=== PATIENT | male | born 2000 | race Caucasian/White ===

== ENCOUNTER 2022-04-30 20:58 | Emergency (ER) | payer MEDICAID, SELFPAY ==
[2022-04-30 21:09] VITALS: BP 124/80; PULSE 72; O2SAT 97
--- NOTE | 2022-04-30 22:09 | ECG_ITS ---
Test Reason : CHEST PAIN Blood Pressure : / mmHG Vent. Rate : 075 BPM Atrial Rate : 075 BPM P-R Int : 128 ms QRS Dur : 082 ms QT Int : 370 ms P-R-T Axes : 072 040 062 degrees QTc Int : 413 ms Normal sinus rhythm Normal ECG No previous ECGs available Referred By: Generic ED Physician Electronically Signed By:AMADOR DAVID
[2022-04-30 22:25] LABS: MANUAL DIFF FLAG NO
[2022-04-30 22:26] LABS: Basophils Absolute Auto 0.1 X10*3/uL (0.0-0.2); Basophils Percent Auto 0.8 % (0-2); Eosinophils Absolute Auto 0.1 X10*3/uL (0.0-0.4); Eosinophils Percent Auto 0.7 % (0-4); Hemoglobin 15.1 g/dl (14.0-18.0); Imm Gran Abs Auto 0.02 X10*3/uL (0.00-0.03); Imm Gran Pct Auto 0.2 % (0.0-0.4); Lymphocytes Absolute Auto 2.8 X10*3/uL (1.2-4.9); Lymphocytes Percent Auto 31.7 % (20-40); Mean Corpuscular HGB Conc 34.3 g/dl (31.0-36.0); Mean Corpuscular Hemoglobin 31.2 pg (27.0-33.0); Mean Corpuscular Volume 90.9 fL (80.0-98.0); Mean Platelet Volume 10.1 fL (9.4-12.4); Monocytes Absolute Auto 0.8 X10*3/uL (0.1-1.2); Monocytes Percent Auto 9.4 % (2-11); Neutrophils Percent Auto 57.2 % (45-73); Platelet Count 243 X10*3/uL (160-400); Red Blood Count 4.84 X10*6/uL (4.60-5.80); Red Cell Distribution Width 11.4 % (11.0-16.0); White Blood Count 8.8 X10*3/uL (4.8-10.8)
[2022-04-30 22:36] LABS: Anion Gap 14 (12-20); Blood Urea Nitrogen 7 mg/dL (9-16); Calcium 9.4 mg/dL (8.4-10.2); Carbon Dioxide 28 mmol/L (22-29); Chloride 103 mmol/L (96-108); Estimated Glomerular Filt Rate > 60; Glucose Random 92 mg/dL (60-115); Potassium 3.6 mmol/L (3.3-5.1); Sodium 141 mmol/L (135-145)
[2022-04-30 22:47] VITALS: BP 119/83; PULSE 73; RESP 16; TEMP 37.1; O2SAT 98; BMI 21.6
[2022-04-30 22:49] LABS: Troponin-I High Sensitivity < 3.5 ng/L (<3.5-35.0)
[2022-04-30 23:19] LABS: Amphetamine Screen Urine Not Detected (Not Detect); Barbiturates, Urine Not Detected (Not Detect); Benzodiazepines Screen Urine Not Detected (Not Detect); Cannabinoid Screen Urine POSITIVE (Not Detect); Cocaine Screen Urine Not Detected (Not Detect); Fentanyl, urine Not Detected (Not Detect); Opiate Screen Urine Not Detected (Not Detect); Phencyclidine Screen Urine Not Detected (Not Detect)
[2022-05-01 02:20] VITALS: BP 119/80; PULSE 67; RESP 18; O2SAT 97
[2022-05-01 02:24] VITALS: RESP 18
--- NOTE | 2022-05-01 03:35 | ED_ITS ---
HPI - Chest Pain General Chief Complaint: Chest Pain Stated Complaint: cp Time Seen by Provider: 05/01/22 03:35 Source: patient Mode of arrival: ambulatory Limitations: no limitations History of Present Illness HPI narrative: Patient 22 years old with no known significant medical history felt lightheaded dizzy after had a glass of wine an edible at noon time was anxious talking to his friend and suddenly passed out then complaining of pain all over the body including chest Review of Systems Review of Systems: Yes all other systems are reviewed and are negative [facility] Social History Social History Advance Directives: No Physical Exam Vital Signs: Vital Signs: Last Vital Signs Temp 98.8 F 04/30/22 22:47 Pulse 67 05/01/22 02:20 Resp 18 05/01/22 02:24 BP 119/80 05/01/22 02:20 Pulse Ox 97 05/01/22 02:20 O2 Del Method 05/01/22 02:20 BMI result Body Mass Index 21.6 Appearance: Alert. Oriented X3. No acute distress. Eyes: PERRLA, No Nystagmus ENT: Pharynx normal. Oral Mucosa moist Neck: Normal inspection. Neck supple. CVS: Normal heart rate and rhythm. Pulses normal. Respiratory: No respiratory distress. Equal air entry bilateral, no wheezing/rales/rhonchi Abdomen: Soft and nontender. Bowel sounds are present, no mass palpable, no CVA tenderness Skin: Skin warm and dry. Normal skin color. Normal skin turgor. Extremities: No lower extremity edema. No calf tenderness Neuro: Oriented X 3. No motor deficit. No sensory deficit.No cerebellar signs , cranial nerves II-XII intact MDM - Chest Pain MDM Narrative Medical decision making narrative: With atypical chest pain with anxiety use of THC with likely vasovagal attack labs are stable will discharge patient home Lab Data Attestation: I reviewed the patient's lab results. Result diagrams: 04/30/22 22:12 04/30/22 22:12 Labs: Lab Results 04/30/22 04/30/22 04/30/22 Range/Units 22:12 22:12 22:15 WBC 8.8 (4.8-10.8) X10*3/uL RBC 4.84 (4.60-5.80) X10*6/uL Hgb 15.1 (14.0-18.0) g/dl Hct 44.0 (42.0-52.0) % MCV 90.9 (80.0-98.0) fL MCH 31.2 (27.0-33.0) pg MCHC 34.3 (31.0-36.0) g/dl RDW 11.4 (11.0-16.0) % Plt Count 243 (160-400) X10*3/uL MPV 10.1 (9.4-12.4) fL Immature Gran % (Auto) 0.2 (0.0-0.4) % Neut % (Auto) 57.2 (45-73) % Lymph % (Auto) 31.7 (20-40) % [place] % (Auto) 9.4 (2-11) % Eos % (Auto) 0.7 (0-4) % Baso % (Auto) 0.8 (0-2) % Lymph # (Auto) 2.8 (1.2-4.9) X10*3/uL Rad[place] # (Auto) 0.8 (0.1-1.2) X10*3/uL Eos # (Auto) 0.1 (0.0-0.4) X10*3/uL Baso # (Auto) 0.1 (0.0-0.2) X10*3/uL Abs Immat Gran (auto) 0.02 (0.00-0.03) X10*3/uL Absolute Neuts (auto) 5.0 (2.0-8.3) x10*3/uL Absolute Nucleated RBC 0.000 (0.0-0.012) X10*3/uL Nucleated RBC % (auto) 0.0 (0.0-0.2) /100WBC Sodium 141 (135-145) mmol/L Potassium 3.6 (3.3-5.1) mmol/L Chloride 103 (96-108) mmol/L Carbon Dioxide 28 (22-29) mmol/L Anion Gap 14 (12-20) BUN 7 L (9-16) mg/dL Creatinine 0.80 (0.5-1.4) mg/dL Estim Creat Clear Calc TNP Estimated GFR > 60 Random Glucose 92 (60-115) mg/dL Calcium 9.4 (8.4-10.2) mg/dL Troponin I High Sens < 3.5 (<3.5-35.0) ng/L Urine Opiates Screen (Not Detect) Urine Fentanyl Screen (Not Detect) Ur Barbiturates Screen (Not Detect) Ur Phencyclidine Scrn (Not Detect) Ur Amphetamines Screen (Not Detect) U Benzodiazepines Scrn (Not Detect) Urine Cocaine Screen (Not Detect) U Marijuana (THC) Screen (Not Detect) 04/30/22 Range/Units 22:55 WBC (4.8-10.8) X10*3/uL RBC (4.60-5.80) X10*6/uL Hgb (14.0-18.0) g/dl Hct (42.0-52.0) % MCV (80.0-98.0) fL MCH (27.0-33.0) pg MCHC (31.0-36.0) g/dl RDW (11.0-16.0) % Plt Count (160-400) X10*3/uL MPV (9.4-12.4) fL Immature Gran % (Auto) (0.0-0.4) % Neut % (Auto) (45-73) % Lymph % (Auto) (20-40) % Radford % (Auto) (2-11) % Eos % (Auto) (0-4) % Baso % (Auto) (0-2) % Lymph # (Auto) (1.2-4.9) X10*3/uL Rad[place] # (Auto) (0.1-1.2) X10*3/uL Eos # (Auto) (0.0-0.4) X10*3/uL Baso # (Auto) (0.0-0.2) X10*3/uL Abs Immat Gran (auto) (0.00-0.03) X10*3/uL Absolute Neuts (auto) (2.0-8.3) x10*3/uL Absolute Nucleated RBC (0.0-0.012) X10*3/uL Nucleated RBC % (auto) (0.0-0.2) /100WBC Sodium (135-145) mmol/L Potassium (3.3-5.1) mmol/L Chloride (96-108) mmol/L Carbon Dioxide (22-29) mmol/L Anion Gap (12-20) BUN (9-16) mg/dL Creatinine (0.5-1.4) mg/dL Estim Creat Clear Calc Estimated GFR Random Glucose (60-115) mg/dL Calcium (8.4-10.2) mg/dL Troponin I High Sens (<3.5-35.0) ng/L Urine Opiates Screen Not Detected (Not Detect) Urine Fentanyl Screen Not Detected (Not Detect) Ur Barbiturates Screen Not Detected (Not Detect) Ur Phencyclidine Scrn Not Detected (Not Detect) Ur Amphetamines Screen Not Detected (Not Detect) U Benzodiazepines Scrn Not Detected (Not Detect) Urine Cocaine Screen Not Detected (Not Detect) U Marijuana (THC) Screen POSITIVE H (Not Detect) ECG Data ECG #1: Attestation: I personally reviewed and interpreted this ECG as follows: Interpretation: Normal sinus rhythm heart rate 75 beats per minute normal interval normal axis n o acute ST-T ischemia Discharge Plan Discharge Clinical Impression: Vaso vagal episode, Atypical chest pain Patient Disposition: Home, Self-Care Instructions: Chest Pain (ED), Near Syncope (ED) Additional Instructions: Drink plenty of fluids Follow with PCP if any concerns Interventions: ED Discharge Assessment Last Done: 05/01/22 03:43
== END 2022-05-01 03:52 | disposition home or self-care (01) ==
PROVIDERS: Emergency Provider Internal Medicine
DX: R55 Syncope and collapse (principal); R07.89 Other chest pain; R42 Dizziness and giddiness; F12.90 Cannabis use, unspecified, uncomplicated; Z79.899 Other long term (current) drug therapy
CPT/HCPCS: 36415; 80048; 80307; 84484; 85025; 93005; 99283; 99284

== ENCOUNTER 2023-01-16 10:52 | Emergency (ER) | payer MEDICAID, SELFPAY ==
--- NOTE | ~2023-01-16 | XR_ITS ---
EXAMINATION: XR ELBOW, LEFT CLINICAL INFORMATION: Trauma, pain COMPARISON: None available. TECHNIQUE: Left elbow is imaged in 3 views. FINDINGS: No fracture, dislocation, or elbow capsular effusion. The articular surfaces appear intact. No joint narrowing or erosive changes. Normal bony mineralization. No destructive process. XR/XR elbow LT min 3V IMPRESSION: Unremarkable left elbow.
--- NOTE | ~2023-01-16 | XR_ITS ---
EXAMINATION: XR ABDOMEN CLINICAL INFORMATION: Constipation COMPARISON: None TECHNIQUE: Frontal view. FINDINGS: There is increased amount of stool projecting over the distribution of the colon raising suspicion for constipation. There is no evidence of bowel obstruction, however. There is no evidence of abnormal calcifications. There is no acute skeletal structure changes. There is no evidence of small-bowel obstruction. There is no free air in the abdomen. XR/XR KUB IMPRESSION: Increased amount of stool in the colon suggesting constipation. Please correlate with clinical presentation.
--- NOTE | 2023-01-16 11:08 | ED.SYNCOPE ---
HPI - Syncope General Chief Complaint: Dizziness Stated Complaint: chest pain, hurt his arm Time Seen by Provider: 01/16/23 16:02 Source: patient, RN notes reviewed and old records reviewed Mode of arrival: ambulatory Limitations: no limitations History of Present Illness HPI narrative: 22-year-old male presents for evaluation of ?fainting. ? Patient reports that several times per week ?have chest pain, get dizzy and pass out. ? This most recent happened last night the patient fell onto his left side injuring his left elbow He denies hitting his head Per his partner, the patient was unconscious for approximately 1 minutes He denies any alcohol or drug abuse. He was seen here last April for a similar complaint, had negative workup and was discharged home The patient reports that he has never seen Cardiology for this Currently denies any chest pain or shortness of breath Patient also admits that he has issues with constipation and ?hemorrhoids. ? He reports he can feel a ball the left side of his rectum Of note, the patient reports that he is engages and receptive anal sex. Related Data Previous Rx's Medication Instructions Recorded magnesium citrate 300 ml PO DAILY PRN constipation 01/16/23 #296 mL polyethylene glycol 3350 17 gram 17 g PO DAILY 2 weeks #30 ea 01/16/23 oral powder packet (Miralax) Allergies Allergy/AdvReac Type Severity Reaction Status Date / Time penicillin G Allergy Rash Verified 01/16/23 11:09 Review of Systems Constitutional: Constitutional: Reports as per HPI, Denies chills, Denies fatigue, Denies fever(s) and Denies headache(s) ENT: Denies headache(s) Cardiovascular: Cardiovascular: Denies chest pain, Reports syncope and Denies dyspnea Respiratory: Respiratory: Denies cough and Denies dyspnea Gastrointestinal: Gastrointestinal: Denies abdominal pain, Reports constipation and Denies vomiting Genitourinary: Genitourinary: Denies difficulty urinating and Denies dysuria Neurologic: Reports syncope, Denies headache(s) and Denies focal weakness Endocrine: Endocrine: Denies fatigue [facility] Social History Social History Advance Directives: No Physical Exam Vital Signs: Vital Signs: Last Vital Signs Temp 99.1 F 01/16/23 17:02 Pulse 102 H 01/16/23 17:06 Resp 16 01/16/23 17:02 BP 108/79 01/16/23 17:06 Pulse Ox 97 01/16/23 17:02 O2 Del Method Room Air 01/16/23 17:02 BMI result Body Mass Index 22.8 Const: General: healthy appearing, comfortable, no acute distress, alert and awake Nutritional Appearance: well nourished Orientation/consciousness: patient oriented x3 HEENT: Head: Yes normocephalic and Yes atraumatic Eyes: Eyelids: Yes eyelids normal Conjunctivae: conjunctivae normal Sclerae: sclerae normal Corneas: corneas normal Pupils: Equal, round and reactive pupils present EOM: EOMs intact bilaterally Neck: Neck: Yes full ROM Resp: Effort & Inspection: normal respiratory effort, able to speak in complete sentences, no audible wheezes and not labored Auscultation: clear to auscultation bilaterally Cardio: Rate: regular rate Rhythm: regular rhythm GI: Inspection: No distended Palpation (GI): Soft to palpation, not firm, nontender, no guarding and not rigid Auscultation: normoactive bowel sounds Rectal Exam - Male: No visual inspection normal and Yes External hemorrhoid(s) present (Non thrombosed external hemorrhoid from the 9 to 7 o'clock position. ) Skin: General skin exam: no rashes or lesions noted and elasticity normal Neuro: General: patient oriented x3 Cranial nerves: Yes Equal, round and reactive pupils present and Yes Bilaterally intact EOM present Cognition (Neuro): normal cognition Course Course Course Narrative: RME - 22 yo male with history of anxiety, history of syncope who presents to the ER for evalution of recurrent syncope for the last several months. Last night he fell and hit his left arm which is what prompts him to get evaluated today. No head strike. He was seen here in the past for syncope - related to anxiety, etoh and thc. Prior to his episodes he reports mild dizziness. Denies current drugs or alcohol. Plan: EKG, lab workup, XR elbow Medical Decision Making Medical Decision Making MDM Narrative: 22-year-old male presents for evaluation of a chief complaint of syncope. He has a history of this that in the past has been attributed to anxiety. The patient has a EKG without any acute findings. Labs are without any abnormalities, we will check orthostatic vital signs. He is PERC negative without any risk factors for PE, he is not tachycardic or tachypneic. Less likely PE. Patient's left elbow x-ray does not show any evidence of fracture. Given his additional complaint of constipation and hemorrhoids, with a KUB to evaluate for degree of constipation. The patient will likely require cardiology follow-up as well as General surgery follow-up for his hemorrhoids. Differential Diagnosis Syncope Orthostasis Arrhythmia Anxiety Substance abuse Constipation External hemorrhoids Rectal prolapse Lab Data MDM Lab Attestation statement: I reviewed the patient's lab results. (No significant lab abnormalities. No leukocytosis) 01/16/23 11:28 01/16/23 11:28 Labs: Lab Results 01/16/23 01/16/23 01/16/23 Range/Units 11:28 11:28 11:28 WBC 7.3 (4.8-10.8) X10*3/uL RBC 4.88 (4.60-5.80) X10*6/uL Hgb 15.4 (14.0-18.0) g/dl Hct 45.3 (42.0-52.0) % MCV 92.8 (80.0-98.0) fL MCH 31.6 (27.0-33.0) pg MCHC 34.0 (31.0-36.0) g/dl RDW 11.4 (11.0-16.0) % Plt Count 255 (160-400) X10*3/uL MPV 10.3 (9.4-12.4) fL Immature Gran % (Auto) 0.4 (0.0-0.4) % Neut % (Auto) 62.3 (45-73) % Lymph % (Auto) 26.5 (20-40) % Ritchie % (Auto) 9.4 (2-11) % Eos % (Auto) 0.7 (0-4) % Baso % (Auto) 0.7 (0-2) % Lymph # (Auto) 1.9 (1.2-4.9) X10*3/uL Ritchie # (Auto) 0.7 (0.1-1.2) X10*3/uL Eos # (Auto) 0.1 (0.0-0.4) X10*3/uL Baso # (Auto) 0.1 (0.0-0.2) X10*3/uL Abs Immat Gran (auto) 0.03 (0.00-0.03) X10*3/uL Absolute Neuts (auto) 4.6 (2.0-8.3) x10*3/uL Absolute Nucleated RBC 0.000 (0.0-0.012) X10*3/uL Nucleated RBC % (auto) 0.0 (0.0-0.2) /100WBC Sodium 140 (135-145) mmol/L Potassium 4.0 (3.3-5.1) mmol/L Chloride 105 (96-108) mmol/L Carbon Dioxide 29 (22-29) mmol/L Anion Gap 10 L (12-20) BUN 11 (9-16) mg/dL Creatinine 0.71 (0.5-1.4) mg/dL Estim Creat Clear Calc 158.3 Estimated GFR > 60 Random Glucose 84 (60-115) mg/dL Calcium 9.8 (8.4-10.2) mg/dL Magnesium 1.9 (1.6-2.6) mg/dL Total Bilirubin 1.2 H (0.0-1.0) mg/dL Direct Bilirubin 0.3 (0.0-0.5) mg/dL AST 24 (5-37) U/L ALT 15 (0-40) U/L Alkaline Phosphatase 66 (39-117) U/L Total Protein 7.4 (6.5-8.0) g/dL Albumin 4.7 (3.5-5.0) g/dL Urine Opiates Screen (Not Detect) Urine Fentanyl Screen (Not Detect) Ur Barbiturates Screen (Not Detect) Ur Phencyclidine Scrn (Not Detect) Ur Amphetamines Screen (Not Detect) U Benzodiazepines Scrn (Not Detect) Urine Cocaine Screen (Not Detect) U Marijuana (THC) Screen (Not Detect) Ethyl Alcohol < 10 mg/dL 01/16/23 Range/Units 11:28 WBC (4.8-10.8) X10*3/uL RBC (4.60-5.80) X10*6/uL Hgb (14.0-18.0) g/dl Hct (42.0-52.0) % MCV (80.0-98.0) fL MCH (27.0-33.0) pg MCHC (31.0-36.0) g/dl RDW (11.0-16.0) % Plt Count (160-400) X10*3/uL MPV (9.4-12.4) fL Immature Gran % (Auto) (0.0-0.4) % Neut % (Auto) (45-73) % Lymph % (Auto) (20-40) % Ritchie % (Auto) (2-11) % Eos % (Auto) (0-4) % Baso % (Auto) (0-2) % Lymph # (Auto) (1.2-4.9) X10*3/uL Ritchie # (Auto) (0.1-1.2) X10*3/uL Eos # (Auto) (0.0-0.4) X10*3/uL Baso # (Auto) (0.0-0.2) X10*3/uL Abs Immat Gran (auto) (0.00-0.03) X10*3/uL Absolute Neuts (auto) (2.0-8.3) x10*3/uL Absolute Nucleated RBC (0.0-0.012) X10*3/uL Nucleated RBC % (auto) (0.0-0.2) /100WBC Sodium (135-145) mmol/L Potassium (3.3-5.1) mmol/L Chloride (96-108) mmol/L Carbon Dioxide (22-29) mmol/L Anion Gap (12-20) BUN (9-16) mg/dL Creatinine (0.5-1.4) mg/dL Estim Creat Clear Calc Estimated GFR Random Glucose (60-115) mg/dL Calcium (8.4-10.2) mg/dL Magnesium (1.6-2.6) mg/dL Total Bilirubin (0.0-1.0) mg/dL Direct Bilirubin (0.0-0.5) mg/dL AST (5-37) U/L ALT (0-40) U/L Alkaline Phosphatase (39-117) U/L Total Protein (6.5-8.0) g/dL Albumin (3.5-5.0) g/dL Urine Opiates Screen Not Detected (Not Detect) Urine Fentanyl Screen Not Detected (Not Detect) Ur Barbiturates Screen Not Detected (Not Detect) Ur Phencyclidine Scrn Not Detected (Not Detect) Ur Amphetamines Screen Not Detected (Not Detect) U Benzodiazepines Scrn Not Detected (Not Detect) Urine Cocaine Screen Not Detected (Not Detect) U Marijuana (THC) Screen Not Detected (Not Detect) Ethyl Alcohol mg/dL Independent Interpretation I performed an independent interpretation of an: EKG (Normal sinus rhythm at a rate of 79 beats per minute. No ectopy, no ST segment changes. Nonischemic EKG) and Plain X-Ray (No obvious fracture of the left elbow) Discharge Plan Discharge Clinical Impression: Syncope, Acute constipation, External hemorrhoid Patient Disposition: Home, Self-Care Instructions: Constipation (ED), Syncope (ED) Additional Instructions: Your cardiac workup in the emergency from today was reassuring. There were no concerning abnormalities. However given your frequent episodes of passing out, you should follow-up with cardiology for Holter monitor Follow-up with Dr. Ascencio at the number provided. For constipation, you should increase fluid and fiber intake in your diet You should start taking MiraLax daily for the next 2 weeks Take magnesium citrate as well Follow-up with your primary doctor Prescriptions: New polyethylene glycol 3350 [Miralax] 17 gram powder in packet 17 g PO DAILY 14 Days Qty: 30 0RF magnesium citrate Solution 300 ml PO DAILY PRN (Reason: constipation) Qty: 296 0RF Referrals: Andrew Ascencio MD [Physician] - (frequent syncope. ? holter monitor) Rios Reese MD [Physician] - (needs colo-rectal for hemorrhoids) Stand Alone Forms: Work/School Release
[2023-01-16 11:10] VITALS: BP 127/80; PULSE 86; RESP 18; TEMP 36.9; O2SAT 96; BMI 22.8
--- NOTE | 2023-01-16 11:10 | ECG_ITS ---
Test Reason : SYNCOPE Blood Pressure : / mmHG Vent. Rate : 079 BPM Atrial Rate : 079 BPM P-R Int : 130 ms QRS Dur : 080 ms QT Int : 348 ms P-R-T Axes : 074 044 067 degrees QTc Int : 399 ms Normal sinus rhythm Normal ECG When compared with ECG of 30-APR-2022 22:11, No significant change was found Referred By: Sabiha Santana Electronically Signed By:REZA AVENDANO MD
[2023-01-16 11:43] LABS: MANUAL DIFF FLAG NO
[2023-01-16 11:45] LABS: Basophils Absolute Auto 0.1 X10*3/uL (0.0-0.2); Basophils Percent Auto 0.7 % (0-2); Eosinophils Absolute Auto 0.1 X10*3/uL (0.0-0.4); Eosinophils Percent Auto 0.7 % (0-4); Hematocrit 45.3 % (42.0-52.0); Hemoglobin 15.4 g/dl (14.0-18.0); Imm Gran Abs Auto 0.03 X10*3/uL (0.00-0.03); Imm Gran Pct Auto 0.4 % (0.0-0.4); Lymphocytes Absolute Auto 1.9 X10*3/uL (1.2-4.9); Lymphocytes Percent Auto 26.5 % (20-40); Mean Corpuscular Hemoglobin 31.6 pg (27.0-33.0); Mean Corpuscular Volume 92.8 fL (80.0-98.0); Mean Platelet Volume 10.3 fL (9.4-12.4); Monocytes Absolute Auto 0.7 X10*3/uL (0.1-1.2); Monocytes Percent Auto 9.4 % (2-11); Neutrophils Absolute Auto 4.6 x10*3/uL (2.0-8.3); Neutrophils Percent Auto 62.3 % (45-73); Platelet Count 255 X10*3/uL (160-400); Red Blood Count 4.88 X10*6/uL (4.60-5.80); Red Cell Distribution Width 11.4 % (11.0-16.0); White Blood Count 7.3 X10*3/uL (4.8-10.8)
[2023-01-16 12:01] LABS: Amphetamine Screen Urine Not Detected (Not Detect); Barbiturates, Urine Not Detected (Not Detect); Benzodiazepines Screen Urine Not Detected (Not Detect); Cannabinoid Screen Urine Not Detected (Not Detect); Cocaine Screen Urine Not Detected (Not Detect); Fentanyl, urine Not Detected (Not Detect); Opiate Screen Urine Not Detected (Not Detect); Phencyclidine Screen Urine Not Detected (Not Detect)
[2023-01-16 12:02] LABS: Ethanol < 10 mg/dL
[2023-01-16 12:03] LABS: Alanine Aminotransferase 15 U/L (0-40); Albumin Level 4.7 g/dL (3.5-5.0); Alkaline Phosphatase 66 U/L (39-117); Anion Gap 10 (12-20); Aspartate Amino Transferase 24 U/L (5-37); Bilirubin Direct 0.3 mg/dL (0.0-0.5); Bilirubin Total 1.2 mg/dL (0.0-1.0); Blood Urea Nitrogen 11 mg/dL (9-16); Calcium 9.8 mg/dL (8.4-10.2); Carbon Dioxide 29 mmol/L (22-29); Chloride 105 mmol/L (96-108); Creatinine Clr Calc Pharmacy 158.3; Estimated Glomerular Filt Rate > 60; Glucose Random 84 mg/dL (60-115); Magnesium 1.9 mg/dL (1.6-2.6); Sodium 140 mmol/L (135-145); Total Protein 7.4 g/dL (6.5-8.0)
[2023-01-16 15:04] VITALS: BP 106/66; PULSE 75; RESP 14; TEMP 36.7; O2SAT 97
[2023-01-16 16:42] VITALS: BP 116/70; PULSE 75
[2023-01-16 17:02] VITALS: BP 116/70; PULSE 75; RESP 16; TEMP 37.3; O2SAT 97
[2023-01-16 17:04] VITALS: BP 108/71; PULSE 86
[2023-01-16 17:06] VITALS: BP 108/79; PULSE 102
== END 2023-01-16 18:05 | disposition home or self-care (01) ==
PROVIDERS: Physician Assistant; Emergency Provider Emergency Medicine; PCP Student in an Organized Health Care Education/Training Program
DX: R55 Syncope and collapse (principal); K59.00 Constipation, unspecified; K64.4 Residual hemorrhoidal skin tags; R07.9 Chest pain, unspecified; R42 Dizziness and giddiness; Z79.899 Other long term (current) drug therapy
CPT/HCPCS: 36415; 73080; 74018; 80048; 80076; 80307; 83735; 85025; 93005; 99284; 99285

== ENCOUNTER → 2023-01-24 14:15 | Outpatient (BNVA) | payer MEDICAID, SELFPAY | PROVIDERS: PCP Student in an Organized Health Care Education/Training Program; Visit Provider Surgery | DX: L72.3 Sebaceous cyst (principal) | CPT/HCPCS: 99202 ==

== ENCOUNTER 2023-02-12 16:40 | Emergency (ER) | payer MEDICAID, SELFPAY ==
--- NOTE | ~2023-02-12 | XR_ITS ---
EXAMINATION: XR HAND, LEFT CLINICAL INFORMATION: Puncture wound. COMPARISON: None available. TECHNIQUE: PA, lateral, and oblique views of the left hand. FINDINGS: The bones and soft tissues are normal. No fracture. Alignment is anatomic. Joint spaces are maintained. No erosions or soft tissue calcifications. XR/XR hand LT min 3V IMPRESSION: Normal left hand.
[2023-02-12 16:53] VITALS: BP 119/82; PULSE 83; RESP 15; TEMP 36.6; O2SAT 98; BMI 23.1
--- NOTE | 2023-02-12 16:53 | ED.GENADULT ---
HPI - General Adult General Chief complaint: Wound/Laceration Stated complaint: Finger lac Time Seen by Provider: 02/12/23 17:14 History of Present Illness HPI narrative: patient complains of left index finger pain after hitting a nail through the tip of his left index finger, he pulled the nail out himself He is not sure if he is up-to-date on tetanus shot He denies any other injury no other complaints, denies any numbness or weakness or loss of sensation Related Data Previous Rx's Medication Instructions Recorded magnesium citrate 300 ml PO DAILY PRN constipation 01/16/23 #296 mL polyethylene glycol 3350 17 gram 17 g PO DAILY 2 weeks #30 ea 01/16/23 oral powder packet (Miralax) Allergies Allergy/AdvReac Type Severity Reaction Status Date / Time penicillin G Allergy Rash Verified 02/12/23 16:53 [facility] Past Medical History Source: nursing notes reviewed Social History Social History Advance Directives: No Advance Directives Information Provided: No Physical Exam ED Vital Signs: Vital Signs - 24 hr 02/12/23 16:53 Temperature 98 F Pulse Rate 83 Respiratory Rate 15 Blood Pressure 119/82 Pulse Oximetry 98 Oxygen Delivery Method Room Air BMI result Body Mass Index 23.1 general appearance is no acute distress There are 2 small wounds on the tip of the index finger, no significant laceration It is neurovascular intact distal, the nail is unaffected there is full range of motion in the D IP joint, sensation is intact Other extremities normal Course Course Course Narrative: This is an RME: Additional HPI, ROS, PE not included below will be deferred to primary provider. Patient is a 22-year-old male with a past medical history sebaceous cyst presenting with a left pointer finger puncture wound from a zay nail. Patient reports being up-to-date on tetanus. Patient denies fever, chills, nausea, vomiting, loss of consciousness, vision changes, headache, numbness, tingling. Plan: x ray X-ray did not show any broken bone or obvious foreign body Patient's wound was cleaned, tetanus shot given, and Keflex for 3 days, patient denies any allergy Medications Administered Discontinued Medications Generic Name Dose Route Start Last Admin Trade Name Freq PRN Reason Stop Dose Admin Diphtheria/Tetanus/Acell Pertussis 0.5 ml 02/12/23 17:35 02/12/23 17:47 Diphth,Pertus(Acell),Tet Adult 0.5 Ml Syringe IM 02/12/23 17:36 0.5 ml .ONCE ONE Administration Discharge Plan Discharge Clinical Impression: Puncture wound Patient Disposition: Home, Self-Care Additional Instructions: x-ray did not show any broken bone You got a tetanus shot today We are giving 3 days of preventative antibiotic to prevent infection Return any time for redness swelling pain any sign of infection any worse condition or any concerns You can remove the tape in 3 or 4 days Prescriptions: No Action polyethylene glycol 3350 [Miralax] 17 gram powder in packet 17 g PO DAILY 14 Days Qty: 30 0RF magnesium citrate Solution 300 ml PO DAILY PRN (Reason: constipation) Qty: 296 0RF
[2023-02-12] MEDS: Diphth,Pertus(ACell),Tet Adult 0.5 ML SYRINGE IM (17:47)
[2023-02-12] MEDS: Doxycycline Monohydrate 100 MG CAPSULE PO (18:16)
== END 2023-02-12 18:19 | disposition home or self-care (01) ==
PROVIDERS: Emergency Provider Student in an Organized Health Care Education/Training Program; PCP Student in an Organized Health Care Education/Training Program
DX: S61.231A Puncture wound without foreign body of left index finger without damage to nail, initial encounter (principal); W45.0XXA Nail entering through skin, initial encounter; Y93.9 Activity, unspecified; Y92.9 Unspecified place or not applicable; Y99.9 Unspecified external cause status
CPT/HCPCS: 73130; 90471; 90715; 99282; 99284

== ENCOUNTER 2023-04-11 08:30 | Outpatient (REF) | payer MEDICAID, SELFPAY ==
[2023-04-11 11:08] LABS: MANUAL DIFF FLAG NO
[2023-04-11 11:28] LABS: Basophils Absolute Auto 0.1 X10*3/uL (0.0-0.2); Basophils Percent Auto 0.8 % (0-2); Eosinophils Absolute Auto 0.1 X10*3/uL (0.0-0.4); Eosinophils Percent Auto 0.8 % (0-4); Hematocrit 45.8 % (42.0-52.0); Hemoglobin 15.6 g/dl (14.0-18.0); Imm Gran Abs Auto 0.04 X10*3/uL (0.00-0.03); Imm Gran Pct Auto 0.6 % (0.0-0.4); Lymphocytes Percent Auto 31.2 % (20-40); Mean Corpuscular HGB Conc 34.1 g/dl (31.0-36.0); Mean Corpuscular Hemoglobin 31.9 pg (27.0-33.0); Mean Corpuscular Volume 93.7 fL (80.0-98.0); Monocytes Absolute Auto 0.6 X10*3/uL (0.1-1.2); Monocytes Percent Auto 9.1 % (2-11); Neutrophils Absolute Auto 3.6 x10*3/uL (2.0-8.3); Neutrophils Percent Auto 57.5 % (45-73); Platelet Count 252 X10*3/uL (160-400); Red Blood Count 4.89 X10*6/uL (4.60-5.80); Red Cell Distribution Width 11.1 % (11.0-16.0); White Blood Count 6.3 X10*3/uL (4.8-10.8)
[2023-04-11 11:58] LABS: Alanine Aminotransferase 15 U/L (0-40); Albumin Level 4.6 g/dL (3.5-5.0); Alkaline Phosphatase 68 U/L (39-117); Anion Gap 12 (12-20); Aspartate Amino Transferase 21 U/L (5-37); Bilirubin Total 0.5 mg/dL (0.0-1.0); Blood Urea Nitrogen 7 mg/dL (9-16); Calcium 9.7 mg/dL (8.4-10.2); Carbon Dioxide 29 mmol/L (22-29); Chloride 105 mmol/L (96-108); Cholesterol 149 mg/dL (<200); Estimated Glomerular Filt Rate > 60; Glucose Random 84 mg/dL (60-115); HDL Cholesterol 43 mg/dL (>40); LDL Cholesterol Calculated 98 mg/dL (<100); Potassium 3.6 mmol/L (3.3-5.1); Sodium 142 mmol/L (135-145); Triglycerides 44 mg/dL (<150)
[2023-04-11 11:59] LABS: TSH reflex Free T4 2.63 uIU/mL (0.32-4.0)
[2023-04-11 12:19] LABS: Hemoglobin A1c % < 4.0 % (<6.0)
[2023-04-11 15:54] LABS: CT PCR NOT DETECTED (Not Detect.); NG PCR NOT DETECTED (Not Detect.)
[2023-04-12 04:32] LABS: Syphilis Screen Nonreactive (Nonreactive)
[2023-04-12 04:42] LABS: HBS Num1 0.19 mIU/mL (0-7.99); HBc Num1 0.11 S/CO (0.00-0.79); HBsAGNum1 0.37 S/CO (0.00-0.99); HIV AB/AG Nonreactive (Nonreactive); HIV Num 1 0.05 S/CO (0.00-0.99); Hepatitis B Core Antibody Nonreactive (Nonreactive); Hepatitis B Surface Antigen Negative (Negative); ~HepC Num1 0.08 S/CO (0.00-0.79); ~Hepatitis B Surface Antibody NONREACTIVE (Nonreactive); ~Hepatitis C Antibody Nonreactive (Nonreactive)
[2023-04-14 10:09] LABS: HIV RNA PCR Qn Copies NOT DETECTED copies/mL (NOT DETECTED); HIV RNA PCR Qn Log Copies NOT DETECTED (NOT DETECTED)
== END 2023-04-11 08:31 | disposition home or self-care (01) ==
LOC: HO.HHCL 08:30
PROVIDERS: Visit Provider Student in an Organized Health Care Education/Training Program
DX: Z00.00 Encounter for general adult medical examination without abnormal findings (principal); Z11.4 Encounter for screening for human immunodeficiency virus [HIV]
CPT/HCPCS: 0353U; 80053; 80061; 83036; 84443; 85025; 86704; 86706; 86780; 86803; 87340; 87389; 87536

== ENCOUNTER 2023-04-25 13:10 | Outpatient (AMB) | payer MEDICAID, SELFPAY ==
[2023-04-25 13:12] VITALS: BP 100/62; PULSE 86; BMI 21.9
--- NOTE | 2023-04-25 13:12 | A.OFFVIS_ITS ---
Intake Vital Signs 04/25/23 13:12 Height 5 ft 8 in Weight 144 lb 2.917 oz BMI 21.9 BP 100/62 Blood Pressure Location Lt brachial Position Sitting Pulse 86 Intake Visit Reasons: NPV/Syncope and collapse/E. 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 He states he frequently gets sensations when he is going to pass out. This can happen any position when he is sitting or standing but more so when he is standing. He feels dizzy and then at the same time he also feels his heart pounding with some vague chest discomfort and then apparently passed out. He believes he is on the ground. Not clear if this has been witnessed. Otherwise, no known cardiac issues in the past. No history of any coronary artery disease or myocardial infarction or cardiomyopathy or in fact any other cardiac concerns according to patient. He does have anxiety and depression but these episodes feel different according to him. He has listed to be on clonidine but apparently he had these episodes even before he was on clonidine. [facility] Medical History (Updated 04/25/23 @ 13:22 by Tay Deras MD) Anxiety and depression Surgical History (Updated 04/25/23 @ 13:16 by Tootie Mayo) No pertinent past surgical history Family History (Updated 04/25/23 @ 13:16 by Tootie Mayo) Maternal Grandmother Heart attack HTN (hypertension) Social History (Updated 04/25/23 @ 13:15 by Tootie Mayo) Alcohol intake: never Patient Tobacco Use Status: Never used Tobacco Review of Systems Const Denies chills, Denies daytime sleepiness, Denies fatigue, Denies fever(s), Denies frequent falls, Denies night sweats, Denies snoring, Denies weakness, Denies weight gain and Denies weight loss Eyes Denies loss of vision ENT Denies dizziness and Denies hearing loss Card Denies chest pain, Denies chest pain with activity, Denies syncope, Denies rapid heart rate, Denies edema, Denies claudication, Denies leg edema, Denies lightheadedness, Denies palpitations, Denies dyspnea, Denies dyspnea on exertion and Denies orthopnea Resp Denies cough, Denies excessive phlegm production, Denies dyspnea, Denies dyspnea on exertion, Denies snoring and Denies wheezing GI Denies abdominal pain, Denies hematochezia, Denies change in bowel habits, Denies change in stool character, Denies heartburn, Denies nausea and Denies vomiting Denies hematuria, Denies dysuria and Denies urinary frequency Musc Denies arthralgias, Denies muscle weakness, Denies numbness and Denies tingling Skin/Breast Denies nail changes and Denies rash Neuro Denies Abnormal speech present, Denies dizziness, Denies syncope, Denies frequent falls, Denies loss of vision, Denies memory loss, Denies numbness, Denies tingling and Denies weakness Psych Denies depression and Denies memory loss Endo Denies fatigue and Denies palpitations Aller/Immun Denies wheezing Physical Exam Vital Signs: Last Vital Signs Pulse 86 04/25/23 13:12 BP 100/62 04/25/23 13:12 BMI result Body Mass Index 21.9 Const General: comfortable and no acute distress Orientation/consciousness: patient oriented x3 HEENT Other: Unremarkable Head: Yes normal to inspection Neck Neck: Yes normal visual inspection Chest Chest palpation & inspection: normal inspection of the chest Resp Auscultation: clear to auscultation bilaterally Cardio Palpation: normal PMI Heart sounds: S1 normal heart sound present, S2 normal heart sound present, no gallops, no murmurs and no rubs GI Palpation (GI): Soft to palpation Back/Spine/Pelvis Other: unremarkable Skin General skin exam: no rashes or lesions noted Neuro General: patient oriented x3 Speech: No Abnormal speech present Extrem General: Yes normal to inspection Psych Mental Status: mental status grossly normal Assessment & Plan Assessment & Plan (1) Syncope and collapse: Code(s): R55 - Syncope and collapse Plan EKG with sinus rhythm at 79/Min; no significant ST-T changes and otherwise unremarkable. Normal [place] and corrected QT. Etiology for his constellation of symptoms including palpitations/dizziness/syncope/atypical chest pain not clear. We will start with an echocardiogram, 30 day monitor and a tilt-table test. Could all be vasovagal. Orthostatic blood pressure drop possible. Doubt arrhythmogenic etiology. If these are all ruled out, then could also be anxiety/panic attacks. Plan to follow-up once testing is completed. Also discussed with family member -aunt, who came for appointment. Orders: Orders CA echo transthoracic complete Today R55 - Syncope and collapse ECG 30 day event monitor Today R55 - Syncope and collapse ECG Tilt Table Test Today R55 - Syncope and collapse Coding Level of Care Code New Pt Level 4 (10800) Diagnoses Syncope and collapse R55
== END 2023-04-25 13:42 | disposition home or self-care (01) ==
PROVIDERS: PCP Student in an Organized Health Care Education/Training Program; Visit Provider Internal Medicine
DX: R55 Syncope and collapse (principal)
CPT/HCPCS: 99204

== ENCOUNTER → 2023-04-25 13:10 | Outpatient (BNVA) | payer MEDICAID, SELFPAY | PROVIDERS: PCP Student in an Organized Health Care Education/Training Program; Visit Provider Internal Medicine ==

== ENCOUNTER → 2023-05-01 08:29 | Outpatient (REF) | payer MEDICAID, SELFPAY ==
--- NOTE | 2023-05-01 08:31 | HM_ITS ---
Cardiac event monitor Indication: Syncope Technique: Patient was hooked up to cardiac event monitor on 05/01/2023 for total period of 30 days with compliance rate of 83.3%. One rhythm strip was recorded with good quality Findings: Baseline was normal sinus rhythm with no significant pauses noted. Maximum heart rate 166 beats per minute and minimum heart rate of 50 beats per minute with overall good heart rate variability. No significant arrhythmias or AV conduction abnormality noted Patient marked the button 5 times without associated symptoms correlating with either sinus rhythm or sinus tachycardia Conclusion: 1. Baseline was normal sinus rhythm with no significant pauses 2. No significant arrhythmias 3. Patient marked the counter 5 times without any significant arrhythmias MTDD
--- NOTE | 2023-05-01 08:31 | CA_ITS ---
Transthoracic Echocardiogram Patient (Last, First, Middle): Monster Gutierrez, Gender: Male Date of : 2000 Age: 23 Procedure Date: 05/01/2023 Procedure Type: Transthoracic Echocardiogram Location: OP Height: 172.72 cm Weight: 65.77 kg BSA: 1.78 m2 Heart Rate: bpm BP: 125 / 88 mmHg Industrial Safety And Health Technician: TO Referring MD: Tay Deras MD Nanotechnologist: Andrew Ascencio MD Symptoms: R55 - Syncope and collapse Study Quality: Good ECG Rhythm: Sinus Conclusions: - Essentially normal study Findings Left Ventricle Normal left ventricular cavity size. There is normal left ventricular wall thickness. The left ventricular systolic function is low normal. The visually estimated ejection fraction is between 50-55%. Diastolic function is normal for age. Right Ventricle Normal right ventricular cavity size and systolic function. Atria Both atria are normal in size. There is no evidence of interatrial shunt. Aortic Valve Normal aortic valve structure and function. There is no aortic valve stenosis. There is no aortic valve regurgitation. Mitral Valve Normal mitral valve structure and function. There is trace mitral valve regurgitation. There is no mitral valve stenosis. Pulmonic Valve The pulmonic valve is likely normal. There is trace pulmonic valve regurgitation. Tricuspid Valve Normal tricuspid valve structure. There is trace tricuspid valve regurgitation. The right ventricular systolic pressure is normal. The right ventricular systolic pressure is 15 mmHg. Normal right atrial pressure. There is no evidence of pulmonary hypertension. Great Vessels All visible segments of the aorta are normal in size. The pulmonary artery was not well visualized. Venous The inferior vena cava is normal in size and collapses greater than 50% with inspiration. Pericardium/Pleural There is no evidence of pericardial effusion. Prior Study Comparison No prior study available for comparison. Measurements 2D Linear Measurements IVSd: 0.80 0.6-0.9/0.6-1.0 cm LVIDd: 5.70 3.9-5.3/4.2-5.9 cm LVIDd Index: 3.20 2.4-3.2/2.2-3.1 cm/m2 LVIDs: 4.20 2.0-3.6 cm LVPWd: 0.70 0.7-1.1 cm LA Diam: 3.20 2.7-3.8/3.0-4.0 cm LAIDs Index: 1.80 1.5-2.3 cm/m2 LV Mass: 195.58 67-162/88-224 g LV Mass Index: 109.87 43-95/49-115 g/m2 LVOT Diam: 2.10 3.0+(-)1.3 cm 2D Systolic Function EF 4C: 0.00 >55% EF 2C: 0.00 >55% Mitral Valve MV Pk E: 0.69 MV PK A: 0.42 MV Decel Time: 184.00 E/A: 1.60 E'Lateral: 14.40 E'Medial: 9.25 E/E' Med: 7.40 E/E' Lat: 4.80 PHT: 54.00 MVA PHT: 4.07 Decel [place]: 3.72 Aortic Valve AoV Pk Roberto: 1.08 AoV Mn Roberto: 0.67 AoV VTI: 0.21 AoV Pk Grad: 5.00 Aov Mn Grad: 2.00 RICHARDSON Cont.VTI: 2.70 LVOT LVOT Pk Roberto: 0.70 LVOT Mn Roberto: 0.47 LVOT VTI: 0.16 LVOT Pk Grad: 2.00 LVOT Mn Grad: 1.00 LVOT Diam: 2.10 LVOT Area: 3.46 Diastolic Function MV Pk E: 0.69 MV Pk A: 0.42 E/A: 1.60 E'Medial: 9.25 E/E' Med: 7.40 E' Laterial: 14.40 E/E' Lat: 4.80 Right Ventricle TAPSE (mm): 18.30 TVS' Roberto: 11.20 Tricuspid Valve TR Pk Roberto: 1.74 TR Pk Grad: 12.00 RA Press: 3.00 RVSP: 15.00 Great Vessels Aorta Sinus of Valsalva: 2.80 2.0-3.5 cm Ao Asc: 2.40 2.1-3.4 cm Updated in Other Vendor System with Status of Final Andrew Ascencio MD electronically signed on 05/01/2023 3:30:55 PM with status of Final
== END ==
LOC: HO.CARD 08:29
PROVIDERS: PCP Student in an Organized Health Care Education/Training Program; Visit Provider Internal Medicine
DX: R55 Syncope and collapse (principal)
CPT/HCPCS: 93270; 93306

== ENCOUNTER → 2023-05-01 08:31 | Outpatient (BNV) | payer MEDICAID, SELFPAY | PROVIDERS: PCP Student in an Organized Health Care Education/Training Program; Visit Provider Internal Medicine Cardiovascular Disease | DX: R55 Syncope and collapse (principal) | CPT/HCPCS: 93272; 93306 ==

== ENCOUNTER 2023-07-16 14:15 | Outpatient (AMB) | payer MEDICAID, SELFPAY ==
[2023-07-16 14:28] VITALS: BP 120/82; PULSE 73; BMI 22.3
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
== END 2023-07-16 15:06 | disposition home or self-care (01) ==
PROVIDERS: PCP Student in an Organized Health Care Education/Training Program; Visit Provider Nurse Practitioner Family
DX: R55 Syncope and collapse (principal)
CPT/HCPCS: 99213

== ENCOUNTER → 2023-07-16 14:15 | Outpatient (BNVA) | payer MEDICAID, SELFPAY | PROVIDERS: PCP Student in an Organized Health Care Education/Training Program; Visit Provider Nurse Practitioner Family | DX: R55 Syncope and collapse (principal) | CPT/HCPCS: 99212 ==

== ENCOUNTER 2023-07-26 14:08 | Outpatient (REF) | payer MEDICAID, SELFPAY ==
[2023-07-31 21:54] LABS: HIV RNA PCR Qn Copies NOT DETECTED copies/mL (NOT DETECTED); HIV RNA PCR Qn Log Copies NOT DETECTED (NOT DETECTED)
== END 2023-07-26 14:09 | disposition home or self-care (01) ==
LOC: HO.HHCL 14:08
PROVIDERS: Visit Provider Student in an Organized Health Care Education/Training Program
DX: Z79.899 Other long term (current) drug therapy (principal)
CPT/HCPCS: 36415; 87536

== ENCOUNTER 2023-08-09 15:35 | Outpatient (REF) | payer MEDICAID, SELFPAY ==
[2023-08-15 21:09] LABS: C. Trachomatis RNA TMA, Throat NOT DETECTED; N. gonorrhoeae RNA TMA, Throat NOT DETECTED
== END 2023-08-09 15:36 | disposition home or self-care (01) ==
LOC: HO.HHCL 15:35
PROVIDERS: Visit Provider Emergency Medicine
DX: Z11.52 Encounter for screening for COVID-19 (principal); Z11.4 Encounter for screening for human immunodeficiency virus [HIV]; Z11.3 Encounter for screening for infections with a predominantly sexual mode of transmission; R10.32 Left lower quadrant pain
CPT/HCPCS: 0241U; 0353U; 36415; 80053; 82150; 83690; 85025; 85652; 86140; 86704; 86706; 86709; 86780; 86803; 87070; 87340; 87389; 87491; 87591

== ENCOUNTER 2023-08-28 14:11 | Outpatient (REF) | payer MEDICAID, SELFPAY ==
[2023-08-29 08:03] LABS: Syphilis Screen Nonreactive (Nonreactive)
[2023-08-29 08:14] LABS: ~HepC Num1 0.09 S/CO (0.00-0.79); ~Hepatitis C Antibody Nonreactive (Nonreactive)
[2023-08-30 17:43] LABS: HIV RNA PCR Qn Copies NOT DETECTED copies/mL (NOT DETECTED); HIV RNA PCR Qn Log Copies NOT DETECTED (NOT DETECTED)
== END 2023-08-28 14:12 | disposition home or self-care (01) ==
LOC: HO.HHCL 14:11
PROVIDERS: Visit Provider Student in an Organized Health Care Education/Training Program
DX: Z79.899 Other long term (current) drug therapy (principal)
CPT/HCPCS: 36415; 86780; 86803; 87536

== ENCOUNTER 2023-09-17 11:59 | Emergency (ER) | payer MEDICAID, SELFPAY ==
[2023-09-17] VITALS (9 sets, daily range): BP systolic 83–100; BP diastolic 42–62; PULSE 47–77; RESP 16–18; TEMP 35.5–36.5; O2SAT 96–99; BMI 21.5
--- NOTE | ~2023-09-17 | XR_ITS ---
EXAMINATION: XR CHEST CLINICAL INFORMATION: Lightheaded COMPARISON: None available. TECHNIQUE: Frontal view of the chest was obtained. FINDINGS: No significant abnormality is noted involving the heart, lungs, mediastinum, bony thorax or soft tissues. XR/XR chest 1V IMPRESSION: Unremarkable examination.
--- NOTE | ~2023-09-17 | CT_ITS ---
CT HEAD WITHOUT IV CONTRAST CLINICAL INFORMATION: Headache, dizziness, blurry vision. COMPARISON: None available. TECHNIQUE: Contiguous axial imaging was performed from the skull base to vertex without intravenous administration of contrast. This CT examination was performed using dose optimization techniques as appropriate, variously including the following: *Automated exposure control *Adjustment of mA and/or kV according to patient size (this includes techniques or standardized protocols for targeted exams where dose is matched to indication/reason for exam; i.e. extremities or head) *Use of iterative reconstruction technique FINDINGS: There is no intracranial hemorrhage, hydrocephalus, extra-axial surface collection, midline shift, or other herniation pattern. Cade to white matter differentiation is diffusely maintained without evidence of an evolved acute territorial infarct. The basilar cisterns are preserved. No significant soft tissue abnormality. No acute osseous abnormality. The paranasal sinuses and the mastoid air cells are well aerated. CT/CT head/brain wo IV con IMPRESSION: No acute intracranial abnormality.
--- NOTE | 2023-09-17 12:21 | ECG_ITS ---
Test Reason : PRE-SYNCOPAL Blood Pressure : / mmHG Vent. Rate : 054 BPM Atrial Rate : 054 BPM P-R Int : 132 ms QRS Dur : 082 ms QT Int : 416 ms P-R-T Axes : 067 046 051 degrees QTc Int : 394 ms Sinus bradycardia with sinus arrhythmia Otherwise normal ECG When compared with ECG of 16-JAN-2023 11:13, No significant change was found Referred By: Sarbjit Abdi Electronically Signed By:Troy Jurado
--- NOTE | 2023-09-17 12:21 | ED_ITS ---
HPI - General Adult General Chief complaint: Dizziness Stated complaint: WEAK,DIZZY,NAUSEA,LOW BP 98/60 PER EMS Time Seen by Provider: 09/17/23 12:29 Source: patient, EMS, RN notes reviewed and old records reviewed Mode of arrival: EMS History of Present Illness HPI narrative: 23-year-old male with a past medical history anxiety/depression, vasovagal syncope, presenting to the ED via EMS complaining of generalized fatigue/weakness, lightheadedness/dizziness, headache, and nausea beginning this morning around 10:00AM. States woke up around 09:45AM, walked to the bathroom, then subsequently felt lightheaded/dizzy with blurry vision. Denies fever/chills, chest pain/shortness of breath, vomiting, diarrhea, melena/brbpr, hematuria, recent illness, travel. Of note patient with multiple syncopal episodes in July, was evaluated/worked up by Cardiology diagnosed with vasovagal syncope. Related Data Home Medications Medication Instructions Recorded Confirmed clonidine HCl 0.1 mg tablet 0.1 mg PO DAILY PRN 04/25/23 07/16/23 hydroxyzine HCl 10 mg tablet 10 mg PO BEDTIME PRN 07/16/23 07/16/23 lamotrigine 25 mg tablet 50 mg PO BID 07/16/23 07/16/23 Allergies Allergy/AdvReac Type Severity Reaction Status Date / Time penicillin G Allergy Rash Verified 09/17/23 12:27 Review of Systems 2 Review of Systems: Constitutional: No Fever, No Chills, +fatigue, +malaise ENT/Mouth: No Ear Pain, No Nasal Congestion, No sore throat, No Rhinorrhea, No Swallowing Difficulty Eyes: + blurry vision, No vision loss Cardiovascular: No Chest Pain, No SOB Respiratory: No Cough, No Sputum, No Wheezing Gastrointestinal: + Nausea, No Vomiting, No Diarrhea, No Constipation, No Abdominal pain Genitourinary: No Dysuria, No Urinary Frequency, No Hematuria, No Flank Pain Musculoskeletal: No joint pain, No Myalgias, No Joint Swelling Skin: No Skin Lesions, No rash Neuro: No Weakness, No Numbness, No Paresthesias, + lightheadedness/+dizziness, + headache Yes all other systems are reviewed and are negative Constitutional: Constitutional: Reports as per HPI Neurologic: Denies Abnormal speech present PMFSH Past Medical History Attestation statement: The following information was validated with the patient. Source: old records reviewed Medical History Anxiety and depression Surgical History No pertinent past surgical history Family History Family History Maternal Grandmother Heart attack HTN (hypertension) Social History Social History Alcohol intake: current Alcohol intake frequency: holidays/special occasions only Patient Tobacco Use Status: Never used Tobacco Smoked in Last 30 Days: No Advance Directives: No Advance Directives Information Provided: No Physical Exam ED Vital Signs: Vital Signs - 24 hr 09/17/23 12:19 09/17/23 12:34 09/17/23 13:43 Temperature 95.9 F L 97.7 F Pulse Rate 68 54 65 Respiratory Rate 18 18 Blood Pressure 85/48 L 95/55 L 92/48 L Pulse Oximetry 97 96 Oxygen Delivery Method Room Air Room Air 09/17/23 13:44 09/17/23 13:46 09/17/23 14:15 Temperature Pulse Rate 77 74 52 Respiratory Rate 16 Blood Pressure 91/52 L 83/42 L 100/62 Pulse Oximetry 99 Oxygen Delivery Method Room Air 09/17/23 15:09 09/17/23 16:25 09/17/23 18:09 Temperature 97.7 F 97.7 F Pulse Rate 47 L 53 55 Respiratory Rate 16 16 16 Blood Pressure 96/55 L 97/56 L 95/58 L Pulse Oximetry 98 98 99 Oxygen Delivery Method Room Air Room Air Room Air BMI result Body Mass Index 21.5 Const General: cooperative, healthy appearing and no acute distress Orientation/consciousness: patient oriented x3 Limitations: no limitations HENMT Head: Yes normal to inspection and Yes atraumatic Ears: hearing grossly normal bilaterally General nose exam: Normal external nose present Face and sinus: Yes normal facial exam Throat: Yes posterior oropharynx normal, Yes tonsils normal, Yes uvula midline, No peritonsillar mass and No uvular edema Eyes General: appearance normal, both eyes and all related structures Pupils: Equal, round and reactive pupils present EOM: EOMs intact bilaterally Neck Neck: Yes normal visual inspection and Yes no meningeal signs Resp Effort & Inspection: normal respiratory effort and no respiratory distress Auscultation: clear to auscultation bilaterally, no crackles and no wheezes Cardio Rate: regular rate Heart sounds: S1 normal heart sound present and S2 normal heart sound present GI Inspection: Yes normal to inspection Palpation (GI): Soft to palpation, nontender, no guarding and not rigid General: Yes no CVA tenderness Back/Spine/Pelvis Back: no CVA tenderness Skin Rashes: no rashes Wounds: no wounds Neuro General: patient oriented x3, tone normal, moves all extremities, no meningeal signs, no focal motor deficits and CN's II-XI intact bilaterally Cranial nerves: Yes CN's II-XII intact bilaterally, Yes Equal, round and reactive pupils present and Yes Bilaterally intact EOM present Cognition (Neuro): normal cognition Speech: No Abnormal speech present Gait exam (Neuro): Normal gait present Motor exam (neuro): 5/5 motor strength present throughout, Pronator motor function not present and no tremor noted Coordination: [id number] test normal Romberg Test: Negative Extrem General: Yes normal to inspection Course Course Course Narrative: Patient feels dizzy lightheaded and weak today, he has had other episodes of near-syncope and syncope and is being evaluated by Cardiology He denies chest pain or vomiting, he has a mild headache Labs and EKG are ordered This rapid medical exam done in triage pending full evaluation by ER provider -mild leukocytosis 14.6. No evidence of infection at this time. Low suspicion for severe sepsis -Labs otherwise reassuring, initial troponin negative > will obtain 3 hour repeat -COVID and flu negative CT head/brain wo IV con IMPRESSION: No acute intracranial abnormality. -orthostatic vital signs negative -1630--ED care transferred to [facility] pending blood pressure monitoring, repeat troponin, tox screen, UA Reevaluation(s) Reevaluation #1: Delta troponin negative. Tox screen unremarkable. Remains with systolic blood pressure in the 90s, no further episodes of near-syncope/persistent dizziness. Urinalysis without evidence of infection. At this time feel that he is stable for discharge home and outpatient follow-up with PCP. Reviewed worrisome signs and symptoms that would warrant re-evaluation in the emergency department. Time: 19:03 Medications Administered Discontinued Medications Generic Name Dose Route Start Last Admin Trade Name Vi PRN Reason Stop Dose Admin Sodium Chloride 1,000 mls @ 999 mls/hr 09/17/23 13:00 09/17/23 15:09 Ns IV 09/17/23 14:00 Infused .Q1H1M GARRICK Infusion Sodium Chloride 1,000 mls @ 999 mls/hr 09/17/23 13:15 09/17/23 15:09 Ns IV 09/17/23 14:15 Infused .Q1H1M GARRICK Infusion Sodium Chloride 1,000 mls @ 999 mls/hr 09/17/23 15:15 09/17/23 16:24 Ns IV 09/17/23 16:15 Infused .Q1H1M GARRICK Infusion Sodium Chloride 500 mls @ 999 mls/hr 09/17/23 16:15 09/17/23 17:06 Ns IV 09/17/23 16:45 Infused .Q31M GARRICK Infusion Medical Decision Making Medical Decision Making MDM Narrative: 23-year-old male with a past medical history anxiety/depression, vasovagal syncope, presenting to the ED via EMS complaining of generalized fatigue/weakness, lightheadedness/dizziness, headache, and nausea beginning this morning around 10:00AM. On exam hypotensive, pale, no focal neuro deficits, lungs CTA, exam otherwise benign. Concern for metabolic/infectious etiology vs orthostasis vs vasovagal presyncope. Lower suspicion for meningitis/encephalitis/SAH or ICH. Unlikely PE/ACS Plan: EKG, labs, UA, viral testing, IVF, orthostatics, re-evaluate Please refer to course for remaining clinical decision making, interpretation of labs/imaging results, and discussions with consultants and/or family members. Differential Diagnosis Differential Diagnoses: The differential diagnosis associated with the presentation includes As above Admission/Observation Consideration of admission/observation: Escalation of care including admission/observation considered Lab Data MDM Lab Attestation statement: I reviewed the patient's lab results. 09/17/23 12:56 09/17/23 12:56 Labs: Lab Results 09/17/23 09/17/23 09/17/23 Range/Units 12:56 16:03 16:57 WBC 14.6 H (4.8-10.8) X10*3/uL RBC 4.91 (4.60-5.80) X10*6/uL Hgb 15.4 (14.0-18.0) g/dl Hct 45.5 (42.0-52.0) % MCV 92.7 (80.0-98.0) fL MCH 31.4 (27.0-33.0) pg MCHC 33.8 (31.0-36.0) g/dl RDW 11.9 (11.0-16.0) % Plt Count 234 (160-400) X10*3/uL MPV 10.3 (9.4-12.4) fL Immature Gran % (Auto) 0.5 H (0.0-0.4) % Neut % (Auto) 75.8 H (45-73) % Lymph % (Auto) 12.2 L (20-40) % [place] % (Auto) 10.9 (2-11) % Eos % (Auto) 0.3 (0-4) % Baso % (Auto) 0.3 (0-2) % Lymph # (Auto) 1.8 (1.2-4.9) X10*3/uL [place] # (Auto) 1.6 H (0.1-1.2) X10*3/uL Eos # (Auto) 0.1 (0.0-0.4) X10*3/uL Baso # (Auto) 0.1 (0.0-0.2) X10*3/uL Abs Immat Gran (auto) 0.08 H (0.00-0.03) X10*3/uL Absolute Neuts (auto) 11.0 H (2.0-8.3) x10*3/uL Absolute Nucleated RBC 0.000 (0.0-0.012) X10*3/uL Nucleated RBC % (auto) 0.0 (0.0-0.2) /100WBC Smear Tech's Comments VERIFIED Sodium 143 (135-145) mmol/L Potassium 4.1 (3.3-5.1) mmol/L Chloride 107 (96-108) mmol/L Carbon Dioxide 30 H (22-29) mmol/L Anion Gap 10 L (12-20) BUN 5 L (9-16) mg/dL Creatinine 0.74 (0.5-1.4) mg/dL Estim Creat Clear Calc 142.1 Estimated GFR > 60 Random Glucose 105 (60-115) mg/dL Calcium 9.5 (8.4-10.2) mg/dL Magnesium 2.0 (1.6-2.6) mg/dL Total Bilirubin 0.7 (0.0-1.0) mg/dL Direct Bilirubin 0.3 (0.0-0.5) mg/dL AST 15 (5-37) U/L ALT 10 (0-40) U/L Alkaline Phosphatase 77 (39-117) U/L Troponin I High Sens < 2.7 < 2.7 (<3.5-35.0) ng/L Total Protein 7.0 (6.5-8.0) g/dL Albumin 4.5 (3.5-5.0) g/dL Urine Color Dark Yellow Urine Appearance Clear Urine pH 7.5 (5.0-9.0) Ur Specific [place] 1.020 (1.005-1.025) Urine Protein Negative (Neg-Trace) mg/dL Urine Glucose (UA) Negative (Negative) mg/dL Urine Ketones Trace (Negative) mg/dL Urine Blood Negative (Negative) Urine Nitrite Negative (Negative) Ur Leukocyte Esterase Small (1+) H (Negative) Urine RBC 0-2 (0-2) /HPF Urine WBC 21-50 H (0-5) /HPF Ur Squamous Epith Cells 0-2 (0-2) /HPF Urine Bacteria None Seen (None Seen) Hyaline Casts 0-2 (0-2) /LPF Urine Opiates Screen Not Detected (Not Detect) Urine Fentanyl Screen Not Detected (Not Detect) Ur Barbiturates Screen Not Detected (Not Detect) Ur Phencyclidine Scrn Not Detected (Not Detect) Ur Amphetamines Screen Not Detected (Not Detect) U Benzodiazepines Scrn Not Detected (Not Detect) Urine Cocaine Screen Not Detected (Not Detect) U Marijuana (THC) Screen Not Detected (Not Detect) Ethyl Alcohol < 10 mg/dL COVID-19 (ADRIEN) Negative (Negative) COVID-19 Clin Com See Note Influenza Type A (JOSE) Negative (Negative) Influenza Type B (JOSE) Negative (Negative) Influenza A & B Note See Note Independent Interpretation I performed an independent interpretation of an: EKG Radiology Impression Discussion of test interpretation with radiology: I have reviewed the radiologist's reading. Independent Historian Clinical information obtained from an independent historian. History obtained from or confirmed by: EMS External Record Review External record reviewed: Inpatient record, Office record, Outpatient record, Prior outpatient labs, Prior outpatient radiology, Primary care record and Outside ED record Tests considered The following testing was considered but not selected: As above Discharge Plan Discharge Clinical Impression: Pre-syncope Patient Disposition: Home, Self-Care Instructions: Near Syncope (ED) Additional Instructions: Contact your primary care doctor and arrange for a follow-up visit within the next 2-3 days. Return back to emergency department any new or worsening symptoms or concerns. History of the you are staying well hydrated, drink plenty of fluids and eating frequent meals throughout the day. Change positions slowly. Prescriptions: No Action clonidine HCl 0.1 mg tablet 0.1 mg PO DAILY PRN hydroxyzine HCl 10 mg tablet 10 mg PO BEDTIME PRN lamotrigine 25 mg tablet 50 mg PO BID
--- NOTE | 2023-09-17 13:03 | PC.NURSE ---
pt to CT at this time.
[2023-09-17 13:05] LABS: Basophils Absolute Auto 0.1 X10*3/uL (0.0-0.2); Basophils Percent Auto 0.3 % (0-2); Eosinophils Absolute Auto 0.1 X10*3/uL (0.0-0.4); Eosinophils Percent Auto 0.3 % (0-4); Hematocrit 45.5 % (42.0-52.0); Hemoglobin 15.4 g/dl (14.0-18.0); Imm Gran Abs Auto 0.08 X10*3/uL (0.00-0.03); Imm Gran Pct Auto 0.5 % (0.0-0.4); Lymphocytes Absolute Auto 1.8 X10*3/uL (1.2-4.9); Lymphocytes Percent Auto 12.2 % (20-40); MANUAL DIFF FLAG SCAN; Mean Corpuscular HGB Conc 33.8 g/dl (31.0-36.0); Mean Corpuscular Hemoglobin 31.4 pg (27.0-33.0); Mean Corpuscular Volume 92.7 fL (80.0-98.0); Mean Platelet Volume 10.3 fL (9.4-12.4); Monocytes Absolute Auto 1.6 X10*3/uL (0.1-1.2); Monocytes Percent Auto 10.9 % (2-11); Neutrophils Percent Auto 75.8 % (45-73); Platelet Count 234 X10*3/uL (160-400); Red Blood Count 4.91 X10*6/uL (4.60-5.80); Red Cell Distribution Width 11.9 % (11.0-16.0); SCAN SMEAR FLAG 1; White Blood Count 14.6 X10*3/uL (4.8-10.8)
[2023-09-17 13:18] LABS: COVID-19 Test Negative (Negative); IDNOW Serial# 08D9AD1C
[2023-09-17 13:19] LABS: Alanine Aminotransferase 10 U/L (0-40); Albumin Level 4.5 g/dL (3.5-5.0); Alkaline Phosphatase 77 U/L (39-117); Anion Gap 10 (12-20); Aspartate Amino Transferase 15 U/L (5-37); Bilirubin Direct 0.3 mg/dL (0.0-0.5); Bilirubin Total 0.7 mg/dL (0.0-1.0); Blood Urea Nitrogen 5 mg/dL (9-16); Calcium 9.5 mg/dL (8.4-10.2); Carbon Dioxide 30 mmol/L (22-29); Chloride 107 mmol/L (96-108); Creatinine Clr Calc Pharmacy 142.1; Estimated Glomerular Filt Rate > 60; Glucose Random 105 mg/dL (60-115); Potassium 4.1 mmol/L (3.3-5.1); Sodium 143 mmol/L (135-145)
[2023-09-17 13:21] LABS: IDNOW Serial# 08D9AD1C; Influenza A Negative (Negative); Influenza B2 Negative (Negative)
[2023-09-17 13:26] LABS: Troponin-I High Sensitivity < 2.7 ng/L (<3.5-35.0)
[2023-09-17] MEDS: 0.9 % Sodium Chloride 1,000 ML 999 ML IV ×3 (13:26→15:08)
[2023-09-17 13:27] LABS: SLIDE REVIEW VERIFIED
--- NOTE | 2023-09-17 13:28 | PC.NURSE ---
IVF administered per provider order. pt still verbalizes feeling dizzy at this time. no sob/wob noted. respirations even and unlabored. plan of care ongoing. call richardson placed within reach.
--- NOTE | 2023-09-17 14:15 | PC.NURSE ---
vss and up to date at this time. pt remains hypotensive at this time. ED provider aware. IVF continuously infusing at this time. will reassess BP post IVF administration. respirations remain even and unlabored. call richardson placed within reach.
[2023-09-17 14:53] LABS: Ethanol < 10 mg/dL
--- NOTE | 2023-09-17 15:09 | PC.NURSE ---
pt remains hypotensive despite 2L IVF administration. provider notified/aware. IVF administered per provider order. pt still seemingly lethargic/pale. states that he is just sleepy. partner bedside for support. call richardson placed within reach.
[2023-09-17 16:34] LABS: Troponin-I High Sensitivity < 2.7 ng/L (<3.5-35.0)
[2023-09-17] MEDS: 0.9 % Sodium Chloride 500 ML 999 ML IV (16:35)
--- NOTE | 2023-09-17 16:58 | PC.NURSE ---
urine sample obtained/sent to lab. pt ambulated to restroom w/o difficulty. independent/steady gait noted. pt still verbalizing feeling lightheaded/dizzy while ambulating. IVF continues to infuse at this time. respirations remain even and unlabored. call richardson placed within reach.
[2023-09-17 17:23] LABS: Amphetamine Screen Urine Not Detected (Not Detect); Barbiturates, Urine Not Detected (Not Detect); Benzodiazepines Screen Urine Not Detected (Not Detect); Cannabinoid Screen Urine Not Detected (Not Detect); Cocaine Screen Urine Not Detected (Not Detect); Fentanyl, urine Not Detected (Not Detect); Opiate Screen Urine Not Detected (Not Detect); Phencyclidine Screen Urine Not Detected (Not Detect)
[2023-09-17 17:29] LABS: Appearance Urine Clear; Color Urine Dark Yellow; Glucose Urine UA Negative (Negative); Leukocyte Esterase Urine Small (1+) (Negative); Nitrite Urine Negative (Negative); PH 7.5 (5.0-9.0); UMIC TRIGGER UACC YES; Urine Blood Negative (Negative); Urine Ketones Trace mg/dL (Negative); Urine Protein Negative (Neg-Trace)
[2023-09-17 17:34] LABS: Bacteria Urine None Seen (None Seen); Hyaline Casts Urine 0-2 /LPF (0-2); RBC Urine 0-2 /HPF (0-2); Squamous Epithelial Cell Urine 0-2 /HPF (0-2); UACC Culture Trigger YES; WBC Urine 21-50 /HPF (0-5)
--- NOTE | 2023-09-17 18:09 | PC.NURSE ---
pt remains hypotensive at this time. pt verbalizing that dizziness/lightheadedness subsided at this time. pt requesting to leave ED - will notify provider in regards to plan of care.
== END 2023-09-17 19:44 | disposition home or self-care (01) ==
PROVIDERS: Physician Assistant; Physician Assistant Medical; Emergency Provider Emergency Medicine Emergency Medical Services
DX: R55 Syncope and collapse (principal); R42 Dizziness and giddiness; R00.1 Bradycardia, unspecified; R11.2 Nausea with vomiting, unspecified; F41.9 Anxiety disorder, unspecified; R51.9 Headache, unspecified; Z11.52 Encounter for screening for COVID-19; Z79.899 Other long term (current) drug therapy
CPT/HCPCS: 36415; 70450; 71045; 80048; 80076; 80307; 81001; 83735; 84484; 85025; 87086; 87502; 87635; 93005; 96360; 96361; 99285

== ENCOUNTER → 2023-09-17 12:21 | Outpatient (BNV) | payer MEDICAID, SELFPAY | PROVIDERS: Emergency Provider Emergency Medicine Emergency Medical Services; Visit Provider Internal Medicine Cardiovascular Disease | DX: R55 Syncope and collapse (principal) | CPT/HCPCS: 93010 ==

== ENCOUNTER 2023-09-19 00:35 | Emergency (ER) | payer MEDICAID, SELFPAY ==
--- NOTE | 2023-09-19 | ECG_ITS ---
Test Reason : SYNCOPE Blood Pressure : / mmHG Vent. Rate : 090 BPM Atrial Rate : 090 BPM P-R Int : 126 ms QRS Dur : 082 ms QT Int : 338 ms P-R-T Axes : 081 071 065 degrees QTc Int : 413 ms Normal sinus rhythm with sinus arrhythmia Normal ECG When compared with ECG of 17-SEP-2023 12:45, Vent. rate has increased BY 36 BPM Referred By: Generic ED Physician Electronically Signed By:Troy Jurado
[2023-09-19 00:49] VITALS: BP 130/80; PULSE 88
[2023-09-19 00:59] VITALS: BP 129/84; PULSE 87; RESP 18; TEMP 36.8; O2SAT 100; BMI 21.3
--- NOTE | 2023-09-19 01:04 | MHC.EDTECH ---
Patient came in by ambulance,changed into hospital attire,placed on the flask handler,and vitals taken. EKG taken per order and signed by provider. Call richardson in reach
[2023-09-19 02:43] VITALS: BP 126/94; PULSE 81; RESP 18; TEMP 36.7; O2SAT 98
--- NOTE | 2023-09-19 02:44 | MHC.EDTECH ---
Patient took the gambling dealer off,he stated he doesn't want it on it bothers, he also requested his IV to be removed,absorption plant operator helper was made aware. Hourly rounds and vitals completed,call richardson in reach
--- NOTE | 2023-09-19 03:00 | PC.NURSE ---
Pt requesting his IV to be removed. Pt removed the environmental monitoring specialist lead.
--- NOTE | 2023-09-19 04:24 | PC.NURSE ---
I was notified by Odalys that this patient was requesting to leave after waiting 3.5 hours in a room. This RN at bedside, pt reports feeling great. Pt states he doesn't want to wait any longer and is feeling so much better. Pt encouraged to stay and see an MD however pt continued to request to leave. Pt advised to f/u with PCP and/or return to the ED if s/sx worsen. Pt CAOx4, speaking full sentences, ambulating with a steady gait.
== END 2023-09-19 04:28 | disposition left against medical advice (07) ==
PROVIDERS: Emergency Provider Emergency Medicine
DX: R55 Syncope and collapse (principal)
CPT/HCPCS: 93005; 99283; 99284

== ENCOUNTER → 2023-09-19 01:00 | Outpatient (BNV) | payer MEDICAID, SELFPAY | PROVIDERS: Emergency Provider Emergency Medicine; Visit Provider Internal Medicine Cardiovascular Disease | DX: R55 Syncope and collapse (principal) | CPT/HCPCS: 93010 ==

== ENCOUNTER 2023-09-24 11:16 | Outpatient (REF) | payer MEDICAID, SELFPAY ==
[2023-09-25 13:44] LABS: CT PCR NOT DETECTED (Not Detect.); NG PCR NOT DETECTED (Not Detect.)
== END 2023-09-24 11:17 | disposition home or self-care (01) ==
LOC: HO.HHCLNP 11:16
PROVIDERS: Visit Provider Registered Nurse
DX: N34.2 Other urethritis (principal)
CPT/HCPCS: 0353U; 87086

== ENCOUNTER 2023-09-26 15:24 | Outpatient (REF) | payer MEDICAID, SELFPAY ==
[2023-09-28 14:28] LABS: HIV RNA PCR Qn Copies NOT DETECTED copies/mL (NOT DETECTED); HIV RNA PCR Qn Log Copies NOT DETECTED (NOT DETECTED)
== END 2023-09-26 15:25 | disposition home or self-care (01) ==
LOC: HO.HHCL 15:24
PROVIDERS: Visit Provider Student in an Organized Health Care Education/Training Program
DX: Z29.81 Encounter for HIV pre-exposure prophylaxis (principal)
CPT/HCPCS: 36415; 87536

== ENCOUNTER 2023-10-07 14:10 | Outpatient (REF) | payer MEDICAID, SELFPAY ==
--- NOTE | ~2023-10-07 | XR_ITS ---
EXAMINATION: XR CHEST CLINICAL INFORMATION: Hematemesis, hemoptysis. COMPARISON: None available. TECHNIQUE: 2 views of the chest were obtained. FINDINGS: No significant abnormality is noted involving the heart, lungs, mediastinum, bony thorax or soft tissues. XR/XR chest 2V IMPRESSION: Unremarkable chest examination.
[2023-10-11 11:26] LABS: H Pylori Breath Test Negative (Negative)
== END 2023-10-07 14:11 | disposition home or self-care (01) ==
LOC: HO.HHCX 14:10
PROVIDERS: Visit Provider Student in an Organized Health Care Education/Training Program
DX: R10.13 Epigastric pain (principal); K92.0 Hematemesis; R04.2 Hemoptysis
CPT/HCPCS: 71046; 83013

== ENCOUNTER 2023-11-22 09:40 | Outpatient (REF) | payer MEDICAID, SELFPAY ==
[2023-11-22 11:31] LABS: Appearance Urine Clear; Color Urine Yellow; Glucose Urine UA Negative (Negative); Leukocyte Esterase Urine Negative (Negative); Nitrite Urine Negative (Negative); Urine Blood Negative (Negative); Urine Ketones Negative (Negative); Urine Protein Negative (Neg-Trace)
[2023-11-22 11:33] LABS: MANUAL DIFF FLAG NO
[2023-11-22 11:34] LABS: Bacteria Urine None Seen (None Seen); Hyaline Casts Urine 0-2 /LPF (0-2); RBC Urine 0-2 /HPF (0-2); Squamous Epithelial Cell Urine 0-2 /HPF (0-2); WBC Urine 0-5 /HPF (0-5)
[2023-11-22 11:56] LABS: Basophils Percent Auto 0.5 % (0-2); Eosinophils Absolute Auto 0.1 X10*3/uL (0.0-0.4); Eosinophils Percent Auto 1.1 % (0-4); Hematocrit 49.1 % (42.0-52.0); Hemoglobin 16.6 g/dl (14.0-18.0); Imm Gran Abs Auto 0.08 X10*3/uL (0.00-0.03); Imm Gran Pct Auto 1.1 % (0.0-0.4); Lymphocytes Absolute Auto 1.5 X10*3/uL (1.2-4.9); Lymphocytes Percent Auto 21.1 % (20-40); Mean Corpuscular HGB Conc 33.8 g/dl (31.0-36.0); Mean Corpuscular Volume 91.8 fL (80.0-98.0); Mean Platelet Volume 10.8 fL (9.4-12.4); Monocytes Absolute Auto 0.7 X10*3/uL (0.1-1.2); Monocytes Percent Auto 8.9 % (2-11); Neutrophils Absolute Auto 4.9 x10*3/uL (2.0-8.3); Neutrophils Percent Auto 67.3 % (45-73); Platelet Count 268 X10*3/uL (160-400); Red Blood Count 5.35 X10*6/uL (4.60-5.80); Red Cell Distribution Width 11.3 % (11.0-16.0); White Blood Count 7.3 X10*3/uL (4.8-10.8)
[2023-11-22 12:26] LABS: Alanine Aminotransferase 20 U/L (0-40); Albumin Level 4.6 g/dL (3.5-5.0); Alkaline Phosphatase 84 U/L (39-117); Anion Gap 11 (12-20); Aspartate Amino Transferase 23 U/L (5-37); Bilirubin Total 0.6 mg/dL (0.0-1.0); Blood Urea Nitrogen 10 mg/dL (9-16); Calcium 9.7 mg/dL (8.4-10.2); Carbon Dioxide 30 mmol/L (22-29); Chloride 105 mmol/L (96-108); Estimated Glomerular Filt Rate > 60; Glucose Random 79 mg/dL (60-115); Potassium 4.1 mmol/L (3.3-5.1); Sodium 142 mmol/L (135-145); Total Protein 7.4 g/dL (6.5-8.0)
[2023-11-22 12:48] LABS: HIV AB/AG Nonreactive (Nonreactive); HIV Num 1 0.06 S/CO (0.00-0.99); ~HepC Num1 0.11 S/CO (0.00-0.79); ~Hepatitis C Antibody Nonreactive (Nonreactive)
[2023-11-22 12:50] LABS: Hepatitis A Antibody IgG REACTIVE (Nonreactive); ~Hepatitis A Antibody IgG 12.87 S/CO (0.00-0.99)
[2023-11-22 12:51] LABS: Syphilis Screen Nonreactive (Nonreactive)
[2023-11-22 13:02] LABS: CT PCR NOT DETECTED (Not Detect.); NG PCR NOT DETECTED (Not Detect.)
[2023-11-25 13:02] LABS: TS Negative Control Passed; TS Panel A 0; TS Panel B 0; TS Positive Control Passed; TSpotTB Negative (Negative)
[2023-11-26 10:03] LABS: HIV RNA PCR Qn Copies NOT DETECTED copies/mL (NOT DETECTED); HIV RNA PCR Qn Log Copies NOT DETECTED (NOT DETECTED)
== END 2023-11-22 09:41 | disposition home or self-care (01) ==
LOC: HO.HHCL 09:40
PROVIDERS: Visit Provider Student in an Organized Health Care Education/Training Program
DX: N34.2 Other urethritis (principal); K92.0 Hematemesis; R19.7 Diarrhea, unspecified; Z79.899 Other long term (current) drug therapy
CPT/HCPCS: 0353U; 36415; 80053; 81001; 85025; 86481; 86708; 86780; 86803; 87389; 87536

== ENCOUNTER 2023-11-28 16:08 | Outpatient (REF) | payer MEDICAID, SELFPAY ==
[2023-12-03 11:19] LABS: C. Trachomatis RNA TMA, Throat NOT DETECTED; N. gonorrhoeae RNA TMA, Throat NOT DETECTED
== END 2023-11-28 16:09 | disposition home or self-care (01) ==
LOC: HO.HHCLNP 16:08
PROVIDERS: Visit Provider Student in an Organized Health Care Education/Training Program
DX: J02.8 Acute pharyngitis due to other specified organisms (principal); B97.89 Other viral agents as the cause of diseases classified elsewhere
CPT/HCPCS: 87070; 87491; 87591

== ENCOUNTER 2024-01-20 10:38 | Emergency (ER) | payer MEDICAID, SELFPAY ==
[2024-01-20 11:16] VITALS: BP 120/68; PULSE 82; RESP 16; TEMP 36.8; O2SAT 97; BMI 24.0
--- NOTE | 2024-01-20 11:16 | ED.GENADULT ---
HPI - General Adult General Chief complaint: General Medical Stated complaint: Hemhorrids Time Seen by Provider: 01/20/24 11:52 Source: patient Mode of arrival: ambulatory Limitations: no limitations History of Present Illness ED Provider: Dar Goodwin HPI narrative: 23-year-old male presents to ED for hemorrhoid exacerbation. Patient states history of hemorrhoids and constipation. Patient states pain on defecation and blood in stool. Patient states bowel movements but hard stool that is painful. Patient denies any nausea or vomiting. Patient denies any abdominal distention. Patient states no fever or chills. Patient denies any history of abdominal surgery. Patient is presently taking Anusol cream Related Data Home Medications ?Medication ?Instructions ?Recorded ?Confirmed clonidine HCl 0.1 mg tablet 0.1 mg PO DAILY PRN 04/25/23 07/16/23 hydroxyzine HCl 10 mg tablet 10 mg PO BEDTIME PRN 07/16/23 07/16/23 lamotrigine 25 mg tablet 50 mg PO BID 07/16/23 07/16/23 Previous Rx's ?Medication ?Instructions ?Recorded docusate sodium 100 mg capsule 100 mg PO BID 10 days #20 caps 01/20/24 (Colace) Allergies Allergy/AdvReac Type Severity Reaction Status Date / Time penicillin G Allergy Rash Verified 01/20/24 11:20 Review of Systems Review of Systems: constipation, rectal pain, hemrrhoids Yes all other systems are reviewed and are negative [facility] Past Medical History Medical History Anxiety and depression Surgical History No pertinent past surgical history Family History Family History Maternal Grandmother Heart attack HTN (hypertension) Social History Social History Alcohol intake: current Alcohol intake frequency: holidays/special occasions only Patient Tobacco Use Status: Never used Tobacco Advance Directives: No Advance Directives Information Provided: No Physical Exam ED Vital Signs: Vital Signs - 24 hr 01/20/24 11:16 01/20/24 14:01 01/20/24 14:10 Temperature 98.3 F 98.2 F 98.2 F Pulse Rate 82 68 68 Respiratory Rate 16 16 16 Blood Pressure 120/68 116/76 116/76 Pulse Oximetry 97 98 98 Oxygen Delivery Method Room Air Room Air Room Air BMI result Body Mass Index 24.0 Const General: cooperative, healthy appearing, comfortable, no acute distress, well developed, alert, awake and Physically active Orientation/consciousness: oriented to time and patient oriented x3 HENMT Head: Yes normal to inspection, Yes No palpable skull fracture present and Yes normocephalic Eyes General: appearance normal, both eyes and all related structures Neck Neck: Yes normal visual inspection, Yes full ROM, Yes no lymphadenopathy and Yes no meningeal signs Chest Chest palpation & inspection: normal inspection of the chest and normal palpation of entire chest wall Resp Effort & Inspection: normal respiratory effort and able to speak in complete sentences Auscultation: clear to auscultation bilaterally Cardio Jugular venous distension: no JVD Heart sounds: S1 normal heart sound present and S2 normal heart sound present GI Inspection: Yes normal to inspection Palpation (GI): Soft to palpation, not firm, nontender, no guarding and not rigid Other: rectal exam positive for external hemorrhoids. External hemorrhoids or picking healthy. Negative for thrombosed hemorrhoids. General: No CVA tenderness and Yes no CVA tenderness Back/Spine/Pelvis Back: no CVA tenderness, No CVA tenderness and No back tenderness Skin General skin exam: no rashes or lesions noted, elasticity normal and turgor normal Neuro General: oriented to time, patient oriented x3, gait normal, tone normal, moves all extremities, Normal light touch and pain sensation, no meningeal signs, no focal motor deficits, CN's II-XI intact bilaterally and normal sensation to monofilament Extrem General: Yes normal to inspection, Yes full ROM and Yes capillary refill normal Psych Appearance: grossly normal, well kempt and not disheveled Course Course Course Narrative: This is a rapid medical exam completed by Khushboo GOMEZ: Additional HPI, ROS, PE not included below will be deferred to primary provider. Concerns for a one-year history of rectal pain and hemorrhoids. Using creams but the pain has become worse. Bleeding noted yesterday. Pain 9/10. Constipation x 5 days, using stool softeners with no relief Medical Decision Making Medical Decision Making MDM Narrative: 23-year-old male history of hemorrhoids constipation presents to ED for rectal pain, external hemorrhoids with bleeding and stool and constipation. Patient having bowel movements but they hard stools. Patient denies any nausea, vomiting, abdominal distention. not suspecting bowel obstruction. Patient has normal bowel sounds. Abdomen is not distended. No need for KUB or CT scan to rule out obstruction. Rectal exam negative for perianal abscess or thrombosed hemorrhoid. No need for any surgical intervention. Patient informed to continue doing Anusol cream that he placed on rectum hemorrhoids. Patient informed to do Sitz bath and also will be discharged with Colace Differential Diagnosis Differential Diagnoses: The differential diagnosis associated with the presentation includes Independent Historian Clinical information obtained from an independent historian. History obtained from or confirmed by: Other ( patient) External Record Review External record reviewed: Other ( prior visits) Prescription Management I considered prescription management with: Other ( Colace) Discharge Plan Discharge Clinical Impression: Constipation, External hemorrhoids Patient Disposition: Home, Self-Care Instructions: Constipation (ED), Hemorrhoids (ED), High Fiber Diet (ED) Additional Instructions: continue using steroid cream on rectum. You will be discharged with Colace stool softener. Recommend warm Sitz bath for hemorrhoids 4 times a day for 15 minutes. Recommend follow-up with your primary care provider and general surgeon. Return to the ED immediately for any abdominal pain, abdominal distention, nausea, vomiting, rectal bleeding, severe rectal pain, fever, chills, inability to pass gas, or any other concerning symptoms. Prescriptions: New docusate sodium [Colace] 100 mg capsule 100 mg PO BID 10 Days Qty: 20 0RF No Action clonidine HCl 0.1 mg tablet 0.1 mg PO DAILY PRN hydroxyzine HCl 10 mg tablet 10 mg PO BEDTIME PRN lamotrigine 25 mg tablet 50 mg PO BID Ref[place] [facility] [place]] ( External hemorrhoids) Stand Alone Forms: Work/School Release Interventions: ED Discharge Assessment Last Done: 01/20/24 14:10 Discharge Date/Time: 01/20/24 14:11 Print Language: Malian
[2024-01-20 14:01] VITALS: BP 116/76; PULSE 68; RESP 16; TEMP 36.8; O2SAT 98
[2024-01-20 14:10] VITALS: BP 116/76; PULSE 68; RESP 16; TEMP 36.8; O2SAT 98
== END 2024-01-20 14:11 | disposition home or self-care (01) ==
PROVIDERS: Emergency Provider Emergency Medicine
DX: K64.4 Residual hemorrhoidal skin tags (principal); K59.00 Constipation, unspecified; K62.89 Other specified diseases of anus and rectum; Z79.899 Other long term (current) drug therapy
CPT/HCPCS: 99283

== ENCOUNTER 2024-01-24 19:37 | Emergency (ER) | payer MEDICAID, SELFPAY ==
[2024-01-24 19:39] VITALS: BP 125/76; PULSE 87; RESP 18; TEMP 36.6; O2SAT 97; BMI 25.1
--- NOTE | 2024-01-24 19:40 | ED_ITS ---
HPI - General Adult General Chief complaint: GI Bleed Stated complaint: ?Internal bleeding Time Seen by Provider: 01/24/24 21:18 Source: patient Mode of arrival: ambulatory Limitations: no limitations History of Present Illness ED Provider: isaías NAVARRETE narrative: Patient's history of hemorrhoids and constipation for long time for last few days patient has been having more pain and today started bleeding bright red patient's plan to see surgeon in future Related Data Home Medications ?Medication ?Instructions ?Recorded ?Confirmed clonidine HCl 0.1 mg tablet 0.1 mg PO DAILY PRN 04/25/23 07/16/23 hydroxyzine HCl 10 mg tablet 10 mg PO BEDTIME PRN 07/16/23 07/16/23 lamotrigine 25 mg tablet 50 mg PO BID 07/16/23 07/16/23 Previous Rx's ?Medication ?Instructions ?Recorded docusate sodium 100 mg capsule 100 mg PO BID 10 days #20 caps 01/20/24 (Colace) hydrocortisone acetate 25 mg 25 mg [place] BID #12 ea 01/24/24 rectal suppository (Anusol-HC) polyethylene glycol 3350 17 17 g PO DAILY #238 grams 01/24/24 gram/dose oral powder (Miralax) Allergies Allergy/AdvReac Type Severity Reaction Status Date / Time penicillin G Allergy Rash Verified 01/24/24 19:42 Review of Systems 2 Review of Systems: Yes all other systems are reviewed and are negative [facility] Past Medical History Medical History Anxiety and depression Surgical History No pertinent past surgical history Family History Family History Maternal Grandmother Heart attack HTN (hypertension) Social History Social History Alcohol intake: current Alcohol intake frequency: holidays/special occasions only Patient Tobacco Use Status: Never used Tobacco Smoked in Last 30 Days: No Substance Use Type: Marijuana Advance Directives: No Advance Directives Information Provided: No Do you have a plan to hurt others: No Plan Physical Exam ED Vital Signs: Vital Signs - 24 hr 01/24/24 19:39 01/24/24 19:58 01/24/24 22:35 Temperature 98 F 98.4 F 97.8 F Pulse Rate 87 88 77 Respiratory Rate 18 15 14 Blood Pressure 125/76 126/78 109/65 Pulse Oximetry 97 95 97 Oxygen Delivery Method Room Air Room Air Room Air 01/24/24 22:36 Temperature 97.8 F Pulse Rate 77 Respiratory Rate 14 Blood Pressure 109/65 Pulse Oximetry 97 Oxygen Delivery Method Room Air BMI result Body Mass Index 25.1 Appearance: Alert. Oriented X3. No acute distress. CVS: Normal heart rate and rhythm. Pulses normal. Respiratory: No respiratory distress. Equal air entry bilateral, Abdomen: Soft and nontender. Bowel sounds are present, no mass palpable, no CVA tenderness rectal: Thrombosed external hemorrhoid tendon slight bleed+ Skin: Skin warm and dry. Normal skin color. Normal skin turgor. Course Course Course Narrative: RME performed by Ashlee Tellez PA-C. Patient is a 23 year old assigned male at presenting to the emergency department with rectal bleeding. Patient states he has been having pain in his rectum with bleeding. Patient states that he does have hemorrhoids but hasn't ever had bleeding from them before. Patient states that he is concerned for internal bleeding. Detailed physical exam and review of systems are deferred to the admissions clinician. Labs ordered. Patient placed back in the waiting room pending room availability and results. Medications Administered Discontinued Medications Generic Name Dose Route Start Last Admin Trade Name Freq PRN Reason Stop Dose Admin Lidocaine/Epinephrine 10 ml 01/24/24 21:52 01/24/24 22:12 Lidocaine Hcl 1%/Epi 1:100,000 10 Ml Vial INFILTRATI 01/24/24 21:53 10 ml ONCE ONE Administration Procedures Procedure Narrative Procedure Narrative: External hemorrhoidectomy using 1% lidocaine with epi 2 cc used to locally infiltrate elliptical incision was made and blood clots removed procedure successful patient felt much better Medical Decision Making Medical Decision Making MDM Narrative: Patient with thrombosed external hemorrhoid clot was evacuated by making an elliptical incision Lab Data [facility] Lab Attestation statement: I reviewed the patient's lab results. 01/24/24 19:54 01/24/24 19:54 Labs: Lab Results 01/24/24 Range/Units 19:54 WBC 8.8 (4.8-10.8) X10*3/uL RBC 4.61 (4.60-5.80) X10*6/uL Hgb 14.7 (14.0-18.0) g/dl Hct 41.5 L (42.0-52.0) % MCV 90.0 (80.0-98.0) fL MCH 31.9 (27.0-33.0) pg MCHC 35.4 (31.0-36.0) g/dl RDW 11.3 (11.0-16.0) % Plt Count 239 (160-400) X10*3/uL MPV 9.7 (9.4-12.4) fL Immature Gran % (Auto) 0.7 H (0.0-0.4) % Neut % (Auto) 57.6 (45-73) % Lymph % (Auto) 29.2 (20-40) % [place] % (Auto) 10.7 (2-11) % Eos % (Auto) 1.1 (0-4) % Baso % (Auto) 0.7 (0-2) % Lymph # (Auto) 2.6 (1.2-4.9) X10*3/uL [place] # (Auto) 1.0 (0.1-1.2) X10*3/uL Eos # (Auto) 0.1 (0.0-0.4) X10*3/uL Baso # (Auto) 0.1 (0.0-0.2) X10*3/uL Abs Immat Gran (auto) 0.06 H (0.00-0.03) X10*3/uL Absolute Neuts (auto) 5.1 (2.0-8.3) x10*3/uL Absolute Nucleated RBC 0.000 (0.0-0.012) X10*3/uL Nucleated RBC % (auto) 0.0 (0.0-0.2) /100WBC Sodium 145 (135-145) mmol/L Potassium 3.7 (3.3-5.1) mmol/L Chloride 109 H (96-108) mmol/L Carbon Dioxide 28 (22-29) mmol/L Anion Gap 12 (12-20) BUN 13 (9-16) mg/dL Creatinine 0.74 (0.5-1.4) mg/dL Estim Creat Clear Calc 151.4 Estimated GFR > 60 Random Glucose 112 (60-115) mg/dL Calcium 9.9 (8.4-10.2) mg/dL Magnesium 1.8 (1.6-2.6) mg/dL Total Bilirubin 0.6 (0.0-1.0) mg/dL AST 24 (5-37) U/L ALT 17 (0-40) U/L Alkaline Phosphatase 77 (39-117) U/L Total Protein 7.2 (6.5-8.0) g/dL Albumin 4.6 (3.5-5.0) g/dL Discharge Plan Discharge Clinical Impression: Hemorrhoids Patient Disposition: Home, Self-Care Instructions: Hemorrhoids (ED) Additional Instructions: Avoid constipation MiraLax daily as needed for constipation Anusol suppository twice a day until heals completely Follow up with surgeon Prescriptions: New hydrocortisone acetate [Anusol-HC] 25 mg suppository 25 mg [place] BID Qty: 12 0RF polyethylene glycol 3350 [Miralax] 17 gram/dose powder 17 g PO DAILY Qty: 238 0RF No Action docusate sodium [Colace] 100 mg capsule 100 mg PO BID 10 Days Qty: 20 0RF clonidine HCl 0.1 mg tablet 0.1 mg PO DAILY PRN hydroxyzine HCl 10 mg tablet 10 mg PO BEDTIME PRN lamotrigine 25 mg tablet 50 mg PO BID Referrals: Abelardo Steward MD [Physician] - 2 weeks Stand Alone Forms: Work/School Release Interventions: ED Discharge Assessment Last Done: 01/24/24 22:36 Discharge Date/Time: 01/24/24 22:37 Print Language: Wolof
[2024-01-24 19:58] VITALS: BP 126/78; PULSE 88; RESP 15; TEMP 36.9; O2SAT 95
[2024-01-24 19:58] LABS: MANUAL DIFF FLAG NO
[2024-01-24 19:59] LABS: Basophils Absolute Auto 0.1 X10*3/uL (0.0-0.2); Basophils Percent Auto 0.7 % (0-2); Eosinophils Absolute Auto 0.1 X10*3/uL (0.0-0.4); Eosinophils Percent Auto 1.1 % (0-4); Hematocrit 41.5 % (42.0-52.0); Hemoglobin 14.7 g/dl (14.0-18.0); Imm Gran Abs Auto 0.06 X10*3/uL (0.00-0.03); Imm Gran Pct Auto 0.7 % (0.0-0.4); Lymphocytes Absolute Auto 2.6 X10*3/uL (1.2-4.9); Lymphocytes Percent Auto 29.2 % (20-40); Mean Corpuscular HGB Conc 35.4 g/dl (31.0-36.0); Mean Corpuscular Hemoglobin 31.9 pg (27.0-33.0); Mean Platelet Volume 9.7 fL (9.4-12.4); Monocytes Percent Auto 10.7 % (2-11); Neutrophils Absolute Auto 5.1 x10*3/uL (2.0-8.3); Neutrophils Percent Auto 57.6 % (45-73); Platelet Count 239 X10*3/uL (160-400); Red Blood Count 4.61 X10*6/uL (4.60-5.80); Red Cell Distribution Width 11.3 % (11.0-16.0); White Blood Count 8.8 X10*3/uL (4.8-10.8)
[2024-01-24 20:18] LABS: Alanine Aminotransferase 17 U/L (0-40); Albumin Level 4.6 g/dL (3.5-5.0); Alkaline Phosphatase 77 U/L (39-117); Anion Gap 12 (12-20); Aspartate Amino Transferase 24 U/L (5-37); Bilirubin Total 0.6 mg/dL (0.0-1.0); Blood Urea Nitrogen 13 mg/dL (9-16); Calcium 9.9 mg/dL (8.4-10.2); Carbon Dioxide 28 mmol/L (22-29); Chloride 109 mmol/L (96-108); Creatinine Clr Calc Pharmacy 151.4; Estimated Glomerular Filt Rate > 60; Glucose Random 112 mg/dL (60-115); Magnesium 1.8 mg/dL (1.6-2.6); Potassium 3.7 mmol/L (3.3-5.1); Sodium 145 mmol/L (135-145); Total Protein 7.2 g/dL (6.5-8.0)
[2024-01-24] MEDS: Lidocaine HCl 1%/Epi 1:100,000 10 ML VIAL INFILTRATI (22:12)
[2024-01-24 22:35] VITALS: BP 109/65; PULSE 77; RESP 14; TEMP 36.6; O2SAT 97
[2024-01-24 22:36] VITALS: BP 109/65; PULSE 77; RESP 14; TEMP 36.6; O2SAT 97
== END 2024-01-24 22:37 | disposition home or self-care (01) ==
PROVIDERS: Physician Assistant Medical; Emergency Provider Internal Medicine; PCP Student in an Organized Health Care Education/Training Program
DX: K64.9 Unspecified hemorrhoids (principal); Z79.899 Other long term (current) drug therapy
CPT/HCPCS: 36415; 80053; 83735; 85025; 99284

== ENCOUNTER 2024-01-29 17:27 | Emergency (ER) | payer MEDICAID, SELFPAY ==
--- NOTE | 2024-01-29 17:29 | ED.GENADULT ---
HPI - General Adult General Chief complaint: Syncope Stated complaint: dizziness + weakness Time Seen by Provider: 01/29/24 17:41 Source: patient and other (Friend) Mode of arrival: EMS Limitations: no limitations History of Present Illness ED Provider: isaías NAVARRETE narrative: Patient came from work with his friend for episode of nausea vomiting and epigastric pain by passing out no seizures no history of substance abuse patient was seen here last week for hemorrhoids Related Data Home Medications ?Medication ?Instructions ?Recorded ?Confirmed clonidine HCl 0.1 mg tablet 0.1 mg PO DAILY PRN 04/25/23 07/16/23 hydroxyzine HCl 10 mg tablet 10 mg PO BEDTIME PRN 07/16/23 07/16/23 lamotrigine 25 mg tablet 50 mg PO BID 07/16/23 07/16/23 Previous Rx's ?Medication ?Instructions ?Recorded docusate sodium 100 mg capsule 100 mg PO BID 10 days #20 caps 01/20/24 (Colace) hydrocortisone acetate [address] BID #12 ea 01/24/24 rectal suppository (Anusol-HC) polyethylene glycol 3350 17 17 g PO DAILY #238 grams 01/24/24 gram/dose oral powder (Miralax) Allergies Allergy/AdvReac Type Severity Reaction Status Date / Time penicillin G Allergy Rash Verified 01/29/24 17:37 Review of Systems Review of Systems: Yes all other systems are reviewed and are negative [facility] Past Medical History Medical History Anxiety and depression Surgical History No pertinent past surgical history Family History Family History Maternal Grandmother Heart attack HTN (hypertension) Social History Social History Alcohol intake: current Alcohol intake frequency: holidays/special occasions only Patient Tobacco Use Status: Never used Tobacco Substance Use Type: Marijuana Advance Directives: No Advance Directives Information Provided: No Physical Exam ED Vital Signs: Vital Signs - 24 hr 01/29/24 17:31 01/29/24 18:06 01/29/24 18:34 Temperature 97.5 F 98.1 F Pulse Rate 94 77 Respiratory Rate 18 14 Blood Pressure 125/86 126/73 Pulse Oximetry 97 98 98 Oxygen Delivery Method Room Air Room Air Room Air BMI result Body Mass Index 25.1 Appearance: Patient is keeping his eyes closed anxious Eyes: PERRLA, No Nystagmus ENT: Pharynx normal. Oral Mucosa moist Neck: Normal inspection. Neck supple. CVS: Normal heart rate and rhythm. Pulses normal. Respiratory: No respiratory distress. Equal air entry bilateral, no wheezing/rales/rhonchi Abdomen: Soft and nontender. Bowel sounds are present, no mass palpable, no CVA tenderness Skin: Skin warm and dry. Normal skin color. Normal skin turgor. Extremities: No lower extremity edema. No calf tenderness Neuro: Oriented X 3. No motor deficit. No sensory deficit.No cerebellar signs , cranial nerves II-XII intact Course Course Course Narrative: This is a Rapid Medical Examination (RME) performed by Dennise Garcia PA-C in triage. Full HPI, ROS, assessment and treatment plan per primary provider in the Main ED. here for eval of syncope episode while at work [employer]. works as hostess cashier, began complaining of feeling dizzy, had witnesses syncopal episode and was lowered to the ground. no head strike. friend at bedside states he was incontinent of urine and then began vomiting. No known seizure history. denies etoh or substance use. patient minimally responsive to painful stimuli in triage. patient immediately pulled back to bed in main ED Plan: ekg, labs, ua, utox ordered Medications Administered Discontinued Medications Generic Name Dose Route Start Last Admin Trade Name Freq PRN Reason Stop Dose Admin Sodium Chloride 1,000 mls @ 999 mls/hr 01/29/24 17:41 01/29/24 19:00 Ns IV 01/29/24 18:41 Infused .Q1H1M ONE Infusion Ondansetron HCl 4 mg 01/29/24 17:52 01/29/24 18:01 Ondansetron Hcl 4 Mg/2 Ml Vial IVPUSH 01/29/24 17:53 4 mg ONCE ONE Administration Medical Decision Making Medical Decision Making [facility] Narrative: Patient felt better after p.o. and IV fluids patient home ambulatory in the ED Differential Diagnosis Differential Diagnoses: The differential diagnosis associated with the presentation includes Vasovagal episode/anxiety Lab Data [facility] Lab Attestation statement: I reviewed the patient's lab results. 01/29/24 17:40 01/29/24 17:40 Labs: Lab Results 01/29/24 Range/Units 17:40 WBC 9.4 (4.8-10.8) X10*3/uL RBC 4.85 (4.60-5.80) X10*6/uL Hgb 15.2 (14.0-18.0) g/dl Hct 43.5 (42.0-52.0) % MCV 89.7 (80.0-98.0) fL MCH 31.3 (27.0-33.0) pg MCHC 34.9 (31.0-36.0) g/dl RDW 11.4 (11.0-16.0) % Plt Count 236 (160-400) X10*3/uL MPV 9.9 (9.4-12.4) fL Immature Gran % (Auto) 0.4 (0.0-0.4) % Neut % (Auto) 63.4 (45-73) % Lymph % (Auto) 24.7 (20-40) % [place]unders % (Auto) 9.7 (2-11) % Eos % (Auto) 1.1 (0-4) % Baso % (Auto) 0.7 (0-2) % Lymph # (Auto) 2.3 (1.2-4.9) X10*3/uL Saunders # (Auto) 0.9 (0.1-1.2) X10*3/uL Eos # (Auto) 0.1 (0.0-0.4) X10*3/uL Baso # (Auto) 0.1 (0.0-0.2) X10*3/uL Abs Immat Gran (auto) 0.04 H (0.00-0.03) X10*3/uL Absolute Neuts (auto) 6.0 (2.0-8.3) x10*3/uL Absolute Nucleated RBC 0.000 (0.0-0.012) X10*3/uL Nucleated RBC % (auto) 0.0 (0.0-0.2) /100WBC Sodium 142 (135-145) mmol/L Potassium 3.7 (3.3-5.1) mmol/L Chloride 106 (96-108) mmol/L Carbon Dioxide 27 (22-29) mmol/L Anion Gap 13 (12-20) BUN 11 (9-16) mg/dL Creatinine 0.78 (0.5-1.4) mg/dL Estim Creat Clear Calc 163.0 Estimated GFR > 60 Random Glucose 111 (60-115) mg/dL Calcium 9.6 (8.4-10.2) mg/dL Magnesium 1.9 (1.6-2.6) mg/dL Total Bilirubin 0.5 (0.0-1.0) mg/dL AST 26 (5-37) U/L ALT 20 (0-40) U/L Alkaline Phosphatase 77 (39-117) U/L Total Creatine Kinase 196 H (38-174) U/L Total Protein 7.6 (6.5-8.0) g/dL Albumin 4.8 (3.5-5.0) g/dL Lipase 29 (8-78) U/L Ethyl Alcohol < 10 mg/dL Discharge Plan Discharge Clinical Impression: Vasovagal syncope Patient Disposition: Home, Self-Care Instructions: Syncope (ED) Additional Instructions: Drink plenty of fluids Prescriptions: No Action docusate sodium [Colace] 100 mg capsule 100 mg PO BID 10 Days Qty: 20 0RF hydrocortisone acetate [Anusol-HC] 25 mg suppository [address] BID Qty: 12 0RF polyethylene glycol 3350 [Miralax] 17 gram/dose powder 17 g PO DAILY Qty: 238 0RF clonidine HCl 0.1 mg tablet 0.1 mg PO DAILY PRN hydroxyzine HCl 10 mg tablet 10 mg PO BEDTIME PRN lamotrigine 25 mg tablet 50 mg PO BID Print Language: Hebrew
[2024-01-29 17:31] VITALS: BP 125/86; PULSE 94; RESP 18; TEMP 36.4; O2SAT 97; BMI 25.1
--- NOTE | 2024-01-29 17:34 | ECG_ITS ---
Test Reason : SIEZURE Blood Pressure : / mmHG Vent. Rate : 090 BPM Atrial Rate : 090 BPM P-R Int : 128 ms QRS Dur : 090 ms QT Int : 352 ms P-R-T Axes : 078 051 055 degrees QTc Int : 430 ms Normal sinus rhythm with sinus arrhythmia Possible Left atrial enlargement Borderline ECG When compared with ECG of 19-SEP-2023 01:00, No significant change was found Referred By: Deb Garcia Electronically Signed By:REZA AVENDANO MD
[2024-01-29] MEDS: 0.9 % Sodium Chloride 1,000 ML 999 ML IV (17:44)
[2024-01-29 17:45] LABS: MANUAL DIFF FLAG NO
[2024-01-29 17:47] LABS: Basophils Absolute Auto 0.1 X10*3/uL (0.0-0.2); Basophils Percent Auto 0.7 % (0-2); Eosinophils Absolute Auto 0.1 X10*3/uL (0.0-0.4); Eosinophils Percent Auto 1.1 % (0-4); Hematocrit 43.5 % (42.0-52.0); Hemoglobin 15.2 g/dl (14.0-18.0); Imm Gran Abs Auto 0.04 X10*3/uL (0.00-0.03); Imm Gran Pct Auto 0.4 % (0.0-0.4); Lymphocytes Absolute Auto 2.3 X10*3/uL (1.2-4.9); Lymphocytes Percent Auto 24.7 % (20-40); Mean Corpuscular HGB Conc 34.9 g/dl (31.0-36.0); Mean Corpuscular Hemoglobin 31.3 pg (27.0-33.0); Mean Corpuscular Volume 89.7 fL (80.0-98.0); Mean Platelet Volume 9.9 fL (9.4-12.4); Monocytes Absolute Auto 0.9 X10*3/uL (0.1-1.2); Monocytes Percent Auto 9.7 % (2-11); Neutrophils Percent Auto 63.4 % (45-73); Platelet Count 236 X10*3/uL (160-400); Red Blood Count 4.85 X10*6/uL (4.60-5.80); Red Cell Distribution Width 11.4 % (11.0-16.0); White Blood Count 9.4 X10*3/uL (4.8-10.8)
[2024-01-29 18:01] LABS: Alanine Aminotransferase 20 U/L (0-40); Albumin Level 4.8 g/dL (3.5-5.0); Alkaline Phosphatase 77 U/L (39-117); Anion Gap 13 (12-20); Aspartate Amino Transferase 26 U/L (5-37); Bilirubin Total 0.5 mg/dL (0.0-1.0); Blood Urea Nitrogen 11 mg/dL (9-16); Calcium 9.6 mg/dL (8.4-10.2); Carbon Dioxide 27 mmol/L (22-29); Chloride 106 mmol/L (96-108); Estimated Glomerular Filt Rate > 60; Glucose Random 111 mg/dL (60-115); Lipase 29 U/L (8-78); Magnesium 1.9 mg/dL (1.6-2.6); Potassium 3.7 mmol/L (3.3-5.1); Sodium 142 mmol/L (135-145); Total Protein 7.6 g/dL (6.5-8.0)
[2024-01-29] MEDS: ondansetron HCL 4 MG/2 ML VIAL IVPUSH (18:01)
[2024-01-29 18:03] LABS: Ethanol < 10 mg/dL
[2024-01-29 18:06] VITALS: BP 126/73; PULSE 77; RESP 14; TEMP 36.7; O2SAT 98
[2024-01-29 18:34] VITALS: O2SAT 98
--- NOTE | 2024-01-29 19:39 | PC.NURSE ---
told pt he was going to be discharged and per Md Hall pt was walking around the room, stating he is leaving, MD gave OK for pt to leave before receiving discharge papers. iv line removed. pt ambulated out of tx room.
[2024-01-29 19:41] VITALS: BP 126/73; PULSE 77; RESP 14; TEMP 36.7; O2SAT 98
== END 2024-01-29 19:42 | disposition home or self-care (01) ==
PROVIDERS: Physician Assistant Medical; Emergency Provider Internal Medicine; PCP Student in an Organized Health Care Education/Training Program
DX: R55 Syncope and collapse (principal); R11.2 Nausea with vomiting, unspecified; R10.13 Epigastric pain; R42 Dizziness and giddiness
CPT/HCPCS: 36415; 80053; 80307; 82550; 83690; 83735; 85025; 93005; 96361; 96374; 99284; 99285; J2405

== ENCOUNTER → 2024-01-29 17:34 | Outpatient (BNV) | payer MEDICAID, SELFPAY | PROVIDERS: Emergency Provider Internal Medicine; PCP Student in an Organized Health Care Education/Training Program; Visit Provider Internal Medicine Cardiovascular Disease | DX: R55 Syncope and collapse (principal) | CPT/HCPCS: 93010 ==

== ENCOUNTER 2024-02-03 11:59 | Outpatient (REF) | payer MEDICAID, SELFPAY ==
[2024-02-03 14:14] LABS: Alanine Aminotransferase 17 U/L (0-40); Albumin Level 4.8 g/dL (3.5-5.0); Alkaline Phosphatase 70 U/L (39-117); Aspartate Amino Transferase 24 U/L (5-37); Bilirubin Direct 0.2 mg/dL (0.0-0.5); Bilirubin Total 0.7 mg/dL (0.0-1.0); Total Protein 7.6 g/dL (6.5-8.0)
[2024-02-04 07:33] LABS: ~HepC Num1 0.09 S/CO (0.00-0.79); ~Hepatitis C Antibody Nonreactive (Nonreactive)
[2024-02-04 07:49] LABS: Syphilis Screen Nonreactive (Nonreactive)
[2024-02-05 17:18] LABS: HIV RNA PCR Qn Copies NOT DETECTED copies/mL (NOT DETECTED); HIV RNA PCR Qn Log Copies NOT DETECTED (NOT DETECTED)
== END 2024-02-03 12:00 | disposition home or self-care (01) ==
LOC: HO.HHCL 11:59
PROVIDERS: Visit Provider Student in an Organized Health Care Education/Training Program
DX: Z79.899 Other long term (current) drug therapy (principal)
CPT/HCPCS: 36415; 80076; 86780; 86803; 87536

== ENCOUNTER 2024-02-27 15:18 | Outpatient (AMB) | payer MEDICAID, SELFPAY ==
[2024-02-27 15:32] VITALS: BP 114/72; PULSE 71; BMI 21.7
--- NOTE | 2024-02-27 15:32 | A.OFFVIS_ITS ---
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 Today he reports that since his last visit in September he has had 3 syncopal events. One episode happened at home and was preceded by lightheadedness. Another episode happened at work and was preceded by lightheadedness with nausea and vomiting. He was sent to the emergency room following that event and only found to have mild hypotension. A 3rd event happened in February when he became upset that his friend was extremely intoxicated. In the past syncopal episodes have occurred under emotional stressful situations. To of the recent ones have occurred without clear triggers. He has not had any presyncope or syncope brought on by physical activity. He goes to the gym and uses the machines which he tolerates well. He has never had symptoms with driving. No chest discomfort brought on by exertion. No shortness of breath, PND, orthopnea or edema. [facility] Medical History Anxiety and depression Surgical History No pertinent past surgical history Family History Maternal Grandmother Heart attack HTN (hypertension) Social History Alcohol intake: current Alcohol intake frequency: holidays/special occasions only Patient Tobacco Use Status: Never used Tobacco Substance Use Type: Marijuana Review of Systems Const Details: syncope X3 since Sep All systems reviewed & are unremarkable except as noted in HPI and below ENT Reports dizziness Card Denies chest pain, Denies chest pain at rest, Denies chest pain with activity, Denies rapid heart rate, Denies pedal edema, Denies edema, Denies leg edema, Denies lightheadedness, Denies palpitations, Denies dyspnea, Denies dyspnea on exertion and Denies orthopnea Resp Denies cough, Denies dyspnea and Denies dyspnea on exertion GI Denies hematochezia and Denies change in stool character Musc Denies abnormal gait, Denies limited range of motion, Denies muscle cramps, Denies muscle weakness, Denies numbness, Denies radiating pain into limb, Denies stiffness and Denies tingling Neuro Denies abnormal gait, Reports dizziness, Denies numbness and Denies tingling Endo Denies palpitations Physical Exam Vital Signs: Last Vital Signs Pulse 71 02/27/24 15:32 BP 114/72 02/27/24 15:32 BMI result Body Mass Index 21.7 Const General: cooperative, healthy appearing, comfortable and no acute distress Orientation/consciousness: patient oriented x3 Neck Neck: Yes normal visual inspection Resp Effort & Inspection: normal respiratory effort Auscultation: clear to auscultation bilaterally, no crackles, no rales, no rhonchi and no wheezes Cardio Jugular venous distension: no JVD Rate: regular rate Rhythm: regular rhythm Heart sounds: S1 normal heart sound present, S2 normal heart sound present, no murmurs and no rubs Neuro General: patient oriented x3 Extrem General: Yes normal to inspection Psych Appearance: grossly normal Mental Status: mental status grossly normal Speech and movement: Normal speech and movement present Office Procedures EKG Details: Today, read by me, Sinus rhythm with sinus arrythmia, rate 71, QTc 399ms [id number], Complete Assessment & Plan Assessment & Plan (1) Syncope and collapse: Code(s): R55 - Syncope and collapse Category: Medical Plan: History of syncopal events, and has undergone cardiac evaluation. His EKGs show sinus rhythm with normal LA, QRS and QTC. An echocardiogram was done 05/01/2023 showing normal study. A 30 day cardiac event monitor done on 05/01/2023 showed low heart rate of 50, max heart rate 166, normal sinus rhythm/sinus tach. Symptoms correlated with sinus rhythm/ sinus tach. Tilt-table test done on the low 06/25/2023 shows normal heart rate and blood pressure response to tilt. Since last visit in September he has had 3 syncopal events each preceded by dizziness. One brought on by emotional upset, to others had no clear triggers. Spent time reviewing finding of vasovagal syncope. Ask that he try to identify triggers and avoid those triggers whenever possible. If he feels lightheaded he is to sit/lay down. Blood pressure does run on the low side. He is not orthostatic at this visit. Instructed on increasing his fluid and salt intake. Rationale for this discussed with him. Continue physical activity as tolerated. He can continue to go to the gym. Informed him that he should not be driving with a history of syncopal events. Will re-evaluate in 6 months, sooner if needed. Plan Time spent on chart review, documentation, interview and assessment Coding Level of Care Code Est Pt Level 3 (81192) Diagnoses Syncope and collapse R55 CPT Codes EKG - CPT: 26814-[id number], Complete ([id number]) Time Spent (min) 24
== END 2024-02-27 16:14 | disposition home or self-care (01) ==
PROVIDERS: PCP Student in an Organized Health Care Education/Training Program; Visit Provider Nurse Practitioner Family
DX: R55 Syncope and collapse (principal)
CPT/HCPCS: 93010; 99213

== ENCOUNTER → 2024-02-27 15:18 | Outpatient (BNVA) | payer MEDICAID, SELFPAY | PROVIDERS: PCP Student in an Organized Health Care Education/Training Program; Visit Provider Nurse Practitioner Family | DX: R55 Syncope and collapse (principal) | CPT/HCPCS: 93005; 99212 ==

== ENCOUNTER 2024-03-03 14:00 | Outpatient (REF) | payer MEDICAID, SELFPAY ==
[2024-03-03 16:27] LABS: CT PCR NOT DETECTED (Not Detect.); NG PCR NOT DETECTED (Not Detect.)
[2024-03-05 01:43] LABS: Trichomonas vaginalis RNA NOT DETECTED (NOT DETECTED)
[2024-03-07 01:28] LABS: Mycoplasma genitalium RNA Detected (Not Detected); Mycoplasma hominis PCR Not Detected (Not Detected); Ureaplasma parvum PCR Not Detected (Not Detected); Ureaplasma urealyticum PCR Not Detected (Not Detected)
== END 2024-03-03 14:01 | disposition home or self-care (01) ==
LOC: HO.HHCLNP 14:00
PROVIDERS: Visit Provider Student in an Organized Health Care Education/Training Program
DX: Z00.00 Encounter for general adult medical examination without abnormal findings (principal); R30.0 Dysuria
CPT/HCPCS: 36415; 87491; 87563; 87591; 87661; 87798

== ENCOUNTER 2024-04-30 16:05 | Outpatient (REF) | payer MEDICAID, SELFPAY | END 2024-04-30 16:06 | disposition home or self-care (01) | LOC: HO.HHCL 16:05 | PROVIDERS: Visit Provider Student in an Organized Health Care Education/Training Program | DX: Z00.00 Encounter for general adult medical examination without abnormal findings (principal) | CPT/HCPCS: 36415 ==

== ENCOUNTER 2024-05-01 15:31 | Outpatient (REF) | payer MEDICAID, SELFPAY ==
[2024-05-01 16:40] LABS: Hematocrit 43.6 % (42.0-52.0); Hemoglobin 15.3 g/dl (14.0-18.0); Mean Corpuscular HGB Conc 35.1 g/dl (31.0-36.0); Mean Corpuscular Hemoglobin 31.8 pg (27.0-33.0); Mean Corpuscular Volume 90.6 fL (80.0-98.0); Mean Platelet Volume 10.3 fL (9.4-12.4); Platelet Count 294 X10*3/uL (160-400); Red Blood Count 4.81 X10*6/uL (4.60-5.80); Red Cell Distribution Width 11.2 % (11.0-16.0); White Blood Count 12.9 X10*3/uL (4.8-10.8)
[2024-05-01 16:54] LABS: Estimated Average Glucose 74 mg/dL; Hemoglobin A1c % 4.2 % (<6.0); Total Hemoglobin (HGBA1C) 3834.8884 umol/L
[2024-05-01 17:48] LABS: TSH reflex Free T4 1.19 uIU/mL (0.32-4.0)
[2024-05-01 18:36] LABS: Alanine Aminotransferase 21 U/L (0-40); Albumin Level 4.8 g/dL (3.5-5.0); Alkaline Phosphatase 76 U/L (39-117); Anion Gap 17 (12-20); Aspartate Amino Transferase 26 U/L (5-37); Bilirubin Total 0.6 mg/dL (0.0-1.0); Blood Urea Nitrogen 10 mg/dL (9-16); Calcium 9.7 mg/dL (8.4-10.2); Carbon Dioxide 23 mmol/L (22-29); Chloride 106 mmol/L (96-108); Estimated Glomerular Filt Rate > 60; Glucose Random 86 mg/dL (60-115); Potassium 3.5 mmol/L (3.3-5.1); Sodium 142 mmol/L (135-145); Total Protein 7.7 g/dL (6.5-8.0)
[2024-05-02 04:31] LABS: Syphilis Screen Nonreactive (Nonreactive)
[2024-05-02 04:57] LABS: Hepatitis A Antibody IgG REACTIVE (Nonreactive)
[2024-05-02 05:00] LABS: HBS Num1 > 1000.00 mIU/mL (0-7.99); HBc Num1 0.13 S/CO (0.00-0.79); HIV AB/AG Nonreactive (Nonreactive); HIV Num 1 0.05 S/CO (0.00-0.99); Hepatitis B Core Antibody Nonreactive (Nonreactive); Hepatitis B Surface Antigen Negative (Negative); ~Hepatitis B Surface Antibody REACTIVE (Nonreactive); ~Hepatitis C Antibody Nonreactive (Nonreactive)
[2024-05-05 02:33] LABS: HIV RNA PCR Qn Copies NOT DETECTED copies/mL (NOT DETECTED); HIV RNA PCR Qn Log Copies NOT DETECTED (NOT DETECTED)
== END 2024-05-01 15:32 | disposition home or self-care (01) ==
LOC: HO.HHCL 15:31
PROVIDERS: Visit Provider Student in an Organized Health Care Education/Training Program
DX: Z00.00 Encounter for general adult medical examination without abnormal findings (principal); Z79.899 Other long term (current) drug therapy
CPT/HCPCS: 36415; 80053; 83036; 84443; 85027; 86704; 86706; 86708; 86780; 86803; 87340; 87389; 87536

== ENCOUNTER 2024-06-04 13:24 | Outpatient (REF) | payer MEDICAID, SELFPAY ==
[2024-06-05 12:36] LABS: Adenovirus PCR Not Detected (Not Detect.); Bordetella parapertussis PCR Not Detected (Not Detect.); Bordetella pertussis PCR Detected (Not Detect.); Chlamydia pneumoniae PCR Not Detected (Not Detect.); Coronavirus 229E PCR Not Detected (Not Detect.); Coronavirus HKU1 PCR Not Detected (Not Detect.); Coronavirus NL63 PCR Not Detected (Not Detect.); Coronavirus OC43 PCR Not Detected (Not Detect.); Human metapneumovirus PCR Not Detected (Not Detect.); Influenza A PCR Not Detected (Not Detect.); Influenza B PCR Not Detected (Not Detect.); Mycoplasma pneumoniae PCR Not Detected (Not Detect.); Parainfluenza 1 PCR Not Detected (Not Detect.); Parainfluenza 2 PCR Not Detected (Not Detect.); Parainfluenza 3 PCR Not Detected (Not Detect.); Parainfluenza 4 PCR Not Detected (Not Detect.); RSV PCR Not Detected (Not Detect.); Rhino/Enterovirus PCR Not Detected (Not Detect.)
[2024-06-05 12:45] LABS: SARS-CoV-2 PCR Not Detected (Not Detect.)
== END 2024-06-04 13:25 | disposition home or self-care (01) ==
LOC: HO.HHCLNP 13:24
PROVIDERS: Visit Provider Student in an Organized Health Care Education/Training Program
DX: R05.8 Other specified cough (principal)
CPT/HCPCS: 87633

== ENCOUNTER 2024-06-25 10:25 | Outpatient (REF) | payer MEDICAID, SELFPAY ==
[2024-06-25 11:15] LABS: MANUAL DIFF FLAG NO
[2024-06-25 11:25] LABS: Basophils Absolute Auto 0.1 X10*3/uL (0.0-0.2); Basophils Percent Auto 0.9 % (0-2); Eosinophils Absolute Auto 0.1 X10*3/uL (0.0-0.4); Eosinophils Percent Auto 0.7 % (0-4); Hematocrit 47.3 % (42.0-52.0); Hemoglobin 16.3 g/dl (14.0-18.0); Imm Gran Abs Auto 0.03 X10*3/uL (0.00-0.03); Imm Gran Pct Auto 0.4 % (0.0-0.4); Lymphocytes Absolute Auto 1.4 X10*3/uL (1.2-4.9); Lymphocytes Percent Auto 20.9 % (20-40); Mean Corpuscular HGB Conc 34.5 g/dl (31.0-36.0); Mean Corpuscular Hemoglobin 31.4 pg (27.0-33.0); Mean Corpuscular Volume 91.1 fL (80.0-98.0); Mean Platelet Volume 10.5 fL (9.4-12.4); Monocytes Absolute Auto 0.7 X10*3/uL (0.1-1.2); Monocytes Percent Auto 9.7 % (2-11); Neutrophils Absolute Auto 4.5 x10*3/uL (2.0-8.3); Neutrophils Percent Auto 67.4 % (45-73); Platelet Count 222 X10*3/uL (160-400); Red Blood Count 5.19 X10*6/uL (4.60-5.80); Red Cell Distribution Width 11.2 % (11.0-16.0); White Blood Count 6.7 X10*3/uL (4.8-10.8)
[2024-06-25 11:54] LABS: Vitamin D 25-OH Total 34.7 ng/mL (>30)
[2024-06-25 11:56] LABS: Syphilis Screen Nonreactive (Nonreactive)
[2024-06-25 12:09] LABS: Folate 9.8 ng/mL (> or = 4.0); Vitamin B12 375 pg/mL (200-900)
[2024-06-28 11:24] LABS: HIV RNA PCR Qn Copies NOT DETECTED copies/mL (NOT DETECTED); HIV RNA PCR Qn Log Copies NOT DETECTED (NOT DETECTED)
[2024-06-29 11:23] LABS: A. Phagocytphilium DNA,RT-PCR NOT DETECTED (NOT DETECTED); Babesia Microti DNA, RT-PCR NOT DETECTED (NOT DETECTED); Borrelia Miyamotoi,DNA RT-PCR NOT DETECTED (NOT DETECTED); E.Chaffeensis DNA RT-PCR NOT DETECTED (NOT DETECTED); Lyme(Borrelia ssp)DNA RT-PCR NOT DETECTED (NOT DETECTED)
== END 2024-06-25 10:26 | disposition home or self-care (01) ==
LOC: HO.HHCL 10:25
PROVIDERS: Family Medicine; Visit Provider Student in an Organized Health Care Education/Training Program
DX: R53.83 Other fatigue (principal); D72.829 Elevated white blood cell count, unspecified; Z79.899 Other long term (current) drug therapy
CPT/HCPCS: 36415; 82306; 82607; 82746; 85025; 86780; 87468; 87469; 87478; 87484; 87536; 87798

== ENCOUNTER 2024-07-17 11:32 | Emergency (ER) | payer MEDICAID, SELFPAY ==
--- NOTE | 2024-07-17 12:05 | ED_ITS ---
HPI - General Adult General Stated complaint: n/v/d Related Data Home Medications ?Medication ?Instructions ?Recorded ?Confirmed hydroxyzine HCl 10 mg tablet 10 mg PO BEDTIME PRN 07/16/23 02/27/24 lamotrigine 25 mg tablet 50 mg PO BID 07/16/23 02/27/24 Previous Rx's ?Medication ?Instructions ?Recorded docusate sodium 100 mg capsule 100 mg PO BID 10 days #20 caps 01/20/24 (Colace) hydrocortisone acetate 25 mg 25 mg [place] BID #12 ea 01/24/24 rectal suppository (Anusol-HC) polyethylene glycol 3350 17 17 g PO DAILY #238 grams 01/24/24 gram/dose oral powder (Miralax) Allergies Allergy/AdvReac Type Severity Reaction Status Date / Time penicillin G Allergy Rash Verified 02/27/24 15:33 [facility] Past Medical History Medical History Anxiety and depression Surgical History No pertinent past surgical history Family History Family History Maternal Grandmother Heart attack HTN (hypertension) Social History Social History Alcohol intake: current Alcohol intake frequency: holidays/special occasions only Patient Tobacco Use Status: Never used Tobacco Substance Use Type: Marijuana Course Course Course Narrative: RME, this is a rapid medical exam performed by Tommie Mortensen please refer to primary provider for complete H&P- 24 year old male presents for evaluation of RLQ abdominal pain that started 5 days ago. He has associated nasuea, vomiting, and diarrhea. He went to urgent care this morning and was sent here for evaluation to rule out appendicitis. Plan for labs, UA, and CT scan of the abdomen and pelvis Discharge Plan Discharge Prescriptions: No Action docusate sodium [Colace] 100 mg capsule 100 mg PO BID 10 Days Qty: 20 0RF hydrocortisone acetate [Anusol-HC] 25 mg suppository 25 mg [place] BID Qty: 12 0RF polyethylene glycol 3350 [Miralax] 17 gram/dose powder 17 g PO DAILY Qty: 238 0RF hydroxyzine HCl 10 mg tablet 10 mg PO BEDTIME PRN lamotrigine 25 mg tablet 50 mg PO BID Print Language: Sri Lankan
[2024-07-17 12:06] VITALS: BP 135/77; PULSE 78; RESP 16; TEMP 36.9; O2SAT 98; BMI 24.0
[2024-07-17 12:34] LABS: MANUAL DIFF FLAG NO
[2024-07-17 12:35] LABS: Basophils Percent Auto 0.5 % (0-2); Eosinophils Absolute Auto 0.1 X10*3/uL (0.0-0.4); Eosinophils Percent Auto 1.2 % (0-4); Hematocrit 44.5 % (42.0-52.0); Hemoglobin 15.7 g/dl (14.0-18.0); Imm Gran Abs Auto 0.03 X10*3/uL (0.00-0.03); Imm Gran Pct Auto 0.5 % (0.0-0.4); Lymphocytes Absolute Auto 1.5 X10*3/uL (1.2-4.9); Lymphocytes Percent Auto 25.2 % (20-40); Mean Corpuscular HGB Conc 35.3 g/dl (31.0-36.0); Mean Corpuscular Hemoglobin 31.6 pg (27.0-33.0); Mean Corpuscular Volume 89.5 fL (80.0-98.0); Mean Platelet Volume 9.8 fL (9.4-12.4); Monocytes Absolute Auto 0.8 X10*3/uL (0.1-1.2); Monocytes Percent Auto 14.3 % (2-11); Neutrophils Absolute Auto 3.4 x10*3/uL (2.0-8.3); Neutrophils Percent Auto 58.3 % (45-73); Platelet Count 233 X10*3/uL (160-400); Red Blood Count 4.97 X10*6/uL (4.60-5.80); Red Cell Distribution Width 11.3 % (11.0-16.0); White Blood Count 5.8 X10*3/uL (4.8-10.8)
[2024-07-17 12:49] LABS: Alanine Aminotransferase 23 U/L (0-40); Albumin Level 4.6 g/dL (3.5-5.0); Alkaline Phosphatase 80 U/L (39-117); Anion Gap 8 (12-20); Aspartate Amino Transferase 30 U/L (5-37); Bilirubin Total 0.6 mg/dL (0.0-1.0); Blood Urea Nitrogen 6 mg/dL (9-16); Calcium 9.4 mg/dL (8.4-10.2); Carbon Dioxide 31 mmol/L (22-29); Chloride 105 mmol/L (96-108); Creatinine Clr Calc Pharmacy 150.2; Estimated Glomerular Filt Rate > 60; Glucose Random 78 mg/dL (60-115); Lipase 23 U/L (8-78); Potassium 3.7 mmol/L (3.3-5.1); Sodium 140 mmol/L (135-145); Total Protein 7.2 g/dL (6.5-8.0)
== END 2024-07-17 16:17 | disposition left against medical advice (07) ==
PROVIDERS: Physician Assistant; Emergency Provider Student in an Organized Health Care Education/Training Program
DX: R10.31 Right lower quadrant pain (principal); R11.2 Nausea with vomiting, unspecified; R11.10 Vomiting, unspecified
CPT/HCPCS: 36415; 80053; 83690; 85025; 99281

== ENCOUNTER 2024-08-21 10:41 | Outpatient (REF) | payer MEDICAID, SELFPAY ==
[2024-08-21 15:31] LABS: CT PCR NOT DETECTED (Not Detect.); NG PCR NOT DETECTED (Not Detect.)
[2024-08-25 14:39] LABS: HIV RNA PCR Qn Copies NOT DETECTED copies/mL (NOT DETECTED); HIV RNA PCR Qn Log Copies NOT DETECTED (NOT DETECTED)
== END 2024-08-21 10:42 | disposition home or self-care (01) ==
LOC: HO.HHCL 10:41
PROVIDERS: Visit Provider Nurse Practitioner Primary Care
DX: Z79.899 Other long term (current) drug therapy (principal)
CPT/HCPCS: 36415; 87491; 87536; 87591

== ENCOUNTER 2024-09-26 15:45 | Emergency (ER) | payer MEDICAID, SELFPAY ==
--- NOTE | 2024-09-26 18:31 | PC.NURSE ---
pt called multiple times by this nurse and provider, pt was not in wr waiting to be seen.
--- OUTSIDE RECORDS SUMMARY | 2024-09-26 18:37 | XMS_ITS | Encounter Summary ---
Author Organization [employer] Address [address] [facility] 7t [place] [address] Care Team Providers Care Shale Planer Operator Name Role Phone Carolina Anders MD Primary Care Pro vider Reason for Visit * Reason Onset Date Comments V Form 09/01/2024 I called the pat ient, regarding an application for tinted glass waiver from the [facility]. I informed him that the form can't be completed, because he does not have a qualifying diagnosis. He asked what diagnosis would qualify him, and offered to provide him with a list of those diagnoses. He will come to the [facility] department, to moss picker the application and the list. Encounter Details Date Type Department Care Team (Late st Contact Info) Description 09/01/2024 Telephone [facility] MED[facility] [address] [place] [address] Carolina Anders MD [address] [place] [address] [facility] Form (I called the patient, regarding an application for tinted glass waiver from the [facility]. I informed him that the form can't be completed, because he does not have a qualifying diagnosis. He asked what diagnosis would qualify him, and offered to provide him with a list of those diagnoses. He will come to the [facility] department, to moss picker the application and the list.) Social History Tobacco Use Types Packs/Day Years Used Date Smoking Tobacco: Never Passive Smoke Exposure: Never Smokeless Tobacco: Never Alcohol Use Standard Drinks/Week Comments Yes 0 (1 standard drink = 0.6 oz pur e alcohol) social Depression Answer Date Recorded Patient Health Questionnaire-9 Score 11 06/04/2024 Patient Health Questionnaire-9 Score 11 06/04/2024 Last PHQ-9: Questionnaire Data Not on file 1 Housing Stability Answer Date Recorded What is your housing situation today? I do not have housing (Staying with others, in a hotel, in a long term, living outside on the street, on a beach, in a car, or in a park 02/21/[address] you li ve. Do you have problems with any of the following? None of the above 02/21/2024 Food Insecurity Answer Date Recorded Within the past 12 months, y ou worried that your food would run out before you got money to buy more: Often true 02/21/2024 Within the past 12 months,th e food you bought just didn't last and you didn't have enough money to get more: Often true Transportation Answer Date Recorded In the past 12 months, has l ack of transportation kept you from medical appts, meetings, work or from getting things needed for daily living? No 02/21/2024 Utilities Answer Date Recorded In the past 12 months, has t he electric, gas, oil or water company threatened to shut off services in your home? No 02/21/2024 Depression Answer Date Recorded Patient Health Questionnaire-2 Score 4 06/04/2024 Internet Access Answer Date Recorded Internet Access Q1 Yes 04/03/2024 Internet Access Q2 Not on file 04/03/2024 Sex and Gender Information Value Date Recorded Sex Assigned at Male 01/22/2023 9:56 AM EDT Legal Sex Male 2:40 PM EST Gender Identity Male 01/22/2023 9:56 AM EDT Sexual Orientation Bisexual 02/07/2023 3: 18 PM EDT documented as of this encounter Miscellaneous Notes * Telephone Encounter - Rosalinda Alvarado [place] - 09/01/2024 10:30 AM EST I called the patient, regarding an application for tinted glass waiver from the [facility]. I informed himthat the form can't be completed, because he does not have a qualifying diagnosis. He asked what diagnosis would qualify him, and offered to provide him with a list of those diagnoses. He will come to the [facility] department, to moss picker the application and the list. documented in this encounter Plan of Treatment Upcoming Encounters Date Type Department Care Team (Late st Contact Info) Description 10/12/2024 9:30 AM EDT Clinical Support [facility] MED[facility] [address] [place] [address] Jennifer Merchant, MYRON [address] [place] [address] documented as of this encounter Visit Diagnoses Not on filedocumented in this encounter Additional Health Concerns Assessment Noted Time PHQ-9 Depression Total Score: 11 024 9:54 AM EDT documented as of this encounter Care Teams Shale Planer Operator Relationship Specialty Start Date End Date Carolina Anders MD [address] [place] [phone] PCP - General Internal Medicine 01/09/23 documented as of this encounter
--- OUTSIDE RECORDS SUMMARY | 2024-09-26 18:37 | XMS_ITS | Clinical Summary ---
Author Organization [employer] Address [address] [facility] 7t [place] [address] Care Team Providers Care Mail Distributor Name Role Phone Carolina Anders MD Primary Care Pro vider Allergies Active Allergy Reactions Criticality Noted Date Comments Penicillins Rash Low 02/07/2023 Medications * This document contains information received from the source organization and may not represent a complete record from that organization. Focalin XR 30 MG 24 hr capsule Take 30 mg by mouth in the morning. for ADHD 07/10/20 22 Active EPINEPHrine (Epipen) 0.3 MG/0.3ML injection syringe INJECT INTRAMUSCULARLY DIRECTED ON PACKAGE AND GO TO EMERGENCY ROOM 2 each 07/23/20 23 Active cetirizine (ZyrTEC) 10 MG tablet Take 1 tablet (10 mg) by mouth in the morning. 90 tablet 09/09/19 24 Active hydrOXYzine HCl (Atarax) 10 MG tablet TAKE 1 TABLET BY MOUTH DAILY AT BEDTIME NEEDED FOR ITCHING OR for SLEEP 30 tablet 1 09/09/19 24 Active famotidine (Pepcid) 20 MG tablet Take 1 tablet (20 mg) by mouth in the morning. 30 tablet 1 10/07/19 24 025 Active Menthol (Cepacol Sore Throat) 5.4 MG lozengeIndicati ons:Sore throat (viral),Other cough Dissolve 1 tablet in the mouth every 2 (two) hours if needed (sore thraot). 20 lozenge 06/04/20 24 Active cloNIDine (Catapres) 0.1 MG tablet Take 1 tablet (0.1 mg) by mouth if needed each day for high blood pressure. 30 tablet 1 06/04/20 Active lamoTRIgine (LaMICtal) 25 MG tablet Take 1 tablet (25 mg) by mouth Once per day. 30 tablet 1 06/04/20 24 Active Cabotegravir ER (Apretude) 600 MG/3ML Suspension Extended ReleaseIndicati ons:On pre-exposure prophylaxis for HIV Inject 3 mL (600 mg) into the muscle See administration instructions. Intramuscular injection every other month. Ventrogluteal. 3 mL 5 06/19/20 24 Active Reguloid 28.3 % powder DISSOLVE 1 TABLESPOONFUL IN 8 OUNCES OF WATER AND DRINK TWICE DAILY 369 g 2 07/27/20 24 Active Active Problems Problem Noted Date Diagnosed Date Cough 06/05/2024 Assessment & Plan (06/05/2024 7:08 AM EDT): Covid,Flu vaccine strep neg today Reports main concern is worsening dry cough that is lasting at this point a week No major findings on exam -sent today resp viral panel to r/o other pathologies as pertussis and mycoplasma ? -supportive tx advised -azithromycin empirically x 5 days -alarm signs and symptoms discussed w pt Recurrent major depressive disorder 06/04/2024 Urethral discharge 03/03/2024 ADHD (attention deficit hype ractivity disorder), combined type 07/23/2023 07/23/2023 Generalized anxiety disorder 07/23/2023 High risk sexual behavior 07/23/2023 Bipolar 1 disorder, depressed 02/07/2023 Assessment & Plan (06/05/2024 7:08 AM EDT): Stopped f w previous therapist and psychiatrts had his case close -BH today to eval and refer for out pt tx and psych -refilled today clonidine and lamotrigine until starts care w psychiatrist Assessment & Plan (04/13/2023 11:51 AM EDT): Bipolar dx ,anxiety ,ADHD f w psychiatrist and therapist PHQ9: 13 <- 20, denies SI -reports f w psychiatrist monthly and e 1 to 2 weeks w therapist -advised to discuss w psychiatrist about uncontrolled depressive symptoms ,denies any SI -Prescribed today Hydroxyzine 10 mg HS for insomnia Assessment & Plan (02/07/2023 7:21 PM EDT): Bipolar dx ,anxiety ,ADHD f w psychiatrist and therapist PHQ9: 20 denies SI -reports f w psychiatrist monthly and e 1 to 2 weeks w therapist -advised to discuss w psychiatrist about uncontrolled depressive symptoms ,denies any SI Syncope 02/07/2023 Assessment & Plan (04/13/2023 11:51 AM EDT): Seems syncope occurs associated w stressful events for pt with no concerning neuro,cardio or respiratory complaints at other times. No episodes for the last month. -advised to discuss w his psychiatrist to optimize psych tx -has already referral w players assistant x 04/25/2023 -advise to continue apt to r/o cardiac etiology -From recent labs on 04/2023 - all wnl, only noted low HbA1c <4, and repeated today capillary HbA1c - 4.3, which is within the normal reported range. I checked today his Rx to see if they could cause hypoglycemia found, but no associations were found and there are no hypoglycemic values found. Today his glucose is 116 Assessment & Plan (02/07/2023 7:23 PM EDT): Seems syncope occurs associated w stressful events for pt with no concerning neuro,cardio or respiratory complaints at other times. -advised to discuss w his psychiatrist to optimize psych tx -has already referral w players assistant x 04/25/2023 -advise to continue apt to r/o cardiac etiology History of penicillin allergy 02/07/2023 Assessment & Plan (04/13/2023 11:46 AM EDT): -referred to internet marketing executive x hx of PNC allergy to clarify - gave today info for pt to call. Assessment & Plan (02/07/2023 7:23 PM EDT): -referred today to internet marketing executive x hx of PNC allergy to clarify Health care maintenance 02/07/2023 Assessment & Plan (04/13/2023 11:50 AM EDT): -Vaccines: s/p hepAx2, hep B x3 not immune - to restart series today, HPVx3,meningoccocal x2,varicellax2,MMRx2,covid x3,and Bivalent x1 today, tdap 2018 -Pt states he is interested in resuming PrEP, but ideally would like to obtain injectable option. For now will start Truvada daily until we can start Cabenuva. -Referred today to PrEP team. Assessment & Plan (02/07/2023 7:29 PM EDT): -labs x annual exam today -pt agreed to have STI testing including HIV to have for baseline -Vaccines: s/p hepAx2, hep B x3,HPVx3,meningoccocal x2,varicellax2,MMRx2,covid x3,and Bivalent x1 per pt,tdap 2017 ---- -pt used to be on PREP-Descovy -but refusing to continue x now --will do labs today and advise to call here if change his mind-will discuss w pt at next visit if will be interested in getting inj calbotegravir Resolved Problems Problem Noted Date Diagnosed Date Resolved Date Sore throat 11/28/2023 03/03/2024 Urethritis 10/08/2023 11/28/2023 Diarrhea 10/08/2023 11/28/2023 Hematemesis 10/08/2023 11/28/2023 Hearing loss 02/07/2023 04/13/2023 Assessment & Plan (04/13/2023 11:46 AM EDT): Assessment & Plan (02/07/2023 7:24 PM EDT): Has wax impacted in right ear -nurse today to do ear lavage Encounters Date Type Department Care Team Description 09/01/2024 Telephone [facility] MEDICINE [address] [place] [address] Herminia Robins, hl7 developer 09/01/2024 Telephone [facility] [address] [place] [address] Carolina Anders MD [facility] Form (I called the patient, regarding an application for tinted glass waiver from the [facility]. I informed him that the form can't be completed, because he does not have a qualifying diagnosis. He asked what diagnosis would qualify him, and offered to provide him with a list of those diagnoses. He will come to the HIM department, to picker / packer the application and the list.) 08/26/2024 Telephone [facility] MEDICINE [address] [place] [address] Jennifer Merchant, MYRON 08/26/[address] [address] Jennifer Merchant, MYRON 08/25/[address] [address] Jennifer Merchant, MYRON 08/21/2024 11:00 AM EST Clinical Support [address] [address] Jennifer Merchant, MYRON On pre-exposure prophylaxis for HIV (Primary Dx) 08/21/2024 Orders Only [address] [address] Brandee Small ANP 08/21/[address] [address] Jennifer Merchant, MYRON 08/21/2024 Travel 07/27/2024 Refill [facility] [address] [place] [phone] Carolina Anders MD from Last 3 Months Immunizations Name Administration Dates Next Due DTaP 03/12/2005, 3,2001,07/14,2001 HPV, Quadrivalent 08/20/2017,11/16/2016,09/21/19 Hep A, Adult 03/19/2012 Hep A, Unspecified 09/21/2016 Hep B, Adolescent or Pediatric 2001,2000,2001 Hep B, adult 10/23/2023,05/29/2023,04/12/2023 Hib (HbOC) 06/18/2002, 2,2001,05/14 IPV 03/12/2005, 2,2001,05/14 Influenza injectable quadriv alent preservative free 07/25/2023 Influenza, IIV3, injectable 09/28/2021,0 04/08/2020,07/02/2018,08/20,09/21/2016 MMR 03/12/2005,2002 Meningococcal ACWY, unspecified 12/02/2017,03/19 Pfizer Covid-19 Vaccine 12+ 07/25/2023,1 09/26/2020,12/12/2020,11/20 Pneumococcal Conjugate PCV 7 2001,07/14/20 01,2001 Smallpox Mpox, Live Attenuat ed, Preservative Free 12/31/2023,12/03/2023 Tdap 02/12/2023,12/02/2017,03/19/2012 Varicella 03/12/2005,2002 Family History Medical History Relation Name Comments DM2,heart disease Father Lupus Mother unspecified cancer Paternal Grandmother Relation Name Status Comments Father Mother Paternal Grandmother Social History Tobacco Use Types Packs/Day Years Used Date Smoking Tobacco: Never Passive Smoke Exposure: Never Smokeless Tobacco: Never Tobacco Cessation:Counseling Given: Not Answered Alcohol Use Standard Drinks/Week Comments Yes 0 [...] with others, in a hotel, in a long-term, living outside on the street, on a [...] Orientation Bisexual 02/07/2023 3: 18 PM EDT Last Filed Vital Signs Vital Sign Reading Time Taken Comments Blood Pressure 137/81 06/04/2024 8:55 AM EDT Pulse 88 06/04/2024 8:55 AM EDT Temperature 36.8 ??C (98.2 ??F) 06/04/2024 8:55 AM ED T Respiratory Rate 18 06/04/2024 8:55 AM EDT Oxygen Saturation 97% 06/04/2024 8:55 AM EDT Inhaled Oxygen Concentration - - Weight 70.3 kg (155 lb) 06/04/2024 8:55 AM EDT Height 172.7 cm (5' 8 ) 05/04/2024 6:02 PM EDT Body Mass Index 23.57 05/04/2024 6:02 PM EDT Plan of Treatment Upcoming Encounters Date Type Department Care Team (Late st Contact Info) Description 10/12/2024 9:30 AM EDT Clinical Support [facility] MEDICINE [address] [place] [address] Jennifer Merchant, RN [address] [place] [address] Health Maintenance Due Date Last Done Comments Alcohol/Substance Use Screening 2013 Family Planning (PISQ) 2016 Pneumococcal Vaccine: Pediatrics (0 to 5 Years) and At-Risk Patients (6 to 49) Years) (1 of 2 - PCV) 2020 2001, 2001, 2001 COVID-19 Vaccine (5 - 2023- season) 2024 07/25/2023, 07/26/2021, 12/12/2020, Additional history exists Influenza Vaccine (#1) 2024 , 09/28/2021, 04/08/2020, Additional history exists Depression Monitoring (PHQ-9) 12/02/2024 06/04/2024, 06/04/2024 SDOH Screening 02/20/2025 02/21/2024 Depression Screening 06/04/2025 06/04/2024, 06/04/20 24 Tobacco Screening 06/04/2025 06/04/2024 Chlamydia and Gonorrhea Screening 08/21/2025 08/21/2024, 03/03/2024, 11/28/2023, Additional history exists DTaP/Tdap/Td Vaccines (9 - Td or Tdap) 02/12/2033 02/12/2023, 12/02/2017, 03/19/2012, Additional history exists Zoster Vaccines (1 of 2) 2051 RSV Patients and Patients Aged 60 years or older (1 - 1-dose 75+ series) 2076 HIB Vaccines Completed 06/18/2002, 10/03, 2001, Additional history exists IPV Vaccines Completed 03/12/2005, 10/03, 2001, Additional history exists Hepatitis A Vaccines Completed 09/21/2016, 03/19/20 12 HPV Vaccines Completed 08/20/2017, 11/03, 09/21/2016 Meningococcal Vaccine Completed 12/02/2017, 012 Hepatitis B Vaccines Completed 10/23/2023, 05/29/2023, 04/12/2023, Additional history exists Hepatitis C Screening Completed 05/01/2024 , 02/03/2024, 11/22/2023, Additional history exists HIV Screening Completed 08/21/2024, 06/06, 05/01/2024, Additional history exists RSV under 20 months Aged Out No longe r eligible based on patient's age to complete this topic Rotavirus Vaccines Aged Out No longer eligible based on patient's age to complete this topic Procedures Procedure Name Priority Date/Time Associated Diagnosis Comments POCT RAPID HIV SCREENING Routine 08/21/2024 11:15 AM EST On pre-exposure prophylaxis for HIV CHLAMYDIA/N. GONORRHOEAE RNA, TMA, UROGENITAL Routine 08/21/2024 11:04 AM EST HIV 1 RNA, QUANTITATIVE REAL TIME PCR Routine 08/21/2024 10:43 AM EST HEPATITIS C AB W/REFL TO HCV RNA, QN, PCR Routine 05/01/2024 3:55 PM EDT Annual physical exam from Last 3 Months or Most Recently Relevant to Health Maintenance Results * POCT RAPID HIV SCREENING (08/21/2024 11:15 AM EST) Blood 08/21/2024 11:1 5 AM EST Narrative Jennifer Merchant, MYRON - 08/21/2024 11:15 AM EST Negative HIV ab/ag Elsy Wilson MD POINT OF CARE TEST ENTER/EDIT ORDERABLES Final Result * Chlamydia/N. Gonorrhoeae RNA, TMA, Urogenitial (08/21/2024 11:04 AM EST) Pathologist [facility] CT PCR NOT DETECTED Not Detect. [facility] Comment:A not detected test result does not exclude the possibilityof infection because test results can be affected byimproper specimen collection, concurrent antibiotic therapy,or the number of organisms in the specimen which may bebelow the sensitivity of the test. As with many diagnostictests, results from the Xpert CT/NG assay should beinterpreted in conjunction with other laboratory andclinical data available to the clinician.Xpert CT/NG performance has not been evaluated in patientsless than 14 years of age. The assay should not be used forthe evaluationof suspected sexual abuse or for other medico-legalindications. Additional testing is recommended in anycircumstance when false positive or false negative resultscould lead to adverse medical, social or psychologicalconsequences. NG PCR NOT DETECTED Not Detect. [facility] Comment:A not detected test result does not exclude the possibilityof infection because test results can be affected byimproper specimen collection, concurrent antibiotic therapy,or the number of organisms in the specimen which may bebelow the sensitivity of the test. As with many diagnostictests, results from the Xpert CT/NG assay should beinterpreted in conjunction with other laboratory andclinical data available to the clinician.Xpert CT/NG performance has not been evaluated in patientsless than 14 years of age. The assay should not be used forthe evaluationof suspected sexual abuse or for other medico-legalindications. Additional testing is recommended in anycircumstance when false positive or false negative resultscould lead to adverse medical, social or psychologicalconsequences. 08/21/2024 11:0 4 AM EST 08/21/2024 1:27 PM EST Narrative [facility] - 08/21/2024 3:32 PM EST Urine [facility] LAB MICROBIOLOGY - GENERAL ORDER LEIA Final Result [facility] [address] [place] [address] [phone] * HIV-1 RNA, Quantitative, Real-Time PCR (08/21/2024 10:43 AM EST) HIV RNA PCR Qn Copies NOT DETECTED NOT DETECTED copies/mL [facility] HIV RNA PCR Qn Log Copies NOT DETECTED NOT DETECTED [facility] Comment:Result Units: Log co pies/mLThis test was performed using Real-Time Polymerase ChainReaction.Reportable Range: 20 copies/mL to 10,000,000 copies/mL(1.30 log copies/mL to 7.00 log copies/mL).THIS TEST WAS PERFORMED AT:[facility] [place] [id number] RUANO MD 08/21/2024 10:4 3 AM EST 08/21/2024 11:28 AM EST us Brandee VENCES LAB BLOOD ORDERABLES Final Resul t Performing Organization Address City/[facility]/ZIP Co de Phone Number [facility] [address] [place] [address] [phone] * Hepatitis C Antibody with Reflex to HCV, RNA, Quantitative, Real-Time PCR (05/01/2024 3:55 PM EDT) Hepatitis C Antibody Nonreactive Nonreactive [facility] Comment:Antibodies to HCV no t detected; does not exclude early acuteHCV infection. Blood Venous blood specimen / Unknown 05/01/2024 3:55 PM EDT 05/01/2024 4:30 PM EDT us Carolina Mayo MD LAB BLOOD ORDERAB LES Final Result Performing Organization Address City/[facility]/ZIP Co de Phone Number [facility] [address] [place] [address] [phone] from Last 3 Months or Most Recently Relevant to Health Maintenance Insurance [facility] C[address] , [address] [address] Care Teams Mail Distributor Relationship Specialty Start Date End Date Carolina Anders MD [address] [place] [phone] PCP - General Internal Medicine 01/09/23
--- OUTSIDE RECORDS SUMMARY | 2024-09-26 18:37 | XMS_ITS | Encounter Summary ---
Author Organization [employer] Address [address] [place] [address] [address] [place] [address] Care Team Providers Care Scalder Name Role Phone Carolina Anders MD Primary Care Pro vider Reason for Referral * Consultation (Urgent) - Authorized Specialty Diagnoses / Procedures Referred By Contac t Referred To Contact Optometry Diagnoses Eye exam, routine Carolina Anders MD [address] [place] [address] Phone: tel: fax: Referral ID Status Reason Start Date Expiration Date Visits Requested Visits Authorized [id number] Authorized Specialty Services Required 09/01/2024 09/01/2025 1 1 Reason for Visit * Reason Onset Date Comments Referral 09/01/2024 Encounter Details Date Type Department Care Team (Late st Contact Info) Description 09/01/2024 Telephone [facility]INE [address] [place], [place] [phone] Herminia Robins, RN [address] [place], [place] [phone] Referral Social History Tobacco Use Types Packs/Day Years [...] with others, in a hotel, in a snf, living outside on the street, on a [...] encounter Miscellaneous Notes * Telephone Encounter - Herminia Robins RN - 09/01/2024 11:30 AM EST Pt walked into green team reporting can't see while driving, has eye problems. Would like to have eye exam for Dx so [facility] will approve tints on his windows. Referral placed. documented in this encounter Plan of Treatment Upcoming Encounters Date Type Department Care Team (Late st Contact Info) Description 10/12/2024 9:30 AM EDT Clinical Support [facility] [address] [place] [address] Jennifer Merchant, RN [address] [place] [address] Scheduled Referrals Name Type Priority Associated Diagnoses Orde r Schedule Referral to Optometry Outpatient Referral Urgent Eye exam, routine Expected: 09/01/2024 (Approximate), Expires: 09/01/2025 documented as of this encounter Visit Diagnoses Diagnosis Eye exam, routine documented in this encounter Additional Health Concerns Assessment Noted Time PHQ-9 Depression Total Score: 11 024 9:54 AM EDT documented as of this encounter Care Teams Scalder Relationship Specialty Start Date End Date Carolina Anders MD [address] [place] [id number] PCP - General Internal Medicine 01/09/23 documented as of this encounter
--- OUTSIDE RECORDS SUMMARY | 2024-09-26 18:37 | XMS_ITS | Encounter Summary ---
Author Organization [employer] Address [address] [facility] 7t [place] [address] Care Team Providers Care Production Lapping Machine Operator Name Role Phone Carolina Anders MD Primary Care Pro vider Reason for Visit * Reason Onset Date Comments New Patient Appt 12/21/2022 Encounter Details Date Type Department Care Team (Late st Contact Info) Description 12/21/2022 Telephone [facility] [address], [place] [phone] Gonzalez Du MD [address] [place], [place] [phone] New Patient Appt Social History Tobacco Use Types Packs/Day Years Used Date Smoking Tobacco: Never Assessed Sex and Gender Information Value Date Recorded Sex Assigned at Male 01/22/2023 9:56 AM EDT Legal Sex Male 2:40 PM EST Gender Identity Male 01/22/2023 9:56 AM EDT Sexual Orientation Bisexual 02/07/2023 3: 18 PM EDT documented as of this encounter Miscellaneous Notes * Telephone Encounter - Nhan Earl - 12/21/2022 10:34 AM EDT New Patients Par Nhan Tovar called (2x) to schedule New patient appt, pt did not answer left voicemail to give a call at [phone]. documented in this encounter Plan of Treatment Upcoming Encounters Date Type Department Care Team (Late st Contact Info) Description 10/12/2024 9:30 AM EDT Clinical Support [facility] [address] [place] [phone] Jennifer Merchant, MYRON [address] [place] [address] documented as of this encounter Visit Diagnoses Not on filedocumented in this encounter Care Teams Production Lapping Machine Operator Relationship Specialty Start Date End Date Carolina Anders MD [address] [place] [id number] PCP - General Internal Medicine 01/09/23 documented as of this encounter
--- OUTSIDE RECORDS SUMMARY | 2024-09-26 18:37 | XMS_ITS | Clinical Summary ---
Author Organization [facility] Address [address] [place] [address] Care Team Providers Care Scrap Kettle Tender Name Role Phone Unavailable Primary Care Provider Unavailabl e Source Comments PLEASE NOTE, if this patient is a minor, it may be UNLAWFUL to discuss sensitive information that is contained in these records (such as FAMILY PLANNING, MENTAL HEALTH or SUBSTANCE ABUSE) with the minor patient's parent or other person without the patient's specific authorization.[facility] Allergies Active Allergy Reactions Criticality Noted Date Comments Penicillins Rash Low 02/07/2023 Medications acetaminophen (TYLENOL) 500 mg tablet Take 500 mg by mouth every 6 (six) hours as needed for pain 11/28/19 24 Active APRETUDE 600 mg/3 mL (200 mg/mL) spER Inject 600 mg into the muscle every 8 (eight) weeks Every other month. 06/19/20 24 Active cetirizine (ZYRTEC) 10 mg tablet Take 10 mg by mouth every morning Active STOOL SOFTENER 100 mg capsule Take 100 mg by mouth 2 (two) times daily as needed for constipation 01/20/20 24 Active EPINEPHrine (EPIPEN) 0.3 mg/0.3 mL pen injector Inject 0.3 mg into the muscle as needed for anaphylaxis Active ibuprofen 600 mg tablet Take 600 mg by mouth 3 (three) times daily as needed for headaches or moderate pain 11/28/19 24 Active cloNIDine (CATAPRES) 0.2 mg tabletIndications :irritability Take 1 Tablet by mouth once daily as needed (for mood irritability) for up to 30 days Indications: irritability 30 Tablet 07/16/20 24 Active lamoTRIgine (LAMICTAL) 25 mg tabletIndications :Bipolar 1 disorder, depressed (HCC-CMS) Take 2 Tablets by mouth once daily for 30 days 60 Tablet 07/16/20 24 Active guanFACINE (INTUNIV) 1 mg 24 hr tabletIndications :ADHD (attention deficit hyperactivity disorder), combined type Take 1 Tablet by mouth once daily for 30 days 30 Tablet 07/16/20 24 Active Active Problems Problem Noted Date Diagnosed Date Cough 06/05/2024 Recurrent major depressive disorder ([facility]) Urethral discharge 03/03/2024 ADHD (attention deficit hype ractivity disorder), combined type 07/23/2023 Assessment & Plan (07/16/2024 3:00 PM EST): A: Poor concentration, difficulties initiating and completing task, forgetfulness P: Start Guanfacine 1 mg PO daily Education. Discussed overlapping of symptoms with bipolar depression, Discussed need to optimize mood stabilizer Generalized anxiety disorder 07/23/2023 Assessment & Plan (08/17/2024 3:40 PM EST): A: increased anxiety due to stress P: increase Clonidine to 0.2mg High risk sexual behavior 07/23/2023 Bipolar 1 disorder, depressed ([facility]) 02/08/20 23 Assessment & Plan (07/16/2024 2:43 PM EST): A: current episode depressed with anxious distress, poor sleep Plan Increase Clonidine to 0.2 mg, patient states it's somewhat helpful Increase Lamictal to 50 mg, Educated on SJS Sleep hygiene Health care maintenance 02/07/2023 History of penicillin allergy 02/07/2023 Syncope 02/07/2023 Encounters Date Type Department Care Team Description 07/16/2024 1:00 PM EST Behavioral Health Visit [facility] [address] [place] [phone] Shelby Welch APRN Bipolar 1 disorder, depressed ([facility]) (Primary Dx); ADHD (attention deficit hyperactivity disorder), combined type; Generalized anxiety disorder from Last 3 Months Immunizations Name Administration Dates Next Due DTAP 03/12/2005, 3,2001,07/14,2001 Flu, Preservative Free 07/25/2023 HEP A, UNSPECIFIED 09/21/2016 HEP B, PED/ADOL 2001,2001,2001 HPV, QUADRIVALENT 08/20/2017,11/16/2016,09/21/19 17 Hep A, adult 03/19/2012 Hep B, Adult/Adol (ENERGIX/RECOMBIVAX) 4,05/29/2023,04/12/2023 Hib (HbOC) 06/18/2002, 2,2001,05/14 INFLUENZA, SEASONAL, INJECTABLE 09/28/19 22,04/08/2020,07/02/2018,08/20,09/21/2016 IPV 03/12/2005, 2,2001,05/14 MENINGOCOCCAL ACWY, UNSPECIFIED 12/02/2017,03/19 MMR (MMR II/Priorix) 03/12/2005,2002 PNEUMOCOCCAL CONJUGATE PCV 7 2001,07/14/20,2001 Smallpox Mpox (JYNNEOS) Vaccine 12/31/2023,12/30,12/03/2023 TDAP 02/12/2023,12/02/2017,03/19/2012 Varicella, Live Vaccine 03/12/2005,2002 Family History Medical History Relation Name Comments No Known Problems Mother Relation Name Status Comments Father Alive Mother Alive Social History Tobacco Use Types Packs/Day Years Used Date Smoking Tobacco: Never Smokeless Tobacco: Never Tobacco Cessation:Counseling Given: Not Answered Alcohol Use Standard Drinks/Week Comments Not Asked 0 (1 standard drink = 0.6 oz pur e alcohol) rarely Social Connections Answer Date Recorded Connectedness 0 06/11/2024 Financial Resource Strain Answer Date R ecorded Financial Resource Strain 0 2023 Stress Answer Date Recorded Stress 0 06/11/2024 Physical Activity Answer Date Recorded Physical Activity 0 06/11/2024 Food Insecurity Answer Date Recorded Food 0 06/11/2024 Transportation Needs Answer Date Record ed Transportation 0 06/11/2024 Housing Stability Answer Date Recorded Housing 0 06/11/2024 Safety and Environment Answer Date Hitesh rded Safety 0 06/11/2024 Utilities Answer Date Recorded Utilities 0 06/11/2024 Employment Answer Date Recorded Stress 0 06/11/2024 Sex and Gender Information Value Date Recorded Sex Assigned at Male 06/11/2024 2:18 PM PST Legal Sex Male 2:18 PM PST Gender Identity Male 06/11/2024 2:18 PM PST Sexual Orientation Not on file Plan of Treatment Health Maintenance Due Date Last Done Comments Depression Monitoring 2001 Hepatitis C Screening 2001 STI Counseling 2001 Hypertension Screening (#1) 2019 [id number] ( season) 2024 07/25/2023, 07/26/2021, 12/12/2020, Additional history exists Imm-Influenza (#1) 2024 07/25/2023, 0 09/28/2021, 04/08/2020, Additional history exists Alcohol and Drug Screen 08/05/2024 Tobacco Screening 07/16/2025 07/16/2024 Imm-DTaP/Tdap/Td (9 - Td or Tdap) 02/12/2033 02/12/2023, 12/02/2017, 03/19/2012, Additional history exists Imm-Varicella Completed 03/12/2005, 2002 Imm-HPV Completed 08/20/2017, 11/03, 09/21/2016 Imm-Hepatitis B Completed 10/23/2023, 05/06, 04/12/2023, Additional history exists Imm-Mpox (formerly Monkeypox) Completed , 12/31/2023, 12/03/2023 HIV Screening Completed 06/25/2024, 06/06, 05/01/2024, Additional history exists Insurance [place] [facility]
== END 2024-09-26 18:38 | disposition left against medical advice (07) ==
PROVIDERS: Emergency Provider Emergency Medicine; PCP Student in an Organized Health Care Education/Training Program
DX: N48.89 Other specified disorders of penis (principal); Z53.21 Procedure and treatment not carried out due to patient leaving prior to being seen by health care provider

== ENCOUNTER 2024-10-12 15:20 | Outpatient (REF) | payer MEDICAID, SELFPAY ==
--- OUTSIDE RECORDS SUMMARY | 2024-10-12 17:31 | XMS_ITS | Encounter Summary ---
Author Organization [employer] Address [address] [facility] 7t [place] [address] Care Team Providers Care Door To Door Sales Representative Name Role Phone Carolina Anders MD Primary Care Pro vider Encounter Details Date Type Department Care Team (Latest Contact Info) Description 10/12/2024 Travel Social History Tobacco Use Types Packs/Day Years [...] with others, in a hotel, in a prison, living outside on the street, on a [...] PM EDT documented as of this encounter Plan of Treatment Not on file documented as of this encounter Visit Diagnoses Not on filedocumented in this encounter Additional Health Concerns Assessment Noted Time PHQ-9 Depression Total Score: 11 024 9:54 AM EDT documented as of this encounter Care Teams Door To Door Sales Representative Relationship Specialty Start Date End Date Carolina Anders MD [address] [place] [id number] PCP - General Internal Medicine 01/09/23 documented as of this encounter
--- OUTSIDE RECORDS SUMMARY | 2024-10-12 17:31 | XMS_ITS | Clinical Summary ---
Author Organization [facility] Address [address] [place] [address] Care Team Providers Care Justowriter Operator Name Role Phone Unavailable Primary Care Provider [...] Date Cough 06/05/2024 Recurrent major depressive disorder ([facility]) Urethral discharge 03/03/2024 ADHD (attention deficit hype [...] sexual behavior 07/23/2023 Bipolar 1 disorder, depressed ([facility]) 02/08/20 23 Assessment & Plan (07/16/2024 2:43 [...] EST Behavioral Health Visit [facility] [address] [place] [phone] Shelby Welch APRN Bipolar 1 disorder, depressed ([facility]) (Primary Dx); ADHD (attention deficit hyperactivity disorder), [...] Date Last Done Comments Depression Monitoring 2001 STI Counseling 2001 Hypertension Screening (#1) 2019 [id number] ( season) 2024 07/25/2023, 07/26/2021, 12/12/2020, Additional [...] Imm-Mpox (formerly Monkeypox) Completed , 12/31/2023, 12/03/2023 Hepatitis C Screening Completed 05/01/2024 HIV Screening Completed 06/25/2024, 06/06, 05/01/2024, Additional history exists Insurance [place] [employer]
--- OUTSIDE RECORDS SUMMARY | 2024-10-12 17:31 | XMS_ITS | Encounter Summary ---
Author Organization [employer] Address [address] [facility] 7t [place] [address] Care Team Providers Care Teleradiologist Name Role Phone Carolina Anders MD Primary Care Pro vider Reason for Visit * Reason Onset Date Comments New Patient Appt 12/21/2022 Encounter Details Date Type Department Care Team (Late st Contact Info) Description 12/21/2022 Telephone [facility] [address] [place], [place] [phone] Gonzalez Du MD [address] [place], [place] [phone] New Patient Appt Social History Tobacco Use [...] left voicemail to give a call at [phone]. documented in this encounter Plan of Treatment Not on file documented as of this encounter Visit Diagnoses Not on filedocumented in this encounter Care Teams Teleradiologist Relationship Specialty Start Date End Date Carolina Anders MD [address] [place] [phone] PCP - General Internal Medicine 01/09/23 documented as of this encounter
--- OUTSIDE RECORDS SUMMARY | 2024-10-12 17:31 | XMS_ITS | Clinical Summary ---
Author Organization [employer] Address [address] [facility] 7t [place] [address] Care Team Providers Care Analysis Internship Name Role Phone Carolina Anders MD Primary [...] the morning. 30 tablet 1 10/07/19 24 Active Menthol (Cepacol Sore Throat) 5.4 MG [...] Once per day. 30 tablet 1 06/04/20 Active Cabotegravir ER (Apretude) 600 MG/3ML Suspension Extended ReleaseIndicati ons:On pre-exposure prophylaxis for HIV Inject 3 mL (600 mg) into the muscle See administration instructions. Intramuscular injection every other month. Ventrogluteal. 3 mL 5 06/19/20 Active Reguloid 28.3 % powder DISSOLVE 1 TABLESPOONFUL IN 8 OUNCES OF WATER AND DRINK TWICE DAILY 369 g 2 07/27/20 Active Hospital, Clinic, or Other Facility Administered Medication Ordered Dose Route Frequency Start Date End Date Status Cabotegravir ER Suspension Extended Release 600 mgIndications:On pre-exposure prophylaxis for HIV 600 mg IM Once 10/12/2024 10/12/2024 Ended Active Problems Problem Noted Date Diagnosed Date [...] had his case close -BH today to aaron and refer for out pt tx and [...] optimize psych tx -has already referral w tile professional x 04/25/2023 -advise to continue apt to [...] optimize psych tx -has already referral w tile professional x 04/25/2023 -advise to continue apt to r/o cardiac etiology History of penicillin allergy 02/07/2023 Assessment & Plan (04/13/2023 11:46 AM EDT): -referred to cloth pattern maker x hx of PNC allergy to clarify - gave today info for pt to call. Assessment & Plan (02/07/2023 7:23 PM EDT): -referred today to cloth pattern maker breanne cross of [facility] allergy to clarify Health care maintenance 02/07/2023 [...] x3,HPVx3,meningoccocal x2,varicellax2,MMRx2,covid x3,and Bivalent x1 per pt,tdap 2018 ---- -pt used to be on PREP-Descovy [...] Encounters Date Type Department Care Team Description 10/12/2024 9:30 AM EDT Clinical Support [address] [phone] Jennifer Merchant, MYRON On pre-exposure prophylaxis for HIV (Primary Dx) 10/12/2024 Travel 09/01/[address] [address] Herminia Robins RN Referral 09/01/[address] [phone] Carolina Anders MD [facility] Form (I called the patient, regarding an application for tinted glass waiver from the [facility]. I informed him that the form can't be completed, because he does not have a qualifying diagnosis. He asked what diagnosis would qualify him, and offered to provide him with a list of those diagnoses. He will come to the HIM department, to citrus picker the application and the list.) 08/26/[address] [phone] Jennifer Merchant, MYRON 08/26/[address] [address] Jennifer Merchant, MYRON 08/25/[address] [address] Jennifer Merchant, MYRON 08/21/2024 11:00 AM EST Clinical Support [address] [address] Jennifer Merchant, MYRON On pre-exposure prophylaxis for HIV (Primary Dx) 08/21/2024 Orders Only [address] [address] Brandee Small ANP 08/21/[address] [address] Jennifer Merchant, MYRON 08/21/2024 Travel 07/27/2024 Refill [facility] [address] [place] [phone] Carolina Anders MD from Last 3 Months Immunizations Name Administration Dates Next Due DTaP 03/12/2005, 3,2001,07/14,2001 HPV, Quadrivalent 08/20/2017,11/16/2016,09/21/19 17 Hep A, Adult 03/19/2012 Hep A, Unspecified [...] with others, in a hotel, in a penitentiary, living outside on the street, on a [...] 05/04/2024 6:02 PM EDT Plan of Treatment Health Maintenance Due Date Last Done Comments Alcohol/Substance Use Screening 2013 Family Planning (PISQ) 2016 Pneumococcal Vaccine: Pediatrics (0 to 5 Years) and At-Risk Patients (6 to 49) Years) (1 of 2 - PCV) 2020 2001, 2001, 2001 COVID-19 Vaccine (5 - season) 2024 07/25/2023, 07/26/2021, 12/12/2020, Additional history [...] 08/21/2024 11:1 5 AM EST Narrative Jennifer Merchant RN - 08/21/2024 11:15 AM EST Negative HIV ab/ag Elsy Wilson MD POINT OF CARE TEST ENTER/EDIT ORDERABLES Final Result * Chlamydia/N. Gonorrhoeae RNA, TMA, Urogenitial (08/21/2024 11:04 AM EST) Pathologist [facility] CT PCR NOT DETECTED Not Detect. [facility] Comment:A not detected test result does [...] psychologicalconsequences. NG PCR NOT DETECTED Not Detect. [facility] Comment:A not detected test result does [...] AM EST 08/21/2024 1:27 PM EST Narrative [facility] - 08/21/2024 3:32 PM EST Urine Brandee [facility] MICROBIOLOGY - GENERAL ORDER LEIA Final Result [facility] [address] [place] [address] [phone] * HIV-1 RNA, Quantitative, Real-Time PCR (08/21/2024 10:43 AM EST) HIV RNA PCR Qn Copies NOT DETECTED NOT DETECTED copies/mL [facility] HIV RNA PCR Qn Log Copies NOT DETECTED NOT DETECTED [facility] Comment:Result Units: Log co pies/mLThis test was performed using Real-Time Polymerase ChainReaction.Reportable Range: 20 copies/mL to 10,000,000 copies/mL(1.30 log copies/mL to 7.00 log copies/mL).THIS TEST WAS PERFORMED AT:[facility] [place] [id number] RUANO MD 08/21/2024 10:4 3 AM EST 08/21/2024 11:28 AM EST us Brandee [facility] BLOOD ORDERABLES Final Resul t [facility] [address] [place] [address] [phone] * Hepatitis C Antibody with Reflex to HCV, RNA, Quantitative, Real-Time PCR (05/01/2024 3:55 PM EDT) Hepatitis C Antibody Nonreactive Nonreactive [facility] Comment:Antibodies to HCV no t detected; does not exclude early acuteHCV infection. Blood Venous blood specimen / Unknown 05/01/2024 3:55 PM EDT 05/01/2024 4:30 PM EDT us Carolina Mayo MD LAB BLOOD ORDERAB LES Final Result [facility] [address] [place] [address] [phone] from Last 3 Months or Most Recently Relevant to Health Maintenance Insurance [facility] [id number] [place] [address] Care Teams Analysis Internship Relationship Specialty Start Date End Date Carolina Anders MD [address] [place] [phone] PCP - General Internal Medicine 01/09/23
--- OUTSIDE RECORDS SUMMARY | 2024-10-12 17:31 | XMS_ITS | Encounter Summary ---
Author Organization [employer] Address [address] [facility] [address] 7t [place] [address] Care Team Providers Care Railway Yard Assistant Name Role Phone Carolina Anders MD Primary Care Pro vider Encounter Details Date Type Department Care Team (Latest Contact Info) Description 10/12/2024 9:30 AM EDT Clinical Support [facility] [address] [place] [address] Jeninfer Merchant, MYRON [address] [place] [address] On pre-exposure prophylaxis for HIV (Primary Dx) Social History Tobacco Use Types Packs/Day Years [...] PM EDT documented as of this encounter Progress Notes * Jennifer Merchant RN - 10/12/2024 9:30 AM EDT Pt here for 9th injection of APRETUDE (600-mg cabotegravir). Reviewed and confirmed: Negative 4th generation HIV-1 test within last 7 days. HIV-1 RNA assay test (HIV VL) negative or pending at time of visit. No previous hypersensitivity reaction to cabotegravir. Reviewed medication list; pt is not taking carbamazepine, oxcarbazepine, phenobarbital, phenytoin, rifampin, or rifapentine. Pt weighs over 77 lbs. Pt does not have gluteal implants. Pt is not (or has consulted with a provider). Pt does not have any symptoms of acute HIV (fever, fatigue, myalgia, sore throat, rash). LFTs done within last 6 months, or included in initial labs today. Last LFTs: 02/03/24, next due 02/02/25 Hep B status (if stopping Descovy or Truvada): Surface antibody positive test [if applicable]: NA Patient questions answered. Reviewed importance of attending lab and injection appointments. Reviewed that medication is an IM injection in gluteal muscle and cannot be taken out once it is given. 600 mg cabotegravir injected IM into Left gluteal muscle. Pt advised to not rub the injection sites. Pt tolerated well, advised to remain 20 mins after injection, no adverse reaction noted. Pt given phone number for RN and PrEP navigator if they have any questions. Teaching points reviewed: Importance of adherence to injection and lab monitoring schedule: once monthly for 2 mos, then every 2 mos afterward. Importance of contacting provider/RN for sooner HIV testing: When recent exposures to HIV-1 are suspected or clinical symptoms consistent with acute HIV-1 (eg, fever, fatigue, myalgia, sore throat, rash) are present Upon diagnosis of any other STI Reviewed long ???tail?? effect of medication. Apretude (IM cabotegravir) can be present in the body for up to 12 months after an injection, though not at a level to protect from HIV acquisition. There is a risk that if someone did acquire HIV-1 before, during, or within 12 mos of discontinuation of Apretude, that strain of HIV-1 could be resistant if they are not current on dosing or are not on a different form of PrEP, such as Truvada or Descovy. Counseled on site reaction and side effects (abdominal pain, jaundice, rash, depression etc.) that should be brought to provider attention. PrEP does not protect against STIs other than HIV, or other blood-borne pathogens. If you plan to miss a dose by more than 7 days, let us know as soon as possible so we can plan for this. You can take oral cabotegravir for up to 2 months to cover for 1 missed injection. If you dylon dose by accident, contact us as soon as you can so we can make a plan to re-start PrEP - if desired and appropriate. Plan: PrEP Navigator check - in 1 week Return for HIV testing in 1 month. Ideally this would be less than 7 days from your next injection appointment. It can be done the same day as injection provided 4th gen rapid HIV-1 test is non-reactive before injection and HIV-1 RNA assay has been drawn at lab. Thorough STI testing every other visit (every 4 mos) or sooner if needed in addition to HIV testing. Done 10/12/24 (swabs through state lab), next due 02/11/25 Pt submitted Urine for c/o green discharge in penis. Declines going to [facility] for imperical tx. Informed of [facility] Saturday hours, pt states understanding at this time LFTs 6 months after first injection, then annually: last done 02/03/24, next due 02/02/25 Appointment for 4th injections (every 2 months schedule): documented in this encounter Plan of Treatment Scheduled Orders Name Type Priority Associated Diagnoses Orde r Schedule HIV-1 RNA, Quantitative, Real-Time PCR Lab Routine On pre-exposure prophylaxis for HIV Expected: 10/12/2024 (Approximate), Expires: 10/12/2025 Syphilis Screen Lab Routine On pre-exposure prophylaxis for HIV Expected: 10/12/2024 (Approximate), Expires: 10/12/2025 documented as of this encounter Visit Diagnoses Diagnosis On pre-exposure prophylaxis for HIV- Primary documented in this encounter Administered Medications Inactive Administered Medications - up to 3 most recent administrations Medication Order MAR Action Action Date Dose Rate Site Cabotegravir ER Suspension Extended Release 600 mg 600 mg, Intramuscular, Once, On Sat10/12/24 at 1600, For 1 dose, Ventrogluteal.Indication s:On pre-exposure prophylaxis for HIV Given 10/12/2024 4:00 PM EDT 600 mg Left Ventrogluteal documented in this encounter Additional Health Concerns Assessment Noted Time PHQ-9 Depression Total Score: 11 024 9:54 AM EDT documented as of this encounter Care Teams Railway Yard Assistant Relationship Specialty Start Date End Date Carolina Anders MD [address] [place] [phone] PCP - General Internal Medicine 01/09/23 documented as of this encounter
[2024-10-13 08:38] LABS: Syphilis Screen Nonreactive (Nonreactive)
[2024-10-14 15:33] LABS: HIV RNA PCR Qn Copies NOT DETECTED copies/mL (NOT DETECTED); HIV RNA PCR Qn Log Copies NOT DETECTED (NOT DETECTED)
== END 2024-10-12 15:21 | disposition home or self-care (01) ==
LOC: HO.HHCL 15:20
PROVIDERS: Visit Provider Student in an Organized Health Care Education/Training Program
DX: Z79.899 Other long term (current) drug therapy (principal)
CPT/HCPCS: 36415; 86780; 87536

== ENCOUNTER 2024-10-15 13:21 | Outpatient (AMB) | payer MEDICAID, SELFPAY ==
--- NOTE | 2024-10-15 13:43 | MHC.OFFVIS ---
Vital Signs 10/15/24 13:46 Height 5 ft 8 in Weight 158 lb 11.725 oz BMI 24.1 BP 110/60 Blood Pressure Location Lt brachial Position Sitting Pulse 78 Pulse Source Pulse Oximeter Intake Visit Reasons: r/s 08/27/24 6 mos followup Allergies penicillin G Allergy (Verified 07/17/24 12:08) Rash Medication List - Last Reconciled 10/15/24 by Edil Mandel NP clonidine HCl 0.2 mg PO DAILY PRN HPI Comments Details: This is a 24-year-old male patient with a history of syncopal episodes, asthma, and anxiety presenting for a follow-up visit. He reports having experienced 2-3 syncopal episodes since his last visit in February of previous year. The patient is unsure of the circumstances surrounding these episodes and does not recall any preceding symptoms or activities at the time of these events, although he states that they were Witness. The patient reports that most recent syncopal episode occurred a few days ago lasting only a few seconds. Denies any post syncopal incontinence of urine or bowel. Additionally, the patient has been experiencing intermittent, random chest pain, which he he associates mostly with stress. These episodes are accompanied by palpitations and heart racing. Patient also reports occasional shortness of breath again related with stress. The patient is currently on clonidine as needed for anxiety but has been trying to reduce his usage. He reports drinking more water and passion fruit juice has been helping in managing his anxiety. The patient denies any frequent alcohol or stimulant use. [facility] Medical History Anxiety and depression Surgical History No pertinent past surgical history Family History Maternal Grandmother Heart attack HTN (hypertension) Social History Alcohol intake: current Alcohol intake frequency: holidays/special occasions only Patient Tobacco Use Status: Never used Tobacco Substance Use Type: Marijuana Review of Systems Const Denies weakness ENT Denies dizziness Card Denies chest pain, Denies chest pain with activity, Denies syncope, Denies rapid heart rate, Denies pedal edema, Denies edema, Denies leg edema, Denies lightheadedness, Denies palpitations, Denies dyspnea, Denies dyspnea on exertion and Denies orthopnea Resp Denies cough, Denies dyspnea and Denies dyspnea on exertion GI Denies hematochezia and Denies change in stool character Musc Denies abnormal gait, Denies muscle cramps, Denies muscle weakness, Denies numbness, Denies radiating pain into limb and Denies tingling Neuro Denies abnormal gait, Denies dizziness, Denies syncope, Denies numbness, Denies tingling and Denies weakness Endo Denies palpitations Physical Exam Vital Signs: Last Vital Signs Pulse 78 10/15/24 13:46 BP 110/60 10/15/24 13:46 BMI result Body Mass Index 24.1 Const General: cooperative, healthy appearing, comfortable and no acute distress Orientation/consciousness: patient oriented x3 HEENT Head: Yes normal to inspection Neck Neck: Yes normal visual inspection, Yes trachea midline and Yes supple Chest Chest palpation & inspection: normal inspection of the chest Resp Effort & Inspection: normal respiratory effort Auscultation: clear to auscultation bilaterally, no crackles, no rales, no rhonchi and no wheezes Cardio Jugular venous distension: no JVD Palpation: normal PMI Rate: regular rate Rhythm: regular rhythm Heart sounds: S1 normal heart sound present, S2 normal heart sound present, no click, no gallops, no murmurs and no rubs Peripheral pulses: Peripheral pulses 2+ throughout GI Inspection: Yes normal to inspection Palpation (GI): Soft to palpation Auscultation: normal bowel sounds Skin General skin exam: no rashes or lesions noted Neuro General: patient oriented x3 Extrem General: Yes normal to inspection, No no pedal edema and No calf tenderness Psych Appearance: grossly normal Mental Status: mental status grossly normal Speech and movement: Normal speech and movement present Assessment & Plan Assessment & Plan (1) Syncope and collapse: Code(s): R55 - Syncope and collapse Category: Medical (2) Palpitations: Code(s): R00.2 - Palpitations Category: Medical (3) Atypical chest pain: Code(s): R07.89 - Other chest pain Category: Medical Plan 05/01/2023-echo study showed normal study with EF 55-60%, with no wall motion or valvular abnormalities. 05/01/2023-patient underwent 30 day cardiac event monitor showed sinus rhythm low heart rate of 50s with maximum heart rate in the 160s. 06/25/2023-patient underwent Tilt-table test, which was normal. Patient notes that he was not really able to complete his 30 day cardiac event monitor and was only able to wear it for 5 days due to irritation from the adhesive which caused a rash and led to the monitor coming off. During this time, the patient reports not experiencing any syncopal episodes. And he expressed interest in repeating the test. His blood pressure remains within normal limits, and he is not orthostatic. Given the patient's ongoing symptoms, a stress echocardiogram will be performed to further assess for any ischemic changes. And we will also repeat the 30 day cardiac even monitor to monitor for any potential life-threatening arrhythmias correlating to a syncopal episodes. Advised to continue pushing more fluids, regular exercise, adding extra salt in diet, avoiding caffeinated beverages, and emphasized on stress medication strategies. Patient will follow-up with the completion of these tests. In the interim, patient will call us with any concerns or change in symptoms. This note was generated using voice recognition software. While every effort has been made to ensure accuracy and proper assembler dc field ring, there may be occasional errors that could affect the content or meaning of the described symptoms. Orders: Orders CA echo stress exercise Today R55 - Syncope and collapse ECG 30 day event monitor Today R00.2 - Palpitations, R55 - Syncope and collapse Coding Level of Care Code Est Pt Level 4 (97927) Complex EM visit Add On G2211 Diagnoses Syncope and collapse R55 Palpitations R00.2 Atypical chest pain R07.89 Time Spent (min) 35 Comment Time spent in reviewing the chart, test results, assessment, counseling and documentation.
[2024-10-15 13:46] VITALS: BP 110/60; PULSE 78; BMI 24.1
--- OUTSIDE RECORDS SUMMARY | 2024-10-15 16:55 | XMS_ITS | Encounter Summary ---
Author Organization [employer] Address [address] [facility] 7t [place] [address] Care Team Providers Care Expert Medical Writer Name Role Phone Carolina Anders MD Primary Care Pro vider Encounter Details Date Type Department Care Team (Late st Contact Info) Description 10/12/2024 Orders Only [facility] [address] [place], [place] [phone] Carolina Anders MD [address] [place], [place] [phone] Social History Tobacco Use Types Packs/Day Years [...] with others, in a hotel, in a senior care, living outside on the street, on a [...] on file documented as of this encounter Procedures Procedure Name Priority Date/Time Associated Diagnosis Comments SYPHILIS SCREEN Routine 10/12/2024 3:22 PM EDT HIV 1 RNA, QUANTITATIVE REAL TIME PCR Routine 10/12/2024 3:22 PM EDT documented in this encounter Results * HIV-1 RNA, Quantitative, Real-Time PCR (10/12/2024 3:22 PM EDT) HIV RNA PCR Qn Copies NOT DETECTED NOT DETECTED copies/mL [facility] HIV RNA PCR Qn Log Copies NOT DETECTED NOT DETECTED [facility] Comment:Result Units: Log co pies/mLThis test was performed using Real-Time Polymerase ChainReaction.Reportable Range: 20 copies/mL to 10,000,000 copies/mL(1.30 log copies/mL to 7.00 log copies/mL).THIS TEST WAS PERFORMED AT:[employer] [place] [id number] RUANO MD 10/12/2024 3:22 PM EDT 10/12/2024 4:02 PM EDT us Carolina Mayo MD LAB BLOOD ORDERAB LES Final Result Performing Organization Address [facility] Co de Phone Number [facility] [address] [place] [phone] Syphilis Screen (10/12/2024 3:22 PM EDT) Syphilis Screen Nonreactive Nonreactive [facility] 10/12/2024 3:22 PM EDT 10/12/2024 4:07 PM EDT us Carolina Mayo MD LAB BLOOD ORDERAB LES Final Result Performing Organization Address [facility] Co de Phone Number [facility] [address] [place] [phone] documented in this encounter Visit Diagnoses Not on filedocumented in this encounter Additional Health Concerns Assessment Noted Time PHQ-9 Depression Total Score: 11 024 9:54 AM EDT documented as of this encounter Care Teams Expert Medical Writer Relationship Specialty Start Date End Date Carolina Anders MD [address] [place] [phone] PCP - General Internal Medicine 01/09/23 documented as of this encounter
--- OUTSIDE RECORDS SUMMARY | 2024-10-15 16:55 | XMS_ITS | Encounter Summary ---
Author Organization [employer] Address [address] [facility] [address] 7[address] [place] [address] Care Team Providers Care Clinic Assistant Name Role Phone Carolina Anders MD Primary Care Pro vider Encounter Details Date Type Department Care Team (Latest Contact Info) Description 10/12/2024 9:30 AM EDT Clinical Support [facility] [address] [place] [address] Jennifer Merchant, MYRON [address] [place] [address] On pre-exposure prophylaxis for HIV (Primary Dx) [...] with others, in a hotel, in a chcf, living outside on the street, on a [...] green discharge in penis. Declines going to [facility] for imperical tx. Informed of [facility] Saturday hours, pt states understanding at this [...] documented as of this encounter Care Teams Clinic Assistant Relationship Specialty Start Date End Date Carolina Anders MD [address] [place] [phone] PCP - General Internal Medicine 01/09/23 documented as of this encounter
--- OUTSIDE RECORDS SUMMARY | 2024-10-15 16:55 | XMS_ITS | Clinical Summary ---
Author Organization [facility] Address [address] [place] [address] Care Team Providers Care Fancy Sewer Name Role Phone Unavailable Primary Care Provider [...] daily for 30 days 30 Tablet 07/16/20 Active Active Problems Problem Noted Date Diagnosed Date Cough 06/05/2024 Recurrent major depressive disorder ([facility]) Urethral discharge 03/03/2024 ADHD (attention deficit hype [...] sexual behavior 07/23/2023 Bipolar 1 disorder, depressed ([facility]) 02/08/20 23 Assessment & Plan (07/16/2024 2:43 PM EST): A: current episode depressed with anxious distress, poor sleep Plan Increase Clonidine to 0.2 mg, patient states it's somewhat helpful Increase Lamictal to 50 mg, Educated on S Sleep hygiene Health care maintenance 02/07/2023 History of penicillin allergy 02/07/2023 Syncope 02/07/2023 Immunizations Name Administration Dates Next Due DTAP [...] [facility] 2001 Hypertension Screening (#1) 2019 [id number] ( season) 2024 07/25/2023, 07/26/2021, 12/12/2020, Additional [...] 06/25/2024, 06/06, 05/01/2024, Additional history exists Insurance [facility]
--- OUTSIDE RECORDS SUMMARY | 2024-10-15 16:55 | XMS_ITS | Encounter Summary ---
Author Organization [employer] Address [address] [facility] 7t [place] [address] Care Team Providers Care Tobacco Flavorer Name Role Phone Carolina Anders MD Primary [...] documented as of this encounter Care Teams Tobacco Flavorer Relationship Specialty Start Date End Date Carolina Anders MD [address] [place] [phone] PCP - General Internal Medicine 01/09/23 documented as of this encounter
--- OUTSIDE RECORDS SUMMARY | 2024-10-15 16:55 | XMS_ITS | Clinical Summary ---
Author Organization [employer] Address [address] [facility] 7t [place] [address] Care Team Providers Care Picture Booker Name Role Phone Carolina Anders MD Primary [...] optimize psych tx -has already referral w monotype keyboard operator x 04/25/2023 -advise to continue apt to [...] optimize psych tx -has already referral w [employer] keyboard operator x 04/25/2023 -advise to continue apt to r/o cardiac etiology History of penicillin allergy 02/07/2023 Assessment & Plan (04/13/2023 11:46 AM EDT): -referred to crusher assembler x hx of PNC allergy to clarify - gave today info for pt to call. Assessment & Plan (02/07/2023 7:23 PM EDT): -referred today to crusher assembler breanne cross of [facility] allergy to clarify Health care maintenance 02/07/2023 [...] Description 10/12/2024 9:30 AM EDT Clinical Support [address] [phone] Jennifer Merchant, MYRON On pre-exposure prophylaxis for HIV (Primary Dx) 10/12/2024 Orders Only [facility] [place] [phone] Carolina Anders MD 10/12/2024 Travel 09/01/2024 Telephone [facility] [place] [phone] Herminia Robins RN Referral 09/01/2024 Telephone [facility] [place] [address] Carolina Anders MD [facility] Form (I called the patient, regarding an application for tinted glass waiver from the [facility]. I informed him that the form can't be completed, because he does not have a qualifying diagnosis. He asked what diagnosis would qualify him, and offered to provide him with a list of those diagnoses. He will come to the HIM department, to moss picker the application and the list.) 08/26/2024 Telephone [facility] [place] [phone] Jennifer Merchant, MYRON 08/26/2024 Telephone [facility] [place] [address] Jennifer Merchant, MYRON 08/25/2024 Telephone [facility] [place]ASH [phone] Jennifer Merchant, MYRON 08/21/2024 11:00 AM EST Clinical Support [facility] [place] [address] Jennifer Merchant, MYRON On pre-exposure prophylaxis for HIV (Primary Dx) 08/21/2024 Orders Only [facility] [place] [address] Brandee Small ANP 08/21/2024 Telephone [facility] [place] [address] Jennifer Merchant, MYRON 08/21/2024 Travel 07/27/2024 Refill [facility] [place] [phone] Carolina Anders MD from Last 3 Months [...] 12+ 07/25/2023,1 09/26/2020,12/12/2020,11/20 Pneumococcal Conjugate PCV 7 2001,07/14/20,2001 Smallpox Mpox, Live Attenuat ed, Preservative Free [...] with others, in a hotel, in a alf, living outside on the street, on a [...] 11/22/2023, Additional history exists HIV Screening Completed 10/12/2024, 08/05, 06/25/2024, Additional history exists RSV under 20 months Aged Out No longe r eligible based on patient's age to complete this topic Rotavirus Vaccines Aged Out No longer eligible based on patient's age to complete this topic Procedures Procedure Name Priority Date/Time Associated Diagnosis Comments HIV 1 RNA, QUANTITATIVE REAL TIME PCR Routine 10/12/2024 3:22 PM EDT SYPHILIS SCREEN Routine 10/12/2024 3:22 PM EDT POCT RAPID HIV SCREENING Routine 08/21/2024 11:15 [...] Recently Relevant to Health Maintenance Results * Syphilis Screen (10/12/2024 3:22 PM EDT) Syphilis Screen Nonreactive Nonreactive [facility] 10/12/2024 3:22 PM EDT 10/12/2024 4:07 PM EDT us Carolina Mayo MD LAB BLOOD ORDERAB LES Final Result [facility] [address] [place] [phone] * HIV-1 RNA, Quantitative, Real-Time PCR (10/12/2024 3:22 PM EDT) Only the most recent of2 resultswithin the time period is included. HIV RNA PCR Qn Copies NOT DETECTED NOT DETECTED copies/mL [facility] HIV RNA PCR Qn Log Copies NOT DETECTED NOT DETECTED [facility] Comment:Result Units: Log co pies/mLThis test was performed using Real-Time Polymerase ChainReaction.Reportable Range: 20 copies/mL to 10,000,000 copies/mL(1.30 log copies/mL to 7.00 log copies/mL).THIS TEST WAS PERFORMED AT:[facility] [place] [id number] RUANO MD 10/12/2024 3:22 PM EDT 10/12/2024 4:02 PM EDT us Carolina Mayo MD LAB BLOOD ORDERAB LES Final Result [facility] [address] [place] [phone] * POCT RAPID HIV SCREENING (08/21/2024 11:15 AM EST) Blood 08/21/2024 11:1 5 AM EST Narrative Jennifer Merchant RN - 08/21/2024 11:15 AM EST Negative HIV ab/ag us Elsy Wilson MD POINT OF CARE TEST ENTER/EDIT ORDERABLES Final Result * Chlamydia/N. Gonorrhoeae RNA, TMA, Urogenitial (08/21/2024 11:04 AM EST) CT PCR NOT DETECTED Not Detect. [facility] Comment:A not detected test result [...] psychologicalconsequences. NG PCR NOT DETECTED Not Detect. [facility] Comment:A not detected test result [...] AM EST 08/21/2024 1:27 PM EST Narrative [facility] - 08/21/2024 3:32 PM EST Urine [facility] MICROBIOLOGY - GENERAL ORDER LEIA Final Result [facility] [address] [place] [phone] * Hepatitis C Antibody with Reflex to HCV, RNA, Quantitative, Real-Time PCR (05/01/2024 3:55 PM EDT) Hepatitis C Antibody Nonreactive Nonreactive [facility] Comment:Antibodies to HCV no t detected; does not exclude early acuteHCV infection. Blood Venous blood specimen / Unknown 05/01/2024 3:55 PM EDT 05/01/2024 4:30 PM EDT Carolina Mayo MD LAB BLOOD ORDERAB LES Final Result [facility] [address] [place] [phone] from Last 3 Months or Most Recently Relevant to Health Maintenance Insurance [facility] C[address] , [address] [id number] Care Teams Picture Booker Relationship Specialty Start Date End Date Carolina Anders MD [address] [place] [address] [phone] PCP - General Internal Medicine 01/09/23
--- OUTSIDE RECORDS SUMMARY | 2024-10-15 16:55 | XMS_ITS | Encounter Summary ---
Author Organization [employer] Address [address] [facility] 7t [place] [address] Care Team Providers Care Pressroom Worker Name Role Phone Carolina Anders MD Primary Care Pro vider Reason for Visit * Reason Onset Date Comments New Patient Appt 12/21/2022 Encounter Details Date Type Department Care Team (Late st Contact Info) Description 12/21/2022 Telephone [facility] [address] [place], [place] [phone] Gnozalez Du MD [address] [place], [place] [phone] New Patient Appt Social History Tobacco Use [...] left voicemail to give a call at [phone]. documented in this encounter Plan of Treatment Not on file documented as of this encounter Visit Diagnoses Not on filedocumented in this encounter Care Teams Pressroom Worker Relationship Specialty Start Date End Date Carolina Anders MD [address] [place] [phone] PCP - General Internal Medicine 01/09/23 documented as of this encounter
== END 2024-10-15 14:21 | disposition home or self-care (01) ==
LOC: HO.HCS 13:22
DX: R55 Syncope and collapse (principal); R00.2 Palpitations; R07.89 Other chest pain
CPT/HCPCS: 99214

== ENCOUNTER → 2024-10-15 13:21 | Outpatient (BNVA) | payer MEDICAID, SELFPAY | DX: R55 Syncope and collapse (principal); R00.2 Palpitations; R07.89 Other chest pain | CPT/HCPCS: 99212 ==

== ENCOUNTER 2024-11-16 13:31 | Outpatient (REF) | payer MEDICAID, SELFPAY ==
--- OUTSIDE RECORDS SUMMARY | 2024-11-16 15:34 | XMS_ITS | Clinical Summary ---
Author Organization [employer] Address [address] 7t [place] [address] Care Team Providers Care Fire Fighting Equipment Specialist Name Role Phone Carolina Anders MD Primary [...] TWICE DAILY 369 g 2 07/27/20 Active Active Problems Problem Noted Date Diagnosed [...] optimize psych tx -has already referral w gymnastics instructor x 04/25/2023 -advise to continue apt to [...] optimize psych tx -has already referral w gymnastics instructor x 04/25/2023 -advise to continue apt to r/o cardiac etiology History of penicillin allergy 02/07/2023 Assessment & Plan (04/13/2023 11:46 AM EDT): -referred to trading analyst x hx of PNC allergy to clarify - gave today info for pt to call. Assessment & Plan (02/07/2023 7:23 PM EDT): -referred today to trading analyst x hx of PNC allergy to clarify [...] Encounters Date Type Department Care Team Description 11/16/2024 Telephone [facility] [address] [place] [address] Zonia Mike RN 10/28/2024 Orders Only [facility] [address] [place] [address] Gege Carrera RN 10/28/2024 Orders Only [facility] [address] [place] [address] Gege Carrera RN 10/16/2024 Orders Only [facility] [facility] [address] Miya Bateman RN 10/16/2024 Population Health Risk Score [facility] (C3) [address] [phone] Provider, Population Health Generic 10/12/2024 9:30 AM EDT Clinical Support [facility] [place] [facility] [address] Jennifer Merchant, RN On pre-exposure prophylaxis for HIV (Primary Dx) 10/12/2024 Orders Only [facility] [place] [facility] [address] Carolina Anders MD 10/12/2024 Travel 09/01/2024 Telephone [facility] [place] [address] Herminia Robins RN Referral 09/01/[address] [address] Carolina Anders MD RMV Form (I called the patient, regarding an application for tinted glass waiver from the [facility]. I informed him that the form can't be completed, because he does not have a qualifying diagnosis. He asked what diagnosis would qualify him, and offered to provide him with a list of those diagnoses. He will come to the HIM department, to pickler helper the application and the list.) 08/26/2024 Telephone [facility] [place] [address] Jennifer Merchant, MYRON 08/26/2024 Telephone [facility] [place] [address] Jennifer Merchant, MYRON 08/25/2024 Telephone [facility] [place] [address] Jennifer Merchant, MYRON 08/21/2024 11:00 AM EST Clinical Support [facility] [place] [address] Jennifer Merchant, RN On pre-exposure prophylaxis for HIV (Primary Dx) 08/21/2024 Orders Only [address] [place] [address] Brandee Small ANP 08/21/2024 Telephone [facility] [address] [place] [address] Jennifer Merchant, MYRON 08/21/2024 Travel from Last 3 Months Immunizations Name Administration Dates Next Due DTaP 03/12/2005, 3,2001,07/14,2001 HPV, Quadrivalent 08/20/2017,11/16/2016,09/21/19 17 Hep A, Adult 03/19/2012 Hep A, Unspecified 09/21/2016 Hep B, Adolescent or Pediatric 2001,2000,2001 Hep B, adult 10/23/2023,05/29/2023,04/12/2023 Hib ([facility]) 06/18/2002, 2,2001,05/14 IPV 03/12/2005, 2,2001,05/14 Influenza injectable [...] with others, in a hotel, in a detention, living outside on the street, on a [...] Care Team (Late st Contact Info) Description 12/14/2024 1:00 PM EDT Clinical Support [facility] [address] [place] [address] Jennifer Merchant, RN [address] [place] [address] 12/25/2024 9:45 AM EDT Office Visit [facility] [address] [place] [address] Janice Porras, OD [address] [place] [address] Health Maintenance Due Date Last Done Comments Alcohol/Substance Use Screening 2013 Family Planning (PISQ) 2016 Pneumococcal Vaccine: Pediatrics (0 to 5 Years) and At-Risk Patients (6 to 49) Years) (1 of 2 - PCV) 2020 2001, 2001, 2001 COVID-19 Vaccine ( season) 2024 07/25/2023, 07/26/2021, 12/12/2020, Additional history exists Influenza Vaccine (#1) 2024 , 09/28/2021, 04/08/2020, Additional history exists Depression Monitoring 12/02/2024 06/04/2024, 024 SDOH Screening 02/20/2025 02/21/2024 Depression Screening 06/04/2025 06/04/2024, 06/04/20 24 Tobacco Screening 06/04/2025 06/04/2024 Chlamydia and Gonorrhea Screening 10/20/2025 10/20/2024, 10/20/2024, 10/12/2024, Additional history exists DTaP/Tdap/Td Vaccines (9 - [...] Procedure Name Priority Date/Time Associated Diagnosis Comments CHLAMYDIA/GONORRHEA - URINE ([place] [facility]) Routine 10/20/2024 CHLAMYDIA/GONORRHEA THROAT SWAB ([place] [facility]) Routine 10/20/2024 HIV 1 RNA, QUANTITATIVE REAL TIME PCR Routine 10/12/2024 3:22 PM EDT SYPHILIS SCREEN Routine 10/12/2024 3:22 PM EDT CHLAMYDIA/GONORRHEA - URINE ([place] [facility]) Routine 10/12/2024 CHLAMYDIA/GONORRHEA THROAT SWAB ([place] [facility]) Routine 10/12/2024 POCT RAPID HIV SCREENING Routine 08/21/2024 11:15 [...] Recently Relevant to Health Maintenance Results * Chlamydia/Gonorrhea Throat Swab ([facility]) (10/20/2024) Only the most recent of2 resultswithin the time period is included. Chlamydia Throat Swab Negative Gonorrhea Throat Swab Negative Swab 10/20/2024 Historical Provider MD LAB MICROBIOLOGY - GENERA L ORDERABLES Final Result * Chlamydia/Gonorrhea, Urine ([facility]) (10/20/2024) Only the most recent of2 resultswithin the time period is included. Chlamydia, Urine Negative Negative, Indeterminate, None Detected, Invalid, Specimen unsatisfactory for evaluation, Weakly Positive Gonorrhea, Urine Negative Negative, Indeterminate, None Detected, Invalid, Specimen unsatisfactory for evaluation, Weakly Positive Urine 10/20/2024 Historical Provider MD LAB URINE ORDERABLES [place] l Result * Syphilis Screen (10/12/2024 3:22 PM EDT) Syphilis Screen Nonreactive Nonreactive [facility] 10/12/2024 3:22 PM EDT 10/12/2024 4:07 PM EDT Carolina Mayo MD LAB BLOOD ORDERAB LES Final Result Performing Organization Address City/[facility]/ZIP Co de Phone Number [facility] [address] [place] [phone] * HIV-1 RNA, Quantitative, Real-Time PCR (10/12/2024 3:22 PM EDT) Only the most recent of2 resultswithin the time period is included. [facility] HIV RNA PCR Qn Copies NOT DETECTED NOT DETECTED copies/mL [facility] HIV RNA PCR Qn Log Copies NOT DETECTED NOT DETECTED [facility] Comment:Result Units: Log co pies/mLThis test was performed using Real-Time Polymerase ChainReaction.Reportable Range: 20 copies/mL to 10,000,000 copies/mL(1.30 log copies/mL to 7.00 log copies/mL).THIS TEST WAS PERFORMED AT:[facility] [place] [id number] RUANO MD 10/12/2024 3:22 PM EDT 10/12/2024 4:02 PM EDT us Carolina Mayo MD LAB BLOOD ORDERAB LES Final Result Performing Organization Address [facility] Co de Phone Number [facility] [address] [place] [phone] * POCT RAPID HIV SCREENING (08/21/2024 11:15 AM EST) Blood 08/21/2024 11:1 5 AM EST Narrative Jennifer Merchant RN - 08/21/2024 11:15 AM EST Negative HIV ab/ag Elsy Wilson MD POINT OF CARE TEST ENTER/EDIT ORDERABLES Final Result * Chlamydia/N. Gonorrhoeae RNA, TMA, Urogenitial (08/21/2024 11:04 AM EST) [facility] CT PCR NOT DETECTED Not Detect. [facility] Comment:A not detected test result does [...] psychologicalconsequences. NG PCR NOT DETECTED Not Detect. [facility] Comment:A not detected test result does [...] AM EST 08/21/2024 1:27 PM EST Narrative [facility] - 08/21/2024 3:32 PM EST Urine [facility] LAB MICROBIOLOGY - GENERAL ORDER LEIA Final Result [facility] [address] [place] [address] [phone] * Hepatitis C Antibody with Reflex to HCV, RNA, Quantitative, Real-Time PCR (05/01/2024 3:55 PM EDT) Hepatitis C Antibody Nonreactive Nonreactive [facility] Comment:Antibodies to HCV no t detected; does not exclude early acuteHCV infection. Blood Venous blood specimen / Unknown 05/01/2024 3:55 PM EDT 05/01/2024 4:30 PM EDT Carolina Mayo MD LAB BLOOD ORDERAB LES Final Result [facility] [address] [place] [address] [phone] from Last 3 Months or Most Recently Relevant to Health Maintenance Insurance [employer] C[employer] Care Teams Fire Fighting Equipment Specialist Relationship Specialty Start Date End Date Carolina Anders MD [address] [place] [phone] PCP - General Internal Medicine 01/09/23
--- OUTSIDE RECORDS SUMMARY | 2024-11-16 15:34 | XMS_ITS | Encounter Summary ---
Author Organization [employer] Address [address] [facility] [address] h [address] [address] Care Team Providers Care Cable Splicing Technician Name Role Phone Carolina Anders MD Primary Care Pro vider Reason for Visit * Reason Onset Date Comments New Patient Appt 12/21/2022 Encounter Details Date Type Department Care Team ([facility] Contact Info) Description 12/21/2022 Telephone [facility] [address] [place], [place] [phone] Gonzalez Du MD [address] [place] [address] New Patient Appt Social History Tobacco Use [...] left voicemail to give a call at [phone]. documented in this encounter Plan of Treatment Upcoming Encounters Date Type Department Care Team (Late st Contact Info) Description 12/14/2024 1:00 PM EDT Clinical Support [facility] [address] [place] [address] Jennifer Merchant, MYRON [address] [place] [address] 12/25/2024 9:45 AM EDT Office Visit [facility] [address] [place], [place] [phone] Janice Porras, OD [address] [place] [address] documented as of this encounter Visit Diagnoses Not on filedocumented in this encounter Care Teams Cable Splicing Technician Relationship Specialty Start Date End Date Carolina Anders MD [address] [place] [address] PCP - General Internal Medicine 01/09/23 documented as of this encounter
--- OUTSIDE RECORDS SUMMARY | 2024-11-16 15:34 | XMS_ITS | Encounter Summary ---
Author Organization [employer] Address [address] 7t [place] [address] Care Team Providers Care Protection Engineer Name Role Phone Carolina Anders MD Primary Care Pro vider Encounter Details Date Type Department Care Team (Late st Contact Info) Description 10/28/2024 Orders Only [facility] [address] [place], [place] [phone] Gege Carrera RN Social History Tobacco Use Types Packs/Day Years [...] with others, in a hotel, in a half-way, living outside on the street, on a [...] as of this encounter Plan of Treatment Upcoming Encounters Date Type Department Care Team (Late st Contact Info) Description 12/14/2024 1:00 PM EDT Clinical Support [facility] [address] [place] [phone] Jennifer Merchant, MYRON [address] [place] [address] 12/25/2024 9:45 AM EDT Office Visit [facility] [address] [place] [address] Janice Porras, OD [address] [place] [address] documented as of this encounter Visit Diagnoses Not on filedocumented in this encounter Additional Health Concerns Assessment Noted Time PHQ-9 Depression Total Score: 11 024 9:54 AM EDT documented as of this encounter Care Teams Protection Engineer Relationship Specialty Start Date End Date Carolina Anders MD [address] [place] [phone] PCP - General Internal Medicine 01/09/23 documented as of this encounter
--- OUTSIDE RECORDS SUMMARY | 2024-11-16 15:34 | XMS_ITS | Clinical Summary ---
Author Organization [facility] Address [address] [place] [address] Care Team Providers Care Compliance Lead Name Role Phone Unavailable Primary Care Provider [...] Date Cough 06/05/2024 Recurrent major depressive disorder ([facility] V2 4) 06/04/2024 Urethral discharge 03/03/2024 ADHD (attention deficit [...] sexual behavior 07/23/2023 Bipolar 1 disorder, depressed ([facility]) 02/08/20 23 Assessment & Plan (07/16/2024 2:43 PM EST): A: current episode depressed with anxious distress, poor sleep Plan Increase Clonidine to 0.2 mg, patient states it's somewhat helpful Increase Lamictal to 50 mg, Educated on S Sleep hygiene Health care maintenance 02/07/2023 History of penicillin allergy 02/07/2023 Syncope 02/07/2023 Immunizations Immunization Administration Dates Next Due DTAP 03/12/2005, 3,2001,07/14,2001 [...] Health Maintenance Due Date Last Done Comments Anxiety Screening 2001 Depression Monitoring 2001 STI Counseling 2001 Hypertension Screening (#1) 2019 [id number] ( season) 2024 07/25/2023, 07/26/2021, 12/12/2020, Additional [...] 06/25/2024, 06/06, 05/01/2024, Additional history exists Insurance [facility]
--- OUTSIDE RECORDS SUMMARY | 2024-11-16 15:34 | XMS_ITS | Encounter Summary ---
Author Organization [employer] Address [address] 7t [place] [address] Care Team Providers Care Forensic Nurse Name Role Phone Carolina Anders MD Primary Care Pro vider Encounter Details Date Type Department Care Team (Late st Contact Info) Description 11/16/2024 Telephone [facility] [address] [place], [place] [phone] Zonia Mike RN Social History Tobacco Use Types Packs/Day [...] encounter Miscellaneous Notes * Telephone Encounter - Zonia Mike RN - 11/16/2024 1:28 PM EDT Pt came to the [employer] front end developer designer requesting a TSPOT blood test for his place of work. Pt currently works as a LINE TECHNICIAN. Pt advised that the order was placed in the system and it can be drawn here at the [facility] lab documented in this encounter Plan of Treatment Upcoming Encounters Date Type Department Care Team (Late st Contact Info) Description 12/14/2024 1:00 PM EDT Clinical Support [facility] [address] [place] [address] Jennifer Merchant, RN [address] [place] [address] 12/25/2024 9:45 AM EDT Office Visit [facility] [address] [place] [address] Janice Porras OD [address] [place] [address] Scheduled Orders Name Type Priority Associated Diagnoses Orde r Schedule T-SPOT??.TB Lab Routine Encounter for occupational health assessment Expected: 11/16/2024 (Approximate), Expires: 11/16/2025 documented as of this encounter Visit Diagnoses Diagnosis Encounter for occupational health assessment documented in this encounter Additional Health Concerns Assessment Noted Time PHQ-9 Depression Total Score: 11 024 9:54 AM EDT documented as of this encounter Care Teams Forensic Nurse Relationship Specialty Start Date End Date Carolina Anders MD [address] [place] [phone] PCP - General Internal Medicine 01/09/23 documented as of this encounter
[2024-11-18 20:38] LABS: TS Negative Control Passed; TS Panel A 0; TS Panel B 1; TS Positive Control Passed; TSpotTB Negative (Negative)
== END 2024-11-16 13:32 | disposition home or self-care (01) ==
LOC: HO.HHCL 13:31
PROVIDERS: Visit Provider Student in an Organized Health Care Education/Training Program
DX: Z02.89 Encounter for other administrative examinations (principal)
CPT/HCPCS: 36415; 86481

== ENCOUNTER 2025-01-07 10:24 | Outpatient (REF) | payer MEDICAID, SELFPAY ==
--- OUTSIDE RECORDS SUMMARY | 2025-01-07 12:15 | XMS_ITS | Encounter Summary ---
Author Organization [employer] Address [address] [facility] 7t [place] [address] Care Team Providers Care Box Blank Machine Feeder Name Role Phone Carolina Anders MD Primary Care Pro vider Reason for Visit * Reason Comments Injectable PrEP Encounter Details Date Type Department Care Team (Latest Contact Info) Description 01/07/2025 10:30 AM EDT Clinical Support [facility] [address] [place] [address] Miya Bateman RN [address] [place] [address] On pre-exposure prophylaxis for HIV (Primary Dx) [...] with others, in a hotel, in a correction, living outside on the street, on a [...] as of this encounter Progress Notes * Miya Bateman RN - 01/07/2025 10:30 AM EDT Pt here for 10th injection of APRETUDE (600-mg cabotegravir). Last injection was 10/12/24 and dosingwindow was December 04-December 19. Per prescribing guidelines pg 3 : If third or subsequent injection is missed and time since prior injection is less than or equal to 3 months: Administer 600-mg (3-mL) intramuscular injection of APRETUDE as soon as possible, then continue with the every-2- month injection d osing schedule . Will confirm plan of care with Dr. Klein. Reviewed and confirmed: Negative 4th generation HIV-1 [...] included in initial labs today. Last LFTs: ordered today 01/07/25,next due 01/07/26 Hep B status (if stopping Descovy or [...] needed in addition to HIV testing. Done today 01/07/25 (swabs through state lab), next due 05/09/25. LFTs 6 months after first injection, then annually: last done 02/03/24, ordered today 01/07/25, next due 01/07/26. Appointment for 4th injections (every 2 months schedule): 03/05/25 9:30 am following PCP appointment documented in this encounter Plan of Treatment Upcoming Encounters Date Type Department Care Team (Late st Contact Info) Description 03/05/2025 9:00 AM EDT Office Visit [facility] [address] [place] [address] Carolina Anders MD [address] [place] [phone] 03/05/2025 9:30 AM EDT Clinical Support [facility] [address] [place] [address] Jennifer Merchant, MYRON [address] [place] [phone] 03/08/2025 9:00 AM EDT Office Visit [facility] [address] [place] [address] Janice Porras, OD [address] [place] [address] Scheduled Orders Name Type Priority Associated Diagnoses Orde r Schedule HIV-1 RNA, Quantitative, Real-Time PCR Lab Routine On pre-exposure prophylaxis for HIV Expected: 01/07/2025 (Approximate), Expires: 01/07/2026 Hepatic Function Panel Lab Routine On pre-exposure prophylaxis for HIV Expected: 01/07/2025 (Approximate), Expires: 01/07/2026 Hepatitis C Antibody with Reflex to HCV, RNA, Quantitative, Real-Time PCR Lab Routine On pre-exposure prophylaxis for HIV Expected: 01/07/2025 (Approximate), Expires: 01/07/2026 Syphilis Screen Lab Routine On pre-exposure prophylaxis for HIV Expected: 01/07/2025 (Approximate), Expires: 01/07/2026 documented as of this encounter Procedures Procedure Name Priority Date/Time Associated Diagnosis Comments POCT RAPID HIV SCREENING Routine 01/07/2025 12:05 PM EDT On pre-exposure prophylaxis for HIV documented in this encounter Results * POCT Rapid HIV Screening (01/07/2025 12:05 PM EDT) Blood 01/07/2025 12:0 5 PM EDT Narrative Miya Bateman RN - 01/07/2025 12:05 PM EDT HIV ag/ab = negative Carolina Mayo MD POINT OF CARE OZZY T ENTER/EDIT ORDERABLES Final Result documented in this encounter Visit Diagnoses Diagnosis On pre-exposure prophylaxis for HIV- Primary documented in this encounter Administered Medications Inactive Administered Medications - up to 3 most recent administrations Medication Order MAR Action Action Date Dose Rate Site Cabotegravir ER Suspension Extended Release 600 mg 600 mg, Intramuscular, Once, On Summer 01/07/25 at 1215, For 1 dose, Ventrogluteal.Indication s:On pre-exposure prophylaxis for HIV Given 01/07/2025 12:15 PM EDT 600 mg Left Upper Buttock documented in this encounter Additional Health Concerns Assessment Noted Time PHQ-9 Depression Total Score: 11 024 9:54 AM EDT documented as of this encounter Care Teams Box Blank Machine Feeder Relationship Specialty Start Date End Date Carolina Anders MD [address] [place] [phone] PCP - General Internal Medicine 01/09/23 documented as of this encounter
[2025-01-07 12:28] LABS: Alanine Aminotransferase 29 U/L (0-40); Albumin Level 4.9 g/dL (3.5-5.0); Alkaline Phosphatase 72 U/L (39-117); Aspartate Amino Transferase 32 U/L (5-37); Bilirubin Direct 0.4 mg/dL (0.0-0.5); Bilirubin Total 1.3 mg/dL (0.0-1.0); Total Protein 7.4 g/dL (6.5-8.0)
[2025-01-07 12:32] LABS: ~HepC Num1 0.11 S/CO (0.00-0.79); ~Hepatitis C Antibody Nonreactive (Nonreactive)
[2025-01-07 12:33] LABS: Syphilis Screen Nonreactive (Nonreactive)
[2025-01-08 14:54] LABS: HIV RNA PCR Qn Copies NOT DETECTED copies/mL (NOT DETECTED); HIV RNA PCR Qn Log Copies NOT DETECTED (NOT DETECTED)
== END 2025-01-07 10:25 | disposition home or self-care (01) ==
LOC: HO.HHCL 10:24
PROVIDERS: Visit Provider Student in an Organized Health Care Education/Training Program
DX: Z79.899 Other long term (current) drug therapy (principal)
CPT/HCPCS: 36415; 80076; 86780; 86803; 87536

== ENCOUNTER → 2025-02-23 10:34 | Outpatient (REF) | payer OTHER, SELFPAY ==
--- NOTE | 2025-02-23 10:38 | CA_ITS ---
Acquisition Time: 2025-02-23 11:08:29 Total Exercise Time: 00:08:20 Test Indications: CP Medications: SEE H&P Protocol: SEBASTIAN Max HR: 162 BPM 82% of Pred: 197 BPM Max BP: 124/60 mmHG Max Work Load: 10.1 METS Exercise stress test with exercise 8 mins 20 secs of Sebastian Protocol, achieving 75% MPHR, with reports of 9/10 mid chest pressure, SOB and dizziness, without any arrythmias, with normotensive response to exercise. Without EKG changes at achieved workload, baseline nonspecific ST- T waves. In recovery, pt's chest pressure and dizziness improved gradually. Echo images obtained by tech at rest and post peak exercise. Definity contrast utilized. Test reviewed with Dr. Jurado. Referred By: Edil Mandel Electronically Signed By: Edil Mandel
--- NOTE | 2025-02-23 10:38 | HM_ITS ---
* Total procedure length 30 days. Wear time 3.2 days. * Underlying rhythm is sinus with an average rate of 86/Min. * Rare supraventricular ectopy. * No sustained arrhythmias. * No significant pauses or high-grade AV blocks. * No diary events. MTDD
--- OUTSIDE RECORDS SUMMARY | 2025-02-23 11:45 | XMS_ITS | Encounter Summary ---
Author Organization [employer] Address [address] [facility] 7t [place] [address] Care Team Providers Care Home Health Care Case Manager Name Role Phone Carolina Anders MD Primary Care Pro vider Encounter Details Date Type Department Care Team (Late st Contact Info) Description 10/28/2024 Orders Only [facility] [address] [place] [address] Gege Carrera RN Social History Tobacco Use [...] with others, in a hotel, in a mcfp, living outside on the street, on a [...] Description 03/05/2025 9:00 AM EDT Office Visit [facility] [address] [place] [phone] Carolina Anders MD [address] [place] [phone] 03/05/2025 9:30 AM EDT Clinical Support [facility] [address] [place] [address] Jennifer Merchant, MYRON [address] [place] [address] 03/08/2025 9:00 AM EDT Office Visit [facility] [address] [place] [address] Janice Porras, OD [address] [place] [address] documented as of this encounter Visit Diagnoses Not on filedocumented in this encounter Additional Health Concerns Assessment Noted Time PHQ-9 Depression Total Score: 11 024 9:54 AM EDT documented as of this encounter Care Teams Home Health Care Case Manager Relationship Specialty Start Date End Date Carolina Anders MD [address] [place] [phone] PCP - General Internal Medicine 01/09/23 documented as of this encounter
--- OUTSIDE RECORDS SUMMARY | 2025-02-23 11:45 | XMS_ITS | Clinical Summary ---
Author Organization [facility] Address [address] [place] [address] Care Team Providers Care Library Associate Name Role Phone Unavailable Primary Care Provider [...] 25 mg tabletIndications :Bipolar 1 disorder, depressed (CMS & HHS-HCC) Take 2 Tablets by mouth once daily for 30 days 60 Tablet 07/16/20 24 Active guanFACINE (INTUNIV) 1 mg 24 hr tabletIndications :ADHD (attention deficit hyperactivity disorder), combined type Take 1 Tablet by mouth once daily for 30 days 30 Tablet 07/16/20 24 Active Active Problems Problem Noted Date Diagnosed Date Cough 06/05/2024 Recurrent major depressive disorder [place] [place] 06/04/2024 Urethral discharge 03/03/2024 ADHD (attention deficit [...] sexual behavior 07/23/2023 Bipolar 1 disorder, depressed ([facility]) Assessment & Plan (07/16/2024 2:43 PM EST): A: current episode depressed with anxious distress, poor sleep Plan Increase Clonidine to 0.2 mg, patient states it's somewhat helpful Increase Lamictal to 50 mg, Educated on S Sleep hygiene Health care maintenance 02/07/2023 History of penicillin allergy 02/07/2023 Syncope 02/07/2023 Immunizations Immunization Administration Dates Next Due DTAP (Infanrix) 03/12/2005, 3,2001,07/14,2001 Flu, Preservative Free 07/25/2023 HEP A, UNSPECIFIED 09/21/2016 HEP B, PED/ADOL ([id number]/RECOMBIVAX-PEDS) 2001,2001,2001 HPV, QUADRIVALENT 08/20/2017,11/16/2016,09/21/19 17 Hep A, adult 03/19/2012 Hep B, Adult/Adol ([id number]/RECOMBIVAX-ADULT) 10/23/2023,05/29/2023,04/12/2023 Hib (HbOC) 06/18/2002, 2,2001,05/14 INFLUENZA, SEASONAL, INJECTABLE 09/28/19 22,04/08/2020,07/02/2018,08/20,09/21/2016 IPV (IPOL) 03/12/2005, 2,2001,05/14 MENINGOCOCCAL ACWY, UNSPECIFIED 12/02/2017,03/19 MMR (MMR II/Priorix) 03/12/2005,2002 PNEUMOCOCCAL CONJUGATE PCV 7 2001,07/14/20,2001 Smallpox Mpox (JYNNEOS) Vaccine 12/31/2023,12/30,12/03/2023 TDAP 02/12/2023,12/02/2017,03/19/2012 Varicella (Varivax), Live Vaccine 03/12/2005,02/2002 Family History Medical History Relation Name Comments [...] STI Counseling 2001 Hypertension Screening (#1) 2019 Oxl-KDCVG-09 ( season) 2024 07/25/2023, 07/26/2021, 12/12/2020, Additional history exists Alcohol and Drug Screen 08/05/2024 Imm-Influenza (#1) 2025 07/25/2023, 0 09/28/2021, 04/08/2020, Additional history exists Tobacco Screening 07/16/2025 07/16/2024 Imm-DTaP/Tdap/Td (9 - Td or Tdap) 02/12/2033 02/12/2023, 12/02/2017, 03/19/2012, Additional history exists Imm-Varicella Completed 03/12/2005, 2002 Imm-HPV Completed 08/20/2017, 11/03, 09/21/2016 Imm-Hepatitis B Completed 10/23/2023, 05/06, 04/12/2023, Additional history exists Imm-Mpox (formerly Monkeypox) Completed , 12/31/2023, 12/03/2023 Hepatitis C Screening Completed 05/01/2024 HIV Screening Completed 06/25/2024, 06/06, 05/01/2024, Additional history exists Insurance [facility]
== END ==
LOC: HO.CARD 10:34
PROVIDERS: PCP Student in an Organized Health Care Education/Training Program
DX: R55 Syncope and collapse (principal); R00.2 Palpitations
CPT/HCPCS: 93270; 93350; Q9957

== ENCOUNTER → 2025-02-23 10:38 | Outpatient (BNV) | payer MEDICAID, SELFPAY | PROVIDERS: PCP Student in an Organized Health Care Education/Training Program | DX: I42.8 Other cardiomyopathies (principal); R07.9 Chest pain, unspecified; R06.02 Shortness of breath | CPT/HCPCS: 93016; 93018; 93350; 93352 ==

== ENCOUNTER 2025-04-02 13:17 | Outpatient (REF) | payer MEDICAID, SELFPAY ==
--- OUTSIDE RECORDS SUMMARY | 2025-04-02 11:15 | XMS_ITS | Encounter Summary ---
Author Organization [employer] Address [address] [place] [address] [address] [place] [address] Care Team Providers Care Packing And Wrapping Supervisor Name Role Phone Carolina Anders MD Primary Care Pro vider Reason for Referral * Imaging (STAT) - Closed Specialty Diagnoses / Procedures Referred By Contac t Referred To Contact Radiology Diagnoses Dysuria Testicular pain, right Procedures US Scrotum Carolina Anders MD [address] [place] [id number] Phone: tel: fax: [address] Phone: tel: fax: Referral ID Status Reason Start Date Expiration Date Visits Re quested Visits Authorized [id number] Closed 04/02/2025 04/02/2026 1 1 Encounter Details Date Type Department Care Team (Late st Contact Info) Description 04/02/2025 11:15 AM EDT Office Visit [facility] [address] [place] [address] [phone] Carolina Anders MD [address] [place] [address] [phone] Dysuria (Primary Dx); Testicular pain, right; Subjective fever; Health care maintenance Social History Tobacco Use Types Packs/Day Years Used Date Smoking Tobacco: Never Passive Smoke Exposure: Never Smokeless Tobacco: Never Tobacco Cessation:Counseling Given: Not Answered Alcohol Use Standard Drinks/Week Comments Yes 0 (1 standard drink = 0.6 oz pur e alcohol) social Depression Answer Date Recorded Patient Health Questionnaire-9 Score 8 02/26/2025 Patient Health Questionnaire-9 Score 8 02/26/2025 Last PHQ-9: Questionnaire Data Not on file 0 02/26/2025 Housing Stability Answer Date Recorded What is your housing situation today? I have housing today, but I am worried about losing housing in the future 02/26/[address] you li ve. Do you have problems with any of the following? None of the above 02/26/2025 Food Insecurity Answer Date Recorded Within the past 12 months, y ou worried that your food would run out before you got money to buy more: Often true 02/26/2025 Within the past 12 months,th e food you bought just didn't last and you didn't have enough money to get more: Often true Transportation Answer Date Recorded In the past 12 months, has l ack of transportation kept you from medical appts, meetings, work or from getting things needed for daily living? No 02/26/2025 Utilities Answer Date Recorded In the past 12 months, has t he electric, gas, oil or water company threatened to shut off services in your home? No 02/26/2025 Depression Answer Date Recorded Patient Health Questionnaire-2 Score 2 02/26/2025 Internet Access Answer Date Recorded Internet Access Q1 Yes 04/03/2024 Internet Access Q2 Not on file 04/03/2024 Sex and Gender Information Value Date Recorded Sex Assigned at Male 01/22/2023 9:56 AM EDT Legal Sex Male 2:40 PM EST Gender Identity Male 01/22/2023 9:56 AM EDT Sexual Orientation Bisexual 02/07/2023 3: 18 PM EDT Travel History Travel Start Travel End [place] 03/12/2025 03/14/2025 documented as of this encounter Last Filed Vital Signs Vital Sign Reading Time Taken Comments Blood Pressure 114/68 04/02/2025 11:21 AM EDT Pulse 60 04/02/2025 11:21 AM EDT Temperature 36.3 C (97.3 F) 04/02/2025 11:21 AM EDT Respiratory Rate 20 04/02/2025 11:21 AM EDT Oxygen Saturation 97% 04/02/2025 11:21 AM EDT Inhaled Oxygen Concentration - - Weight 69.9 kg (154 lb) 04/02/2025 11:21 AM EDT Height 172.7 cm (5' 8 ) 04/02/2025 11:21 AM EDT Body Mass Index 23.42 04/02/2025 11:21 AM EDT documented in this encounter Plan of Treatment Scheduled Orders Name Type Priority Associated Diagnoses Orde r Schedule Chlamydia/N. Gonorrhoeae RNA, TMA, Rectal Microbiology Routine Dysuria Testicular pain, right Ordered: 04/02/2025 Chlamydia/N. Gonorrhoeae RNA, TMA, Throat Microbiology Routine Dysuria Testicular pain, right Ordered: 04/02/2025 Chlamydia/Trichomonas/Ne isseria gonorrhoeae, PCR, Urine Lab Routine Dysuria Testicular pain, right Expected: 04/02/2025 (Approximate), Expires: 04/02/2026 Mycoplasma/Ureaplasma Panel Microbiology Routine Dysuria Testicular pain, right Expected: 04/02/2025 (Approximate), Expires: 04/02/2026 Urinalysis, Complete, with Reflex to Culture Lab Routine Dysuria Testicular pain, right Expected: 04/02/2025 (Approximate), Expires: 04/02/2026 RPR (Monitor) with Reflex to Titer Lab Routine Dysuria Testicular pain, right Expected: 04/02/2025 (Approximate), Expires: 04/02/2026 HIV-1 RNA, Quantitative, Real-Time PCR Lab Routine Dysuria Testicular pain, right Expected: 04/02/2025 (Approximate), Expires: 04/02/2026 US Scrotum Imaging STAT Dysuria Testicular pain, right Expected: 04/02/2025, Expires: 04/02/2026 CBC auto differential Lab Routine Dysuria Testicular pain, right Expected: 04/02/2025 (Approximate), Expires: 04/02/2026 Comprehensive Metabolic Panel Lab Routine Dysuria Testicular pain, right Expected: 04/02/2025 (Approximate), Expires: 04/02/2026 Hepatitis C Antibody with Reflex to HCV, RNA, Quantitative, Real-Time PCR Lab Routine Dysuria Testicular pain, right Expected: 04/02/2025 (Approximate), Expires: 04/02/2026 HIV-1/2 Antigen and Antibodies, Fourth Generation, with Reflexes Lab Routine Dysuria Testicular pain, right Expected: 04/02/2025 (Approximate), Expires: 04/02/2026 Trichomonas RNA (Urine/Vaginal) Lab Routine Dysuria Ordered: 04/02/2025 Hepatitis B surface antigen, EIA Lab Routine Subjective fever Expected: 04/02/2025 (Approximate), Expires: 04/02/2026 Albumin, Random Urine W/Creatinine Lab Routine Health care maintenance Expected: 04/02/2025 (Approximate), Expires: 04/02/2026 Hemoglobin A1c Lab Routine Health care maintenance Expected: 04/02/2025 (Approximate), Expires: 04/02/2026 Hepatitis B Surface Antibody, Qualitative Lab Routine Health care maintenance Expected: 04/02/2025 (Approximate), Expires: 04/02/2026 Hepatitis B Core Antibody, Total Lab Routine Health care maintenance Expected: 04/02/2025 (Approximate), Expires: 04/02/2026 TSH with Reflex to Free T4 Lab Routine Health care maintenance Expected: 04/02/2025 (Approximate), Expires: 04/02/2026 documented as of this encounter Procedures Procedure Name Priority Date/Time Associated Diagnosis Comments POCT URINALYSIS DIPSTICK Routine 04/02/2025 11:57 AM EDT Dysuria Testicular pain, right documented in this encounter Results * (ABNORMAL) POCT Urinalysis (04/02/2025 11:57 AM EDT) Color, UA Dark Tricia Clarity, UA Clear Glucose, UA 2+ 125++ Comment:100 mg Bilirubin, UA Moderate Ketones, UA Positive Comment:15 mg Spec Grav, UA 1.020 Blood, UA Negative Negative, None Detected pH, UA 7.5 Protein, UA 2+ 125++ Comment:100 Urobilinogen, UA >=8.0 Leukocytes, UA Negative Negative, Rare, Trace Nitrite, UA Negative Negative, None Detected QC Media Lot # [id number] Lot# Expiration Date [id number] Urine 04/02/2025 11:5 7 AM EDT Carolina Mayo MD POINT OF CARE OZZY T ENTER/EDIT ORDERABLES Final Result documented in this encounter Visit Diagnoses Diagnosis Dysuria- Primary Testicular pain, right Unspecified disorder of male genital organs Subjective fever Health care maintenance documented in this encounter Administered Medications Inactive Administered Medications - up to 3 most recent administrations Medication Order MAR Action Action Date Dose Rate Site cefTRIAXone (Rocephin) vial 500 mg 500 mg, Intramuscular, Once, On Sat04/02/25 at 1200, For 1 dose, Suspected Indication (Select all that apply): Urinary Tract Infection, Sexually Transmitted Infection, Type of Urinary Tract Infection: Uncomplicated, Type of Therapy: EmpiricIndications:Dysur ia,Testicular pain, right Given 04/02/2025 12:00 PM EDT 500 mg Right Upper Buttock documented in this encounter Additional Health Concerns Assessment Noted Time PHQ-9 Depression Total Score: 8 02/27/20 25 11:54 AM EDT documented as of this encounter Care Teams Packing And Wrapping Supervisor Relationship Specialty Start Date End Date Carolina Anders MD [address] [place] [phone] PCP - General Internal Medicine 01/09/23 documented as of this encounter
--- OUTSIDE RECORDS SUMMARY | 2025-04-02 13:35 | XMS_ITS | Clinical Summary ---
Author Organization [facility] Address [address] [place] [address] Care Team Providers Care Superintendent Car Construction Name Role Phone Unavailable Primary Care Provider [...] Date Cough 06/05/2024 Recurrent major depressive disorder ([facility] V24 ) 06/04/2024 Urethral discharge 03/03/2024 ADHD [...] sexual behavior 07/23/2023 Bipolar 1 disorder, depressed ([facility]) Assessment & Plan (07/16/2024 2:43 [...] HEP A, UNSPECIFIED 09/21/2016 HEP B, PED/ADOL ([id number]/RECOMBIVAX-PEDS) 2001,2001,2001 HPV, QUADRIVALENT 08/20/2017,11/16/2016,09/21/19 17 Hep A, adult 03/19/2012 Hep B, Adult/Adol ([id number]/RECOMBIVAX-ADULT) 10/23/2023,05/29/2023,04/12/2023 Hib (HbOC) 06/18/2002, 2,2001,05/14 INFLUENZA, SEASONAL, [...] STI Counseling 2001 Hypertension Screening (#1) 2019 Eum-PZVTF-18 ( season) 2024 07/25/2023, 07/26/2021, 12/12/2020, Additional [...] 06/25/2024, 06/06, 05/01/2024, Additional history exists Insurance [facility]
--- OUTSIDE RECORDS SUMMARY | 2025-04-02 13:35 | XMS_ITS | Encounter Summary ---
Author Organization [employer] Address [address] [place] [address] Care Team Providers Care Kitchen Help Handyman Name Role Phone Carolina Anders MD Primary Care Pro vider Encounter Details Date Type Department Care Team (Latest Contact Info) Description 04/02/2025 Travel Social History Tobacco Use Types Packs/Day [...] EDT Travel History Travel Start Travel End [place] 03/12/2025 03/14/2025 documented as of this encounter Plan of Treatment Not on file documented as of this encounter Visit Diagnoses Not on filedocumented in this encounter Additional Health Concerns Assessment Noted Time PHQ-9 Depression Total Score: 8 02/27/20 11:54 AM EDT documented as of this encounter Care Teams Kitchen Help Handyman Relationship Specialty Start Date End Date Carolina Anders MD [address] [place] [phone] PCP - General Internal Medicine 01/09/23 documented as of this encounter
--- OUTSIDE RECORDS SUMMARY | 2025-04-02 13:35 | XMS_ITS | Encounter Summary ---
Author Organization [employer] Address [address] [place] [address] Care Team Providers Care Bag Presser Name Role Phone Carolina Anders MD Primary Care Pro vider Encounter Details Date Type Department Care Team (Latest Contact Info) Description 04/01/2025 Travel Social History Tobacco Use Types Packs/Day [...] EDT Travel History Travel Start Travel End [place] 03/12/2025 03/14/2025 documented as of this encounter Plan of Treatment Not on file documented as of this encounter Visit Diagnoses Not on filedocumented in this encounter Additional Health Concerns Assessment Noted Time PHQ-9 Depression Total Score: 8 02/27/20 11:54 AM EDT documented as of this encounter Care Teams Bag Presser Relationship Specialty Start Date End Date Carolina Anders MD [address] [place] [id number] PCP - General Internal Medicine 01/09/23 documented as of this encounter
--- OUTSIDE RECORDS SUMMARY | 2025-04-02 13:35 | XMS_ITS | Clinical Summary ---
Author Organization [employer] Address [address] [facility] 7t [place] [address] Care Team Providers Care Cyber Workforce Developer And Manager Name Role Phone Carolina Anders MD Primary Care Pro vider Allergies Active Allergy Reactions Criticality Noted Date Comments Penicillins Rash Low 02/07/2023 Pt tolerated well CTX before Medications * This document contains information received from the source organization and may not represent a complete record from that organization. cetirizine (ZyrTEC) 10 MG tablet Take 1 tablet (10 mg) by mouth in the morning. 90 tablet 024 Active cloNIDine (Catapres) 0.1 MG tablet Take 1 tablet (0.1 mg) by mouth if needed each day for high blood pressure. 30 tablet 1 024 Active emtricitabine- tenofovir DF (Truvada) 200-300 MG tabletIndicati ons:On pre-exposure prophylaxis for HIV Take 1 tablet by mouth Once per day. 90 tablet 025 2024 Active psyllium (Reguloid) 28.3 % powder Take 12 g (3.4 g of fiber) by mouth 2 times daily. 369 g 2 025 Active EPINEPHrine (Epipen) 0.3 MG/0.3ML injection syringe Inject 0.3 mL (0.3 mg) as directed 1 (one) time for 1 dose. Inject into upper leg. Call 911 after use. 2 each 025 Active doxycycline (Vibra-Tabs) 100 MG tabletIndicati ons:Dysuria,Te sticular pain, right Take 1 tablet (100 mg) by mouth 2 times daily for 7 days. Take with a full glass of water and do not lie down for at least 30 minutes after. 14 tablet 025 2024 Active Focalin XR 30 MG 24 hr capsule Take 30 mg by mouth in the morning. for ADHD 022 2024 Discontinued(O ther) EPINEPHrine (Epipen) 0.3 MG/0.3ML injection syringe INJECT INTRAMUSCULARLY DIRECTED ON PACKAGE AND GO TO EMERGENCY ROOM 2 each 023 2024 Discontinued(R eorder (will not trigger notification to Pharmacy)) hydrOXYzine HCl (Atarax) 10 MG tablet TAKE 1 TABLET BY MOUTH DAILY AT BEDTIME NEEDED FOR ITCHING OR for SLEEP 30 tablet 1 024 2024 Discontinued(O ther) famotidine (Pepcid) 20 MG tablet Take 1 tablet (20 mg) by mouth in the morning. 30 tablet 1 2024 Discontinued(O ther) Menthol (Cepacol Sore Throat) 5.4 MG lozengeIndicat ions:Sore throat (viral),Other cough Dissolve 1 tablet in the mouth every 2 (two) hours if needed (sore thraot). 20 lozenge 2024 Discontinued(O ther) lamoTRIgine (LaMICtal) 25 MG tablet Take 1 tablet (25 mg) by mouth Once per day. 30 tablet 1 2024 Discontinued(O ther) Cabotegravir ER (Apretude) 600 MG/3ML Suspension Extended ReleaseIndicat ions:On pre-exposure prophylaxis for HIV Inject 3 mL (600 mg) into the muscle See administration instructions. Intramuscular injection every other month. Ventrogluteal. 3 mL 5 024 2024 Discontinued(O ther) Reguloid 28.3 % powder DISSOLVE 1 TABLESPOONFUL IN 8 OUNCES OF WATER AND DRINK TWICE DAILY 369 g 2 024 2024 Discontinued(R eorder (will not trigger notification to Pharmacy)) Hospital, Clinic, or Other Facility Administered Medication Ordered Dose Route Frequency Start Date End Date Status cefTRIAXone (Rocephin) vial 500 mgIndications:Dysuria,Testi cular pain, right 500 mg IM Once 04/02/2025 04/02/2025 Ended Active Problems Problem Noted Date Diagnosed [...] optimize psych tx -has already referral w special education curriculum specialist x 04/25/2023 -advise to continue apt to [...] optimize psych tx -has already referral w special education curriculum specialist x 04/25/2023 -advise to continue apt to r/o cardiac etiology History of penicillin allergy 02/07/2023 Assessment & Plan (04/13/2023 11:46 AM EDT): -referred to master tax advisor x hx of PNC allergy to clarify - gave today info for pt to call. Assessment & Plan (02/07/2023 7:23 PM EDT): -referred today to master tax advisor x hx of PNC allergy to clarify [...] -nurse today to do ear lavage Encounters * This document contains information received from the source organization and may not represent a complete record from that organization. Date Type Department Care Team Description 04/02/2025 11:15 AM EDT Office Visit [facility] [address] [place] [phone] Carolina Anders MD Dysuria (Primary Dx); Testicular pain, right; Subjective fever; Health care maintenance 04/02/2025 Telephone [facility] [address] [place] [phone] Carolina Anders MD us scrotum order 04/02/2025 Travel 04/01/2025 Travel 04/01/2025 Telephone [facility] [address] [place] [address] [phone] Carolina Anders MD chartprep 03/17/2025 Orders Only [facility] [address] [place] [phone] Gege Carrera RN 2025 Refill [facility] [address] [place] [phone] Sheri De La Fuente, RN On pre-exposure prophylaxis for HIV (Primary Dx) 2025 Orders Only [address] [address] Sheri De La Fuente, RN On pre-exposure prophylaxis for HIV (Primary Dx) 2025 Travel 03/08/2025 9:00 AM EDT Office Visit [facility] [address] [place] [phone] Janice Porras, OD Regular astigmatism, bilateral (Primary Dx); Normal eye exam 03/08/2025 Travel 03/05/[address] [address] Carolina Anders MD 03/04/[address] [address] Carolina Anders MD chart prep 02/26/2025 Patient Outreach [address] [address] Carolina Anders MD Care Coordination 02/26/2025 Patient Outreach [address] [address] Carolina Anders MD Pre-visit Planning (SDOH screening positive and Tobacco screening negative) 01/11/2025 Orders Only [address] [address] Miya Bateman, RN 01/07/2025 10:30 AM EDT Clinical Support [address] [address] Miya Bateman, RN On pre-exposure prophylaxis for HIV (Primary Dx) 01/07/2025 Orders Only [address] [address] Carolina Anders MD 01/07/2025 Travel from Last 3 Months Immunizations Immunization Administration Dates Next Due DTaP 03/12/2005, 3,2001,07/14,2001 [...] Travel Start Travel End [place] 03/12/2025 03/14/2025 Last Filed Vital Signs Vital Sign Reading [...] Mass Index 23.42 04/02/2025 11:21 AM EDT Plan of Treatment Health Maintenance Due Date Last Done Comments Family Planning (PISQ) 2016 Pneumococcal Vaccine: Pediatrics (0 to 5 Years) and At-Risk Patients (6 to 49) Years (1 of 2 - PCV) 2020 2001, 2001, 2001 COVID-19 Vaccine ( - season) 2024 07/25/2023, 07/26/2021, 12/12/2020, Additional history exists Influenza Vaccine (#1) 2025 , 09/28/2021, 04/08/2020, Additional history exists Depression Screening 02/26/2026 02/26/2025, 02/27/20 25 SDOH Screening 02/26/2026 02/26/2025 Disability Screening 04/01/2026 04/01/2025 Alcohol/Substance Use Screening 04/02/2026 04/02/2025 Tobacco Screening 04/02/2026 04/02/2025 DTaP/Tdap/Td Vaccines (9 - Td or Tdap) [...] Completed 10/23/2023, 05/29/2023, 04/12/2023, Additional history exists HIV Screening Completed 01/07/2025, 10/03, 08/21/2024, Additional history exists Hepatitis C Screening Completed 01/07/2025 , 05/01/2024, 02/03/2024, Additional history exists Meningococcal B Vaccine Aged Out No l onger eligible based on patient's age to complete this topic RSV under 20 months Aged Out No longe r eligible based on patient's age to complete this topic Rotavirus Vaccines Aged Out No longer eligible based on patient's age to complete this topic Procedures Procedure Name Priority Date/Time Associated Diagnosis Comments POCT URINALYSIS DIPSTICK Routine 04/02/2025 11:57 AM EDT Dysuria Testicular pain, right CHLAMYDIA/GONORRHEA - URINE ([facility]) Routine 03/12/2025 CHLAMYDIA/GONORRHEA THROAT SWAB ([facility]) Routine 2025 POCT RAPID HIV SCREENING Routine 01/07/2025 12:05 PM EDT On pre-exposure prophylaxis for HIV HIV 1 RNA, QUANTITATIVE REAL TIME PCR Routine 01/07/2025 10:26 AM EDT HEPATITIS C AB W/REFL TO HCV RNA, QN, PCR Routine 01/07/2025 10:26 AM EDT SYPHILIS SCREEN Routine 01/07/2025 10:26 AM EDT HEPATIC FUNCTION PANEL Routine 01/07/2025 10:26 AM EDT CHLAMYDIA/GONORRHEA - URINE ([facility]) Routine 01/07/2025 CHLAMYDIA/GONORRHEA THROAT SWAB ([facility]) Routine 01/07/2025 from Last 3 Months Results * (ABNORMAL) POCT Urinalysis (04/02/2025 11:57 [...] Media Lot # [id number] Lot# Expiration Date [id number] Urine 04/02/2025 11:5 7 AM EDT Carolina Mayo MD POINT OF CARE OZZY T ENTER/EDIT ORDERABLES Final Result * Chlamydia/Gonorrhea, Urine ([facility]) (03/12/2025) Only the most recent of2 resultswithin the time period is included. Chlamydia, Urine Negative Negative, Indeterminate, None Detected, Invalid, Specimen unsatisfactory for evaluation, Weakly Positive, 2+ Gonorrhea, Urine Negative Negative, Indeterminate, None Detected, Invalid, Specimen unsatisfactory for evaluation, Weakly Positive, 2+ Urine Historical Provider LAB URINE ORDERABLES Edit ed Result - Final * Chlamydia/Gonorrhea Throat Swab ([facility]) (2025) Only the most recent of2 resultswithin the time period is included. Chlamydia Throat Swab Negative Gonorrhea Throat Swab Negative Swab 2025 Historical Provider LAB MICROBIOLOGY - GENERA L ORDERABLES Final Result * POCT Rapid HIV Screening (01/07/2025 12:05 PM EDT) Blood 01/07/2025 12:0 5 PM EDT Narrative Miya Bateman RN - 01/07/2025 12:05 PM EDT HIV ag/ab = negative Carolina Mayo MD POINT OF CARE OZZY T ENTER/EDIT ORDERABLES Final Result * Syphilis Screen (01/07/2025 10:26 AM EDT) Syphilis Screen Nonreactive Nonreactive [facility] 01/07/2025 10:2 6 AM EDT 01/07/2025 11:32 AM EDT Carolina Mayo MD LAB BLOOD ORDERAB LES Final Result Performing Organization Address [facility]/ZIP Co de Phone Number [facility] [address] [place] [phone] * Hepatitis C Antibody with Reflex to HCV, RNA, Quantitative, Real-Time PCR (01/07/2025 10:26 AM EDT) Pathologist [facility] Hepatitis C Antibody Nonreactive Nonreactive [facility] Comment:Antibodies to HCV no t detected; does not exclude early acuteHCV infection. 01/07/2025 10:2 6 AM EDT 01/07/2025 11:27 AM EDT Carolina Mayo MD LAB BLOOD ORDERAB LES Final Result Performing Organization Address [facility] Co de Phone Number [facility] [address] [place] [phone] * HIV-1 RNA, Quantitative, Real-Time PCR (01/07/2025 10:26 AM EDT) [facility] HIV RNA PCR Qn Copies NOT DETECTED NOT DETECTED copies/mL [facility] HIV RNA PCR Qn Log Copies NOT DETECTED NOT DETECTED [facility] Comment:Result Units: Log co pies/mLThis test was performed using Real-Time Polymerase ChainReaction.Reportable Range: 20 copies/mL to 10,000,000 copies/mL(1.30 log copies/mL to 7.00 log copies/mL).THIS TEST WAS PERFORMED AT:[employer] [address] [id number] RUANO MD Blood 01/07/2025 10:2 6 AM EDT 01/07/2025 11:27 AM EDT Carolina Mayo MD LAB BLOOD ORDERAB LES Final Result Performing Organization Address [facility] Co de Phone Number [facility] [address] [place] [phone] * (ABNORMAL) Hepatic Function Panel (01/07/2025 10:26 AM EDT) Bilirubin, Total 1.3(H) 0.0 - 1.0 mg/dL [facility] Bilirubin, Direct 0.4 0.0 - 0.5 mg/dL [facility] Aspartate Amino Transferase 32 5 - 37 U/L [facility] Alanine Aminotransferase 29 0 - 40 U/L [facility] Total Protein 7.4 6.5 - 8.0 g/dL [facility] Albumin Level 4.9 3.5 - 5.0 g/dL [facility] Alkaline Phosphatase 72 39 - 117 U/L [facility] 01/07/2025 10:2 6 AM EDT 01/07/2025 11:32 AM EDT us Carolina Mayo MD LAB BLOOD ORDERAB LES Final Result Performing Organization Address [facility] Co de Phone Number [facility] [address] [place] [phone] from Last 3 Months Insurance [facility] Care Teams Cyber Workforce Developer And Manager Relationship Specialty Start Date End Date Carolina Anders MD [address] [place] [phone] PCP - General Internal Medicine 01/09/23
--- OUTSIDE RECORDS SUMMARY | 2025-04-02 13:35 | XMS_ITS | Encounter Summary ---
Author Organization [employer] Address [address] [facility] 7t [place] [address] Care Team Providers Care Welding Manager Name Role Phone Carolina Anders MD Primary Care Pro vider Reason for Visit * Reason Onset Date Comments New Patient Appt 12/21/2022 Encounter Details Date Type Department Care Team ([facility] st Contact Info) Description 12/21/2022 Telephone [facility] [address] [place], [place] [phone] Gonzalez Du MD [address] [place], [place] [phone] New Patient Appt Social History Tobacco Use Types Packs/Day Years Used Date Smoking Tobacco: Never Assessed Sex and Gender Information Value Date Recorded Sex Assigned at Male 01/22/2023 9:56 AM EDT Legal Sex Male 2:40 PM EST Gender Identity Male 01/22/2023 9:56 AM EDT Sexual Orientation Bisexual 02/07/2023 3: 18 PM EDT Travel History Travel Start Travel End [place] 03/12/2025 03/14/2025 documented as of this encounter Miscellaneous Notes * Telephone Encounter - Nhan Earl - 12/21/2022 10:34 AM EDT New Patients Par Nhan Tovar called (2x) to schedule New patient appt, pt did not answer left voicemail to give a call at [phone]. documented in this encounter Plan of Treatment Not on file documented as of this encounter Visit Diagnoses Not on filedocumented in this encounter Care Teams Welding Manager Relationship Specialty Start Date End Date Carolina Anders MD [address] [place] [phone] PCP - General Internal Medicine 01/09/23 documented as of this encounter
--- OUTSIDE RECORDS SUMMARY | 2025-04-02 13:35 | XMS_ITS | Encounter Summary ---
Author Organization [employer] Address [address] [facility] [address] 7[address] [place] [address] Care Team Providers Care Organ Tuner Name Role Phone Carolina Anders MD Primary Care Pro vider Encounter Details Date Type Department Care Team (Late st Contact Info) Description 10/28/2024 Orders Only [facility] [address] [place] [address] Gege Carrera RN Social History Tobacco Use [...] EDT Travel History Travel Start Travel End [place] 03/12/2025 03/14/2025 documented as of this encounter Plan of Treatment Not on file documented as of this encounter Visit Diagnoses Not on filedocumented in this encounter Additional Health Concerns Assessment Noted Time PHQ-9 Depression Total Score: 11 024 9:54 AM EDT documented as of this encounter Care Teams Organ Tuner Relationship Specialty Start Date End Date Carolina Anders MD [address] [place] [phone] PCP - General Internal Medicine 01/09/23 documented as of this encounter
--- OUTSIDE RECORDS SUMMARY | 2025-04-02 13:35 | XMS_ITS | Encounter Summary ---
Author Organization [employer] Address [address] [place] [address] [address] [place] [address] Care Team Providers Care Gas Plant Operator Name Role Phone Carolina Anders MD Primary Care Pro vider Reason for Visit * Reason Onset Date Comments chartprep 04/01/2025 Encounter Details Date Type Department Care Team ([facility] st Contact Info) Description 04/01/2025 Telephone [facility] [address] [place], [place] [phone] Carolina Anders MD [address] [place] [address] chartprep Social History Tobacco Use Types Packs/Day Years [...] EDT Travel History Travel Start Travel End [place] 03/12/2025 03/14/2025 documented as of this encounter Miscellaneous Notes * Telephone Encounter - Rocio Diaz MA - 04/01/2025 10:33 AM EDT ..Chart Prep Labs: done Images: not applicable Vaccines due: Covid Due and Pneum Referrals: Not Applicable Screenings: Not Applicable Overdue care gaps: Sbirt and Disability documented in this encounter Plan of Treatment Not on file documented as of this encounter Visit Diagnoses Not on filedocumented in this encounter Additional Health Concerns Assessment Noted Time PHQ-9 Depression Total Score: 8 02/27/20 11:54 AM EDT documented as of this encounter Care Teams Gas Plant Operator Relationship Specialty Start Date End Date Carolina Anders MD [address] [place] [phone] PCP - General Internal Medicine 01/09/23 documented as of this encounter
--- OUTSIDE RECORDS SUMMARY | 2025-04-02 13:35 | XMS_ITS | Encounter Summary ---
Author Organization [employer] Address [address] [place] [address] [address] [place] [address] Care Team Providers Care Gym Attendant Name Role Phone Carolina Anders MD Primary Care Pro vider Reason for Visit * Reason Onset Date Comments us scrotum order 04/02/2025 Encounter Details Date Type Department Care Team (Late st Contact Info) Description 04/02/2025 Telephone [facility] [address] [place], [place] [phone] Carolina Anders MD [address] [place] [address] us scrotum order Social History Tobacco Use Types Packs/Day Years [...] EDT Travel History Travel Start Travel End [place] 03/12/2025 03/14/2025 documented as of this encounter Miscellaneous Notes * Telephone Encounter - Marilee Christopher - 04/02/2025 1:04 PM EDT Pt insurance does not cover for US SCROTUM. T/C to pt who is aware and will call office when has active coverage. documented in this encounter Plan of Treatment Not on file documented as of this encounter Visit Diagnoses Not on filedocumented in this encounter Additional Health Concerns Assessment Noted Time PHQ-9 Depression Total Score: 8 02/27/20 11:54 AM EDT documented as of this encounter Care Teams Gym Attendant Relationship Specialty Start Date End Date Carolina Anders MD [address] [place] [phone] PCP - General Internal Medicine 01/09/23 documented as of this encounter
[2025-04-02 17:23] LABS: Microalbum/Creatinine Ratio Ur 10.9 ug/mg cr (<30)
[2025-04-06 20:29] LABS: C. Trachomatis RNA TMA, Throat NOT DETECTED (NOT DETECTED); C.Trachomatis RNA TMA, Rectal NOT DETECTED (NOT DETECTED); N. gonorrhoeae RNA TMA, Throat NOT DETECTED (NOT DETECTED); N.Gonorrhoeae RNA TMA, Rectal NOT DETECTED (NOT DETECTED)
== END 2025-04-02 13:18 | disposition home or self-care (01) ==
LOC: HO.HHCLNP 13:17
PROVIDERS: Visit Provider Student in an Organized Health Care Education/Training Program
DX: Z00.00 Encounter for general adult medical examination without abnormal findings (principal); N50.811 Right testicular pain; R30.0 Dysuria
CPT/HCPCS: 82043; 82570; 87491; 87591; 87661

== ENCOUNTER 2025-04-16 15:46 | Outpatient (REF) | payer MEDICAID, SELFPAY ==
--- NOTE | ~2025-04-16 | US_ITS ---
EXAMINATION: US SCROTUM CLINICAL INFORMATION: 1 month of right scrotal pain COMPARISON: None available. TECHNIQUE: A sonogram of the scrotum was performed assessing ross-scale appearance and color Doppler flow. Spectral Doppler analysis of the arterial and venous flow were performed in the testes bilaterally. FINDINGS: RIGHT: Right testicle measures 4.1 x 2.0 x 2.4 cm, volume 10 mL. Focal hyperechogenic focus within the mid testicle measuring 1 mm in size is likely a benign calcification. Spectral Doppler analysis of the arterial and venous flow is present in the right testis. Right epididymal head is normal in size. No right hydrocele or varicocele is seen. Right epididymal Doppler flow is present LEFT: Left testicle measures 3.5 x 2.9 x 2.3 cm, volume 8 mL. No focal testicular parenchymal lesions are visualized. Spectral Doppler analysis of the arterial and venous flow is present in the left testis. Left epididymal head is normal in size. There are tubular hypoechoic structures with blood flow on color Doppler during Valsalva consistent with small varicocele. Left epididymal Doppler flow is present US/US scrotum IMPRESSION: Small left varicocele. Otherwise, unremarkable study. Electronically signed by: Pal Smalls MD 04/16/2025 05:07 PM EDT RP
--- OUTSIDE RECORDS SUMMARY | 2025-04-16 17:47 | XMS_ITS | Clinical Summary ---
Author Organization [employer] Address [address] [facility] 7t [place] [address] Care Team Providers Care Grounds Caretaker Name Role Phone Carolina Anders MD Primary [...] leg. Call 911 after use. 2 each Active Focalin XR 30 MG 24 hr [...] mouth in the morning. 30 tablet 1 024 2024 Discontinued(O ther) Menthol (Cepacol Sore Throat) 5.4 MG lozengeIndicat ions:Sore throat (viral),Other cough Dissolve 1 tablet in the mouth every 2 (two) hours if needed (sore thraot). 20 lozenge 2024 Discontinued(O ther) lamoTRIgine (LaMICtal) 25 MG tablet Take 1 tablet (25 mg) by mouth Once per day. 30 tablet 1 024 2024 Discontinued(O ther) Cabotegravir ER (Apretude) 600 [...] eorder (will not trigger notification to Pharmacy)) doxycycline (Vibra-Tabs) 100 MG tabletIndicati ons:Dysuria,Te sticular pain, right Take 1 tablet (100 mg) by mouth 2 times daily for 7 days. Take with a full glass of water and do not lie down for at least 30 minutes after. 14 tablet 025 2024 Hospital, Clinic, or Other Facility Administered Medication Ordered Dose Route Frequency Start Date End Date Status cefTRIAXone (Rocephin) vial 500 mgIndications:Dysuria,Testi cular pain, right 500 mg IM Once 04/02/2025 04/02/2025 Ended Active Problems Problem Noted Date Diagnosed Date Uncomplicated asthma, unspec ified asthma severity, unspecified whether persistent 04/02/2025 Testicular pain, right 04/02/2025 Recurrent major depressive disorder 06/04/2024 ADHD (attention deficit hype ractivity disorder), combined [...] optimize psych tx -has already referral w applications systems analyst x 04/25/2023 -advise to continue apt to [...] optimize psych tx -has already referral w applications systems analyst x 04/25/2023 -advise to continue apt to r/o cardiac etiology History of penicillin allergy 02/07/2023 Assessment & Plan (04/13/2023 11:46 AM EDT): -referred to radar engineer x hx of PNC allergy to clarify - gave today info for pt to call. Assessment & Plan (02/07/2023 7:23 PM EDT): -referred today to radar engineer x hx of PNC allergy to clarify [...] organization. Date Type Department Care Team Description 04/16/[address] [address] Carolina Anders MD Dec Recall 04/09/[address] [phone] Zonia Mike RN [facility] F/U 04/06/2025 Results Follow-Up [address] [address] Carolina Anders MD POCT Urinalysis, Chlamydia/N. Gonorrhoeae RNA, TMA, Rectal, Chlamydia/N. Gonorrhoeae RNA, TMA, Throat, Additional followed-up results: 2 04/02/2025 11:15 AM EDT Office Visit [facility] [address] [place] [phone] Carolina Anders MD Dysuria (Primary Dx); Testicular pain, right; Subjective fever; Health care maintenance; Uncomplicated asthma, unspecified asthma severity, unspecified whether persistent; Bipolar 1 disorder, depressed ([facility]); Syncope, unspecified syncope type; High risk homosexual behavior 04/02/2025 Telephone [facility] [address] [place] [address] Carolina Anders MD scrotum order 04/02/2025 Travel 04/01/2025 Travel 04/01/[address] [address] Carolina Anders MD chartprep 03/17/2025 Orders Only [address] [address] Gege Carrera RN [address] [address] Sheri De La Fuente RN On pre-exposure prophylaxis for HIV (Primary Dx) 2025 Orders Only [address] [address] Sheri De La Fuente RN On pre-exposure prophylaxis for HIV (Primary Dx) 2025 Travel 03/08/2025 9:00 AM EDT Office Visit [facility] [address] [place] [phone] Janice Porras, OD Regular astigmatism, bilateral (Primary Dx); Normal eye exam 03/08/2025 Travel 03/05/[address] [address] Carolina Anders MD 03/04/[address] [address] Carolina Anders MD chart prep 02/26/2025 Patient Outreach [address] [address] Carolina Anders MD Care Coordination 02/26/2025 Patient Outreach [address] [address] Carolina Anders MD Pre-visit Planning (SDOH screening positive and Tobacco screening negative) from Last 3 Months Immunizations Immunization Administration [...] 04/02/2025 11:21 AM EDT Plan of Treatment Upcoming Encounters Date Type Department Care Team (Late st Contact Info) Description 07/07/2025 10:45 AM EST Office Visit [facility] [address] [place] [address] Carolina Anders MD [address] [place] [address] Health Maintenance Due Date Last Done Comments Family Planning (PISQ) 2016 Pneumococcal Vaccine: Pediatrics (0 to 5 Years) and At-Risk Patients (6 to 49) Years (1 of 2 - PCV) 2020 2001, 2001, 2001 COVID-19 Vaccine (2024- season) 2025 07/25/2023, 07/26/2021, 12/12/2020, Additional history exists Influenza Vaccine (#1) 2025 , 09/28/2021, 04/08/2020, Additional history exists Depression Screening 02/26/2026 02/26/2025, 02/27/20 SDOH Screening 02/26/2026 02/26/2025 Disability Screening 04/01/2026 [...] Procedure Name Priority Date/Time Associated Diagnosis Comments US SCROTUM STAT 04/16/2025 4:05 PM EDT Dysuria Testicular pain, right TRICHOMONAS VAGINALIS RNA, QUALITATIVE, TMA Routine 04/02/2025 12:08 PM EDT Dysuria CHLAMYDIA/N. GONORRHOEAE RNA, TMA, THROAT Routine 04/02/2025 11:59 AM EDT Dysuria Testicular pain, right CHLAMYDIA/N. GONORRHOEAE RNA, TMA, RECTAL Routine 04/02/2025 11:59 AM EDT Dysuria Testicular pain, right POCT URINALYSIS DIPSTICK Routine 04/02/2025 11:57 AM EDT Dysuria Testicular pain, right ALBUMIN, RANDOM URINE W/CREATININE Routine 04/02/2025 11:40 AM EDT Health care maintenance CHLAMYDIA/GONORRHEA - URINE ([place] DPH) Routine 03/12/2025 CHLAMYDIA/GONORRHEA THROAT SWAB ([place] DPH) Routine 2025 HEPATITIS C AB W/REFL TO HCV RNA, QN, PCR Routine 01/07/2025 10:26 AM EDT HIV 1 RNA, QUANTITATIVE REAL TIME PCR Routine 01/07/2025 10:26 AM EDT from Last 3 Months or Most Recently Relevant to Health Maintenance Results * US Scrotum (04/16/2025 4:05 PM EDT) Anatomical Region Laterality Modality Body Ultrasound 04/16/2025 4:05 PM EDT Narrative 04/16/2025 5:10 PM EDT [address] [address] Ultrasound Report Signed Patient: Monster Gutierrez MR#: [id number] : 2000 Acct:[id number] Age/Sex: 25 / M ADM Date: 04/16/25 Loc: HO.US Attending Dr: Carolina Mayo MD Ordering Physician: Carolina Anders MD Date of Service: 04/16/25 Procedure(s): US scrotum Accession Number(s): [id number] cc: Carolina Anders MD Reason for Exam: pt w 1 month of ongoing right testicular pain EXAMINATION: US SCROTUM CLINICAL INFORMATION: 1 month of right scrotal pain COMPARISON: None available. TECHNIQUE: A sonogram of the scrotum was performed assessing ross-scale appearance and color Doppler flow. Spectral Doppler analysis of the arterial and venous flow were performed in the testes bilaterally. FINDINGS: RIGHT: Right testicle measures 4.1 x 2.0 x 2.4 cm, volume 10 mL. Focal hyperechogenic focus within the mid testicle measuring 1 mm in size is likely a benign calcification. Spectral Doppler analysis of the arterial and venous flow is present in the right testis. Right epididymal head is normal in size. No right hydrocele or varicocele is seen. Right epididymal Doppler flow is present LEFT: Left testicle measures 3.5 x 2.9 x 2.3 cm, volume 8 mL. No focal testicular parenchymal lesions are visualized. Spectral Doppler analysis of the arterial and venous flow is present in the left testis. Left epididymal head is normal in size. There are tubular hypoechoic structures with blood flow on color Doppler during Valsalva consistent with small varicocele. Left epididymal Doppler flow is present US/US scrotum IMPRESSION: Small left varicocele. Otherwise, unremarkable study. Electronically signed by: Pal Smalls MD 04/16/2025 05:07 PM EDT Dictated By: Pal Smalls MD Signed By: <Electronically signed by Pal Smalls MD in OV> 04/16/25 1707 DD/ 1605 TD/TT: 04/16/25 1615 Mixing Tumbler Operator: Procedure Note Armindater, Image - 04/16/2025 [place] [address] Ultrasound Report Signed Patient: Monster GutierrezMR#: [id number] : 2000Acct:[id number] Age/Sex: 25 / MADM Date: 04/16/25 Loc: HO.US Attending Dr: Carolina Mayo MD Ordering Physician: Carolina Anders MD Date of Service: 04/16/25 Procedure(s): US scrotum Accession Number(s): [id number] cc: Carolina Anders MD Reason for Exam: pt w 1 month of ongoing right testicular pain EXAMINATION: US SCROTUM CLINICAL INFORMATION: 1 month of right scrotal pain COMPARISON: None available. TECHNIQUE: A sonogram of the scrotum was performed assessing ross-scale appearance and color Doppler flow. Spectral Doppler analysis of the arterial and venous flow were performed in the testes bilaterally. FINDINGS: RIGHT: Right testicle measures 4.1 x 2.0 x 2.4 cm, volume 10 mL. Focal hyperechogenic focus within the mid testicle measuring 1 mm in size is likely a benign calcification. Spectral Doppler analysis of the arterial and venous flow is present in the right testis. Right epididymal head is normal in size. No right hydrocele or varicocele is seen. Right epididymal Doppler flow is present LEFT: Left testicle measures 3.5 x 2.9 x 2.3 cm, volume 8 mL. No focal testicular parenchymal lesions are visualized. Spectral Doppler analysis of the arterial and venous flow is present in the left testis. Left epididymal head is normal in size. There are tubular hypoechoic structures with blood flow on color Doppler during Valsalva consistent with small varicocele. Left epididymal Doppler flow is present US/US scrotum IMPRESSION: Small left varicocele. Otherwise, unremarkable study. Electronically signed by: Pal Smalls MD 04/16/2025 05:07 PM EDT RP Dictated By: Pal Smalls MD Signed By: <Electronically signed by Pal Smalls MD in OV> 04/16/25 1707 DD/ 1605 TD/TT: 04/16/25 1615 Mixing Tumbler Operator: Carolina Mayo MD IMG US PROCEDURES Final Result * Trichomonas RNA (Urine/Vaginal) (04/02/2025 12:08 PM EDT) Trichomas vaginalis RNA, QL, TMA NOT DETECTED NOT DETECTED [facility] Comment:For additional infor mation, please refer [email or web address] [email or web address]/Trichomonastma(This link is being provided for informational/educational purposes only.)THIS TEST WAS PERFORMED AT:[employer] [place] [phone] RUANO MD Swab (Urine, Random) 04/02/2025 12:08 PM EDT 04/02/2025 4:16 PM EDT Result [facility] Carolina Mayo MD LAB BODY FLUIDS A ND STOOLS ORDERABLES Final Result [facility] [address] [place] [phone] * Chlamydia/N. Gonorrhoeae RNA, TMA, Throat (04/02/2025 11:59 AM EDT) C. Trachomatis RNA TMA, Throat NOT DETECTED NOT DETECTED [facility] N. gonorrhoeae RNA TMA, Throat NOT DETECTED NOT DETECTED [facility] Swab Structure of anterior portion of neck / Unknown 04/02/2025 11:59 AM EDT 04/02/2025 1:18 PM EDT Carolina Mayo MD LAB MICROBIOLOGY - GENERAL ORDERABLES Final Result Performing Organization Address [facility] Co de Phone Number [facility] [address] [place] [phone] * Chlamydia/N. Gonorrhoeae RNA, TMA, Rectal (04/02/2025 11:59 AM EDT) C.Trachomatis RNA TMA, Rectal NOT DETECTED NOT DETECTED [facility] N.Gonorrhoeae RNA TMA, Rectal NOT DETECTED NOT DETECTED [facility] Swab Anal structure / Unknown 04/02/2025 11:59 AM EDT 04/02/2025 1:18 PM EDT Carolina Mayo MD LAB MICROBIOLOGY - GENERAL ORDERABLES Final Result Performing Organization Address [facility] Co de Phone Number [facility] [address] [place] [phone] * (ABNORMAL) POCT Urinalysis (04/02/2025 11:57 AM [...] Media Lot # [id number] Lot# Expiration Date [id number] Urine 04/02/2025 11:5 7 AM EDT Carolina Mayo MD POINT OF CARE OZZY T ENTER/EDIT ORDERABLES Final Result * Albumin, Random Urine W/Creatinine (04/02/2025 11:40 AM EDT) Creatinine, Urine 491.28 mg/dL [facility] Microalbumin Urine 54.0 mg/L [facility] Microalbum Creatinine Ratio Ur 10.9 <30 ug/mg cr [facility] Comment:Albumin/Creatinine R atio Reference Ranges: Normal: < 30 ug/mg creatinine Microalbuminuria: 30 - 300 ug/mg creatinineClinical Albuminuria: > 300 ug/mg creatinine Urine (Urine, Random) 04/02/2025 11:40 AM EDT 04/02/2025 4:39 PM EDT Carolina Mayo MD LAB URINE ORDERAB LES Final Result [facility] [address] [place] [phone] * Chlamydia/Gonorrhea, Urine ([place] [facility]) (03/12/2025) Chlamydia, Urine Negative Negative, Indeterminate, None Detected, Invalid, Specimen unsatisfactory for evaluation, Weakly Positive, 2+ Gonorrhea, Urine Negative Negative, Indeterminate, None Detected, Invalid, Specimen unsatisfactory for evaluation, Weakly Positive, 2+ Urine Historical Provider LAB URINE ORDERABLES Edit ed Result - Final * Chlamydia/Gonorrhea Throat Swab ([place] DPH) (2025) Chlamydia Throat Swab Negative Gonorrhea Throat Swab Negative Swab 2025 Historical Provider LAB MICROBIOLOGY - GENERA L ORDERABLES Final Result * Hepatitis C Antibody with Reflex to HCV, RNA, Quantitative, Real-Time PCR (01/07/2025 10:26 AM EDT) Hepatitis C Antibody Nonreactive Nonreactive [facility] Comment:Antibodies to HCV no t detected; does not exclude early acuteHCV infection. 01/07/2025 10:2 6 AM EDT 01/07/2025 11:27 AM EDT Carolina Mayo MD LAB BLOOD ORDERAB LES Final Result Performing Organization Address City/[facility]/ZIP Co de Phone Number [facility] [address] [place] [phone] * HIV-1 RNA, Quantitative, Real-Time PCR (01/07/2025 10:26 AM EDT) HIV RNA PCR Qn Copies NOT DETECTED NOT DETECTED copies/mL [facility] HIV RNA PCR Qn Log Copies NOT DETECTED NOT DETECTED [facility] Comment:Result Units: Log co pies/mLThis test was performed using Real-Time Polymerase ChainReaction.Reportable Range: 20 copies/mL to 10,000,000 copies/mL(1.30 log copies/mL to 7.00 log copies/mL).THIS TEST WAS PERFORMED AT:[employer] [place] [phone] RUANO MD Blood 01/07/2025 10:2 6 AM EDT 01/07/2025 11:27 AM EDT us Carolina Mayo MD LAB BLOOD ORDERAB LES Final Result Performing Organization Address [facility] Co de Phone Number [facility] [address] [place] [phone] from Last 3 Months or Most Recently Relevant to Health Maintenance Insurance [employer] Care Teams Grounds Caretaker Relationship Specialty Start Date End Date Carolina Anders MD [address] [place] [phone] PCP - General Internal Medicine 01/09/23
--- OUTSIDE RECORDS SUMMARY | 2025-04-16 17:47 | XMS_ITS | Encounter Summary ---
Author Organization [employer] Address [address] [facility] 7t [place] [address] Care Team Providers Care Data Entry Assistant Name Role Phone Carolina Anders MD Primary Care Pro vider Reason for Visit * Reason Onset Date Comments New Patient Appt 12/21/2022 Encounter Details Date Type Department Care Team (Late Contact Info) Description 12/21/2022 Telephone [facility] [address] [place], [place] [phone] Gonzalez Du MD [address] [place], [place] [phone] New Patient Appt Social History Tobacco Use [...] left voicemail to give a call at [phone]. documented in this encounter Plan of Treatment Upcoming Encounters Date Type Department Care Team (Late Contact Info) Description 07/07/2025 10:45 AM EST Office Visit [facility] [address] [place] [address] Carolina Anders MD [address] [place], [place] [phone] documented as of this encounter Visit Diagnoses Not on filedocumented in this encounter Care Teams Data Entry Assistant Relationship Specialty Start Date End Date Carolina Anders MD [address] [place] [phone] PCP - General Internal Medicine 01/09/23 documented as of this encounter
--- OUTSIDE RECORDS SUMMARY | 2025-04-16 17:47 | XMS_ITS | Encounter Summary ---
Author Organization [employer] Address [address] [place] [address] 7 [place] [address] Care Team Providers Care Supervisor Fireworks Assembly Name Role Phone Carolina Anders MD Primary Care Pro vider Reason for Visit * Reason Onset Date Comments Dec Recall 04/16/2025 Encounter Details Date Type Department Care Team ([facility] st Contact Info) Description 04/16/2025 Telephone [facility] [address] [place], [place] [phone] Carolina Anders MD [address] [place] [address] Dec Recall Social History Tobacco Use Types Packs/Day Years [...] encounter Miscellaneous Notes * Telephone Encounter - Nazanin Quintana MA - 04/16/2025 1:02 PM EDT Telephone call to patient to schedule the following recall: Visit type: Physical Appointment notes: Physical Patient agree to appointment on 07/07/25 at 10:45 AM with Ernie. documented in this encounter Plan of Treatment Upcoming Encounters Date Type Department Care Team (Late st Contact Info) Description 07/07/2025 10:45 AM EST Office Visit [facility] [address] [place] [phone] Carolina Anders MD [address] [place] [phone] documented as of this encounter Visit Diagnoses Not on filedocumented in this encounter Additional Health Concerns Assessment Noted Time PHQ-9 Depression Total Score: 8 02/27/20 11:54 AM EDT documented as of this encounter Care Teams Supervisor Fireworks Assembly Relationship Specialty Start Date End Date Carolina Anders MD [address] [place] [phone] PCP - General Internal Medicine 01/09/23 documented as of this encounter
--- OUTSIDE RECORDS SUMMARY | 2025-04-16 17:47 | XMS_ITS | Encounter Summary ---
Author Organization [employer] Address [address] [facility] [place] [address] Care Team Providers Care Chronic Manager Name Role Phone Carolina Anders MD Primary Care Pro vider Encounter Details Date Type Department Care Team (Late st Contact Info) Description 10/28/2024 Orders Only [facility] [address] [place] [address] Gege Carrera RN Social History Tobacco Use [...] with others, in a hotel, in a custodial, living outside on the street, on a [...] Description 07/07/2025 10:45 AM EST Office Visit [facility] [address] [place] [phone] Carolina Anders MD [address] [place] [phone] documented as of this encounter Visit Diagnoses Not on filedocumented in this encounter Additional Health Concerns Assessment Noted Time PHQ-9 Depression Total Score: 11 024 9:54 AM EDT documented as of this encounter Care Teams Chronic Manager Relationship Specialty Start Date End Date Carolina Anders MD [address] [place] [phone] PCP - General Internal Medicine 01/09/23 documented as of this encounter
== END 2025-04-16 15:47 | disposition home or self-care (01) ==
LOC: HO.US 15:46
PROVIDERS: Visit Provider Student in an Organized Health Care Education/Training Program
DX: R30.0 Dysuria (principal); N50.811 Right testicular pain
CPT/HCPCS: 76870

== ENCOUNTER → 2025-04-16 15:48 | Outpatient (BNV) | payer MEDICAID, SELFPAY | PROVIDERS: Visit Provider Radiology Diagnostic Radiology | DX: N50.811 Right testicular pain (principal) | CPT/HCPCS: 76870 ==

== ENCOUNTER 2025-04-20 08:26 | Outpatient (REF) | payer MEDICAID, SELFPAY ==
[2025-04-20 11:24] LABS: MANUAL DIFF FLAG NO
[2025-04-20 11:42] LABS: Hematocrit 44.9 % (42.0-52.0); Hemoglobin 15.2 g/dl (14.0-18.0); Imm Gran Abs Auto 0.02 X10*3/uL (0.00-0.03); Imm Gran Pct Auto 0.3 % (0.0-0.4); Lymphocytes Absolute Auto 4.2 X10*3/uL (1.2-4.9); Mean Corpuscular HGB Conc 33.9 g/dl (31.0-36.0); Mean Corpuscular Hemoglobin 30.5 pg (27.0-33.0); Mean Corpuscular Volume 90.0 fL (80.0-98.0); NRBC Abs Auto 0.000 X10*3/uL (0.0-0.012); NRBC Pct Auto 0.0 /100WBC (0.0-0.2); Platelet Count 226 X10*3/uL (160-400); Red Blood Count 4.99 X10*6/uL (4.60-5.80); White Blood Count 7.1 X10*3/uL (4.8-10.8)
[2025-04-20 11:49] LABS: Hemoglobin A1C 94.2638 umol/L; Total Hemoglobin (HGBA1C) 3934.6916 umol/L
[2025-04-20 12:24] LABS: Alanine Aminotransferase 52 U/L (0-40); Albumin Level 4.8 g/dL (3.5-5.0); Alkaline Phosphatase 135 U/L (39-117); Anion Gap 9 (12-20); Aspartate Amino Transferase 49 U/L (5-37); Blood Urea Nitrogen 9 mg/dL (9-16); Calcium 9.5 mg/dL (8.4-10.2); Carbon Dioxide 30 mmol/L (22-29); Chloride 106 mmol/L (96-108); Estimated Glomerular Filt Rate > 60; Potassium 3.8 mmol/L (3.3-5.1); Sodium 141 mmol/L (135-145); Total Protein 7.7 g/dL (6.5-8.0)
[2025-04-20 12:29] LABS: HBS Num1 260.64 mIU/mL (0-7.99); HBc Num1 0.63 S/CO (0.00-0.79); HBsAGNum1 0.43 S/CO (0.00-0.99); HIV Num 1 0.08 S/CO (0.00-0.99); Hepatitis B Surface Antigen Negative (Negative); ~HepC Num1 0.12 S/CO (0.00-0.79); ~Hepatitis B Surface Antibody REACTIVE (Nonreactive); ~Hepatitis C Antibody Nonreactive (Nonreactive)
[2025-04-21 14:44] LABS: HIV RNA PCR Qn Copies NOT DETECTED copies/mL (NOT DETECTED); HIV RNA PCR Qn Log Copies NOT DETECTED (NOT DETECTED)
[2025-04-23 09:30] LABS: ~Hepatitis A Antibody IgG 12.26 S/CO (0.00-0.99)
== END 2025-04-20 08:27 | disposition home or self-care (01) ==
LOC: HO.HHCL 08:26
PROVIDERS: PCP Student in an Organized Health Care Education/Training Program; Referring Provider Student in an Organized Health Care Education/Training Program; Visit Provider Nurse Practitioner Family
DX: Z00.00 Encounter for general adult medical examination without abnormal findings (principal); I42.8 Other cardiomyopathies; R07.89 Other chest pain; R55 Syncope and collapse; G47.10 Hypersomnia, unspecified; N50.811 Right testicular pain; R30.0 Dysuria; Z01.84 Encounter for antibody response examination; Z79.899 Other long term (current) drug therapy
CPT/HCPCS: 36415; 80053; 83036; 84443; 85025; 86592; 86704; 86706; 86708; 86803; 87340; 87389; 87536; 93005; 99212

== ENCOUNTER 2025-04-20 08:26 | Outpatient (AMB) | payer MEDICAID, SELFPAY ==
[2025-04-20 08:42] VITALS: BP 108/70; PULSE 77; BMI 23.3
--- NOTE | 2025-04-20 08:42 | MHC.OFFVIS ---
Vital Signs 04/20/25 08:42 Height 5 ft 8 in Weight 153 lb 0.013 oz BMI 23.3 BP 108/70 Blood Pressure Location Rt brachial Position Sitting Pulse 77 Pulse Source Monitor Intake Visit Reasons: dr andrews pt f/up holter stress echo Dry Pan Feeder Required: No Allergies penicillin G Allergy (Verified 04/20/25 08:47) Rash Medication List - Last Reconciled 04/20/25 by Bindu Killian, RN CIRCULATING-C clonidine HCl 0.2 mg PO DAILY PRN HPI HPI dr andrews pt f/up holter stress echo: Details: Monster is a 25-year-old male with past medical history of vasovagal syncope, atypical chest discomfort who recently had stress echocardiogram showing nonischemic cardiomyopathy. He now presents for follow-up. Today he reports that has been doing generally well. He has not had any recurrent syncopal events. In the past syncopal episodes have occurred under emotional stressful situations. He does get random pressure and shortness of breath in his chest that can last a few minutes before resolving. He has no chest discomfort brought on by physical activity. He walks routinely but does no other exercise. When he is anxious he feels his heart is beating fast. No concerning heart palpitations at rest. He does have daytime fatigue and needs to take naps. When it is quiet at work he says he can fall asleep. He works in a retail store. [facility] Medical History Anxiety and depression Surgical History No pertinent past surgical history Family History Maternal Grandmother Heart attack HTN (hypertension) Social History Alcohol intake: current Alcohol intake frequency: holidays/special occasions only Patient Tobacco Use Status: Never used Tobacco Substance Use Type: Marijuana Review of Systems Const Details: Daytime sleepiness All systems reviewed & are unremarkable except as noted in HPI and below ENT Denies dizziness Card Reports chest pain (Random pressure), Denies chest pain at rest, Denies chest pain with activity, Denies rapid heart rate, Denies pedal edema, Denies edema, Denies leg edema, Denies lightheadedness, Denies palpitations, Reports dyspnea, Denies dyspnea on exertion and Denies orthopnea Resp Denies cough, Reports dyspnea and Denies dyspnea on exertion GI Denies hematochezia and Denies change in stool character Musc Denies abnormal gait, Reports limited range of motion, Reports muscle cramps, Denies muscle weakness, Denies numbness, Denies radiating pain into limb, Denies stiffness and Denies tingling Neuro Denies abnormal gait, Denies dizziness, Denies numbness and Denies tingling Endo Denies palpitations Physical Exam Vital Signs: Last Vital Signs Pulse 77 04/20/25 08:42 BP 108/70 04/20/25 08:42 BMI result Body Mass Index 23.3 Const General: cooperative, healthy appearing, comfortable and no acute distress Orientation/consciousness: patient oriented x3 Neck Neck: Yes normal visual inspection Resp Effort & Inspection: normal respiratory effort Auscultation: clear to auscultation bilaterally, no rales, no rhonchi and no wheezes Cardio Rate: regular rate Rhythm: regular rhythm Heart sounds: S1 normal heart sound present, S2 normal heart sound present, no gallops, no murmurs and no rubs Skin General skin exam: no rashes or lesions noted Neuro General: patient oriented x3 Extrem General: Yes normal to inspection, No no pedal edema and No calf tenderness Psych Appearance: grossly normal Mental Status: mental status grossly normal Speech and movement: Normal speech and movement present Office Procedures EKG Details: Today, read by me, sinus rhythm with sinus arrhythmia, rate 77, QTC 414 milliseconds [id number], Complete Assessment & Plan Assessment & Plan (1) Syncope and collapse: Code(s): R55 - Syncope and collapse Category: Medical Plan: History of syncopal events, and has undergone cardiac evaluation. His EKGs show sinus rhythm with normal NJ, QRS and QTC. An echocardiogram was done 05/01/2023 showing normal study. A 30 day cardiac event monitor done on 05/01/2023 showed low heart rate of 50, max heart rate 166, normal sinus rhythm/sinus tach. Symptoms correlated with sinus rhythm/ sinus tach. Tilt-table test done on the low 06/25/2023 shows normal heart rate and blood pressure response to tilt. His syncope is most likely vasovagal in nature. He has not had recent recurrent episodes. Reviewed trigger avoidance, sit/lay down if he becomes lightheaded maintain good hydration and he may use salt in his diet. Continue physical activity as tolerated. (2) Nonischemic cardiomyopathy: Code(s): I42.8 - Other cardiomyopathies Category: Medical Plan: Echocardiogram previously showed EF 50-55%. He recently had a stress echocardiogram which showed no ischemia however findings of nonischemic cardiomyopathy. He does not appear fluid overloaded on exam. No obvious cause of cardiomyopathy noted. Will update echocardiogram for full evaluation. Will check home sleep study due to reports of hypersomnia. (3) Hypersomnia: Code(s): G47.10 - Hypersomnia, unspecified Category: Medical Plan: Home sleep study being done (4) Atypical chest pain: Code(s): R07.89 - Other chest pain Category: Medical Plan: He has atypical chest discomfort and shortness of breath which could be anxiety related. Recent stress echocardiogram did not show ischemia. Plan I discussed with the patient the normal findings of the EKG and heart monitor, and the slightly reduced heart pumping power observed in the stress test. We talked about the possibility of non-ischemic cardiomyopathy and the need for an updated echocardiogram. I explained the home sleep study process to evaluate for sleep apnea and its potential impact on heart health. Follow-up was planned for three months, with the possibility of starting medication earlier if necessary. Orders: Orders CA echo transthoracic complete Today I42.8 - Other cardiomyopathies RT home sleep study Today G47.10 - Hypersomnia, unspecified Patient Instructions: - Complete the home sleep study as instructed. - Attend the follow-up appointment in three months or sooner if contacted. - Report any new or worsening symptoms immediately. Patient was informed and verbally consented to the use of an ambient scribe for clinic note documentation during this visit. Visit time spent on chart review, interview, assessment, orders, documentation. Coding Level of Care Code Est Pt Level 4 (59256) Complex EM visit Add On G2211 Diagnoses Syncope and collapse R55 Nonischemic cardiomyopathy I42.8 Hypersomnia G47.10 Atypical chest pain R07.89 CPT Codes EKG - CPT: 31682-[id number], Complete ([id number]) Time Spent (min) 28
--- OUTSIDE RECORDS SUMMARY | 2025-04-20 09:57 | XMS_ITS | Encounter Summary ---
Author Organization [employer] Address [address] [place] [address] 7 [place] [address] Care Team Providers Care Boat Outfitting Supervisor Name Role Phone Carolina Anders MD Primary Care Pro vider Reason for Referral * Consultation (Routine) - Authorized Specialty Diagnoses / Procedures Referred By Contac t Referred To Contact Urology Diagnoses Testicular pain, right Carolina Anders MD [address] [place] [address] Phone: tel: fax: [facility] Referral ID Status Reason Start Date Expiration Date Visits Requested Visits Authorized [id number] Authorized Specialty Services Required 04/19/2025 04/19/2026 6 6 Encounter Details Date Type Department Care Team (Late st Contact Info) Description 04/19/2025 Orders Only [facility] [address] [place] [address] [phone] Carolina Anders MD [address] [place], [place] [phone] Testicular pain, right (Primary Dx) Social History Tobacco Use Types [...] Description 07/07/2025 10:45 AM EST Office Visit [facility] [address] [place] [phone] Carolina Anders MD [address] [place] [address] Scheduled Referrals Name Type Priority Associated Diagnoses Orde r Schedule Referral to Urology Outpatient Referral Routine Testicular pain, right Expected: 04/19/2025 (Approximate), Expires: 04/19/2026 documented as of this encounter Visit Diagnoses Diagnosis Testicular pain, right- Primary Unspecified disorder of male genital organs documented in this encounter Additional Health Concerns Assessment Noted Time PHQ-9 Depression Total Score: 8 02/27/20 25 11:54 AM EDT documented as of this encounter Care Teams Boat Outfitting Supervisor Relationship Specialty Start Date End Date Carolina Anders MD [address] [place] [phone] PCP - General Internal Medicine 01/09/23 documented as of this encounter
--- OUTSIDE RECORDS SUMMARY | 2025-04-20 09:57 | XMS_ITS | Encounter Summary ---
Author Organization [email or web address] Address [address] [place] [address] 7 [place] [address] Care Team Providers Care Motor Vehicle Field Representative Name Role Phone Carolina Anders MD Primary Care Pro vider Reason for Visit * Reason Onset Date Comments Results 04/06/2025 Encounter Details Date Type Department Care Team ([facility] st Contact Info) Description 04/06/2025 Results Follow-Up [facility] [address] [place] [address] Carolina Anders MD [address] [place] [address] POCT Urinalysis, Chlamydia/N. Gonorrhoeae RNA, TMA, Rectal, Chlamydia/N. Gonorrhoeae RNA, TMA, Throat, Additional followed-up results: 3 Social History Tobacco Use Types Packs/Day Years [...] encounter Miscellaneous Notes * Telephone Encounter - Tootie Bojorquez RN - 04/19/2025 3:43 PM EDT Telephone call to pt, advised that PCP made urology referral, to expect call in 7-10 business days from that office to schedule appt, and that referral letter will be mailed to home address. Advised pt to complete outstanding labs and urine sample CYNDIE to inform plan of care and to call/message if any issues with lab completion. Reviewed ER precautions: any sudden severe testicular pain, increased swelling or redness, nausea/vomiting. Pt verbalized understanding, no further questions. * Telephone Encounter - Tootie Bojorquez RN - 04/19/2025 1:07 PM EDT Telephone call to pt to advise of below update from PCP and referral. No answer, unable to leave voicemail. Will task to call again. * Telephone Encounter - Tootie Bojorquez RN - 04/19/2025 10:08 AM EDT Telephone call to pt, informed that ultrasound shows left small variocele. Pt states he has ongoing pain unchanged from when he saw Dr Klein 04/02/25, states pain comes and goes and ranges from 3 to 8 in intensity. Denies swelling, reports some redness. Denies issues with urination, denies fever, reports normal yellow urine. Reports using ice to good effect, not taking anyother medication for pain. Pt wondering for any recommendations on what can be done. Reviewed that he has outstanding labs, ptsaid he tried to get labs done in [place] but was denied due to insurance issues. Advised pt toget labs done CYNDIE at [facility] or [facility]. Pt verbalized understanding, stated he will go tomorrow after cardiology appt. Informed him will call back with any updates to POC. Reviewed [facility] hrs. Pt verbalized understanding. * Result Encounter Note - Carolina Mayo MD - 04/17/2025 8:58 PM EDT Please inform pt scrotal US is showing Small left varicocele. Otherwise, unremarkable study. No clear reason for pain Still pending to get labs in blood and urine ( please can you make sure w lab that they run mycoplasma, ureaplasma , ch/gn urine ) Thanks * Telephone Encounter - Ania Ace - 04/07/2025 9:45 AM EDT Patient walked in advised of RN note to get lab work done. Printed all Patient labs as well as US ordered. Advised Patient to get blood work done. * Telephone Encounter - Tootie Bojorquez RN - 04/07/2025 9:35 AM EDT Called lab x2, spoke with Ghazala. The urine sample collected from 04/02/25 is too old/not available to run additional tests at this point. She said in the [facility] system, they cannot see the mycoplasma/ureaplasma urine panel or the CT/NG urine PCR which is why those tests were not run. They can see the urinalysis order but there was no clean catch collected so it was not run. Will notify PCP. * Result Encounter Note - Carolina Mayo MD - 04/06/2025 9:01 PM EDT Please can you check with labs about result of chlamydia, gonorrhea ,mycoplasma and ureaplasma in urine results Thanks documented in this encounter Plan of Treatment Upcoming Encounters Date Type Department Care Team (Late st Contact Info) Description 07/07/2025 10:45 AM EST Office Visit [facility] [address] [place] [phone] Carolina Anders MD [address] [place] [address] [phone] documented as of this encounter Visit Diagnoses Not on filedocumented in this encounter Additional Health Concerns Assessment Noted Time PHQ-9 Depression Total Score: 8 02/27/20 25 11:54 AM EDT documented as of this encounter Care Teams Motor Vehicle Field Representative Relationship Specialty Start Date End Date Carolina Anders MD [address] [place] [phone] PCP - General Internal Medicine 01/09/23 documented as of this encounter
--- OUTSIDE RECORDS SUMMARY | 2025-04-20 09:57 | XMS_ITS | Encounter Summary ---
Author Organization [employer] Address [address] [facility] [address] [place] [address] Care Team Providers Care University Registrar Name Role Phone Carolina Anders MD Primary Care Pro vider Reason for Visit * Reason Onset Date Comments New Patient Appt 12/21/2022 Encounter Details Date Type Department Care Team (Late Contact Info) Description 12/21/2022 Telephone [facility] [address] [place], [place] [phone] Gonzalez Du MD [address] [place], [place] [phone] New Patient Appt Social History Tobacco Use [...] left voicemail to give a call at [phone]. documented in this encounter Plan of Treatment Upcoming Encounters Date Type Department Care Team (Late Contact Info) Description 07/07/2025 10:45 AM EST Office Visit [facility] [address] [place] [address] Carolina Anders MD [address] [place], [place] [phone] documented as of this encounter Visit Diagnoses Not on filedocumented in this encounter Care Teams University Registrar Relationship Specialty Start Date End Date Carolina Anders MD [address] [place] [address] [phone] PCP - General Internal Medicine 01/09/23 documented as of this encounter
--- OUTSIDE RECORDS SUMMARY | 2025-04-20 09:57 | XMS_ITS | Clinical Summary ---
Author Organization [employer] Address [address] [facility] 7t [place] [address] Care Team Providers Care Anesthesiologist And Critical Care Name Role Phone Carolina Anders MD Primary [...] optimize psych tx -has already referral w regional cra x 04/25/2023 -advise to continue apt to [...] optimize psych tx -has already referral w regional cra x 04/25/2023 -advise to continue apt to r/o cardiac etiology History of penicillin allergy 02/07/2023 Assessment & Plan (04/13/2023 11:46 AM EDT): -referred to cotton opener x hx of PNC allergy to clarify - gave today info for pt to call. Assessment & Plan (02/07/2023 7:23 PM EDT): -referred today to cotton opener x hx of PNC allergy to clarify [...] organization. Date Type Department Care Team Description 04/19/2025 Orders Only [facility] MEDICINE [address] [place], [place] [phone] Carolina Anders MD Testicular pain, right (Primary Dx) 04/16/[address] [address] Carolina Anders MD Dec Recall 04/09/[address] [address] Zonia Mike, [place] [facility] Cardiology F/U 04/06/2025 Results Follow-Up [address] [address] Carolina Anders MD POCT Urinalysis, Chlamydia/N. Gonorrhoeae RNA, TMA, Rectal, Chlamydia/N. Gonorrhoeae RNA, TMA, Throat, Additional followed-up results: 3 04/02/2025 11:15 AM EDT Office Visit [facility] MED[facility]INE [address] [place] [address] Carolina Anders MD Dysuria (Primary Dx); Testicular pain, right; Subjective fever; Health care maintenance; Uncomplicated asthma, unspecified asthma severity, unspecified whether persistent; Bipolar 1 disorder, depressed ([facility]); Syncope, unspecified syncope type; High risk homosexual behavior 04/02/2025 [facility] Health Information Management [address] [place] [address] Carolina Anders MD us scrotum order 04/02/2025 Travel 04/01/2025 Travel 04/01/[address] [address] Carolina Anders MD chartprep 03/17/2025 Orders Only [facility] MEDICINE [address] [place] [phone] Gege Carrera, MYRON [address] [address] Sheri De La Fuente RN On pre-exposure prophylaxis for HIV (Primary Dx) 2025 Orders Only [address] [address] Sheri De La Fuente RN On pre-exposure prophylaxis for HIV (Primary Dx) 2025 Travel 03/08/2025 9:00 AM EDT Office Visit [facility] OPTOMETRY [address] [place] [address] Janice Porras, OD Regular astigmatism, bilateral (Primary Dx); Normal eye exam 03/08/2025 Travel 03/05/[address] [address] Carolina Anders MD 03/04/[address] [address] Carolina Anders MD chart prep 02/26/2025 Patient Outreach [address] [phone] Carolina Anders MD Care Coordination 02/26/2025 Patient Outreach [address] [address] Carolina Anders MD Pre-visit Planning (SDOH screening [...] Description 07/07/2025 10:45 AM EST Office Visit [facility] MEDICINE [address] [place], [place] [phone] Carolina Anders MD [address] [place], [place] [phone] Health Maintenance Due Date Last Done Comments Family Planning (PISQ) 2016 Pneumococcal Vaccine: Pediatrics (0 to 5 Years) and At-Risk Patients (6 to 49) Years (1 of 2 - PCV) 2020 2001, 2001, 2001 COVID-19 Vaccine ( season) 2025 07/25/2023, 07/26/2021, 12/12/2020, Additional history [...] exists Hepatitis A Vaccines Completed 09/21/2016, 03/19/20 HPV Vaccines Completed 08/20/2017, 11/03, 09/21/2016 Meningococcal [...] PM EDT Narrative 04/16/2025 5:10 PM EDT [place] [address] Ultrasound Report Signed Patient: Monster Gutierrez MR#: [id number] : 2000 Acct:[id number] Age/Sex: 25 / M ADM Date: 04/16/25 Loc: HO.US Attending Dr: Carolina Mayo MD Ordering Physician: Carolina Anders MD Date of Service: 04/16/25 Procedure(s): US scrotum Accession Number(s): [id number] cc: Carolina Anders MD Reason for Exam: [...] 04/16/25 1707 DD/ 1605 TD/TT: 04/16/25 1615 Flame Burner: Procedure Note Donotuseinterpreter, Image - 04/16/[address] [address] Ultrasound Report Signed Patient: Jordan Gutierrez#: [id number] : 2000Acct:[id number] Age/Sex: 25 / MADM Date: 04/16/25 Loc: HO.US Attending Dr: Carolina Mayo MD Ordering Physician: Carolina Anders MD Date of Service: 04/16/25 Procedure(s): US scrotum Accession Number(s): [id number] cc: Carolina Anders MD Reason for Exam: [...] 04/16/2025 05:07 PM EDT RP Dictated By: aPl Smalls MD Signed By: <Electronically signed by Pal Smalls MD in OV> 04/16/25 1707 DD/ 1605 TD/TT: 04/16/25 1615 Flame Burner: Carolina Mayo MD IMG US PROCEDURES Final Result * Trichomonas RNA (Urine/Vaginal) (04/02/2025 12:08 PM EDT) Trichomas vaginalis RNA, QL, TMA NOT DETECTED NOT DETECTED [facility] Comment:For additional infor bello, please refer [email or web address].com/faq/[email or web address](This link is being provided for informational/educational purposes only.)THIS TEST WAS PERFORMED AT:[facility] [facility] [place] [phone] RUANO MD Swab (Urine, Random) 04/02/2025 12:08 PM EDT 04/02/2025 4:16 PM EDT Carolina Mayo MD LAB BODY FLUIDS A ND STOOLS ORDERABLES Final Result [facility] [address] [place] [phone] * Chlamydia/N. Gonorrhoeae RNA, TMA, Throat (04/02/2025 11:59 AM EDT) C. Trachomatis RNA TMA, Throat NOT DETECTED NOT DETECTED [facility] N. gonorrhoeae RNA TMA, Throat NOT DETECTED NOT DETECTED [facility] Swab Structure of anterior portion of neck / Unknown 04/02/2025 11:59 AM EDT 04/02/2025 1:18 PM EDT Carolina Mayo MD LAB MICROBIOLOGY - GENERAL ORDERABLES Final Result Performing Organization Address [facility] Co de Phone Number [facility] [address] [place] [phone] * Chlamydia/N. Gonorrhoeae RNA, TMA, Rectal (04/02/2025 11:59 AM EDT) C.Trachomatis RNA TMA, Rectal NOT DETECTED NOT DETECTED [facility] N.Gonorrhoeae RNA TMA, Rectal NOT DETECTED NOT DETECTED [facility] Swab Anal structure / Unknown 04/02/2025 11:59 AM EDT 04/02/2025 1:18 PM EDT Carolina Mayo MD LAB MICROBIOLOGY - GENERAL ORDERABLES Final Result Performing Organization Address [facility] Co de Phone Number [facility] [address] [place] [phone] * (ABNORMAL) POCT Urinalysis (04/02/2025 11:57 [...] Media Lot # [id number] Lot# Expiration Date [id number] Urine 04/02/2025 11:5 7 AM EDT Result [facility] Carolina Mayo MD POINT OF CARE OZZY T ENTER/EDIT ORDERABLES Final Result * Albumin, Random Urine W/Creatinine (04/02/2025 11:40 AM EDT) Creatinine, Urine 491.28 mg/dL [facility] Microalbumin Urine 54.0 mg/L [facility] Microalbum Creatinine Ratio Ur 10.9 <30 ug/mg cr [facility] Comment:Albumin/Creatinine R atio Reference Ranges: Normal: < 30 ug/mg creatinine Microalbuminuria: 30 - 300 ug/mg creatinineClinical Albuminuria: > 300 ug/mg creatinine Urine (Urine, Random) 04/02/2025 11:40 AM EDT 04/02/2025 4:39 PM EDT Carolina Mayo MD LAB URINE ORDERAB LES Final Result [facility] [address] [place] [phone] [phone] * Chlamydia/Gonorrhea, Urine ([facility]) (03/12/2025) Chlamydia, Urine Negative Negative, Indeterminate, None Detected, Invalid, Specimen unsatisfactory for evaluation, Weakly Positive, 2+ Gonorrhea, Urine Negative Negative, Indeterminate, None Detected, Invalid, Specimen unsatisfactory for evaluation, Weakly Positive, 2+ Urine Result [facility] Provider LAB URINE ORDERABLES Edit ed Result - Final * Chlamydia/Gonorrhea Throat Swab ([facility]) (2025) Chlamydia Throat Swab Negative Gonorrhea Throat Swab Negative Swab 2025 Historical Provider LAB MICROBIOLOGY - GENERA L ORDERABLES Final Result * Hepatitis C Antibody with Reflex to HCV, RNA, Quantitative, Real-Time PCR (01/07/2025 10:26 AM EDT) Hepatitis C Antibody Nonreactive Nonreactive [facility] Comment:Antibodies to HCV no t detected; does not exclude early acuteHCV infection. 01/07/2025 10:2 6 AM EDT 01/07/2025 11:27 AM EDT Carolina Mayo MD LAB BLOOD ORDERAB LES Final Result [facility] [address] [place] [phone] * HIV-1 RNA, Quantitative, Real-Time PCR (01/07/2025 10:26 AM EDT) [facility] HIV RNA PCR Qn Copies NOT DETECTED NOT DETECTED copies/mL [facility] HIV RNA PCR Qn Log Copies NOT DETECTED NOT DETECTED [facility] Comment:Result Units: Log co pies/mLThis test was performed using Real-Time Polymerase ChainReaction.Reportable Range: 20 copies/mL to 10,000,000 copies/mL(1.30 log copies/mL to 7.00 log copies/mL).THIS TEST WAS PERFORMED AT:[facility] [place] [phone] RUANO MD Blood 01/07/2025 10:2 6 AM EDT 01/07/2025 11:27 AM EDT Carolina Mayo MD LAB BLOOD ORDERAB LES Final Result Performing Organization Address City/[facility]/ZIP Co de Phone Number [facility] [address] [place] [phone] from Last 3 Months or Most Recently Relevant to Health Maintenance Insurance [facility] C3 HSN PARTIAL Care Teams Anesthesiologist And Critical Care Relationship Specialty Start Date End Date Carolina Anders MD [address] [place] [phone] PCP - General Internal Medicine 01/09/23
--- OUTSIDE RECORDS SUMMARY | 2025-04-20 09:57 | XMS_ITS | Encounter Summary ---
Author Organization [employer] Address [address] [place] [address] 7 [place] [address] Care Team Providers Care Dragger Name Role Phone Carolina Anders MD Primary Care Pro vider Reason for Visit * Reason Onset Date Comments Dec Recall 04/16/2025 Encounter Details Date Type Department Care Team ([facility] st Contact Info) Description 04/16/2025 Telephone [facility] [address] [place], [place] [phone] Carolina Anders MD [address] [place] [address] Dec Recall Social History Tobacco Use Types [...] Description 07/07/2025 10:45 AM EST Office Visit [facility] [address] [place] [phone] Carolina Anders MD [address] [place] [phone] documented as of this encounter Visit Diagnoses Not on filedocumented in this encounter Additional Health Concerns Assessment Noted Time PHQ-9 Depression Total Score: 8 02/27/20 11:54 AM EDT documented as of this encounter Care Teams Dragger Relationship Specialty Start Date End Date Carolina Anders MD [address] [place] [phone] PCP - General Internal Medicine 01/09/23 documented as of this encounter
--- OUTSIDE RECORDS SUMMARY | 2025-04-20 09:57 | XMS_ITS | Encounter Summary ---
Author Organization [employer] Address [address] [facility] [address] [address] [place] [address] Care Team Providers Care Pillow Agent Name Role Phone Carolina Anders MD Primary Care Pro vider Encounter Details Date Type Department Care Team (Late st Contact Info) Description 10/28/2024 Orders Only [facility] MEDICINE [address] [place] [address] Gege Carrera RN Social History Tobacco Use [...] with others, in a hotel, in a retirement, living outside on the street, on a [...] Description 07/07/2025 10:45 AM EST Office Visit [facility]INE [address] [place] [phone] Carolina Anders MD [address] [place] [phone] documented as of this encounter Visit Diagnoses Not on filedocumented in this encounter Additional Health Concerns Assessment Noted Time PHQ-9 Depression Total Score: 11 024 9:54 AM EDT documented as of this encounter Care Teams Pillow Agent Relationship Specialty Start Date End Date Carolina Anders MD [address] [place] [phone] PCP - General Internal Medicine 01/09/23 documented as of this encounter
== END 2025-04-20 09:20 | disposition home or self-care (01) ==
LOC: HO.HCS 08:26
PROVIDERS: PCP Student in an Organized Health Care Education/Training Program; Visit Provider Nurse Practitioner Family
DX: R55 Syncope and collapse (principal); I42.8 Other cardiomyopathies; G47.10 Hypersomnia, unspecified; R07.89 Other chest pain
CPT/HCPCS: 93010; 99214

== ENCOUNTER 2025-04-21 15:39 | Outpatient (REF) | payer MEDICAID, SELFPAY ==
--- OUTSIDE RECORDS SUMMARY | 2025-04-21 15:20 | XMS_ITS | Encounter Summary ---
Author Organization [employer] Address [address] 7[address] [place] [address] Care Team Providers Care Religious Studies Professor Name Role Phone Carolina Anders MD Primary Care Pro vider Reason for Visit * Reason Comments Blister Inside of the mouth Sore Throat Encounter Details Date Type Department Care Team ([facility] st Contact Info) Description 04/21/2025 3:20 PM EDT Office Visit [facility] [address] [place] [phone] Larry Alejandro MD [address] [place] [address] Mouth lesion (Primary Dx); Other tobacco product nicotine dependence, uncomplicated; Sore throat Social History Tobacco Use Types Packs/Day Years [...] PM EDT documented as of this encounter Last Filed Vital Signs Vital Sign Reading Time Taken Comments Blood Pressure 128/76 04/21/2025 2:56 PM EDT Pulse 79 04/21/2025 2:56 PM EDT Temperature 36.6 C (97.8 F) 04/21/2025 2:56 PM EDT Respiratory Rate 18 04/21/2025 2:56 PM EDT Oxygen Saturation 97% 04/21/2025 2:56 PM EDT Inhaled Oxygen Concentration - - Weight 69.9 kg (154 lb) 04/21/2025 2:56 PM EDT Height - - Body Mass Index 23.42 04/02/2025 11:21 AM EDT documented in this encounter Progress Notes * Larry Alejandro MD - 04/21/2025 3:20 PM EDT Subjective Patient ID: Monster Santoyo is a 25 y.o. male. HPI 3 days ago Monster developed 4 painful sores on tongue and inside of lips, worsening. Hurts to swallow, eat, and talk. No fever, chills, cough, SOB. Has h/o similar mouth lesions in past that he states started in childhood that were milder and resolved spontaneously. Tried Anusol with transient relief. Yesterday had PCP lab tests done; STI tests were all neg; RPR was not done. Lives alone. 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 Never smoked. Vapes nicotine. Patient Active Problem List Diagnosis Date Noted Uncomplicated asthma, unspecified asthma severity, unspecified whether persistent 04/02/2025 Testicular pain, right 04/02/2025 Recurrent major depressive disorder ([facility]) 06/04/2024 ADHD (attention deficit hyperactivity disorder), combined type 07/23/2023 Generalized anxiety disorder 07/23/2023 High risk sexual behavior 07/23/2023 Bipolar 1 disorder, depressed ([facility]) 02/07/2023 Syncope 02/07/2023 History of penicillin allergy 02/07/2023 Health care maintenance 02/07/2023 The following portions of the chart were reviewed this encounter and updated as appropriate: Tobacco Allergies Meds Problems Med Hx Surg Hx Fam Hx Review of Systems Constitutional: Negative for fever. Respiratory: Negative for shortness of breath. Cardiovascular: Negative for chest pain. Gastrointestinal: Negative for abdominal pain. Skin: Negative for rash. Neurological: Negative for headaches. Objective Physical Exam Constitutional: Appearance: Normal appearance. HENT: Nose: Nose normal. Mouth/Throat: Mouth: Mucous membranes are moist. Pharynx: Oropharynx is clear. Comments: For small, round, flat, by whitish shallow ulcerated lesion, 1 on anterior tongue, 1 on left posterior tongue, and 2 on mucosal surface of lower lip. Eyes: Conjunctiva/sclera: Conjunctivae normal. Pupils: Pupils are equal, round, and reactive to light. Cardiovascular: Rate and Rhythm: Normal rate and regular rhythm. Heart sounds: No murmur heard. Pulmonary: Effort: Pulmonary effort is normal. Breath sounds: Normal breath sounds. Musculoskeletal: General: Normal range of motion. Cervical back: No tenderness. Skin: Findings: No rash. Neurological: Mental Status: He is alert. Gait: Gait is intact. Psychiatric: Mood and Affect: Mood normal. Behavior: Behavior normal. Procedures Assessment/Plan Diagnoses and all orders for this visit: Mouth lesions Rapid Strep test negative. ? Aphthous stomatitis v recurrent herpes simplex v ? Lesions swabbed for herpes culture. RPR ordered. Will call patient with results. Prescribed valacyclovir in case of herpes simplex, triamcinolone acetonide 0.1% in oral paste, ibuprofen, and Tylenol. Return to clinic if not improving. - RPR (Monitor) with Reflex to Titer; Future - Herpes Simplex Virus Culture with Reflex Typing Other tobacco product nicotine dependence, uncomplicated Prescribed nicotine patches and lozenges. - POCT rapid strep A manually resulted Other orders - nicotine (Nicoderm CQ) 14 MG/24HR patch; Place 1 patch on the skin 1 (one) time each day at the same time. - nicotine (Nicoderm CQ) 7 MG/24HR patch; Place 1 patch on the skin 1 (one) time each day at the same time. - nicotine polacrilex (Commit) 2 MG lozenge; Dissolve 1 lozenge (2 mg) in the mouth if needed for smoking cessation. - valACYclovir (Valtrex) 500 MG tablet; Take 1 tablet (500 mg) by mouth 2 times daily for 3 days. - triamcinolone (Kenalog) 0.1 % oral paste; Use in the mouth or throat 2 times daily. prn - acetaminophen (Tylenol) 500 MG tablet; Take 2 tablets (1,000 mg) by mouth every 6 (six) hours if needed for moderate pain or fever for up to 25 doses. - ibuprofen 400 MG tablet; Take 1 tablet (400 mg) by mouth every 6 (six) hours if needed for moderate pain or fever for up to 30 doses. documented in this encounter Plan of Treatment Upcoming Encounters Date Type Department Care Team (Late st Contact Info) Description 07/07/2025 10:45 AM EST Office Visit [facility] [address] [place] [phone] Carolina Anders MD [address] [place] [phone] Scheduled Orders Name Type Priority Associated Diagnoses Orde r Schedule RPR (Monitor) with Reflex to Titer Lab Routine Mouth lesion Expected: 04/21/2025 (Approximate), Expires: 04/21/2026 Herpes Simplex Virus Culture with Reflex Typing Microbiology Routine Mouth lesion Ordered: 04/21/2025 documented as of this encounter Procedures Procedure Name Priority Date/Time Associated Diagnosis Comments POCT RAPID STREP A Routine 04/21/2025 3: 09 PM EDT Sore throat documented in this encounter Results * POCT rapid strep A manually resulted (04/21/2025 3:09 PM EDT) Rapid Strep A Screen Negative Negative, None Detected Swab 04/21/2025 3:09 PM EDT Larry Alejandro MD POINT OF CARE TEST ENTER/EDIT OR DERABLES Final Result documented in this encounter Visit Diagnoses Diagnosis Mouth lesion- Primary Other and unspecified diseases of the oral soft tissues Other tobacco product nicotine dependence, uncomplicated Sore throat Acute pharyngitis documented in this encounter Additional Health Concerns Assessment Noted Time PHQ-9 Depression Total Score: 8 02/27/20 25 11:54 AM EDT documented as of this encounter Care Teams Religious Studies Professor Relationship Specialty Start Date End Date Carolina Anders MD [address] [place] [phone] PCP - General Internal Medicine 01/09/23 documented as of this encounter
[2025-04-21 18:39] LABS: Anion Gap 11 (12-20); Blood Urea Nitrogen 9 mg/dL (9-16); Calcium 9.3 mg/dL (8.4-10.2); Carbon Dioxide 30 mmol/L (22-29); Chloride 105 mmol/L (96-108); Estimated Glomerular Filt Rate > 60; Potassium 3.8 mmol/L (3.3-5.1); Sodium 142 mmol/L (135-145)
--- OUTSIDE RECORDS SUMMARY | 2025-04-21 19:02 | XMS_ITS | Encounter Summary ---
Author Organization [employer] Address [address] [place] [address] 7 [place] [address] Care Team Providers Care Manager Auto Name Role Phone Carolina Anders MD Primary Care Pro vider Reason for Referral * Consultation (Routine) - Authorized Specialty Diagnoses / Procedures Referred By Contac t Referred To Contact Urology Diagnoses Testicular pain, right Carolina Anders MD [address] [place] [address] Phone: tel: fax: [facility] Referral ID Status Reason Start Date Expiration Date Visits Requested Visits Authorized [id number] Authorized Specialty Services Required 04/19/2025 04/19/2026 6 6 Encounter Details Date Type Department Care Team (Late st Contact Info) Description 04/19/2025 Orders Only [facility] [address] [place] [address] [phone] Carolina Anders MD [address] [place], [place] [phone] Testicular pain, right (Primary Dx) Social History [...] Description 07/07/2025 10:45 AM EST Office Visit [facility] [address] [place] [phone] Carolina Anders MD [address] [place] [address] Scheduled Referrals Name Type Priority Associated Diagnoses [...] documented as of this encounter Care Teams Manager Auto Relationship Specialty Start Date End Date Carolina Anders MD [address] [place] [phone] PCP - General Internal Medicine 01/09/23 documented as of this encounter
--- OUTSIDE RECORDS SUMMARY | 2025-04-21 19:02 | XMS_ITS | Encounter Summary ---
Author Organization [employer] Address [address] [place] [address] 7 [place] [address] Care Team Providers Care E Commerce Web Developer Name Role Phone Carolina Anders MD Primary Care Pro vider Reason for Visit * Reason Onset Date Comments Results 04/06/2025 Encounter Details Date Type Department Care Team ([facility] st Contact Info) Description 04/06/2025 Results Follow-Up [facility] [address] [place] [address] Carolina Anders MD [address] [place] [address] POCT Urinalysis, Chlamydia/N. Gonorrhoeae RNA, TMA, Rectal, Chlamydia/N. Gonorrhoeae RNA, TMA, Throat, Additional followed-up results: 12 Social History Tobacco Use Types Packs/Day Years [...] as of this encounter Miscellaneous Notes * Result Encounter Note - Carolina Mayo MD - 04/20/2025 1:20 PM EDT Pd rest of lab results so far noted elevated LFTS Will wait ti get all labs to inform pt * Telephone Encounter - Tootie Bojorquez RN [...] he tried to get labs done in [place] but was denied due to insurance issues. Advised pt toget labs done [place] at [facility] or [facility]. Pt verbalized understanding, stated he will go tomorrow after cardiology appt. Informed him will call back with any updates to POC. Reviewed [facility] hrs. Pt verbalized understanding. * Result Encounter [...] at this point. She said in the [facility] [place], they cannot see the mycoplasma/ureaplasma urine [...] 07/07/2025 10:45 AM EST Office Visit [facility] [address] [place] [phone] Carolina Anders MD [address] [place] [phone] documented as of this encounter Visit Diagnoses Not on filedocumented in this encounter Additional Health Concerns Assessment Noted Time PHQ-9 Depression Total Score: 8 02/26/ 11:54 AM EDT documented as of this encounter Care Teams E Commerce Web Developer Relationship Specialty Start Date End Date Carolina Anders MD [address] [place] [phone] PCP - General Internal Medicine 01/09/23 documented as of this encounter
--- OUTSIDE RECORDS SUMMARY | 2025-04-21 19:02 | XMS_ITS | Clinical Summary ---
Author Organization [employer] Address [address] [facility] [address] [place] [address] Care Team Providers Care Community Organization Director Name Role Phone Carolina Anders MD Primary [...] Call 911 after use. 2 each Active nicotine (Nicoderm CQ) 14 MG/24HR patch Place 1 patch on the skin 1 (one) time each day at the same time. 42 patch 025 2024 Active nicotine (Nicoderm CQ) 7 MG/24HR patch Place 1 patch on the skin 1 (one) time each day at the same time. 14 patch 2024 Active nicotine polacrilex (Commit) 2 MG lozenge Dissolve 1 lozenge (2 mg) in the mouth if needed for smoking cessation. 100 lozenge 2024 Active valACYclovir (Valtrex) 500 MG tablet Take 1 tablet (500 mg) by mouth 2 times daily for 3 days. 6 tablet 2024 Active triamcinolone (Kenalog) 0.1 % oral paste Use in the mouth or throat 2 times daily. prn 5 g 1 2025 Active acetaminophen (Tylenol) 500 MG tablet Take 2 tablets (1,000 mg) by mouth every 6 (six) hours if needed for moderate pain or fever for up to 25 doses. 50 tablet Active ibuprofen 400 MG tablet Take 1 tablet (400 mg) by mouth every 6 (six) hours if needed for moderate pain or fever for up to 30 doses. 30 tablet Active Focalin XR 30 MG 24 hr [...] hours if needed (sore thraot). 20 lozenge 024 2024 Discontinued(O ther) lamoTRIgine (LaMICtal) 25 MG [...] Assessment & Plan (06/05/2024 7:08 AM EDT): Tuyet renner previous therapist and psychiatrts had his case [...] optimize psych tx -has already referral w eating disorder psychologist x 04/25/2023 -advise to continue apt to [...] optimize psych tx -has already referral w eating disorder psychologist x 04/25/2023 -advise to continue apt to r/o cardiac etiology History of penicillin allergy 02/07/2023 Assessment & Plan (04/13/2023 11:46 AM EDT): -referred to talent agent x hx of PNC allergy to clarify - gave today info for pt to call. Assessment & Plan (02/07/2023 7:23 PM EDT): -referred today to talent agent x hx of PNC allergy to clarify [...] organization. Date Type Department Care Team Description 04/21/2025 3:20 PM EDT Office Visit [facility] [address] [place] [phone] Larry Alejandro MD Mouth lesion (Primary Dx); Other tobacco product nicotine dependence, uncomplicated; Sore throat 04/21/2025 Orders Only GENERIC EXTERNAL DATA DEPARTMENT Provider, Generic External Data 04/21/2025 Travel 04/19/2025 Orders Only [address] [address] Carolina Anders MD Testicular pain, right (Primary Dx) 04/16/[address] [address] Carolina Anders MD Dec Recall 04/09/[address] [address] Zonia Mike RN [facility] Cardiology F/U 04/06/2025 Results Follow-Up [address] [address] Carolina Anders MD POCT Urinalysis, Chlamydia/N. Gonorrhoeae RNA, TMA, Rectal, Chlamydia/N. Gonorrhoeae RNA, TMA, Throat, Additional followed-up results: 12 04/02/2025 11:15 AM EDT Office Visit [address] [address] Carolina Anders MD Dysuria (Primary Dx); Testicular pain, right; Subjective fever; Health care maintenance; Uncomplicated asthma, unspecified asthma severity, unspecified whether persistent; Bipolar 1 disorder, depressed ([facility]); Syncope, unspecified syncope type; High risk homosexual behavior 04/02/2025 Telephone [facility] [address] [place] [phone] Carolina Anders MD us scrotum order 04/02/2025 Travel 04/01/2025 Travel 04/01/[address] [address] Carolina Anders MD chartprep 03/17/2025 Orders Only [facility] [address] [place] [phone] Gege Carrera RN [address] [address] Sheri De La Fuente, MYRON On pre-exposure prophylaxis for HIV (Primary Dx) 2025 Orders Only [facility] [address] [place] [phone] Sheri De La Fuente RN On pre-exposure prophylaxis for HIV (Primary Dx) 2025 Travel 03/08/2025 9:00 AM EDT Office Visit [facility] [address] [place] [phone] Janice Porras, OD Regular astigmatism, bilateral (Primary Dx); Normal eye exam 03/08/2025 Travel 03/05/[address] [address] Carolina Anders MD 03/04/[address] [address] Carolina Anders MD chart prep 02/26/2025 Patient Outreach [address] [address] Carolina Anders MD Care Coordination 02/26/2025 Patient Outreach [address] [address] Carolina Anders MD Pre-visit Planning (SDOH screening [...] (154 lb) 04/21/2025 2:56 PM EDT Height 172.7 cm (5' 8 ) 04/02/2025 11:21 AM EDT Body Mass Index 23.42 04/02/2025 11:21 AM EDT Plan of Treatment Upcoming Encounters Date Type Department Care Team (Late st Contact Info) Description 07/07/2025 10:45 AM EST Office Visit [facility] [address] [place] [phone] Carolina Anders MD [address] [place] [address] Health Maintenance Due Date Last Done Comments Family Planning (PISQ) 2016 Pneumococcal Vaccine: Pediatrics (0 to 5 Years) and At-Risk Patients (6 to 49) Years (1 of 2 - PCV) 2020 2001, 2001, 2001 COVID-19 Vaccine ( - season) 2025 07/25/2023, 07/26/2021, 12/12/2020, Additional history exists Influenza Vaccine (#1) 2025 , 09/28/2021, 04/08/2020, Additional history exists Depression Screening 02/26/2026 02/26/2025, 02/27/20 SDOH Screening 02/26/2026 02/26/2025 Disability Screening 04/01/2026 04/01/2025 Alcohol/Substance Use Screening 04/02/2026 04/02/2025 Tobacco Screening 04/21/2026 04/21/2025 DTaP/Tdap/Td Vaccines (9 - Td or Tdap) [...] 04/12/2023, Additional history exists HIV Screening Completed 04/20/2025, 04/05, 01/07/2025, Additional history exists Hepatitis C Screening Completed 04/20/2025 , 01/07/2025, 05/01/2024, Additional history exists Meningococcal B Vaccine Aged Out No l onger eligible based on patient's age to complete this topic RSV under 20 months Aged Out No longe r eligible based on patient's age to complete this topic Rotavirus Vaccines Aged Out No longer eligible based on patient's age to complete this topic Procedures Procedure Name Priority Date/Time Associated Diagnosis Comments BASIC METABOLIC PANEL Routine 04/21/2025 3:48 PM EDT POCT RAPID STREP A Routine 04/21/2025 3: 09 PM EDT Sore throat TSH W/REFLEX TO FT4 Routine 04/20/2025 9 :43 AM EDT Health care maintenance HEPATITIS B CORE AB TOTAL Routine 04/20/2025 9:43 AM EDT Health care maintenance HEPATITIS B SURFACE ANTIBODY, QUALITATIVE Routine 04/20/2025 9:43 AM EDT Health care maintenance HEMOGLOBIN A1C Routine 04/20/2025 9:43 AM EDT Health care maintenance HEPATITIS B SURFACE ANTIGEN, EIA Routine 04/20/2025 9:43 AM EDT Subjective fever HIV 1/2 ANTIGEN/ANTIBODY, FOURTH GENERATION W/RFL Routine 04/20/2025 9:43 AM EDT Dysuria Testicular pain, right HEPATITIS C AB W/REFL TO HCV RNA, QN, PCR Routine 04/20/2025 9:43 AM EDT Dysuria Testicular pain, right COMPREHENSIVE METABOLIC PANEL Routine 04/20/2025 9:43 AM EDT Dysuria Testicular pain, right CBC WITH AUTO DIFFERENTIAL Routine 04/20/2025 9:43 AM EDT Dysuria Testicular pain, right HIV 1 RNA, QUANTITATIVE REAL TIME PCR Routine 04/20/2025 9:43 AM EDT Dysuria Testicular pain, right US SCROTUM STAT 04/16/2025 4:05 PM EDT [...] CHLAMYDIA/GONORRHEA THROAT SWAB ([place] DPH) Routine 2025 from Last 3 Months Results * (ABNORMAL) Basic Metabolic Panel (04/21/2025 3:48 PM EDT) Sodium 142 135 - 145 mmol/L [facility] Potassium 3.8 3.3 - 5.1 mmol/L [facility] Chloride 105 96 - 108 mmol/L [facility] Carbon Dioxide 30(H) 22 - 29 mmol/L [facility] Anion Gap 11(L) 12 - 20 [facility] Urea Nitrogen (BUN) 9 9 - 16 mg/dL [facility] Creatinine, Serum 0.80 0.5 - 1.4 mg/dL [facility] Estimated Glomerular Filt Rate >60 [facility] Comment:Chronic Kidney Disea se: Estimated GFR < 60 mL/min/[id number] Kidney Disease: Estimated GFR < 15 mL/min/1.73m2 Glucose 75 60 - 115 mg/dL [facility] Calcium 9.3 8.4 - 10.2 mg/dL [facility] 04/21/2025 3:48 PM EDT 04/21/2025 6:17 PM EDT us Generic External Data Provider LAB BLOOD ORDERAB LES Final Result Performing Organization Address [facility] Co de Phone Number [facility] [address] [place] [phone] * POCT rapid strep A manually resulted (04/21/2025 3:09 PM EDT) [facility] Rapid Strep A Screen Negative Negative, None Detected Swab 04/21/2025 3:09 PM EDT Larry Alejandro MD POINT OF CARE TEST ENTER/EDIT OR DERABLES Final Result * TSH with Reflex to Free T4 (04/20/2025 9:43 AM EDT) [facility] TSH reflex Free T4 1.47 0.32 - 4.0 uIU/mL [facility] Blood 04/20/2025 9:43 AM EDT 04/20/2025 11:20 AM EDT us Carolina Mayo MD LAB BLOOD ORDERAB LES Final Result Performing Organization Address [facility] Co de Phone Number [facility] [address] [place] [phone] * (ABNORMAL) CBC auto differential (04/20/2025 9:43 AM EDT) [facility] White Blood Count 7.1 4.8 - 10.8 X10*3/uL [facility] Red Blood Count 4.99 4.60 - 5.80 X10*6/uL [facility] Hemoglobin 15.2 14.0 - 18.0 g/dl [facility] Hematocrit 44.9 42.0 - 52.0 % [facility] Mean Corpuscular Volume 90.0 80.0 - 98.0 fL [facility] Mean Corpuscular Hemoglobin 30.5 27.0 - 33.0 pg [facility] Mean Corpuscular HGB Conc 33.9 31.0 - 36.0 g/dl [facility] Red Cell Distribution Width 11.8 11.0 - 16.0 % [facility] Platelet Count 226 160 - 400 X10*3/uL [facility] Mean Platelet Volume 9.8 9.4 - 12.4 fL [facility] Neutrophils Percent Auto 29.8(L) 45 - 73 % [facility] Imm Gran Pct Auto 0.3 0.0 - 0.4 % [facility] Lymphocytes Percent Auto 58.8(H) 20 - 40 % [facility] Monocytes Percent Auto 9.3 2 - 11 % [facility] Eosinophils Percent Auto 0.8 0 - 4 % [facility] Basophils Percent Auto 1.0 0 - 2 % [facility] NRBC Pct Auto 0.0 0.0 - 0.2 /100WBC [facility] Neutrophils Absolute Auto 2.1 2.0 - 8.3 x10*3/uL [facility] Imm Gran Abs Auto 0.02 0.00 - 0.03 X10*3/uL [facility] Lymphocytes Absolute Auto 4.2 1.2 - 4.9 X10*3/uL [facility] Monocytes Absolute Auto 0.7 0.1 - 1.2 X10*3/uL [facility] Eosinophils Absolute Auto 0.1 0.0 - 0.4 X10*3/uL [facility] Basophils Absolute Auto 0.1 0.0 - 0.2 X10*3/uL [facility] NRBC Abs Auto 0.000 0.0 - 0.012 X10*3/uL [facility] Blood Venous blood specimen / Unknown 04/20/2025 9:43 AM EDT 04/20/2025 11:20 AM EDT us Carolina Mayo MD LAB BLOOD ORDERAB LES Final Result Performing Organization Address City/State/[facility] Co de Phone Number [facility] [address] [place] [phone] * Hepatitis C Antibody with Reflex to HCV, RNA, Quantitative, Real-Time PCR (04/20/2025 9:43 AM EDT) Hepatitis C Antibody Nonreactive Nonreactive [facility] Comment:Antibodies to HCV no t detected; does not exclude early acuteHCV infection. Blood Venous blood specimen / Unknown 04/20/2025 9:43 AM EDT 04/20/2025 11:20 AM EDT us Carolina Mayo MD LAB BLOOD ORDERAB LES Final Result Performing Organization Address [facility] Phone Number [facility] [address] [place] [phone] * Hepatitis B surface antigen, EIA (04/20/2025 9:43 AM EDT) Hepatitis B Surface Ag Negative Negative [facility] Blood Venous blood specimen / Unknown 04/20/2025 9:43 AM EDT 04/20/2025 11:20 AM EDT us Carolina Mayo MD LAB BLOOD ORDERAB LES Final Result Performing Organization Address [facility] de Phone Number [facility] [address] [place] [phone] * Hepatitis B Core Antibody, Total (04/20/2025 9:43 AM EDT) Hepatitis B Core Antibody Nonreactive Nonreactive [facility] Blood Venous blood specimen / Unknown 04/20/2025 9:43 AM EDT 04/20/2025 11:20 AM EDT us Carolina Mayo MD LAB BLOOD ORDERAB LES Final Result [facility] [address] [place] [address] [phone] * HIV-1 RNA, Quantitative, Real-Time PCR (04/20/2025 9:43 AM EDT) HIV RNA PCR Qn Copies NOT DETECTED NOT DETECTED copies/mL [facility] HIV RNA PCR Qn Log Copies NOT DETECTED NOT DETECTED [facility] Comment:Result Units: Log co pies/mLThis test was performed using Real-Time Polymerase ChainReaction.Reportable Range: 20 copies/mL to 10,000,000 copies/mL(1.30 log copies/mL to 7.00 log copies/mL).THIS TEST WAS PERFORMED AT:[facility] [place] [phone] RUANO MD Blood Venous blood specimen / Unknown 04/20/2025 9:43 AM EDT 04/20/2025 11:20 AM EDT us Carolina Mayo MD LAB BLOOD ORDERAB LES Final Result [facility] [address] [place] [phone] * HIV-1/2 Antigen and Antibodies, Fourth Generation, with Reflexes (04/20/2025 9:43 AM EDT) HIV AB/AG Nonreactive Nonreactive [facility] Comment:HIV-1 p24 Ag and/or HIV-1/HIV-2 Ab not detected.A test result that is nonreactive does not exclude thepossibility of exposure to or infection with HIV-1 and/orHIV-2. Nonreactive results in this assay for individualswith prior exposure to HIV-1 and/or HIV-2 may be due toantigen and antibody levels that are below the limit ofdetection of this assay.The [employer] HIV Ag/Ab Combo assay result andsupplemental assay results should be interpreted inconjunction with the patient's clinical presentation,history and other laboratory results. If the results areinconsistent with clinical evidence, additional testing issuggested to confirm the result. Blood Venous blood specimen / Unknown 04/20/2025 9:43 AM EDT 04/20/2025 11:20 AM EDT Carolina Mayo MD LAB BLOOD ORDERAB LES Final Result Performing Organization Address [facility] Co de Phone Number [facility] [address] [place] [phone] * Hepatitis B Surface Antibody, Qualitative (04/20/2025 9:43 AM EDT) ~Hepatitis B Surface Antibody REACTIVE Nonreactive [facility] Comment:REACTIVE: > 11.99 mI U/mL Blood Venous blood specimen / Unknown 04/20/2025 9:43 AM EDT 04/20/2025 11:20 AM EDT Carolina Mayo MD LAB BLOOD ORDERAB LES Final Result Performing Organization Address [facility] de Phone Number [facility] [address] [place] [phone] * Hemoglobin A1c (04/20/2025 9:43 AM EDT) Hemoglobin A1c 4.3 <6.0 % [facility] Comment:Hemoglobin A1C Refer ence Range Adults: 4.8 - 6.0 % Non diabetic: < 6.0 % Goal: < 7.0 %Additional Action Suggested: > 8.0 %Note: Hemoglobin A1c results are invalid for patients with abnormal amounts of HbF. Blood transfusions may impact the HbA1c concentration in the patient sample. Estimated Average Glucose 77 mg/dL [facility] Comment:eAG = Estimated ave rage glucose which is %A1C expressed asaverage glucose, using the formula of the J9U-KslookgDivtpff Glucose study (ADAG), Diabetes Care, Vol.31,#8,Mar. 2007 Blood Venous blood specimen / Unknown 04/20/2025 9:43 AM EDT 04/20/2025 11:20 AM EDT us Carolina Mayo MD LAB BLOOD ORDERAB LES Final Result [facility] [address] [place] [phone] * (ABNORMAL) Comprehensive Metabolic Panel (04/20/2025 9:43 AM EDT) Sodium 141 135 - 145 mmol/L [facility] Potassium 3.8 3.3 - 5.1 mmol/L [facility] Chloride 106 96 - 108 mmol/L [facility] Carbon Dioxide 30(H) 22 - 29 mmol/L [facility] Anion Gap 9(L) 12 - 20 [facility] Urea Nitrogen (BUN) 9 9 - 16 mg/dL [facility] Creatinine, Serum 0.75 0.5 - 1.4 mg/dL [facility] Estimated Glomerular Filt Rate >60 [facility] Comment:Chronic Kidney Disea se: Estimated GFR < 60 mL/min/1.21r3Zhrwsd Kidney Disease: Estimated GFR < 15 mL/min/1.73m2 Glucose 81 60 - 115 mg/dL [facility] Calcium 9.5 8.4 - 10.2 mg/dL [facility] Bilirubin, Total 0.8 0.0 - 1.0 mg/dL [facility] Aspartate Amino Transferase 49(H) 5 - 37 U/L [facility] Alanine Aminotransferase 52(H) 0 - 40 U/L [facility] Total Protein 7.7 6.5 - 8.0 g/dL [facility] Albumin Level 4.8 3.5 - 5.0 g/dL [facility] Alkaline Phosphatase 135(H) 39 - 117 U/L [facility] Blood Venous blood specimen / Unknown 04/20/2025 9:43 AM EDT 04/20/2025 11:20 AM EDT us Carolina Mayo MD LAB BLOOD ORDERAB LES Final Result [facility] [address] [place] [phone] * US Scrotum (04/16/2025 4:05 PM EDT) Anatomical Region Laterality Modality Body Ultrasound 04/16/2025 4:05 PM EDT Narrative 04/16/2025 5:10 PM EDT [address] [address] Ultrasound Report Signed Patient: Monster Gutierrez MR#: [id number] : 2000 Acct:[id number] Age/Sex: 25 / M ADM Date: 04/16/25 Loc: HO.US Attending Dr: Carolina Mayo MD Ordering Physician: Carolina Anders MD Date of Service: 04/16/25 Procedure(s): US scrotum Accession Number(s): [id number] cc: Carolina Anders MD Reason for Exam: [...] 04/16/25 1707 DD/ 1605 TD/TT: 04/16/25 1615 Research Scientist: Procedure Note Donotuseinterpreter, Image - 04/16/2025 [place] [address] Ultrasound Report Signed Patient: Jordan Gutierrez#: [id number] : 2000Acct:[id number] Age/Sex: 25 / MADM Date: 04/16/25 Loc: HO.US Attending Dr: Carolina Mayo MD Ordering Physician: Carolina Anders MD Date of Service: 04/16/25 Procedure(s): US scrotum Accession Number(s): [id number] cc: Carolina Anders MD Reason for Exam: [...] 04/16/25 1707 DD/ 1605 TD/TT: 04/16/25 1615 Research Scientist: Carolina Mayo MD IMG US PROCEDURES Final Result * Trichomonas RNA (Urine/Vaginal) (04/02/2025 12:08 PM EDT) Trichomas vaginalis RNA, QL, TMA NOT DETECTED NOT DETECTED [facility] Comment:For additional infor bello, please refer tohttp://education.[employer]/faq/Trichomonastma(This link is being provided for informational/educational purposes only.)THIS TEST WAS PERFORMED AT:[facility] [place] [phone] RUANO MD Swab (Urine, Random) 04/02/2025 12:08 PM EDT 04/02/2025 4:16 PM EDT Carolina Mayo MD LAB BODY FLUIDS A ND STOOLS ORDERABLES Final Result [facility] [address] [place] [phone] * Chlamydia/N. Gonorrhoeae RNA, TMA, Throat (04/02/2025 11:59 AM EDT) C. Trachomatis RNA TMA, Throat NOT DETECTED NOT DETECTED [facility] N. gonorrhoeae RNA TMA, Throat NOT DETECTED NOT DETECTED [facility] Swab Structure of anterior portion of neck / Unknown 04/02/2025 11:59 AM EDT 04/02/2025 1:18 PM EDT Carolina Mayo MD LAB MICROBIOLOGY - GENERAL ORDERABLES Final Result Performing Organization Address [facility] Co de Phone Number [facility] [address] [place] [phone] * Chlamydia/N. Gonorrhoeae RNA, TMA, Rectal (04/02/2025 11:59 AM EDT) C.Trachomatis RNA TMA, Rectal NOT DETECTED NOT DETECTED [facility] N.Gonorrhoeae RNA TMA, Rectal NOT DETECTED NOT DETECTED [facility] Swab Anal structure / Unknown 04/02/2025 11:59 AM EDT 04/02/2025 1:18 PM EDT Carolina Mayo MD LAB MICROBIOLOGY - GENERAL ORDERABLES Final Result Performing Organization Address [facility] Co de Phone Number [facility] [address] [place] [phone] * (ABNORMAL) POCT Urinalysis (04/02/2025 11:57 [...] Media Lot # [id number] Lot# Expiration Date [id number] Urine 04/02/2025 11:5 7 AM EDT Carolina Mayo MD POINT OF CARE OZZY T ENTER/EDIT ORDERABLES Final Result * Albumin, Random Urine W/Creatinine (04/02/2025 11:40 AM EDT) Creatinine, Urine 491.28 mg/dL [facility] Microalbumin Urine 54.0 mg/L [facility] Microalbum Creatinine Ratio Ur 10.9 <30 ug/mg cr [facility] Comment:Albumin/Creatinine R atio Reference Ranges: Normal: < 30 ug/mg creatinine Microalbuminuria: 30 - 300 ug/mg creatinineClinical Albuminuria: > 300 ug/mg creatinine Urine (Urine, Random) 04/02/2025 11:40 AM EDT 04/02/2025 4:39 PM EDT Carolina Mayo MD LAB URINE ORDERAB LES Final Result [facility] [address] [place] [phone] [phone] * Chlamydia/Gonorrhea, Urine ([place] DPH) (03/12/2025) Chlamydia, Urine Negative Negative, Indeterminate, None Detected, Invalid, Specimen unsatisfactory for evaluation, Weakly Positive, 2+ Gonorrhea, Urine Negative Negative, Indeterminate, None Detected, Invalid, Specimen unsatisfactory for evaluation, Weakly Positive, 2+ Urine Result [facility] Historical Provider LAB URINE ORDERABLES Edit ed Result - Final * Chlamydia/Gonorrhea Throat Swab ([place] DPH) (2025) Chlamydia Throat Swab Negative Gonorrhea Throat Swab Negative Swab 2025 Historical Provider LAB MICROBIOLOGY - GENERA L ORDERABLES Final Result from Last 3 Months Insurance [facility] C3 HSN PARTIAL Care Teams Community Organization Director Relationship Specialty Start Date End Date Carolina Anders MD [address] [place] [phone] PCP - General Internal Medicine 01/09/23
--- OUTSIDE RECORDS SUMMARY | 2025-04-21 19:02 | XMS_ITS | Encounter Summary ---
Author Organization [employer] Address [address] [place] [address] Care Team Providers Care Claims Assistant Name Role Phone Carolina Anders MD Primary Care Pro vider Encounter Details Date Type Department Care Team (Late st Contact Info) Description 10/28/2024 Orders Only [facility] [address] [place] [address] Gege Carrera RN Social History Tobacco Use [...] with others, in a hotel, in a halfway, living outside on the street, on a [...] Description 07/07/2025 10:45 AM EST Office Visit [facility] [address] [place] [phone] Carolina Anders MD [address] [place] [phone] documented as of this encounter Visit Diagnoses Not on filedocumented in this encounter Additional Health Concerns Assessment Noted Time PHQ-9 Depression Total Score: 11 024 9:54 AM EDT documented as of this encounter Care Teams Claims Assistant Relationship Specialty Start Date End Date Carolina Anders MD [address] [place] [phone] PCP - General Internal Medicine 01/09/23 documented as of this encounter
--- OUTSIDE RECORDS SUMMARY | 2025-04-21 19:02 | XMS_ITS | Encounter Summary ---
Author Organization [employer] Address [address] [facility] [address]t [place] [address] Care Team Providers Care Mechanical Supervisor Name Role Phone Carolina Anders MD Primary Care Pro vider Reason for Visit * Reason Onset Date Comments New Patient Appt 12/21/2022 Encounter Details Date Type Department Care Team (Late Contact Info) Description 12/21/2022 Telephone [facility] [address] [place], [place] [phone] Gonzalez Du MD [address] [place], [place] [phone] New Patient Appt Social History Tobacco Use [...] left voicemail to give a call at [phone]. documented in this encounter Plan of Treatment Upcoming Encounters Date Type Department Care Team (Late Contact Info) Description 07/07/2025 10:45 AM EST Office Visit [facility] [address] [place] [address] Carolina Anders MD [address] [place], [place] [phone] documented as of this encounter Visit Diagnoses Not on filedocumented in this encounter Care Teams Mechanical Supervisor Relationship Specialty Start Date End Date Carolina Anders MD [address] [place] [address] [phone] PCP - General Internal Medicine 01/09/23 documented as of this encounter
--- OUTSIDE RECORDS SUMMARY | 2025-04-21 19:02 | XMS_ITS | Encounter Summary ---
Author Organization [employer] Address [address] [place] [address] 7 [place] [address] Care Team Providers Care Golf Club Weighter Name Role Phone Carolina Anders MD Primary Care Pro vider Reason for Visit * Reason Onset Date Comments Dec Recall 04/16/2025 Encounter Details Date Type Department Care Team ([facility] st Contact Info) Description 04/16/2025 Telephone [facility] [address] [place], [place] [phone] Carolina Anders MD [address] [place] [address] Dec Recall Social History Tobacco Use Types [...] Description 07/07/2025 10:45 AM EST Office Visit [facility] [address] [place] [phone] Carolina Anders MD [address] [place] [phone] documented as of this encounter Visit Diagnoses Not on filedocumented in this encounter Additional Health Concerns Assessment Noted Time PHQ-9 Depression Total Score: 8 02/27/20 11:54 AM EDT documented as of this encounter Care Teams Golf Club Weighter Relationship Specialty Start Date End Date Carolina Anders MD [address] [place] [phone] PCP - General Internal Medicine 01/09/23 documented as of this encounter
--- OUTSIDE RECORDS SUMMARY | 2025-04-21 19:02 | XMS_ITS | Encounter Summary ---
Author Organization [employer] Address [address] [place] [address] Care Team Providers Care Incident Response Manager Name Role Phone Carolina Anders MD Primary Care Pro vider Encounter Details Date Type Department Care Team (Late st Contact Info) Description 04/21/2025 Orders Only GENERIC EXTERNAL DATA DEPARTMENT Provider, Generic External Data Social History Tobacco Use Types Packs/Day Years [...] the past 12 months, has t he [employer], gas, oil or water company threatened to [...] Description 07/07/2025 10:45 AM EST Office Visit [facility] [address] [place] [address] [phone] Carolina Anders MD [address] [place], [place] [phone] documented as of this encounter Procedures Procedure Name Priority Date/Time Associated Diagnosis Comments BASIC METABOLIC PANEL Routine 04/21/2025 3:48 PM EDT documented in this encounter Results * (ABNORMAL) Basic Metabolic Panel (04/21/2025 3:48 PM EDT) Sodium 142 135 - 145 mmol/L [facility] Potassium 3.8 3.3 - 5.1 mmol/L [facility] Chloride 105 96 - 108 mmol/L [facility] Carbon Dioxide 30(H) 22 - 29 mmol/L [facility] Anion Gap 11(L) 12 - 20 [facility] Urea Nitrogen (BUN) 9 9 - 16 mg/dL [facility] Creatinine, Serum 0.80 0.5 - 1.4 mg/dL [facility] Estimated Glomerular Filt Rate >60 [facility] Comment:Chronic Kidney Disea se: Estimated GFR < 60 mL/min/[id number] Kidney Disease: Estimated GFR < 15 mL/min/1.73m2 Glucose 75 60 - 115 mg/dL [facility] Calcium 9.3 8.4 - 10.2 mg/dL [facility] 04/21/2025 3:48 PM EDT 04/21/2025 6:17 PM EDT us Generic External Data Provider LAB BLOOD ORDERAB LES Final Result [facility] [address] [place] [phone] documented in this encounter Visit Diagnoses Not on filedocumented in this encounter Additional Health Concerns Assessment Noted Time PHQ-9 Depression Total Score: 8 02/27/20 25 11:54 AM EDT documented as of this encounter Care Teams Incident Response Manager Relationship Specialty Start Date End Date Carolina Anders MD [address] [place] [phone] PCP - General Internal Medicine 01/09/23 documented as of this encounter
--- OUTSIDE RECORDS SUMMARY | 2025-04-21 19:02 | XMS_ITS | Encounter Summary ---
Author Organization [employer] Address [address] [place] [address] Care Team Providers Care Chef French Name Role Phone Carolina Anders MD Primary Care Pro vider Encounter Details Date Type Department Care Team (Latest Contact Info) Description 04/21/2025 Travel Social History Tobacco Use Types Packs/Day [...] Description 07/07/2025 10:45 AM EST Office Visit [facility] [address] [place] [phone] Carolina Anders MD [address] [place] [phone] documented as of this encounter Visit Diagnoses Not on filedocumented in this encounter Additional Health Concerns Assessment Noted Time PHQ-9 Depression Total Score: 8 02/27/20 25 11:54 AM EDT documented as of this encounter Care Teams Chef French Relationship Specialty Start Date End Date Carolina Anders MD [address] [place] [phone] PCP - General Internal Medicine 01/09/23 documented as of this encounter
== END 2025-04-21 15:40 | disposition home or self-care (01) ==
LOC: HO.HHCL 15:39
PROVIDERS: PCP Internal Medicine; Visit Provider Emergency Medicine
DX: K13.70 Unspecified lesions of oral mucosa (principal); I42.8 Other cardiomyopathies
CPT/HCPCS: 36415; 80048; 86592; 87255

== ENCOUNTER 2025-04-28 08:39 | Outpatient (REF) | payer MEDICAID, SELFPAY ==
--- OUTSIDE RECORDS SUMMARY | 2025-04-28 09:41 | XMS_ITS | Encounter Summary ---
Author Organization [employer] Address [address] [facility] 7t [place] [address] Care Team Providers Care Technical Training Manager Name Role Phone Carolina Anders MD Primary Care Pro vider Reason for Visit * Reason Onset Date Comments New Patient Appt 12/21/2022 Encounter Details Date Type Department Care Team (Late Contact Info) Description 12/21/[address] [facility] [address] [place], [place] [phone] Gonzalez Du MD [address] [place], [place] [phone] New Patient Appt Social History Tobacco Use [...] left voicemail to give a call at [phone]. documented in this encounter Plan of Treatment Upcoming Encounters Date Type Department Care Team (Late Contact Info) Description 07/07/2025 10:45 AM EST Office Visit [facility] [address] [place] [address] Carolina Anders MD [address] [place], [place] [phone] documented as of this encounter Visit Diagnoses Not on filedocumented in this encounter Care Teams Technical Training Manager Relationship Specialty Start Date End Date Carolina Anders MD [address] [place] [address] [phone] PCP - General Internal Medicine 01/09/23 documented as of this encounter
--- OUTSIDE RECORDS SUMMARY | 2025-04-28 09:41 | XMS_ITS | Encounter Summary ---
Author Organization [employer] Address [address] [place] [address] Care Team Providers Care Smelter Operator Name Role Phone Carolina Anders MD Primary Care Pro vider Encounter Details Date Type Department Care Team (Late st Contact Info) Description 10/28/2024 Orders Only [facility] [address] [place] [address] Gege Carrera RN Social History Tobacco Use [...] Description 07/07/2025 10:45 AM EST Office Visit [facility] [address] [place] [phone] Carolina Anders MD [address] [place] [phone] documented as of this encounter Visit Diagnoses Not on filedocumented in this encounter Additional Health Concerns Assessment Noted Time PHQ-9 Depression Total Score: 11 024 9:54 AM EDT documented as of this encounter Care Teams Smelter Operator Relationship Specialty Start Date End Date Carolina Anders MD [address] [place] [phone] PCP - General Internal Medicine 01/09/23 documented as of this encounter
--- OUTSIDE RECORDS SUMMARY | 2025-04-28 09:41 | XMS_ITS | Clinical Summary ---
Author Organization [employer] Address [address] [facility] 7[address] [place] [address] Care Team Providers Care Vp Compliance Name Role Phone Carolina Anders MD Primary [...] for smoking cessation. 100 lozenge 2024 Active triamcinolone (Kenalog) 0.1 % oral [...] 30 minutes after. 14 tablet 025 2024 valACYclovir (Valtrex) 500 MG tablet Take 1 tablet (500 mg) by mouth 2 times daily for 3 days. 6 tablet 025 2024 Hospital, Clinic, or Other [...] optimize psych tx -has already referral w ic design engineer x 04/25/2023 -advise to continue apt to [...] optimize psych tx -has already referral w ic design engineer x 04/25/2023 -advise to continue apt to r/o cardiac etiology History of penicillin allergy 02/07/2023 Assessment & Plan (04/13/2023 11:46 AM EDT): -referred to picture copyist x hx of PNC allergy to clarify - gave today info for pt to call. Assessment & Plan (02/07/2023 7:23 PM EDT): -referred today to picture copyist x hx of PNC allergy to clarify [...] organization. Date Type Department Care Team Description 04/27/2025 Results Follow-Up [facility] CHC MED & PEDS [address] [place], [place] [phone] Larry Alejandro MD POCT rapid strep A manually resulted, RPR (Monitor) with Reflex to Titer, Herpes Simplex Virus Culture with Reflex Typing 04/21/2025 3:20 PM EDT Office Visit [facility] WALK[facility]IN [facility]ENTER [address] [place] [phone] Larry Alejandro MD Mouth lesion (Primary Dx); Other tobacco product nicotine dependence, uncomplicated; Sore throat 04/21/2025 Orders Only GENERIC EXTERNAL DATA DEPARTMENT Provider, Generic External Data 04/21/2025 Travel 04/19/2025 Orders Only [facility] MEDICINE [address] [place] [phone] Carolina Anders MD Testicular pain, right (Primary Dx) 04/16/[address] [address] Carolina Anders MD Dec Recall 04/09/[address] [address] Zonia Mike RN [facility] Cardiology F/U 04/06/2025 Results Follow-Up [address] [address] Carolina Anders MD POCT Urinalysis, Chlamydia/N. Gonorrhoeae RNA, TMA, Rectal, Chlamydia/N. Gonorrhoeae RNA, TMA, Throat, Additional followed-up results: 15 04/02/2025 11:15 AM EDT Office Visit [address] [address] Carolina Anders MD Dysuria (Primary Dx); Testicular pain, right; Subjective fever; Health care maintenance; Uncomplicated asthma, unspecified asthma severity, unspecified whether persistent; Bipolar 1 disorder, depressed ([facility]/HCC); Syncope, unspecified syncope type; High risk homosexual behavior 04/02/2025 Telephone [facility] [address] [place] [phone] Carolina Anders MD us scrotum order 04/02/2025 Travel 04/01/2025 Travel 04/01/[address] [address] Carolina Anders MD chartprep 03/17/2025 Orders Only [address] [address] Gege Carrera RN [address] [address] Sheri De La Fuente RN On pre-exposure prophylaxis for HIV (Primary Dx) 2025 Orders Only [address] [address] Sheri De L aFuente RN On pre-exposure prophylaxis for HIV (Primary Dx) 2025 Travel 03/08/2025 9:00 AM EDT Office Visit [facility] OPTOMETRY [address] [place] [phone] Janice Porras, OD Regular astigmatism, bilateral (Primary Dx); Normal eye exam 03/08/2025 Travel 03/05/[address] [address] Carolina Anders MD 03/04/[address] [address] Carolina Anders MD chart prep 02/26/2025 Patient Outreach [address] [address] Carolina Anders MD Care Coordination 02/26/2025 Patient Outreach [address] [address] Carolina Anders MD Pre-visit Planning (SDOH screening [...] Description 07/07/2025 10:45 AM EST Office Visit [facility] MEDICINE [address] [place] [address] Carolina Anders MD [address] [place], [place] [phone] Health Maintenance Due Date Last Done Comments [...] METABOLIC PANEL Routine 04/21/2025 3:48 PM EDT RPR (MONITOR) W/REFL TITER Routine 04/21/2025 3:48 PM EDT Mouth lesion HERPES CULTURE WITH REFLEX TYPING Routine 04/21/2025 3:41 PM EDT Mouth lesion POCT RAPID STREP A Routine 04/21/2025 3: 09 PM EDT Sore throat HEPATITIS A ANTIBODY, TOTAL Routine 04/20/2025 9:43 AM EDT Health care maintenance TSH W/REFLEX TO FT4 Routine 04/20/2025 9 [...] 9:43 AM EDT Dysuria Testicular pain, right RPR (MONITOR) W/REFL TITER Routine 04/20/2025 9:43 AM EDT Dysuria Testicular [...] 2025 from Last 3 Months Results * RPR (Monitor) with Reflex to??Titer (04/21/2025 3:48 PM EDT) Only the most recent of2 resultswithin the time period is included. RPR (Monitor) w/Refl Titer NON-REACTI VE NON-REACT ALPA [facility] Comment:THIS TEST WAS PERFOR MED AT:[facility] [place] [phone] RUANO MD Rapid Plasma Reagin Ab Titer TNP [facility] Blood Venous blood specimen / Unknown 04/21/2025 3:48 PM EDT 04/21/2025 6:17 PM EDT Larry Alejandro MD LAB BLOOD ORDERABLES Final Resul t [facility] [address] [place] [phone] * (ABNORMAL) Basic Metabolic Panel (04/21/2025 3:48 PM EDT) [facility] Sodium 142 135 - 145 mmol/L [facility] Potassium 3.8 3.3 - 5.1 mmol/L [facility] Chloride 105 96 - 108 mmol/L [facility] Carbon Dioxide 30(H) 22 - 29 mmol/L [facility] Anion Gap 11(L) 12 - 20 [facility] Urea Nitrogen (BUN) 9 9 - 16 mg/dL [facility] Creatinine, Serum 0.80 0.5 - 1.4 mg/dL [facility] Estimated Glomerular Filt Rate >60 [facility] Comment:Chronic Kidney Disea se: Estimated GFR < 60 mL/min/1.26b1Tzxlhm Kidney Disease: Estimated GFR < 15 mL/min/1.73m2 Glucose 75 60 - 115 mg/dL [facility] Calcium 9.3 8.4 - 10.2 mg/dL [facility] 04/21/2025 3:48 PM EDT 04/21/2025 6:17 PM EDT us Generic External Data Provider LAB BLOOD ORDERAB LES Final Result Performing Organization Address City/[facility]/ZIP Co de Phone Number [facility] [address] [place] [phone] * Herpes Simplex Virus Culture with Reflex Typing (04/21/2025 3:41 PM EDT) Pathologist [facility] HSV Culture/Type SEE NOTE [facility] Comment:HERPES SIMPLEX VIRUS CULTURE W/RFL TO TYPING Micro Number: [id number] Test Status: Final Specimen Source: Not given Specimen Quality: Adequate HSV Culture: Not IsolatedTHIS TEST WAS PERFORMED AT:[employer] [id number] MERATI,MD Swab (Lesion) 04/21/2025 3:4 1 PM EDT 04/21/2025 5:10 PM EDT Larry Alejandro MD LAB MICROBIOLOGY - GENERAL ORDER LEIA Final Result Performing Organization Address [facility] Co de Phone Number [facility] [address] [place] [phone] * POCT rapid strep A manually resulted (04/21/2025 3:09 PM EDT) [facility] Rapid Strep A Screen Negative Negative, None Detected Swab 04/21/2025 3:09 PM EDT Larry Alejandro MD POINT OF CARE TEST ENTER/EDIT OR DERABLES Final Result * TSH with Reflex to Free T4 (04/20/2025 9:43 AM EDT) Pathologist [facility] TSH reflex Free T4 1.47 0.32 - 4.0 uIU/mL [facility] Blood 04/20/2025 9:43 AM EDT 04/20/2025 11:20 AM EDT us Carolina aMyo MD LAB BLOOD ORDERAB LES Final Result [facility] [address] [place] [phone] * (ABNORMAL) CBC auto differential (04/20/2025 9:43 AM EDT) White Blood Count 7.1 4.8 - 10.8 X10*3/uL [facility] Red Blood Count 4.99 4.60 - 5.80 X10*6/uL [facility] Hemoglobin 15.2 14.0 - 18.0 g/dl [facility] Hematocrit 44.9 42.0 - 52.0 % [facility] Mean Corpuscular Volume 90.0 80.0 - 98.0 fL [facility] Mean Corpuscular Hemoglobin 30.5 27.0 - 33.0 pg [facility] Mean Corpuscular HGB Conc 33.9 31.0 - 36.0 g/dl [facility] Red Cell Distribution Width 11.8 11.0 - 16.0 % [facility] Platelet Count 226 160 - 400 X10*3/uL [facility] Mean Platelet Volume 9.8 9.4 - 12.4 fL [facility] Neutrophils Percent Auto 29.8(L) 45 - 73 % [facility] Imm Gran Pct Auto 0.3 0.0 - 0.4 % [facility] Lymphocytes Percent Auto 58.8(H) 20 - 40 % [facility] Monocytes Percent Auto 9.3 2 - 11 % [facility] Eosinophils Percent Auto 0.8 0 - 4 % [facility] Basophils Percent Auto 1.0 0 - 2 % [facility] NRBC Pct Auto 0.0 0.0 - 0.2 /100WBC [facility] Neutrophils Absolute Auto 2.1 2.0 - 8.3 x10*3/uL [facility] Imm Gran Abs Auto 0.02 0.00 - 0.03 X10*3/uL [facility] Lymphocytes Absolute Auto 4.2 1.2 - 4.9 X10*3/uL [facility] Monocytes Absolute Auto 0.7 0.1 - 1.2 X10*3/uL [facility] Eosinophils Absolute Auto 0.1 0.0 - 0.4 X10*3/uL [facility] Basophils Absolute Auto 0.1 0.0 - 0.2 X10*3/uL [facility] NRBC Abs Auto 0.000 0.0 - 0.012 X10*3/uL [facility] Blood Venous blood specimen / Unknown 04/20/2025 9:43 AM EDT 04/20/2025 11:20 AM EDT Carolina Mayo MD LAB BLOOD ORDERAB LES Final Result Performing Organization Address City/[facility]/ZIP Co de Phone Number [facility] [address] [place] [phone] * Hepatitis C Antibody with Reflex to HCV, RNA, Quantitative, Real-Time PCR (04/20/2025 9:43 AM EDT) Hepatitis C Antibody Nonreactive Nonreactive [facility] Comment:Antibodies to HCV no t detected; does not exclude early acuteHCV infection. Blood Venous blood specimen / Unknown 04/20/2025 9:43 AM EDT 04/20/2025 11:20 AM EDT Carolina Mayo MD LAB BLOOD ORDERAB LES Final Result Performing Organization Address City/[facility]/ZIP Co de Phone Number [facility] [address] [place] [phone] * Hepatitis A Antibody, Total (04/20/2025 9:43 AM EDT) Hepatitis A Antibody IgG REACTIVE Nonreactive [facility] Comment:The presence of IgG anti-HAV implies past HAV infection(recent or distant) or vaccination against HAV. Blood Venous blood specimen / Unknown 04/20/2025 9:43 AM EDT 04/20/2025 11:20 AM EDT Carolina Mayo MD LAB BLOOD ORDERAB LES Final Result Performing Organization Address City/[facility]/ZIP Co de Phone Number [facility] [address] [place] [phone] * Hepatitis B surface antigen, EIA (04/20/2025 9:43 AM EDT) Pathologist [facility] Hepatitis B Surface Ag Negative Negative [facility] Blood Venous blood specimen / Unknown 04/20/2025 9:43 AM EDT 04/20/2025 11:20 AM EDT Carolina Mayo MD LAB BLOOD ORDERAB LES Final Result Performing Organization Address [facility]/ZIP Co de Phone Number [facility] [address] [place] [phone] * Hepatitis B Core Antibody, Total (04/20/2025 9:43 AM EDT) Pathologist [facility] Hepatitis B Core Antibody Nonreactive Nonreactive [facility] Blood Venous blood specimen / Unknown 04/20/2025 9:43 AM EDT 04/20/2025 11:20 AM EDT us Carolina Mayo MD LAB BLOOD ORDERAB LES Final Result Performing Organization Address City/[facility]/ZIP Co de Phone Number [facility] [address] [place] [phone] * HIV-1 RNA, Quantitative, Real-Time PCR (04/20/2025 9:43 AM EDT) Pathologist [facility] HIV RNA PCR Qn Copies NOT DETECTED NOT DETECTED copies/mL [facility] HIV RNA PCR Qn Log Copies NOT DETECTED NOT DETECTED [facility] Comment:Result Units: Log co pies/mLThis test was performed using Real-Time Polymerase ChainReaction.Reportable Range: 20 copies/mL to 10,000,000 copies/mL(1.30 log copies/mL to 7.00 log copies/mL).THIS TEST WAS PERFORMED AT:[facility] [facility] [place] [phone] RUANO MD Blood Venous blood specimen / Unknown 04/20/2025 9:43 AM EDT 04/20/2025 11:20 AM EDT Carolina Mayo MD LAB BLOOD ORDERAB LES Final Result [facility] [address] [place] [phone] * HIV-1/2 Antigen and Antibodies, Fourth Generation, with Reflexes (04/20/2025 9:43 AM EDT) [facility] HIV AB/AG Nonreactive Nonreactive [facility] Comment:HIV-1 p24 Ag and/or HIV-1/HIV-2 Ab not detected.A test result that is nonreactive does not exclude thepossibility of exposure to or infection with HIV-1 and/orHIV-2. Nonreactive results in this assay for individualswith prior exposure to HIV-1 and/or HIV-2 may be due toantigen and antibody levels that are below the limit ofdetection of this assay.The [employer] HIV Ag/Ab Combo assay result andsupplemental assay results should be interpreted inconjunction with the patient's clinical presentation,history and other laboratory results. If the results areinconsistent with clinical evidence, additional testing issuggested to confirm the result. Blood Venous blood specimen / Unknown 04/20/2025 9:43 AM EDT 04/20/2025 11:20 AM EDT us Carolina Mayo MD LAB BLOOD ORDERAB LES Final Result Performing Organization Address City/[facility]/ZIP Co de Phone Number [facility] [address] [place] [phone] * Hepatitis B Surface Antibody, Qualitative (04/20/2025 9:43 AM EDT) ~Hepatitis B Surface Antibody REACTIVE Nonreactive [facility] Comment:REACTIVE: > 11.99 mI U/mL Blood Venous blood specimen / Unknown 04/20/2025 9:43 AM EDT 04/20/2025 11:20 AM EDT Carolina Mayo MD LAB BLOOD ORDERAB LES Final Result Performing Organization Address [facility]/ZIP Co de Phone Number [facility] [address] [place] [phone] * Hemoglobin A1c (04/20/2025 9:43 AM EDT) Pathologist [facility] Hemoglobin A1c 4.3 <6.0 % [facility] Comment:Hemoglobin A1C Refer ence Range Adults: 4.8 - 6.0 % Non diabetic: < 6.0 % Goal: < 7.0 %Additional Action Suggested: > 8.0 %Note: Hemoglobin A1c results are invalid for patients with abnormal amounts of HbF. Blood transfusions may impact the HbA1c concentration in the patient sample. Estimated Average Glucose 77 mg/dL [facility] Comment:eAG = Estimated ave rage glucose which is %A1C expressed asaverage glucose, using the formula of the S4J-ZoucvarQkqpyqe Glucose study (ADAG), Diabetes Care, Vol.31,#8,Mar. 2007 Blood Venous blood specimen / Unknown 04/20/2025 9:43 AM EDT 04/20/2025 11:20 AM EDT us Carolina Mayo MD LAB BLOOD ORDERAB LES Final Result Performing Organization Address City/[facility]/ZIP Co de Phone Number [facility] [address] [place] [phone] * (ABNORMAL) Comprehensive Metabolic Panel (04/20/2025 9:43 AM EDT) Pathologist [facility] Sodium 141 135 - 145 mmol/L [facility] Potassium 3.8 3.3 - 5.1 mmol/L [facility] Chloride 106 96 - 108 mmol/L [facility] Carbon Dioxide 30(H) 22 - 29 mmol/L [facility] Anion Gap 9(L) 12 - 20 [facility] Urea Nitrogen (BUN) 9 9 - 16 mg/dL [facility] Creatinine, Serum 0.75 0.5 - 1.4 mg/dL [facility] Estimated Glomerular Filt Rate >60 [facility] Comment:Chronic Kidney Disea se: Estimated GFR < 60 mL/min/1.01r2Wjnrfv Kidney Disease: Estimated GFR < 15 mL/min/1.73m2 Glucose 81 60 - 115 mg/dL [facility] Calcium 9.5 8.4 - 10.2 mg/dL [facility] Bilirubin, Total 0.8 0.0 - 1.0 mg/dL [facility] Aspartate Amino Transferase 49(H) 5 - 37 U/L [facility] Alanine Aminotransferase 52(H) 0 - 40 U/L [facility] Total Protein 7.7 6.5 - 8.0 g/dL [facility] Albumin Level 4.8 3.5 - 5.0 g/dL [facility] Alkaline Phosphatase 135(H) 39 - 117 U/L [facility] Blood Venous blood specimen / Unknown 04/20/2025 9:43 AM EDT 04/20/2025 11:20 AM EDT us Carolina Mayo MD LAB BLOOD ORDERAB LES Final Result [facility] [address] [place] [phone] * US Scrotum (04/16/2025 4:05 PM EDT) Anatomical Region Laterality Modality Body Ultrasound 04/16/2025 4:05 PM EDT Narrative 04/16/2025 5:10 PM EDT [address] [address] Ultrasound Report Signed Patient: Monster Gutierrez MR#: [id number] : 2000 Acct:[id number] Age/Sex: 25 / M ADM Date: 04/16/25 Loc: HO.US Attending Dr: Carolina Mayo MD Ordering Physician: Carolina Anders MD Date of Service: 04/16/25 Procedure(s): US scrotum Accession Number(s): [id number] cc: Carolina Anders MD Reason for Exam: [...] 04/16/25 1707 DD/ 1605 TD/TT: 04/16/25 1615 Surface Supervisor: Procedure Note Donotuseinterpreter, Image - 04/16/[address] [address] Ultrasound Report Signed Patient: Monster GutierrezMR#: [id number] : 2000Acct:[id number] Age/Sex: 25 / MADM Date: 04/16/25 Loc: HO.US Attending Dr: Carolina Mayo MD Ordering Physician: Carolina Anders MD Date of Service: 04/16/25 Procedure(s): US scrotum Accession Number(s): [id number] cc: Carolina Anders MD Reason for Exam: [...] by Pal Smalls MD in OV> 04/16/25 1709 DD/ 1605 TD/TT: 04/16/25 1615 Surface Supervisor: Carolina Mayo MD IMG US PROCEDURES Final Result * Trichomonas RNA (Urine/Vaginal) (04/02/2025 12:08 PM EDT) Trichomas vaginalis RNA, QL, TMA NOT DETECTED NOT DETECTED [facility] Comment:For additional infor bello, please refer [email or web address].[employer]/faq/Trichomonastma(This link is being provided for informational/educational purposes only.)THIS TEST WAS PERFORMED AT:[facility] [place] [phone] RUANO MD Swab (Urine, Random) 04/02/2025 12:08 PM EDT 04/02/2025 4:16 PM EDT us Carolina Mayo MD LAB BODY FLUIDS A ND STOOLS ORDERABLES Final Result Performing Organization Address [facility]/ZIP Co de Phone Number [facility] [address] [place] [phone] * Chlamydia/N. Gonorrhoeae RNA, TMA, Throat (04/02/2025 11:59 AM EDT) C. Trachomatis RNA TMA, Throat NOT DETECTED NOT DETECTED [facility] N. gonorrhoeae RNA TMA, Throat NOT DETECTED NOT DETECTED [facility] Swab Structure of anterior portion of neck / Unknown 04/02/2025 11:59 AM EDT 04/02/2025 1:18 PM EDT us Carolina Mayo MD LAB MICROBIOLOGY - GENERAL ORDERABLES Final Result Performing Organization Address [facility]/ZIP Co de Phone Number [facility] [address] [place] [phone] * Chlamydia/N. Gonorrhoeae RNA, TMA, Rectal (04/02/2025 11:59 AM EDT) C.Trachomatis RNA TMA, Rectal NOT DETECTED NOT DETECTED [facility] N.Gonorrhoeae RNA TMA, Rectal NOT DETECTED NOT DETECTED [facility] Swab Anal structure / Unknown 04/02/2025 11:59 AM EDT 04/02/2025 1:18 PM EDT Carolina Mayo MD LAB MICROBIOLOGY - GENERAL ORDERABLES Final Result [facility] [address] [place] [phone] * (ABNORMAL) POCT Urinalysis (04/02/2025 11:57 [...] Media Lot # [id number] Lot# Expiration Date [id number] Urine 04/02/2025 11:5 7 AM EDT Carolina Mayo MD POINT OF CARE OZZY T ENTER/EDIT ORDERABLES Final Result * Albumin, Random Urine W/Creatinine (04/02/2025 11:40 AM EDT) Creatinine, Urine 491.28 mg/dL [facility] Microalbumin Urine 54.0 mg/L [facility] Microalbum Creatinine Ratio Ur 10.9 <30 ug/mg cr [facility] Comment:Albumin/Creatinine R atio Reference Ranges: Normal: < 30 ug/mg creatinine Microalbuminuria: 30 - 300 ug/mg creatinineClinical Albuminuria: > 300 ug/mg creatinine Urine (Urine, Random) 04/02/2025 11:40 AM EDT 04/02/2025 4:39 PM EDT Carolina Mayo MD LAB URINE ORDERAB LES Final Result [facility] [address] [place] [phone] * Chlamydia/Gonorrhea, Urine ([place] [facility]) (03/12/2025) Chlamydia, Urine Negative Negative, Indeterminate, None Detected, Invalid, Specimen unsatisfactory for evaluation, Weakly Positive, 2+ Gonorrhea, Urine Negative Negative, Indeterminate, None Detected, Invalid, Specimen unsatisfactory for evaluation, Weakly Positive, 2+ Urine Historical Provider LAB URINE ORDERABLES Edit ed Result - Final * Chlamydia/Gonorrhea Throat Swab ([place] [facility]) (2025) Chlamydia Throat Swab Negative Gonorrhea Throat Swab Negative Swab 2025 Historical Provider LAB MICROBIOLOGY - GENERA L ORDERABLES Final Result from Last 3 Months Insurance [facility] C3 HSN PARTIAL Care Teams Vp Compliance Relationship Specialty Start Date End Date Carolina Anders MD [address] [place] [phone] PCP - General Internal Medicine 01/09/23
--- OUTSIDE RECORDS SUMMARY | 2025-04-28 09:42 | XMS_ITS | Encounter Summary ---
Author Organization [employer] Address [address] [place] [address] Care Team Providers Care Transportation Superintendent Name Role Phone Carolina Anders MD Primary Care Pro vider Encounter Details Date Type Department Care Team ([facility] st Contact Info) Description 04/27/2025 Results Follow-Up [facility] CH[facility] MED & PEDS [address] [place], [place] [phone] Larry Alejandro MD [address] [place] [address] POCT rapid strep A manually resulted, RPR (Monitor) with Reflex to Titer, Herpes Simplex Virus Culture with Reflex Typing Social History Tobacco Use Types Packs/Day Years [...] encounter Miscellaneous Notes * Telephone Encounter - Cara Snider RN - 04/27/2025 4:34 PM EDT TC placed to pt and he was notified of the message below ----- Message from Larry Alejandro MD sent at 04/27/2025 4:18 PM EDT ----- Please notify Monster that his mouth herpes virus test was negative and blood test for syphilis was negative. Thanks Villa ----- Message ----- From: Milind Price [place] Sent: 04/21/2025 3:09 PM EDT To: Larry Alejandro MD documented in this encounter Plan of Treatment Upcoming Encounters Date Type Department Care Team (Late st Contact Info) Description 07/07/2025 10:45 AM EST Office Visit [facility] MEDICINE [address] [place] [phone] Carolina Anders MD [address] [place], [place] [phone] documented as of this encounter Visit Diagnoses Not on filedocumented in this encounter Additional Health Concerns Assessment Noted Time PHQ-9 Depression Total Score: 8 02/27/20 25 11:54 AM EDT documented as of this encounter Care Teams Transportation Superintendent Relationship Specialty Start Date End Date Carolina Anders MD [address] [place] [phone] PCP - General Internal Medicine 01/09/23 documented as of this encounter
--- OUTSIDE RECORDS SUMMARY | 2025-04-28 09:42 | XMS_ITS | Encounter Summary ---
Author Organization [employer] Address [address] [place] [address] 7 [place] [address] Care Team Providers Care Financial Aid Advisor Name Role Phone Carolina Anders MD Primary Care Pro vider Reason for Visit * Reason Onset Date Comments Results 04/06/2025 Encounter Details Date Type Department Care Team ([facility] st Contact Info) Description 04/06/2025 Results Follow-Up [facility] [address] [place] [address] Carolina Anders MD [address] [place] [address] POCT Urinalysis, Chlamydia/N. Gonorrhoeae RNA, TMA, Rectal, Chlamydia/N. Gonorrhoeae RNA, TMA, Throat, Additional followed-up results: 15 Social History Tobacco Use Types Packs/Day Years [...] Encounter Note - Carolina Mayo MD - 04/23/2025 2:44 PM EDT I called pt and informed from all labs only noted slight elevated LFTs otherwise rest of labs normal Still pd to get done UA ,urine ch/gn,mycoplasma and ureaplasma --advise pt to get labs done at Lab--- pt denies excess ETOh,tylenol not NSAIDS -states he has not received yet info for urologist apt --I gave info today by phone so he can call and schedule apt ( [facility] [address] [facility] [address] Tel. [phone]) ---- -will repeat LFTs at next apt w me -pt in waiting list probable to be called in next 6 to 8 weeks * Telephone Encounter - Herminia Robins RN - 04/23/2025 2:02 PM EDT Telephone call placed to [facility]. Spoke with Nadja who reported that pt didnot give urine and that there is a note in his lab encounter that says they tried but pt stated he had already voided. They have no urine specimen to run it off of so he would have to come in to provide urine sample. Telephone call placed to pt. Informed very important urine given for mycoplasma/ureaplasma panel CYNDIE. They state will come next Saturday to give urine. They inquired about reactive Hep A and Hep B titers. Explained vaccine immunity and that it being reactive means he has immunity which is a good thing. Pt verbalized understanding and denied having any further questions or concerns at this time. Please can you check if lab collected urine for mycoplasma and ureaplasma ordered at last apt ,I got some urine results but not that Thanks * Result Encounter Note - Carolina Mayo [...] he tried to get labs done in [place] but was denied due to insurance issues. Advised pt toget labs done CYNDIE at [facility] Pt verbalized understanding, stated he will go tomorrow after cardiology appt. Informed him will call back with any updates to POC. Reviewed [facility] hrs. Pt verbalized understanding. * Result Encounter [...] at this point. She said in the [facility] [place], they cannot see the mycoplasma/ureaplasma [...] Description 07/07/2025 10:45 AM EST Office Visit [facility] [address] [place] [id number] Carolina Anders MD [address] [place] [id number] documented as of this encounter Visit Diagnoses Not on filedocumented in this encounter Additional Health Concerns Assessment Noted Time PHQ-9 Depression Total Score: 8 02/27/20 25 11:54 AM EDT documented as of this encounter Care Teams Financial Aid Advisor Relationship Specialty Start Date End Date Carolina Anders MD [address] [place] [id number] PCP - General Internal Medicine 01/09/23 documented as of this encounter
[2025-04-28 12:20] LABS: Appearance Urine Turbid; Glucose Urine UA Negative (Negative); PH 6.0 (5.0-9.0); Specific Gravity - Urine 1.025 (1.005-1.025)
[2025-04-28 12:25] LABS: UACC Culture Trigger YES
== END 2025-04-28 08:40 | disposition home or self-care (01) ==
LOC: HO.HHCL 08:39
PROVIDERS: PCP Student in an Organized Health Care Education/Training Program; Visit Provider Student in an Organized Health Care Education/Training Program
DX: R30.0 Dysuria (principal); N50.811 Right testicular pain
CPT/HCPCS: 81001; 87086

== ENCOUNTER → 2025-05-19 07:52 | Outpatient (REF) | payer MEDICAID, SELFPAY ==
--- NOTE | 2025-05-19 07:55 | CA_ITS ---
Transthoracic Echocardiogram Patient (Last, First, Middle): Monster Gutierrez, Gender: M Date of : 2000 Age: 25 Procedure Date: 05/19/2025 Procedure Type: Transthoracic Echocardiogram Location: OP Height: 172.72 cm Weight: 70.76 kg BSA: 1.84 m2 Heart Rate: 72 bpm BP: 110 / 66 mmHg Edge Cutting Machine Operator: TO Referring MD: [facility] ATTENDANT-C [employer] Air Brake Fitter: Andrew Ascencio MD Symptoms: I42.8 - Other cardiomyopathies Study Quality: Adequate ECG Rhythm: Sinus Conclusions: - 1. Mildly reduced LV ejection fraction 45-50% 2. Normal cardiac valvular Dopplers 3. No gross pericardial effusion Findings Procedure Information Contrast agent, definity, is being given per protocol without apparent complications. Left Ventricle Normal left ventricular cavity size. There is normal left ventricular wall thickness. The left ventricular systolic function is mildly decreased. The visually estimated ejection fraction is between 45-50%. Spectral Doppler is indicative of a normal filling pattern. Peak GLS is -12.6%, which is moderately reduced Right Ventricle Normal right ventricular cavity size and systolic function. Atria Both atria are normal in size. There is no evidence of interatrial shunt. Aortic Valve Normal aortic valve structure and function. There is no aortic valve stenosis. There is no aortic valve regurgitation. Mitral Valve Normal mitral valve structure and function. There is trace mitral valve regurgitation. There is no mitral valve stenosis. Pulmonic Valve The pulmonic valve is likely normal. Tricuspid Valve Tricuspid regurgitation envelope is inadequate for calculation of right ventricular systolic pressure. Normal right atrial pressure. Great Vessels All visible segments of the aorta are normal in size. The pulmonary artery was not well visualized. Venous The inferior vena cava is normal in size and collapses greater than 50% with inspiration. Pericardium/Pleural There is no evidence of pericardial effusion. Measurements 2D Linear Measurements IVSd: 0.73 0.6-0.9/0.6-1.0 cm LVIDd: 5.64 3.9-5.3/4.2-5.9 cm LVIDd Index: 3.07 2.4-3.2/2.2-3.1 cm/m2 LVIDs: 4.20 2.0-3.6 cm LVPWd: 0.60 0.7-1.1 cm LA Diam: 3.20 2.7-3.8/3.0-4.0 cm LAIDs Index: 1.74 1.5-2.3 cm/m2 LV Mass: 164.66 67-162/88-224 g LV Mass Index: 89.49 43-95/49-115 g/m2 LVOT Diam: 2.30 3.0+(-)1.3 cm 2D Systolic Function EF 4C: 47.30 >55% EF 2C: 48.50 >55% EF BiP: 47.50 >55% Mitral Valve MV Pk E: 0.58 MV PK A: 0.46 MV Decel Time: 174.00 E/A: 1.30 E'Lateral: 12.60 E'Medial: 8.70 E/E' Med: 6.70 E/E' Lat: 4.60 PHT: 51.00 MVA PHT: 4.31 Decel [place]: 3.35 Aortic Valve AoV Pk Roberto: 1.03 AoV Mn Roberto: 0.72 AoV VTI: 0.19 AoV Pk Grad: 4.00 Aov Mn Grad: 2.00 RICHARDSON Cont.VTI: 2.91 LVOT LVOT Pk Roberto: 0.70 LVOT Mn Roberto: 0.51 LVOT VTI: 0.14 LVOT Pk Grad: 2.00 LVOT Mn Grad: 1.00 LVOT Diam: 2.30 LVOT Area: 4.15 Diastolic Function MV Pk E: 0.58 MV Pk A: 0.46 E/A: 1.30 E'Medial: 8.70 E/E' Med: 6.70 E' Laterial: 12.60 E/E' Lat: 4.60 Right Ventricle TAPSE (mm): 20.40 TVS' Roberto: 11.30 Tricuspid Valve RA Press: 3.00 Great Vessels Aorta Sinus of Valsalva: 2.89 2.0-3.5 cm Ao Asc: 2.50 2.1-3.4 cm Updated in Other Vendor System with Status of Final Andrew Ascencio MD electronically signed on 05/19/2025 1:24:55 PM with status of Final
--- OUTSIDE RECORDS SUMMARY | 2025-05-19 07:55 | XMS_ITS | Clinical Summary ---
Author Organization [employer] Address [address] [place] [address] Care Team Providers Care Library Acquisitions Technician Name Role Phone Carolina Anders MD [...] by mouth in the morning. 90 tablet 4 Active cloNIDine (Catapres) 0.1 MG tablet Take 1 tablet (0.1 mg) by mouth if needed each day for high blood pressure. 30 tablet 1 4 Active emtricitabine-te nofovir DF (Truvada) 200-300 MG tabletIndication s:On pre-exposure prophylaxis for HIV Take 1 tablet by mouth Once per day. 90 tablet 5 06/09/20 25 Active psyllium (Reguloid) 28.3 % powder Take 12 g (3.4 g of fiber) by mouth 2 times daily. 369 g 2 5 Active EPINEPHrine (Epipen) 0.3 MG/0.3ML injection syringe Inject 0.3 mL (0.3 mg) as directed 1 (one) time for 1 dose. Inject into upper leg. Call 911 after use. 2 each 5 Active nicotine (Nicoderm CQ) 14 MG/24HR patch Place 1 patch on the skin 1 (one) time each day at the same time. 42 patch 5 06/02/20 25 Active nicotine (Nicoderm CQ) 7 MG/24HR patch Place 1 patch on the skin 1 (one) time each day at the same time. 14 patch 5 05/21/20 25 Active nicotine polacrilex (Commit) 2 MG lozenge Dissolve 1 lozenge (2 mg) in the mouth if needed for smoking cessation. 100 lozenge 5 05/21/20 25 Active triamcinolone (Kenalog) 0.1 % oral paste Use in the mouth or throat 2 times daily. prn 5 g 1 5 04/21/20 26 Active acetaminophen (Tylenol) 500 MG tablet Take 2 tablets (1,000 mg) by mouth every 6 (six) hours if needed for moderate pain or fever for up to 25 doses. 50 tablet 5 Active ibuprofen 400 MG tablet Take 1 tablet (400 mg) by mouth every 6 (six) hours if needed for moderate pain or fever for up to 30 doses. 30 tablet 5 Active valACYclovir (Valtrex) 500 MG tablet Take 1 tablet (500 mg) by mouth 2 times daily for 3 days. 6 tablet 5 04/24/20 25 Active Problems Problem Noted Date Diagnosed Date Uncomplicated asthma, unspec ified asthma severity, unspecified whether persistent 04/02/2025 Testicular pain, right 04/02/2025 Recurrent major depressive disorder 06/04/2024 ADHD (attention deficit hype ractivity disorder), combined type 07/23/2023 07/23/2023 Generalized anxiety disorder 07/23/2023 High risk sexual behavior 07/23/2023 Bipolar 1 disorder, depressed ([facility]) 02/08/20 23 Assessment & Plan (06/05/2024 7:08 AM EDT): [...] optimize psych tx -has already referral w informatics nurse x 04/25/2023 -advise to continue apt to [...] optimize psych tx -has already referral w informatics nurse x 04/25/2023 -advise to continue apt to r/o cardiac etiology History of penicillin allergy 02/07/2023 Assessment & Plan (04/13/2023 11:46 AM EDT): -referred to stonework supervisor x hx of PNC allergy to clarify - gave today info for pt to call. Assessment & Plan (02/07/2023 7:23 PM EDT): -referred today to stonework supervisor x hx of PNC allergy to clarify [...] organization. Date Type Department Care Team Description 05/04/2025 Orders Only [facility] [address] [place] [id number] Carolina Anders MD Dysuria (Primary Dx) 04/30/2025 Results Follow-Up [address] [address] Herminia Robins RN Culture, Urine, Routine 04/28/2025 9:00 AM EDT Office Visit [facility] [address] [place] [address] Charli, Alicia, OD Regular astigmatism, bilateral (Primary Dx) 04/28/2025 Orders Only [address] [address] Carolina Anders MD 04/28/2025 Travel 04/27/2025 Results Follow-Up [facility] [address] [place], [place] [phone] Larry Alejandro MD POCT rapid strep A manually resulted, RPR (Monitor) with Reflex to Titer, Herpes Simplex Virus Culture with Reflex Typing 04/21/2025 3:20 PM EDT Office Visit [facility] [address] [place] [address] Larry Alejandro MD Mouth lesion (Primary Dx); Other tobacco product nicotine dependence, uncomplicated; Sore throat 04/21/2025 Orders Only GENERIC EXTERNAL DATA DEPARTMENT Provider, Generic External Data 04/21/2025 Travel 04/19/2025 Orders Only [address] [address] Carolina Anders MD Testicular pain, right (Primary Dx) 04/16/[address] [address] Carolina Anders MD Dec Recall 04/09/[address] [address] Zonia Mike, [facility] [facility] Card[facility] F/U 04/06/2025 Results Follow-Up [address] [address] Carolina Anders MD POCT Urinalysis, Chlamydia/N. Gonorrhoeae RNA, TMA, Rectal, Chlamydia/N. Gonorrhoeae RNA, TMA, Throat, Additional followed-up results: 16 04/02/2025 11:15 AM EDT Office Visit [facility] [address] [place] [address] Carolina Anders MD Dysuria (Primary Dx); Testicular pain, right; Subjective fever; Health care maintenance; Uncomplicated asthma, unspecified asthma severity, unspecified whether persistent; Bipolar 1 disorder, depressed ([facility]/HCC); Syncope, unspecified syncope type; High risk homosexual behavior 04/02/2025 [facility] [address] [place] [address] Carolina Anders MD us scrotum order 04/02/2025 Travel 04/01/2025 Travel 04/01/[address] [address] Carolina Anders MD chartprep 03/17/2025 Orders Only [address] [address] Gege Carrera RN [address] [address] Sheri De La Fuente, [place] On pre-exposure prophylaxis for HIV (Primary Dx) 2025 Orders Only [address] [address] Sheri De La Fuente, [place] On pre-exposure prophylaxis for HIV (Primary Dx) 2025 Travel 03/08/2025 9:00 AM EDT Office Visit [facility] [address] [place] [address] Janice Porras, OD Regular astigmatism, bilateral (Primary Dx); Normal eye exam 03/08/2025 Travel 03/05/2025 Telephone [facility] [address] [place] [address] Carolina Anders MD 03/04/[address] [address] Carolina Anders MD chart prep 02/26/2025 Patient Outreach [address] [address] Carolina Anders MD Care Coordination 02/26/2025 Patient Outreach [facility] [address] [place] [address] Carolina Anders MD Pre-visit Planning (SDOH screening [...] Upcoming Encounters Date Type Department Care Team ([facility] st Contact Info) Description 07/07/2025 10:45 AM EST Office Visit [facility] [address] [place], [place] [phone] Carolina Anders MD [address] [place], [place] [phone] Health Maintenance Due Date Last Done Comments [...] Procedure Name Priority Date/Time Associated Diagnosis Comments URINALYSIS, COMPLETE, WITH REFLEX TO CULTURE Routine 04/28/2025 8:42 AM EDT Dysuria Testicular pain, right CULTURE, URINE, ROUTINE Routine 04/28/2025 8:42 AM EDT BASIC METABOLIC PANEL Routine 04/21/2025 3:48 PM [...] from Last 3 Months Results * (ABNORMAL) Urinalysis, Complete, with Reflex to Culture (04/28/2025 8:42 AM EDT) Color Urine Ralls [facility] Appearance Urine Turbid [facility] PH 6.0 5.0 - 9.0 [facility] Glucose Urine UA Negative Negative mg/dL [facility] Urine Blood Negative Negative [facility] Specific [place] - Urine 1.025 1.005 - 1.025 [facility] Urine Protein Trace Neg-Trace mg/dL [facility] Urine Ketones Trace Negative mg/dL [facility] Nitrite Urine Negative Negative [facility] Leukocyte Esterase Urine Negative Negative [facility] RBC Urine 0-2 0 - 2 /HPF [facility] Urine WBC 6-10(A) 0 - 5 /HPF [facility] Urine Squamous Epithelial Cell 0-2 0 - 2 /HPF [facility] Urine Bacteria None Seen None Seen [facility] Hyaline Casts, Urine 0-2 0 - 2 /LPF [facility] Urine 04/28/2025 8:42 AM EDT 04/28/2025 11:43 AM EDT Narrative [facility] - 04/28/2025 12:25 PM EDT Urine, Clean Catch us Carolina Mayo MD LAB URINE ORDERAB LES Final Result Performing Organization Address [facility]/ZIP Co de Phone Number [facility] [address] [place] [phone] * Culture, Urine, Routine (04/28/2025 8:42 AM EDT) Urine Urine specimen obtained by clean catch procedure / Unknown 04/28/2025 8:42 AM EDT 04/28/2025 12:53 PM EDT Comment:UACC Narrative [facility] - 04/29/2025 10:52 AM EDT Urine Culture No growth. Specimen Source: Urine clean catch Carolina Mayo MD LAB MICROBIOLOGY - GENERAL ORDERABLES Final Result Performing Organization Address [facility] Co de Phone Number [facility] [address] [place] [phone] * RPR (Monitor) with Reflex to??Titer (04/21/2025 3:48 PM EDT) Only the most recent of2 resultswithin the time period is included. RPR (Monitor) w/Refl Titer NON-REACTI VE NON-REACT ALPA [facility] Comment:THIS TEST WAS PERFOR MED AT:[facility] [place] [phone] RUANO MD Rapid Plasma Reagin Ab Titer TNP [facility] Blood Venous blood specimen / Unknown 04/21/2025 3:48 PM EDT 04/21/2025 6:17 PM EDT us Larry Alejandro MD LAB BLOOD ORDERABLES Final Resul t Performing Organization Address [facility] Co de Phone Number [facility] [address] [place] [address] [phone] * (ABNORMAL) Basic Metabolic Panel (04/21/2025 3:48 PM EDT) Sodium 142 135 - 145 mmol/L [facility] Potassium 3.8 3.3 - 5.1 mmol/L [facility] Chloride 105 96 - 108 mmol/L [facility] Carbon Dioxide 30(H) 22 - 29 mmol/L [facility] Anion Gap 11(L) 12 - 20 [facility] Urea Nitrogen (BUN) 9 9 - 16 mg/dL [facility] Creatinine, Serum 0.80 0.5 - 1.4 mg/dL [facility] Estimated Glomerular Filt Rate >60 [facility] Comment:Chronic Kidney Disea se: Estimated GFR < 60 mL/min/1.25u1Xpheyf Kidney Disease: Estimated GFR < 15 mL/min/1.73m2 Glucose 75 60 - 115 mg/dL [facility] Calcium 9.3 8.4 - 10.2 mg/dL [facility] 04/21/2025 3:48 PM EDT 04/21/2025 6:17 PM EDT us Generic External Data Provider LAB BLOOD ORDERAB LES Final Result Performing Organization Address City/[facility]/ZIP Co de Phone Number [facility] [address] [place] [phone] * Herpes Simplex Virus Culture with Reflex Typing (04/21/2025 3:41 PM EDT) HSV Culture/Type SEE NOTE [facility] Comment:HERPES SIMPLEX VIRUS CULTURE W/RFL TO TYPING Micro Number: [id number] Test Status: Final Specimen Source: Not given Specimen Quality: Adequate HSV Culture: Not IsolatedTHIS TEST WAS PERFORMED AT:[employer] [id number] MERATI,MD Swab (Lesion) 04/21/2025 3:4 1 PM EDT 04/21/2025 5:10 PM EDT Larry Alejandro MD LAB MICROBIOLOGY - GENERAL ORDER LEIA Final Result Performing Organization Address City/[facility]/ZIP Co de Phone Number [facility] [address] [place] [phone] * POCT rapid strep A manually resulted (04/21/2025 3:09 PM EDT) [facility] Rapid Strep A Screen Negative Negative, None Detected Swab 04/21/2025 3:09 PM EDT Larry Alejandro MD POINT OF CARE TEST ENTER/EDIT OR DERABLES Final Result * TSH with Reflex to Free T4 (04/20/2025 9:43 AM EDT) [facility] TSH reflex Free T4 1.47 0.32 - 4.0 uIU/mL [facility] Blood 04/20/2025 9:43 AM EDT 04/20/2025 11:20 AM EDT Carolina Mayo MD LAB BLOOD ORDERAB LES Final Result [facility] [address] [place] [phone] * (ABNORMAL) CBC auto differential (04/20/2025 9:43 AM EDT) [facility] White Blood Count 7.1 4.8 - 10.8 X10*3/uL [facility] Red Blood Count 4.99 4.60 - 5.80 X10*6/uL [facility] Hemoglobin 15.2 14.0 - 18.0 g/dl [facility] Hematocrit 44.9 42.0 - 52.0 % [facility] Mean Corpuscular Volume 90.0 80.0 - 98.0 fL [facility] Mean Corpuscular Hemoglobin 30.5 27.0 - 33.0 pg [facility] Mean Corpuscular HGB Conc 33.9 31.0 - 36.0 g/dl [facility] Red Cell Distribution Width 11.8 11.0 - 16.0 % [facility] Platelet Count 226 160 - 400 X10*3/uL [facility] Mean Platelet Volume 9.8 9.4 - 12.4 fL [facility] Neutrophils Percent Auto 29.8(L) 45 - 73 % [facility] Imm Gran Pct Auto 0.3 0.0 - 0.4 % [facility] Lymphocytes Percent Auto 58.8(H) 20 - 40 % [facility] Monocytes Percent Auto 9.3 2 - 11 % [facility] Eosinophils Percent Auto 0.8 0 - 4 % [facility] Basophils Percent Auto 1.0 0 - 2 % [facility] NRBC Pct Auto 0.0 0.0 - 0.2 /100WBC [facility] Neutrophils Absolute Auto 2.1 2.0 - 8.3 x10*3/uL [facility] Imm Gran Abs Auto 0.02 0.00 - 0.03 X10*3/uL [facility] Lymphocytes Absolute Auto 4.2 1.2 - 4.9 X10*3/uL [facility] Monocytes Absolute Auto 0.7 0.1 - 1.2 X10*3/uL [facility] Eosinophils Absolute Auto 0.1 0.0 - 0.4 X10*3/uL [facility] Basophils Absolute Auto 0.1 0.0 - 0.2 X10*3/uL [facility] NRBC Abs Auto 0.000 0.0 - 0.012 X10*3/uL [facility] Blood Venous blood specimen / Unknown 04/20/2025 9:43 AM EDT 04/20/2025 11:20 AM EDT us Carolina Mayo MD LAB BLOOD ORDERAB LES Final Result [facility] [address] [place] [phone] * Hepatitis C Antibody with Reflex to HCV, RNA, Quantitative, Real-Time PCR (04/20/2025 9:43 AM EDT) Hepatitis C Antibody Nonreactive Nonreactive [facility] Comment:Antibodies to HCV no t detected; does not exclude early acuteHCV infection. Blood Venous blood specimen / Unknown 04/20/2025 9:43 AM EDT 04/20/2025 11:20 AM EDT us Carolina Mayo MD LAB BLOOD ORDERAB LES Final Result Performing Organization Address City/[facility]/ZIP Co de Phone Number [facility] [address] [place] [phone] * Hepatitis A Antibody, Total (04/20/2025 9:43 AM EDT) Hepatitis A Antibody IgG REACTIVE Nonreactive [facility] Comment:The presence of IgG anti-HAV implies past HAV infection(recent or distant) or vaccination against HAV. Blood Venous blood specimen / Unknown 04/20/2025 9:43 AM EDT 04/20/2025 11:20 AM EDT us Carolina Mayo MD LAB BLOOD ORDERAB LES Final Result Performing Organization Address [facility] Co de Phone Number [facility] [address] [place] [phone] * Hepatitis B surface antigen, EIA (04/20/2025 9:43 AM EDT) Hepatitis B Surface Ag Negative Negative [facility] Blood Venous blood specimen / Unknown 04/20/2025 9:43 AM EDT 04/20/2025 11:20 AM EDT us Carolina Mayo MD LAB BLOOD ORDERAB LES Final Result Performing Organization Address [facility] Co de Phone Number [facility] [address] [place] [phone] * Hepatitis B Core Antibody, Total (04/20/2025 9:43 AM EDT) Hepatitis B Core Antibody Nonreactive Nonreactive [facility] Blood Venous blood specimen / Unknown 04/20/2025 9:43 AM EDT 04/20/2025 11:20 AM EDT Carolina Mayo MD LAB BLOOD ORDERAB LES Final Result Performing Organization Address [facility]/ZIP Co de Phone Number [facility] [address] [place] [phone] * HIV-1 RNA, Quantitative, Real-Time PCR (04/20/2025 9:43 AM EDT) [facility] HIV RNA PCR Qn Copies NOT DETECTED NOT DETECTED copies/mL [facility] HIV RNA PCR Qn Log Copies NOT DETECTED NOT DETECTED [facility] Comment:Result Units: Log co pies/mLThis test was performed using Real-Time Polymerase ChainReaction.Reportable Range: 20 copies/mL to 10,000,000 copies/mL(1.30 log copies/mL to 7.00 log copies/mL).THIS TEST WAS PERFORMED AT:[facility] [place] [phone] RUANO MD Blood Venous blood specimen / Unknown 04/20/2025 9:43 AM EDT 04/20/2025 11:20 AM EDT Carolina Mayo MD LAB BLOOD ORDERAB LES Final Result Performing Organization Address [facility] Co de Phone Number [facility] [address] [place] [phone] * HIV-1/2 Antigen and Antibodies, Fourth Generation, with Reflexes (04/20/2025 9:43 AM EDT) Pathologist [facility] HIV AB/AG Nonreactive Nonreactive [facility] Comment:HIV-1 p24 Ag and/or HIV-1/HIV-2 Ab not detected.A test result that is nonreactive does not exclude thepossibility of exposure to or infection with HIV-1 and/orHIV-2. Nonreactive results in this assay for individualswith prior exposure to HIV-1 and/or HIV-2 may be due toantigen and antibody levels that are below the limit ofdetection of this assay.The [facility] HIV Ag/Ab Combo assay result andsupplemental assay results should be interpreted inconjunction with the patient's clinical presentation,history and other laboratory results. If the results areinconsistent with clinical evidence, additional testing issuggested to confirm the result. Blood Venous blood specimen / Unknown 04/20/2025 9:43 AM EDT 04/20/2025 11:20 AM EDT Carolina Mayo MD LAB BLOOD ORDERAB LES Final Result Performing Organization Address [facility]/ZIP Co de Phone Number [facility] [address] [place] [phone] * Hepatitis B Surface Antibody, Qualitative (04/20/2025 9:43 AM EDT) ~Hepatitis B Surface Antibody REACTIVE Nonreactive [facility] Comment:REACTIVE: > 11.99 mI U/mL Blood Venous blood specimen / Unknown 04/20/2025 9:43 AM EDT 04/20/2025 11:20 AM EDT us Carolina Mayo MD LAB BLOOD ORDERAB LES Final Result Performing Organization Address [facility] Co de Phone Number [facility] [address] [place] [phone] * Hemoglobin A1c (04/20/2025 9:43 AM EDT) Hemoglobin A1c 4.3 <6.0 % [facility] Comment:Hemoglobin A1C Refer ence Range Adults: 4.8 - 6.0 % Non diabetic: < 6.0 % Goal: < 7.0 %Additional Action Suggested: > 8.0 %Note: Hemoglobin A1c results are invalid for patients with abnormal amounts of HbF. Blood transfusions may impact the HbA1c concentration in the patient sample. Estimated Average Glucose 77 mg/dL [facility] Comment:eAG = Estimated ave rage glucose which is %A1C expressed asaverage glucose, using the formula of the [id number] Glucose study (ADAG), Diabetes Care, Vol.31,#8,Mar. 2007 Blood Venous blood specimen / Unknown 04/20/2025 9:43 AM EDT 04/20/2025 11:20 AM EDT us Carolina Mayo MD LAB BLOOD ORDERAB LES Final Result [facility] [address] [place], [place] [phone] * (ABNORMAL) Comprehensive Metabolic Panel (04/20/2025 9:43 AM EDT) Sodium 141 135 - 145 mmol/L [facility] Potassium 3.8 3.3 - 5.1 mmol/L [facility] Chloride 106 96 - 108 mmol/L [facility] Carbon Dioxide 30(H) 22 - 29 mmol/L [facility] Anion Gap 9(L) 12 - 20 [facility] Urea Nitrogen (BUN) 9 9 - 16 mg/dL [facility] Creatinine, Serum 0.75 0.5 - 1.4 mg/dL [facility] Estimated Glomerular Filt Rate >60 [facility] Comment:Chronic Kidney Disea se: Estimated GFR < 60 mL/min/1.73n4Palfdl Kidney Disease: Estimated GFR < 15 mL/min/1.73m2 Glucose 81 60 - 115 mg/dL [facility] Calcium 9.5 8.4 - 10.2 mg/dL [facility] Bilirubin, Total 0.8 0.0 - 1.0 mg/dL [facility] Aspartate Amino Transferase 49(H) 5 - 37 U/L [facility] Alanine Aminotransferase 52(H) 0 - 40 U/L [facility] Total Protein 7.7 6.5 - 8.0 g/dL [facility] Albumin Level 4.8 3.5 - 5.0 g/dL [facility] Alkaline Phosphatase 135(H) 39 - 117 U/L [facility] Blood Venous blood specimen / Unknown 04/20/2025 9:43 AM EDT 04/20/2025 11:20 AM EDT us Carolina Mayo MD LAB BLOOD ORDERAB LES Final Result Performing Organization Address City/State/[facility] Co de Phone Number [facility] [address] [place] [phone] * US Scrotum (04/16/2025 4:05 PM EDT) Anatomical Region Laterality Modality Body Ultrasound 04/16/2025 4:05 PM EDT Narrative 04/16/2025 5:10 PM EDT [address] [address] Ultrasound Report Signed Patient: Monster Gutierrez MR#: [id number] : 2000 Acct:[id number] Age/Sex: 25 / M ADM Date: 04/16/25 Loc: . Attending Dr: Carolina Mayo MD Ordering Physician: Carolina Anders MD Date of Service: 04/16/25 Procedure(s): US scrotum Accession Number(s): [id number] cc: Carolina Anders MD Reason for Exam: [...] 04/16/25 1707 DD/ 1605 TD/TT: 04/16/25 1615 Radio Time Salesperson: Procedure Note Donotuseinterpreter, Image - 04/16/2025 [place] [address] Ultrasound Report Signed Patient: Monster GutierrezMR#: [id number] : 2000Acct:[id number] Age/Sex: 25 M Date: 04/16/25 Loc: HO.US Attending Dr: Carolina Mayo MD Ordering Physician: Carolina Anders MD Date of Service: 04/16/25 Procedure(s): US scrotum Accession Number(s): [id number] cc: Carolina Anders MD Reason for Exam: [...] 04/16/25 1707 DD/ 1605 TD/TT: 04/16/25 1615 Radio Time Salesperson: us Carolina Mayo MD IMG US PROCEDURES Final Result * Trichomonas RNA (Urine/Vaginal) (04/02/2025 12:08 PM EDT) Trichomas vaginalis RNA, QL, TMA NOT DETECTED NOT DETECTED [facility] Comment:For additional infor mation, please refer [email or web address]/[email or web address](This link is being provided for informational/educational purposes only.)THIS TEST WAS PERFORMED AT:[facility] [place] [phone] RUANO MD Swab (Urine, Random) 04/02/2025 12:08 PM EDT 04/02/2025 4:16 PM EDT us Carolina Mayo MD LAB BODY FLUIDS A ND STOOLS ORDERABLES Final Result [facility] [address] [place] [phone] * Chlamydia/N. Gonorrhoeae RNA, TMA, Throat (04/02/2025 11:59 AM EDT) C. Trachomatis RNA TMA, Throat NOT DETECTED NOT DETECTED [facility] N. gonorrhoeae RNA TMA, Throat NOT DETECTED NOT DETECTED [facility] Swab Structure of anterior region of neck / Unknown 04/02/2025 11:59 AM EDT 04/02/2025 1:18 PM EDT us Carolina Mayo MD LAB MICROBIOLOGY - GENERAL ORDERABLES Final Result [facility] [address] [place] [phone] * Chlamydia/N. Gonorrhoeae RNA, TMA, Rectal (04/02/2025 11:59 AM EDT) C.Trachomatis RNA TMA, Rectal NOT DETECTED NOT DETECTED [facility] N.Gonorrhoeae RNA TMA, Rectal NOT DETECTED NOT DETECTED [facility] Swab Anal structure / Unknown 04/02/2025 11:59 AM EDT 04/02/2025 1:18 PM EDT us Carolina Mayo MD LAB MICROBIOLOGY - GENERAL ORDERABLES Final Result Performing Organization Address City/[facility]/ZIP Co de Phone Number [facility] [address] [place] [phone] * (ABNORMAL) POCT Urinalysis (04/02/2025 11:57 [...] Media Lot # [id number] Lot# Expiration Date [id number] Urine 04/02/2025 11:5 7 AM EDT Carolina Mayo MD POINT OF CARE OZZY T ENTER/EDIT ORDERABLES Final Result * Albumin, Random Urine W/Creatinine (04/02/2025 11:40 AM EDT) Creatinine, Urine 491.28 mg/dL [facility] Microalbumin Urine 54.0 mg/L [facility] Microalbum Creatinine Ratio Ur 10.9 <30 ug/mg cr [facility] Comment:Albumin/Creatinine R atio Reference Ranges: Normal: < 30 ug/mg creatinine Microalbuminuria: 30 - 300 ug/mg creatinineClinical Albuminuria: > 300 ug/mg creatinine Urine (Urine, Random) 04/02/2025 11:40 AM EDT 04/02/2025 4:39 PM EDT Result [facility] Carolina Mayo MD LAB URINE ORDERAB LES Final Result Performing Organization Address City/State/[facility] Co de Phone Number [facility] [address] [place] [phone] * Chlamydia/Gonorrhea, Urine ([place] [facility]) (03/12/2025) Chlamydia, Urine Negative Negative, Indeterminate, None Detected, Invalid, Specimen unsatisfactory for evaluation, Weakly Positive, 2+ Gonorrhea, Urine Negative Negative, Indeterminate, None Detected, Invalid, Specimen unsatisfactory for evaluation, Weakly Positive, 2+ Urine Result [facility] Historical Nick RAMEY LAB URINE ORDERABLES Edit ed Result - Final * Chlamydia/Gonorrhea Throat Swab ([place] [facility]) (2025) Chlamydia Throat Swab Negative Gonorrhea Throat Swab Negative Swab 2025 us Historical Provider LAB MICROBIOLOGY - GENERA L ORDERABLES Final Result from Last 3 Months Insurance [facility] C3 HSN PARTIAL Care Teams Library Acquisitions Technician Relationship Specialty Start Date End Date Carolina Anders MD [address] [place] [address] [phone] PCP - General Internal Medicine 01/09/23
--- OUTSIDE RECORDS SUMMARY | 2025-05-19 07:55 | XMS_ITS | Encounter Summary ---
Author Organization [employer] Address [address] [facility] [address] [place] [address] Care Team Providers Care Ultrasound Applications Specialist Name Role Phone Carolina Anders MD Primary Care Pro vider Encounter Details Date Type Department Care Team (Late st Contact Info) Description 10/28/2024 Orders Only [facility] [address] [place] [address] Gege Carrera RN Social History Tobacco Use [...] Description 07/07/2025 10:45 AM EST Office Visit [facility] [address] [place] [phone] Carolina Anders MD [address] [place] [phone] documented as of this encounter Visit Diagnoses Not on filedocumented in this encounter Additional Health Concerns Assessment Noted Time PHQ-9 Depression Total Score: 11 024 9:54 AM EDT documented as of this encounter Care Teams Ultrasound Applications Specialist Relationship Specialty Start Date End Date Carolina Anders MD [address] [place] [phone] PCP - General Internal Medicine 01/09/23 documented as of this encounter
--- OUTSIDE RECORDS SUMMARY | 2025-05-19 07:55 | XMS_ITS | Encounter Summary ---
Author Organization [employer] Address [address] [facility] [address] [place] [address] Care Team Providers Care Interior Wirer Name Role Phone Carolina Anders MD Primary Care Pro vider Reason for Visit * Reason Onset Date Comments New Patient Appt 12/21/2022 Encounter Details Date Type Department Care Team (Late Contact Info) Description 12/21/2022 Telephone [facility] [address] [place], [place] [phone] Gonzalez Du MD [address] [place], [place] [phone] New Patient Appt Social History Tobacco Use [...] left voicemail to give a call at [phone]. documented in this encounter Plan of Treatment Upcoming Encounters Date Type Department Care Team (Late Contact Info) Description 07/07/2025 10:45 AM EST Office Visit [facility] [address] [place] [phone] Carolina Anders MD [address] [place], [place] [phone] documented as of this encounter Visit Diagnoses Not on filedocumented in this encounter Care Teams Interior Wirer Relationship Specialty Start Date End Date Carolina Anders MD [address] [place] [address] [phone] PCP - General Internal Medicine 01/09/23 documented as of this encounter
== END ==
LOC: HO.CARD 07:52
PROVIDERS: PCP Internal Medicine; Visit Provider Nurse Practitioner Family
DX: I42.8 Other cardiomyopathies (principal)
CPT/HCPCS: 93306; Q9957

== ENCOUNTER → 2025-05-19 07:55 | Outpatient (BNV) | payer MEDICAID, SELFPAY | PROVIDERS: PCP Internal Medicine; Visit Provider Internal Medicine Cardiovascular Disease | DX: I42.8 Other cardiomyopathies (principal) | CPT/HCPCS: 93306; 93356 ==

== ENCOUNTER 2025-06-04 13:14 | Outpatient (REF) | payer MEDICAID, SELFPAY ==
--- OUTSIDE RECORDS SUMMARY | 2025-06-04 14:20 | XMS_ITS | Encounter Summary ---
Author Organization [employer] Address [address] [facility] [address] [place] [address] Care Team Providers Care Software Development Manager Name Role Phone Carolina Anders MD Primary Care Pro vider Reason for Visit * Reason Onset Date Comments New Patient Appt 12/21/2022 Encounter Details Date Type Department Care Team (Late Contact Info) Description 12/21/2022 Telephone [facility] [address] [place], [place] [phone] Gonzalez Du MD [address] [place], [place] [phone] New Patient Appt Social History Tobacco Use [...] left voicemail to give a call at [phone]. documented in this encounter Plan of Treatment Upcoming Encounters Date Type Department Care Team (Late Contact Info) Description 07/07/2025 10:45 AM EST Office Visit [facility] [address] [place] [phone] Carolina Anders MD [address] [place], [place] [phone] documented as of this encounter Visit Diagnoses Not on filedocumented in this encounter Care Teams Software Development Manager Relationship Specialty Start Date End Date Carolina Anders MD [address] [place] [address] [phone] PCP - General Internal Medicine 01/09/23 documented as of this encounter
--- OUTSIDE RECORDS SUMMARY | 2025-06-04 14:20 | XMS_ITS | Clinical Summary ---
Author Organization [employer] Address [address] [facility] [address] [place] [address] Care Team Providers Care Tracer Powder Blender Name Role Phone Carolina Anders MD Primary [...] at the same time. 42 patch 5 Active nicotine (Nicoderm CQ) 7 MG/24HR patch Place 1 patch on the skin 1 (one) time each day at the same time. 14 patch 5 Active nicotine polacrilex (Commit) 2 MG lozenge Dissolve 1 lozenge (2 mg) in the mouth if needed for smoking cessation. 100 lozenge 5 Active triamcinolone (Kenalog) 0.1 % oral paste [...] to 30 doses. 30 tablet 5 Active Active Problems Problem Noted Date Diagnosed Date Uncomplicated asthma, unspec ified asthma severity, unspecified whether persistent 04/02/2025 Testicular pain, right 04/02/2025 Recurrent major depressive disorder 06/04/2024 ADHD (attention deficit hype ractivity disorder), combined type 07/23/2023 07/23/2023 Generalized anxiety disorder 07/23/2023 High risk sexual behavior 07/23/2023 Bipolar 1 disorder, depressed ([facility]) 02/08/20 23 Assessment & Plan (06/05/2024 7:08 [...] optimize psych tx -has already referral w blueberry grower x 04/25/2023 -advise to continue apt to [...] optimize psych tx -has already referral w blueberry grower x 04/25/2023 -advise to continue apt to r/o cardiac etiology History of penicillin allergy 02/07/2023 Assessment & Plan (04/13/2023 11:46 AM EDT): -referred to psychiatry instructor x hx of PNC allergy to clarify - gave today info for pt to call. Assessment & Plan (02/07/2023 7:23 PM EDT): -referred today to psychiatry instructor x hx of PNC allergy to clarify [...] Department Care Team Description 05/04/2025 Orders Only [facility] [address] [place] [phone] Carolina Anders MD Dysuria (Primary Dx) 04/30/2025 Results Follow-Up [facility] [address] [place] [address] Herminia Robins, [place] Culture, Urine, Routine 04/28/2025 9:00 AM EDT Office Visit [facility] OPTOMETRY [address] [place] [address] Charli, Alicia, OD Regular astigmatism, bilateral (Primary Dx) 04/28/2025 Orders Only [address] [address] Carolina Anders MD 04/28/2025 Travel 04/27/2025 Results Follow-Up [facility] PEDS [address] [place], [place] [phone] Larry Alejandro MD POCT rapid strep A manually resulted, RPR (Monitor) with Reflex to Titer, Herpes Simplex Virus Culture with Reflex Typing 04/21/2025 3:20 PM EDT Office Visit [facility] [address] [place] [address] Larry Alejandro MD Mouth lesion (Primary Dx); Other tobacco product nicotine dependence, uncomplicated; Sore throat 04/21/2025 Orders Only GENERIC EXTERNAL DATA DEPARTMENT Provider, Generic External Data 04/21/2025 Travel 04/19/2025 Orders Only [address] [address] Carolina Anders MD Testicular pain, right (Primary Dx) 04/16/[address] [address] Carolina Anders MD Dec Recall 04/09/[address] [address] Zonia Mike, [place] [facility] Cardiology F/U 04/06/2025 Results Follow-Up [address] [address] Carolina Anders MD POCT Urinalysis, Chlamydia/N. Gonorrhoeae RNA, TMA, Rectal, Chlamydia/N. Gonorrhoeae RNA, TMA, Throat, Additional followed-up results: 16 04/02/2025 11:15 AM EDT Office Visit [address] [address] Carolina Anders MD Dysuria (Primary Dx); Testicular pain, right; Subjective fever; Health care maintenance; Uncomplicated asthma, unspecified asthma severity, unspecified whether persistent; Bipolar 1 disorder, depressed ([facility]); Syncope, unspecified syncope type; High risk homosexual behavior 04/02/2025 [facility] Health Information Management [address] [place] [address] Carolina Anders MD us scrotum order 04/02/2025 Travel 04/01/2025 Travel 04/01/2025 Telephone [facility] [address] [place] [address] Carolina Anders MD chartprep 03/17/2025 Orders Only [facility] [address] [place] [phone] Gege Carrera RN [address] [address] Sheri De La Fuente, [place] On pre-exposure prophylaxis for HIV (Primary Dx) 2025 Orders Only [address] [address] Sheri De La Fuente RN On pre-exposure prophylaxis for HIV (Primary Dx) 2025 Travel 03/08/2025 9:00 AM EDT Office Visit [facility] OPTOMETRY [address] [place] [address] Janice Porras, OD Regular astigmatism, bilateral (Primary Dx); Normal eye exam 03/08/2025 Travel 03/05/2025 Telephone [facility] [address] [place] [address] Carolina Anders MD 03/04/2025 Telephone [facility] [address] [place] [address] Carolina Anders MD chart prep from Last 3 Months Immunizations Immunization Administration [...] Description 07/07/2025 10:45 AM EST Office Visit [facility] [address] [place] [address] Carolina Anders MD [address] [place] [address] Health Maintenance Due Date Last Done Comments [...] Culture (04/28/2025 8:42 AM EDT) Color Urine [place] [facility] Appearance Urine Turbid [facility] PH 6.0 5.0 - 9.0 [facility] Glucose Urine UA Negative Negative mg/dL [facility] Urine Blood Negative Negative [facility] Specific [place] - Urine 1.025 1.005 - 1.025 [facility] Urine Protein Trace Neg-Trace mg/dL [facility] Urine Ketones Trace Negative mg/dL [facility] Nitrite Urine Negative Negative [facility] Leukocyte Esterase Urine Negative Negative [facility] RBC Urine 0-2 0 - 2 /HPF [facility] Urine WBC 6-10(A) 0 - 5 /HPF [facility] Urine Squamous Epithelial Cell 0-2 0 - 2 /HPF [facility] Urine Bacteria None Seen None Seen [facility] Hyaline Casts, Urine 0-2 0 - 2 /LPF [facility] Urine 04/28/2025 8:42 AM EDT 04/28/2025 11:43 AM EDT [facility] - 04/28/2025 12:25 PM EDT Urine, Clean Catch us Carolina Mayo MD LAB URINE ORDERAB LES Final Result [facility] [address] [place] [phone] * Culture, Urine, Routine (04/28/2025 8:42 AM EDT) Urine Urine specimen obtained by clean catch procedure / Unknown 04/28/2025 8:42 AM EDT 04/28/2025 12:53 PM EDT Comment:UACC [facility] - 04/29/2025 10:52 AM EDT Urine Culture No growth. Specimen Source: Urine clean catch us Carolina Mayo MD LAB MICROBIOLOGY - GENERAL ORDERABLES Final Result Performing Organization Address [facility] de Phone Number [facility] [address] [place] [phone] * RPR (Monitor) with Reflex to??Titer (04/21/2025 3:48 PM EDT) Only the most recent of2 resultswithin the time period is included. RPR (Monitor) w/Refl Titer NON-REACTI VE NON-REACT ALPA [facility] Comment:THIS TEST WAS PERFOR MED AT:[employer] [place] [phone] RUANO MD Rapid Plasma Reagin Ab Titer TNP [facility] Blood Venous blood specimen / Unknown 04/21/2025 3:48 PM EDT 04/21/2025 6:17 PM EDT us Larry Alejandro MD LAB BLOOD ORDERABLES Final Resul t Performing Organization Address [facility] Co de Phone Number [facility] [address] [place] [phone] * (ABNORMAL) Basic Metabolic Panel (04/21/2025 3:48 PM EDT) Sodium 142 135 - 145 mmol/L [facility] Potassium 3.8 3.3 - 5.1 mmol/L [facility] Chloride 105 96 - 108 mmol/L [facility] Carbon Dioxide 30(H) 22 - 29 mmol/L [facility] Anion Gap 11(L) 12 - 20 [facility] Urea Nitrogen (BUN) 9 9 - 16 mg/dL [facility] Creatinine, Serum 0.80 0.5 - 1.4 mg/dL [facility] Estimated Glomerular Filt Rate >60 [facility] Comment:Chronic Kidney Disea se: Estimated GFR < 60 mL/min/1.47y5Lqicyo Kidney Disease: Estimated GFR < 15 mL/min/1.73m2 Glucose 75 60 - 115 mg/dL [facility] Calcium 9.3 8.4 - 10.2 mg/dL [facility] 04/21/2025 3:48 PM EDT 04/21/2025 6:17 PM EDT Generic External Data Provider LAB BLOOD ORDERAB LES Final Result Performing Organization Address [facility] Co de Phone Number [facility] [address] [place] [phone] * Herpes Simplex Virus Culture with Reflex Typing (04/21/2025 3:41 PM EDT) Pathologist [facility] HSV Culture/Type SEE NOTE [facility] Comment:HERPES SIMPLEX VIRUS CULTURE W/RFL TO TYPING Micro Number: [id number] Test Status: Final Specimen Source: Not given Specimen Quality: Adequate HSV Culture: Not IsolatedTHIS TEST WAS PERFORMED AT:[employer] [phone] MERATI,MD Swab (Lesion) 04/21/2025 3:4 1 PM EDT 04/21/2025 5:10 PM EDT Larry Alejandro MD LAB MICROBIOLOGY - GENERAL ORDER LEIA Final Result Performing Organization Address [facility] Co de Phone Number [facility] [address] [place] [phone] * POCT rapid strep A manually resulted (04/21/2025 3:09 PM EDT) Pathologist [facility] Rapid Strep A Screen Negative Negative, None Detected Swab 04/21/2025 3:09 PM EDT Larry Alejandro MD POINT OF CARE TEST ENTER/EDIT OR DERABLES Final Result * TSH with Reflex to Free T4 (04/20/2025 9:43 AM EDT) Pathologist [facility] TSH reflex Free T4 1.47 0.32 - 4.0 uIU/mL [facility] Blood 04/20/2025 9:43 AM EDT 04/20/2025 11:20 AM EDT us Carolina Mayo MD LAB BLOOD ORDERAB LES Final Result [facility] [address] [place] [address] [phone] * (ABNORMAL) CBC auto differential (04/20/2025 9:43 AM EDT) White Blood Count 7.1 4.8 - 10.8 X10*3/uL [facility] Red Blood Count 4.99 4.60 - 5.80 X10*6/uL [facility] Hemoglobin 15.2 14.0 - 18.0 g/dl [facility] Hematocrit 44.9 42.0 - 52.0 % [facility] Mean Corpuscular Volume 90.0 80.0 - 98.0 fL [facility] Mean Corpuscular Hemoglobin 30.5 27.0 - 33.0 pg [facility] Mean Corpuscular HGB Conc 33.9 31.0 - 36.0 g/dl [facility] Red Cell Distribution Width 11.8 11.0 - 16.0 % [facility] Platelet Count 226 160 - 400 X10*3/uL [facility] Mean Platelet Volume 9.8 9.4 - 12.4 fL [facility] Neutrophils Percent Auto 29.8(L) 45 - 73 % [facility] Imm Gran Pct Auto 0.3 0.0 - 0.4 % [facility] Lymphocytes Percent Auto 58.8(H) 20 - 40 % [facility] Monocytes Percent Auto 9.3 2 - 11 % [facility] Eosinophils Percent Auto 0.8 0 - 4 % [facility] Basophils Percent Auto 1.0 0 - 2 % [facility] NRBC Pct Auto 0.0 0.0 - 0.2 /100WBC [facility] Neutrophils Absolute Auto 2.1 2.0 - 8.3 x10*3/uL [facility] Imm Gran Abs Auto 0.02 0.00 - 0.03 X10*3/uL [facility] Lymphocytes Absolute Auto 4.2 1.2 - 4.9 X10*3/uL [facility] Monocytes Absolute Auto 0.7 0.1 - 1.2 X10*3/uL [facility] Eosinophils Absolute Auto 0.1 0.0 - 0.4 X10*3/uL [facility] Basophils Absolute Auto 0.1 0.0 - 0.2 X10*3/uL [facility] NRBC Abs Auto 0.000 0.0 - 0.012 X10*3/uL [facility] Blood Venous blood specimen / Unknown 04/20/2025 9:43 AM EDT 04/20/2025 11:20 AM EDT Carolina Mayo MD LAB BLOOD ORDERAB LES Final Result Performing Organization Address [facility] Co de Phone Number [facility] [address] [place] [phone] * Hepatitis C Antibody with Reflex to HCV, RNA, Quantitative, Real-Time PCR (04/20/2025 9:43 AM EDT) [facility] Hepatitis C Antibody Nonreactive Nonreactive [facility] Comment:Antibodies to HCV no t detected; does not exclude early acuteHCV infection. Blood Venous blood specimen / Unknown 04/20/2025 9:43 AM EDT 04/20/2025 11:20 AM EDT Carolina Mayo MD LAB BLOOD ORDERAB LES Final Result Performing Organization Address [facility] Co de Phone Number [facility] [address] [place] [phone] * Hepatitis A Antibody, Total (04/20/2025 9:43 AM EDT) [facility] Hepatitis A Antibody IgG REACTIVE Nonreactive [facility] Comment:The presence of IgG anti-HAV implies past HAV infection(recent or distant) or vaccination against HAV. Blood Venous blood specimen / Unknown 04/20/2025 9:43 AM EDT 04/20/2025 11:20 AM EDT us Carolina Mayo MD LAB BLOOD ORDERAB LES Final Result Performing Organization Address [facility] Co de Phone Number [facility] [address] [place] [phone] * Hepatitis B surface antigen, EIA (04/20/2025 9:43 AM EDT) [facility] Hepatitis B Surface Ag Negative Negative [facility] Blood Venous blood specimen / Unknown 04/20/2025 9:43 AM EDT 04/20/2025 11:20 AM EDT us Carolina Mayo MD LAB BLOOD ORDERAB LES Final Result Performing Organization Address [facility] Co de Phone Number [facility] [address] [place] [phone] * Hepatitis B Core Antibody, Total (04/20/2025 9:43 AM EDT) Pathologist [facility] Hepatitis B Core Antibody Nonreactive Nonreactive [facility] Blood Venous blood specimen / Unknown 04/20/2025 9:43 AM EDT 04/20/2025 11:20 AM EDT Carolina Mayo MD LAB BLOOD ORDERAB LES Final Result Performing Organization Address [facility] Co de Phone Number [facility] [address] [place] [phone] * HIV-1 RNA, Quantitative, Real-Time PCR (04/20/2025 9:43 AM EDT) HIV RNA PCR Qn Copies NOT DETECTED NOT DETECTED copies/mL [facility] HIV RNA PCR Qn Log Copies NOT DETECTED NOT DETECTED [facility] Comment:Result Units: Log co pies/mLThis test was performed using Real-Time Polymerase ChainReaction.Reportable Range: 20 copies/mL to 10,000,000 copies/mL(1.30 log copies/mL to 7.00 log copies/mL).THIS TEST WAS PERFORMED AT:[employer] [place] [phone] RUANO MD Blood Venous blood specimen / Unknown 04/20/2025 9:43 AM EDT 04/20/2025 11:20 AM EDT Carolina Mayo MD LAB BLOOD ORDERAB LES Final Result [facility] [address] [place] [phone] * HIV-1/2 Antigen and Antibodies, Fourth Generation, with Reflexes (04/20/2025 9:43 AM EDT) Pathologist [facility] HIV AB/AG Nonreactive Nonreactive [facility] Comment:HIV-1 p24 Ag and/or HIV-1/HIV-2 Ab not detected.A test result that is nonreactive does not exclude thepossibility of exposure to or infection with HIV-1 and/orHIV-2. Nonreactive results in this assay for individualswith prior exposure to HIV-1 and/or HIV-2 may be due toantigen and antibody levels that are below the limit ofdetection of this assay.The VisualnetniEQAL HIV Ag/Ab Combo assay result andsupplemental assay results should be interpreted inconjunction with the patient's clinical presentation,history and other laboratory results. If the results areinconsistent with clinical evidence, additional testing issuggested to confirm the result. Blood Venous blood specimen / Unknown 04/20/2025 9:43 AM EDT 04/20/2025 11:20 AM EDT Carolina Mayo MD LAB BLOOD ORDERAB LES Final Result Performing Organization Address City/[facility]/ZIP Co de Phone Number [facility] [address] [place] [phone] * Hepatitis B Surface Antibody, Qualitative (04/20/2025 9:43 AM EDT) ~Hepatitis B Surface Antibody REACTIVE Nonreactive [facility] Comment:REACTIVE: > 11.99 mI U/mL Blood Venous blood specimen / Unknown 04/20/2025 9:43 AM EDT 04/20/2025 11:20 AM EDT Carolina Mayo MD LAB BLOOD ORDERAB LES Final Result Performing Organization Address [facility] Co de Phone Number [facility] [address] [place] [phone] * Hemoglobin A1c (04/20/2025 9:43 AM EDT) Hemoglobin A1c 4.3 <6.0 % [facility] Comment:Hemoglobin A1C Refer ence Range Adults: 4.8 - 6.0 % Non diabetic: < 6.0 % Goal: < 7.0 %Additional Action Suggested: > 8.0 %Note: Hemoglobin A1c results are invalid for patients with abnormal amounts of HbF. Blood transfusions may impact the HbA1c concentration in the patient sample. Estimated Average Glucose 77 mg/dL [facility] Comment:eAG = Estimated ave rage glucose which is %A1C expressed asaverage glucose, using the formula of the C8M-JjgovgyAjtxfnq Glucose study (ADAG), Diabetes Care, Vol.31,#8,2007 Blood Venous blood specimen / Unknown 04/20/2025 9:43 AM EDT 04/20/2025 11:20 AM EDT Carolina Mayo MD LAB BLOOD ORDERAB LES Final Result Performing Organization Address [facility] Co de Phone Number [facility] [address] [place] [phone] * (ABNORMAL) Comprehensive Metabolic Panel (04/20/2025 9:43 AM EDT) Sodium 141 135 - 145 mmol/L [facility] Potassium 3.8 3.3 - 5.1 mmol/L [facility] Chloride 106 96 - 108 mmol/L [facility] Carbon Dioxide 30(H) 22 - 29 mmol/L [facility] Anion Gap 9(L) 12 - 20 [facility] Urea Nitrogen (BUN) 9 9 - 16 mg/dL [facility] Creatinine, Serum 0.75 0.5 - 1.4 mg/dL [facility] Estimated Glomerular Filt Rate >60 [facility] Comment:Chronic Kidney Disea se: Estimated GFR < 60 mL/min/1.04c3Bkarrn Kidney Disease: Estimated GFR < 15 mL/min/1.73m2 Glucose 81 60 - 115 mg/dL [facility] Calcium 9.5 8.4 - 10.2 mg/dL [facility] Bilirubin, Total 0.8 0.0 - 1.0 mg/dL [facility] Aspartate Amino Transferase 49(H) 5 - 37 U/L [facility] Alanine Aminotransferase 52(H) 0 - 40 U/L [facility] Total Protein 7.7 6.5 - 8.0 g/dL [facility] Albumin Level 4.8 3.5 - 5.0 g/dL [facility] Alkaline Phosphatase 135(H) 39 - 117 U/L [facility] Blood Venous blood specimen / Unknown 04/20/2025 9:43 AM EDT 04/20/2025 11:20 AM EDT us Carolina Mayo MD LAB BLOOD ORDERAB LES Final Result [facility] [address] [place] [phone] * US Scrotum (04/16/2025 4:05 PM EDT) Anatomical Region Laterality Modality Body Ultrasound 04/16/2025 4:05 PM EDT Narrative 04/16/2025 5:10 PM EDT [address] [address] Ultrasound Report Signed Patient: Monster Gutierrez MR#: [id number] : 2000 Acct:[id number] Age/Sex: 25 / M ADM Date: 04/16/25 Loc: HO.US Attending Dr: Carolina Mayo MD Ordering Physician: Carolina Anders MD Date of Service: 04/16/25 Procedure(s): US scrotum Accession Number(s): [id number] cc: Carolina Anders MD Reason for Exam: [...] 04/16/25 1707 DD/ 1605 TD/TT: 04/16/25 1615 Clerical Administrative Assistant: Procedure Note Donotuseinterpreter, Image - 04/16/2025 [place] [address] Ultrasound Report Signed Patient: Monster GutierrezMR#: [id number] : 2000Acct:[id number] Age/Sex: 25 / MADM Date: 04/16/25 Loc: HO.US Attending Dr: Carolina Mayo MD Ordering Physician: Carolina Anders MD Date of Service: 04/16/25 Procedure(s): US scrotum Accession Number(s): [id number] cc: Carolina Anders MD Reason for Exam: [...] 04/16/25 1707 DD/ 1605 TD/TT: 04/16/25 1615 Clerical Administrative Assistant: Carolina Mayo MD IMG US PROCEDURES Final Result * Trichomonas RNA (Urine/Vaginal) (04/02/2025 12:08 PM EDT) Trichomas vaginalis RNA, QL, TMA NOT DETECTED NOT DETECTED [facility] Comment:For additional infor mation, please refer [email or web address].NewsCrafted/faq/Trichomonastma(This link is being provided for informational/educational purposes only.)THIS TEST WAS PERFORMED AT:[employer] [place] [phone] RUANO MD Swab (Urine, Random) 04/02/2025 12:08 PM EDT 04/02/2025 4:16 PM EDT Result [facility] Carolina Mayo MD LAB BODY FLUIDS A ND STOOLS ORDERABLES Final Result Performing Organization Address [facility] de Phone Number [facility] [address] [place] [phone] * Chlamydia/N. Gonorrhoeae RNA, TMA, Throat (04/02/2025 11:59 AM EDT) C. Trachomatis RNA TMA, Throat NOT DETECTED NOT DETECTED [facility] N. gonorrhoeae RNA TMA, Throat NOT DETECTED NOT DETECTED [facility] Swab Structure of anterior region of neck / Unknown 04/02/2025 11:59 AM EDT 04/02/2025 1:18 PM EDT Carolina Mayo MD LAB MICROBIOLOGY - GENERAL ORDERABLES Final Result [facility] [address] [place] [phone] * Chlamydia/N. Gonorrhoeae RNA, TMA, Rectal (04/02/2025 11:59 AM EDT) C.Trachomatis RNA TMA, Rectal NOT DETECTED NOT DETECTED [facility] N.Gonorrhoeae RNA TMA, Rectal NOT DETECTED NOT DETECTED [facility] Swab Anal structure / Unknown 04/02/2025 11:59 AM EDT 04/02/2025 1:18 PM EDT Carolina Mayo MD LAB MICROBIOLOGY - GENERAL ORDERABLES Final Result Performing Organization Address [facility] Co de Phone Number [facility] [address] [place] [phone] * (ABNORMAL) POCT Urinalysis (04/02/2025 11:57 [...] Media Lot # [id number] Lot# Expiration Date [id number] Urine 04/02/2025 11:5 7 AM EDT Carolina Mayo MD POINT OF CARE OZZY T ENTER/EDIT ORDERABLES Final Result * Albumin, Random Urine W/Creatinine (04/02/2025 11:40 AM EDT) Creatinine, Urine 491.28 mg/dL [facility] Microalbumin Urine 54.0 mg/L [facility] Microalbum Creatinine Ratio Ur 10.9 <30 ug/mg cr [facility] Comment:Albumin/Creatinine R atio Reference Ranges: Normal: < 30 ug/mg creatinine Microalbuminuria: 30 - 300 ug/mg creatinineClinical Albuminuria: > 300 ug/mg creatinine Urine (Urine, Random) 04/02/2025 11:40 AM EDT 04/02/2025 4:39 PM EDT Carolina Mayo MD LAB URINE ORDERAB LES Final Result [facility] [address] [place] [address] [phone] * Chlamydia/Gonorrhea, Urine ([place] DPH) (03/12/2025) [...] Final Result from Last 3 Months Insurance [employer] C3 HSN PARTIAL Care Teams Tracer Powder Blender Relationship Specialty Start Date End Date Carolina Anders MD [address] [place] [phone] PCP - General Internal Medicine 01/09/23
--- OUTSIDE RECORDS SUMMARY | 2025-06-04 14:20 | XMS_ITS | Encounter Summary ---
Author Organization [employer] Address [address] [place] [address] Care Team Providers Care Occupational Ther Name Role Phone Carolina Anders MD Primary Care Pro vider Encounter Details Date Type Department Care Team (Late st Contact Info) Description 10/28/2024 Orders Only [facility] [address] [place] [address] Gege Carrera RN Social History Tobacco Use [...] Description 07/07/2025 10:45 AM EST Office Visit [facility] [address] [place] [phone] Carolina Anders MD [address] [place] [phone] documented as of this encounter Visit Diagnoses Not on filedocumented in this encounter Additional Health Concerns Assessment Noted Time PHQ-9 Depression Total Score: 11 024 9:54 AM EDT documented as of this encounter Care Teams Occupational Ther Relationship Specialty Start Date End Date Carolina Anders MD [address] [place] [phone] PCP - General Internal Medicine 01/09/23 documented as of this encounter
[2025-06-04 14:30] LABS: Anion Gap 10 (12-20); Blood Urea Nitrogen 8 mg/dL (9-16); Calcium 9.4 mg/dL (8.4-10.2); Carbon Dioxide 29 mmol/L (22-29); Chloride 105 mmol/L (96-108); Estimated Glomerular Filt Rate > 60; Potassium 3.4 mmol/L (3.3-5.1); Sodium 141 mmol/L (135-145)
[2025-06-04 16:10] LABS: CT PCR Urine NOT DETECTED (Not Detect.); NG PCR Urine NOT DETECTED (Not Detect.)
[2025-06-09 20:58] LABS: Mycoplasma hominis PCR Not Detected (Not Detected)
== END 2025-06-04 13:15 | disposition home or self-care (01) ==
LOC: HO.LAB 13:14
PROVIDERS: PCP Student in an Organized Health Care Education/Training Program; Visit Provider Student in an Organized Health Care Education/Training Program
DX: Z20.2 Contact with and (suspected) exposure to infections with a predominantly sexual mode of transmission (principal); I42.8 Other cardiomyopathies; R30.0 Dysuria
CPT/HCPCS: 36415; 80048; 87491; 87563; 87591; 87798

== ENCOUNTER → 2025-06-30 09:49 | Outpatient (REF) | payer MEDICAID, SELFPAY ==
--- OUTSIDE RECORDS SUMMARY | 2025-06-30 11:19 | XMS_ITS | Encounter Summary ---
Author Organization [employer] Address [address] [place] [address] Care Team Providers Care Field Coil Winder Name Role Phone Carolina Anders MD Primary Care Pro vider Encounter Details Date Type Department Care Team (Late st Contact Info) Description 10/28/2024 Orders Only [facility] [address] [place] [address] Gege Carrera RN Social History Tobacco Use [...] with others, in a hotel, in a usp, living outside on the street, on a [...] Description 07/07/2025 10:45 AM EST Office Visit [facility] [address] [place] [phone] Carolina Anders MD [address] [place] [phone] documented as of this encounter Visit Diagnoses Not on filedocumented in this encounter Additional Health Concerns Assessment Noted Time PHQ-9 Depression Total Score: 11 024 9:54 AM EDT documented as of this encounter Care Teams Field Coil Winder Relationship Specialty Start Date End Date Carolina Anders MD [address] [place] [phone] PCP - General Internal Medicine 01/09/23 documented as of this encounter
--- OUTSIDE RECORDS SUMMARY | 2025-06-30 11:19 | XMS_ITS | Encounter Summary ---
Author Organization [employer] Address [address] [place] [address] Care Team Providers Care Fresh Work Inspector Name Role Phone Carolina Anders MD Primary Care Pro vider Encounter Details Date Type Department Care Team (Latest Contact Info) Description 06/30/2025 Travel Social History Tobacco Use Types Packs/Day [...] Description 07/07/2025 10:45 AM EST Office Visit [facility] [address] [place] [phone] Carolina Anders MD [address] [place] [phone] documented as of this encounter Visit Diagnoses Not on filedocumented in this encounter Additional Health Concerns Assessment Noted Time PHQ-9 Depression Total Score: 8 02/27/20 25 11:54 AM EDT documented as of this encounter Care Teams Fresh Work Inspector Relationship Specialty Start Date End Date Carolina Anders MD [address] [place] [phone] PCP - General Internal Medicine 01/09/23 documented as of this encounter
--- OUTSIDE RECORDS SUMMARY | 2025-06-30 11:19 | XMS_ITS | Encounter Summary ---
Author Organization [employer] Address [address] [facility] [address] [place] [address] Care Team Providers Care Analyzer Sales Name Role Phone Carolina Anders MD Primary Care Pro vider Reason for Visit * Reason Onset Date Comments New Patient Appt 12/21/2022 Encounter Details Date Type Department Care Team (Late Contact Info) Description 12/21/2022 Telephone [facility] [address] [place], [place] [phone] Gonzalez Du MD [address] [place], [place] [phone] New Patient Appt Social History Tobacco Use [...] left voicemail to give a call at [phone]. documented in this encounter Plan of Treatment Upcoming Encounters Date Type Department Care Team (Late Contact Info) Description 07/07/2025 10:45 AM EST Office Visit [facility] [address] [place] [address] Carolina Anders MD [address] [place], [place] [phone] documented as of this encounter Visit Diagnoses Not on filedocumented in this encounter Care Teams Analyzer Sales Relationship Specialty Start Date End Date Carolina Anders MD [address] [place] [address] [phone] PCP - General Internal Medicine 01/09/23 documented as of this encounter
--- OUTSIDE RECORDS SUMMARY | 2025-06-30 11:19 | XMS_ITS | Clinical Summary ---
Author Organization [employer] Address [address] [place] [address] Care Team Providers Care Computer Forensic Examiner Name Role Phone Carolina Anders MD Primary [...] blood pressure. 30 tablet 1 4 Active psyllium (Reguloid) 28.3 % powder Take [...] to 30 doses. 30 tablet 5 Active emtricitabine-te nofovir DF (Truvada) 200-300 MG tabletIndication s:On pre-exposure prophylaxis for HIV Take 1 tablet by mouth Once per day. 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 Take with a full glass of water and do not lie down for at least 30 minutes after. 14 tablet 5 06/18/20 25 Active Problems Problem Noted Date Diagnosed Date Uncomplicated asthma, unspec ified asthma severity, unspecified whether persistent 04/02/2025 Testicular pain, right 04/02/2025 Recurrent major depressive disorder 06/04/2024 ADHD (attention deficit hype ractivity disorder), combined type 07/23/2023 07/23/2023 Generalized anxiety disorder 07/23/2023 High risk sexual behavior 07/23/2023 Bipolar 1 disorder, depressed (CMS/HCC) 02/08/20 23 Assessment & Plan (06/05/2024 7:08 AM EDT): Tuyet colón w previous therapist and psychiatrts had his [...] optimize psych tx -has already referral w natural gas plant technician x 04/25/2023 -advise to continue apt to [...] optimize psych tx -has already referral w natural gas plant technician x 04/25/2023 -advise to continue apt to r/o cardiac etiology History of penicillin allergy 02/07/2023 Assessment & Plan (04/13/2023 11:46 AM EDT): -referred to dining room server x hx of [facility] allergy to clarify - gave today info for pt to call. Assessment & Plan (02/07/2023 7:23 PM EDT): -referred today to dining room server x hx of [facility] allergy to clarify Health [...] organization. Date Type Department Care Team Description 06/30/2025 Travel 06/24/2025 Patient Outreach [address] [address] Carolina Anders MD Pre-visit Planning (Pre-visit planning - LVM ) 06/11/2025 Results Follow-Up [address] [address] Carolina Aguilar MD Chlamydia/Trichomon as/Neisseria gonorrhoeae, PCR, Urine, Mycoplasma/Ureaplas ma Panel 06/04/2025 Orders Only GENERIC EXTERNAL DATA DEPARTMENT Provider, Generic External Data 05/04/2025 Orders Only [address] [address] Carolina Anders MD Dysuria (Primary Dx) 04/30/2025 Results Follow-Up [address] [address] Herminia Robins, MYRON Culture, Urine, Routine 04/28/2025 9:00 AM EDT Office Visit [facility] [address] [place] [address] Charli, Alicia, OD Regular astigmatism, bilateral (Primary Dx) 04/28/2025 Orders Only [address] [address] Carolina Anders MD 04/28/2025 Travel 04/27/2025 Results Follow-Up [facility] [address], [place] [phone] Larry Aleajndro MD POCT rapid strep A manually resulted, RPR (Monitor) with Reflex to Titer, Herpes Simplex Virus Culture with Reflex Typing 04/21/2025 3:20 PM EDT Office Visit [facility] [address] [place] [address] Larry Alejandro MD Mouth lesion (Primary Dx); Other tobacco product nicotine dependence, uncomplicated; Sore throat 04/21/2025 Orders Only GENERIC EXTERNAL DATA DEPARTMENT Provider, Generic External Data 04/21/2025 Travel 04/19/2025 Orders Only [address] [address] Carolina Anders MD Testicular pain, right (Primary Dx) 04/16/2025 Telephone [facility] [address] [place] [address] Carolina Anders MD Dec Recall 04/09/2025 Telephone [facility] [address] [place], [place] [phone] Zonia Mike RN [facility] F/U 04/06/2025 Results Follow-Up [facility] [address] [place] [address] Carolina Anders MD POCT Urinalysis, Chlamydia/N. Gonorrhoeae RNA, TMA, Rectal, Chlamydia/N. Gonorrhoeae RNA, TMA, Throat, Additional followed-up results: 16 04/02/2025 11:15 AM EDT Office Visit [facility] [address] [place] [address] Carolina Anders MD Dysuria (Primary Dx); Testicular pain, right; Subjective fever; Health care maintenance; Uncomplicated asthma, unspecified asthma severity, unspecified whether persistent; Bipolar 1 disorder, depressed ([facility]); Syncope, unspecified syncope type; High risk homosexual behavior 04/02/2025 [facility] [address] [place], [place] [phone] Carolina Anders MD us scrotum order 04/02/2025 Travel 04/01/2025 Travel 04/01/2025 Telephone [facility] [address] [place] [address] Carolina Anders MD chartprep from Last 3 Months Immunizations Immunization Administration [...] Description 07/07/2025 10:45 AM EST Office Visit [facility] [address] [place] [phone] Carolina Anders MD [address] [place] [address] Health Maintenance Due Date Last [...] Procedure Name Priority Date/Time Associated Diagnosis Comments CHLAMYDIA/TRICHOMONAS/ NEISSERIA GONORRHOEAE, PCR, URINE Routine 06/04/2025 1:29 PM EDT Dysuria MYCOPLASMA/UREAPLASMA PANEL Routine 06/04/2025 1:29 PM EDT Dysuria BASIC METABOLIC PANEL Routine 06/04/2025 1:22 PM EDT URINALYSIS, COMPLETE, WITH REFLEX TO CULTURE Routine [...] 04/02/2025 11:40 AM EDT Health care maintenance from Last 3 Months Results * Chlamydia/Trichomonas/Neisseria gonorrhoeae, PCR, Urine (06/04/2025 1:29 PM EDT) CT PCR, Urine NOT DETECTED Not Detect. [facility] Comment:A not detected test result does not exclude the possibilityof infection because test results can be affected byimproper specimen collection, concurrent antibiotic therapy,or the number of organisms in the specimen which may bebelow the sensitivity of the test. As with many diagnostictests, results from the Xpert CT/NG assay should beinterpreted in conjunction with other laboratory andclinical data available to the clinician.The Xpert CT/NG assay should not be used for the evaluationof suspected sexual abuse or for other medico-legalindications. Additional testing is recommended in anycircumstance when false positive or false negative resultscould lead to adverse medical, social or psychologicalconsequences. NG PCR, Urine NOT DETECTED Not Detect. [facility] Comment:A not detected test result does not exclude the possibilityof infection because test results can be affected byimproper specimen collection, concurrent antibiotic therapy,or the number of organisms in the specimen which may bebelow the sensitivity of the test. As with many diagnostictests, results from the Xpert CT/NG assay should beinterpreted in conjunction with other laboratory andclinical data available to the clinician.The Xpert CT/NG assay should not be used for the evaluationof suspected sexual abuse or for other medico-legalindications. Additional testing is recommended in anycircumstance when false positive or false negative resultscould lead to adverse medical, social or psychologicalconsequences. Urine (Urine, Random) 06/04/2025 1:29 PM EDT 06/04/2025 1:54 PM EDT us Carolina Mayo MD LAB URINE ORDERAB LES Final Result [facility] [address] [place] [phone] * (ABNORMAL) Mycoplasma/Ureaplasma??Panel (06/04/2025 1:29 PM EDT) Sureswab(R), Mycoplasma Hominis, Real-Time Pcr Not Detected Not Detected [facility] Comment:THIS TEST WAS PERFOR MED AT:[email or web address] [id number] [place] [address]FIRCXGAIVÁN ALONSO MD,PHD Mycoplasma Genitalium, rRNA,TMA Not Detected Not Detected [facility] Comment:THIS TEST WAS PERFOR MED AT:[facility]/[email or web address] [id number] [place] [id number] ALONSO MD,PHD U. Parvum DNA Not Detected Not Detected [facility] U. Urealyticum DNA Detected(A ) Not Detected [facility] Comment:This test was develo ped and its analyticalperformance characteristics have been determinedby [employer] [place], [place].It has not been cleared or approved by the FDA. Thisassay has been validated pursuant to the CLIAregulations and is used for clinical purposes.THIS TEST WAS PERFORMED AT:[facility]/[email or web address] [id number] [place] [address]URUWFJUIVÁN ALONSO MD,PHD Urine Urine specimen obtained by clean catch procedure / Unknown 06/04/2025 1:29 PM EDT 06/04/2025 1:54 PM EDT Carolina Mayo MD LAB MICROBIOLOGY - GENERAL ORDERABLES Final Result [facility] [address] [place] [phone] * (ABNORMAL) Basic Metabolic Panel (06/04/2025 1:22 PM EDT) Only the most recent of2 resultswithin the time period is included. Sodium 141 135 - 145 mmol/L [facility] Potassium 3.4 3.3 - 5.1 mmol/L [facility] Chloride 105 96 - 108 mmol/L [facility] Carbon Dioxide 29 22 - 29 mmol/L [facility] Anion Gap 10(L) 12 - 20 [facility] Urea Nitrogen (BUN) 8(L) 9 - 16 mg/dL [facility] Creatinine, Serum 0.69 0.5 - 1.4 mg/dL [facility] Estimated Glomerular Filt Rate >60 [facility] Comment:Chronic Kidney Disea se: Estimated GFR < 60 mL/min/1.66g6Pnpzme Kidney Disease: Estimated GFR < 15 mL/min/1.73m2 Glucose 80 60 - 115 mg/dL [facility] Calcium 9.4 8.4 - 10.2 mg/dL [facility] 06/04/2025 1:22 PM EDT 06/04/2025 1:22 PM EDT us Generic External Data Provider LAB BLOOD ORDERAB LES Final Result Performing Organization Address City/State/[facility] Co de Phone Number [facility] [address] [place] [phone] * (ABNORMAL) Urinalysis, Complete, with Reflex to Culture (04/28/2025 8:42 AM EDT) Color Urine [place] [facility] Appearance Urine Turbid [facility] PH 6.0 5.0 - 9.0 [facility] Glucose Urine UA Negative Negative mg/dL [facility] Urine Blood Negative Negative [facility] Specific [place]ing - Urine 1.025 1.005 - 1.025 [facility] Urine Protein Trace Neg-Trace mg/dL [facility] Urine Ketones Trace Negative mg/dL [facility] Nitrite Urine Negative Negative [facility] Leukocyte Esterase Urine Negative Negative [facility] RBC Urine 0-2 0 - 2 /HPF [facility] Urine WBC 6-10(A) 0 - 5 /HPF [facility] Urine Squamous Epithelial Cell 0-2 0 - 2 /HPF [facility] Urine Bacteria None Seen None Seen [facility] Hyaline Casts, Urine 0-2 0 - 2 /LPF [facility] Urine 04/28/2025 8:42 AM EDT 04/28/2025 11:43 AM EDT Narrative [facility] - 04/28/2025 12:25 PM EDT Urine, Clean Catch Carolina Mayo MD LAB URINE ORDERAB LES Final Result Performing Organization Address City/[facility]/ZIP Co de Phone Number [facility] [address] [place] [phone] * Culture, Urine, Routine (04/28/2025 8:42 AM EDT) Urine Urine specimen obtained by clean catch procedure / Unknown 04/28/2025 8:42 AM EDT 04/28/2025 12:53 PM EDT Comment:UACC Narrative [facility] - 04/29/2025 10:52 AM EDT Urine Culture No growth. Specimen Source: Urine clean catch Carolina Mayo MD LAB MICROBIOLOGY - GENERAL ORDERABLES Final Result Performing Organization Address [facility] Co de Phone Number [facility] [address] [place] [phone] * RPR (Monitor) with Reflex to??Titer (04/21/2025 3:48 PM EDT) Only the most recent of2 resultswithin the time period is included. RPR (Monitor) w/Refl Titer NON-REACTI VE NON-REACT ALPA [facility] Comment:THIS TEST WAS PERFOR MED AT:[employer] [place] [id number] RUANO MD Rapid Plasma Reagin Ab Titer TNP [facility] Blood Venous blood specimen / Unknown 04/21/2025 3:48 PM EDT 04/21/2025 6:17 PM EDT Larry Alejandro MD LAB BLOOD ORDERABLES Final Resul t Performing Organization Address City/[facility]/ZIP Co de Phone Number [facility] [address] [place] [phone] * Herpes Simplex Virus Culture with Reflex Typing (04/21/2025 3:41 PM EDT) Pathologist [facility] HSV Culture/Type SEE NOTE [facility] Comment:HERPES SIMPLEX VIRUS CULTURE W/RFL TO TYPING Micro Number: [id number] Test Status: Final Specimen Source: Not given Specimen Quality: Adequate HSV Culture: Not IsolatedTHIS TEST WAS PERFORMED AT:[facility] [address]ASZAEX MERATI,MD Swab (Lesion) 04/21/2025 3:4 1 PM EDT 04/21/2025 5:10 PM EDT Larry Alejandro MD LAB MICROBIOLOGY - GENERAL ORDER LEIA Final Result Performing Organization Address [facility] Co de Phone Number [facility] [address] [place] [phone] * POCT rapid strep A manually resulted (04/21/2025 3:09 PM EDT) Pathologist [facility] Rapid Strep A Screen Negative Negative, None Detected Swab 04/21/2025 3:09 PM EDT Larry Alejandro MD POINT OF CARE TEST ENTER/EDIT OR DERABLES Final Result * TSH with Reflex to Free T4 (04/20/2025 9:43 AM EDT) Pathologist [facility] TSH reflex Free T4 1.47 0.32 - 4.0 uIU/mL [facility] Blood 04/20/2025 9:43 AM EDT 04/20/2025 11:20 AM EDT Carolina Mayo MD LAB BLOOD ORDERAB LES Final Result Performing Organization Address City/[facility]/ZIP Co de Phone Number [facility] [address] [place] [address] [phone] * (ABNORMAL) CBC auto differential (04/20/2025 9:43 AM EDT) White Blood Count 7.1 4.8 - 10.8 X10*3/uL [facility] Red Blood Count 4.99 4.60 - 5.80 X10*6/uL [facility] Hemoglobin 15.2 14.0 - 18.0 g/dl [facility] Hematocrit 44.9 42.0 - 52.0 % [facility] Mean Corpuscular Volume 90.0 80.0 - 98.0 fL [facility] Mean Corpuscular Hemoglobin 30.5 27.0 - 33.0 pg [facility] Mean Corpuscular HGB Conc 33.9 31.0 - 36.0 g/dl [facility] Red Cell Distribution Width 11.8 11.0 - 16.0 % [facility] Platelet Count 226 160 - 400 X10*3/uL [facility] Mean Platelet Volume 9.8 9.4 - 12.4 fL [facility] Neutrophils Percent Auto 29.8(L) 45 - 73 % [facility] Imm Gran Pct Auto 0.3 0.0 - 0.4 % [facility] Lymphocytes Percent Auto 58.8(H) 20 - 40 % [facility] Monocytes Percent Auto 9.3 2 - 11 % [facility] Eosinophils Percent Auto 0.8 0 - 4 % [facility] Basophils Percent Auto 1.0 0 - 2 % [facility] NRBC Pct Auto 0.0 0.0 - 0.2 /100WBC [facility] Neutrophils Absolute Auto 2.1 2.0 - 8.3 x10*3/uL [facility] Imm Gran Abs Auto 0.02 0.00 - 0.03 X10*3/uL [facility] Lymphocytes Absolute Auto 4.2 1.2 - 4.9 X10*3/uL [facility] Monocytes Absolute Auto 0.7 0.1 - 1.2 X10*3/uL [facility] Eosinophils Absolute Auto 0.1 0.0 - 0.4 X10*3/uL [facility] Basophils Absolute Auto 0.1 0.0 - 0.2 X10*3/uL [facility] NRBC Abs Auto 0.000 0.0 - 0.012 X10*3/uL [facility] Blood Venous blood specimen / Unknown 04/20/2025 9:43 AM EDT 04/20/2025 11:20 AM EDT us Carolina Mayo MD LAB BLOOD ORDERAB LES Final Result Performing Organization Address [facility]/ZIP Co de Phone Number [facility] [address] [place] [phone] * Hepatitis C Antibody with Reflex to HCV, RNA, Quantitative, Real-Time PCR (04/20/2025 9:43 AM EDT) Hepatitis C Antibody Nonreactive Nonreactive [facility] Comment:Antibodies to HCV no t detected; does not exclude early acuteHCV infection. Blood Venous blood specimen / Unknown 04/20/2025 9:43 AM EDT 04/20/2025 11:20 AM EDT us Carolina Mayo MD LAB BLOOD ORDERAB LES Final Result Performing Organization Address City/[facility]/ZIP Co de Phone Number [facility] [address] [place] [phone] * Hepatitis A Antibody, Total (04/20/2025 9:43 AM EDT) Hepatitis A Antibody IgG REACTIVE Nonreactive [facility] Comment:The presence of IgG anti-HAV implies past HAV infection(recent or distant) or vaccination against HAV. Blood Venous blood specimen / Unknown 04/20/2025 9:43 AM EDT 04/20/2025 11:20 AM EDT Carolina Mayo MD LAB BLOOD ORDERAB LES Final Result Performing Organization Address City/[facility]/ZIP Co de Phone Number [facility] [address] [place] [phone] * Hepatitis B surface antigen, EIA (04/20/2025 9:43 AM EDT) [facility] Hepatitis B Surface Ag Negative Negative [facility] Blood Venous blood specimen / Unknown 04/20/2025 9:43 AM EDT 04/20/2025 11:20 AM EDT Carolina Mayo MD LAB BLOOD ORDERAB LES Final Result Performing Organization Address [facility]/ZIP Co de Phone Number [facility] [address] [place] [phone] * Hepatitis B Core Antibody, Total (04/20/2025 9:43 AM EDT) [facility] Hepatitis B Core Antibody Nonreactive Nonreactive [facility] Blood Venous blood specimen / Unknown 04/20/2025 9:43 AM EDT 04/20/2025 11:20 AM EDT Carolina Mayo MD LAB BLOOD ORDERAB LES Final Result Performing Organization Address City/[facility]/ZIP Co de Phone Number [facility] [address] [place] [phone] * HIV-1 RNA, Quantitative, Real-Time PCR (04/20/2025 9:43 AM EDT) [facility] HIV RNA PCR Qn Copies NOT DETECTED NOT DETECTED copies/mL [facility] HIV RNA PCR Qn Log Copies NOT DETECTED NOT DETECTED [facility] Comment:Result Units: Log co pies/mLThis test was performed using Real-Time Polymerase ChainReaction.Reportable Range: 20 copies/mL to 10,000,000 copies/mL(1.30 log copies/mL to 7.00 log copies/mL).THIS TEST WAS PERFORMED AT:[employer] [place] [phone] RUANO MD Blood Venous blood specimen / Unknown 04/20/2025 9:43 AM EDT 04/20/2025 11:20 AM EDT us Carolina Mayo MD LAB BLOOD ORDERAB LES Final Result Performing Organization Address City/[facility]/ZIP Co de Phone Number [facility] [address] [place] [phone] * HIV-1/2 Antigen and Antibodies, Fourth Generation, with Reflexes (04/20/2025 9:43 AM EDT) [facility] HIV AB/AG Nonreactive Nonreactive [facility] Comment:HIV-1 p24 Ag and/or HIV-1/HIV-2 Ab not detected.A test result that is nonreactive does not exclude thepossibility of exposure to or infection with HIV-1 and/orHIV-2. Nonreactive results in this assay for individualswith prior exposure to HIV-1 and/or HIV-2 may be due toantigen and antibody levels that are below the limit ofdetection of this assay.[employer] HIV Ag/Ab Combo assay result andsupplemental assay results should be interpreted inconjunction with the patient's clinical presentation,history and other laboratory results. If the results areinconsistent with clinical evidence, additional testing issuggested to confirm the result. Blood Venous blood specimen / Unknown 04/20/2025 9:43 AM EDT 04/20/2025 11:20 AM EDT us Carolina Mayo MD LAB BLOOD ORDERAB LES Final Result Performing Organization Address [facility]/ZIP Co de Phone Number [facility] [address] [place] [phone] * Hepatitis B Surface Antibody, Qualitative (04/20/2025 9:43 AM EDT) [facility] ~Hepatitis B Surface Antibody REACTIVE Nonreactive [facility] Comment:REACTIVE: > 11.99 mI U/mL Blood Venous blood specimen / Unknown 04/20/2025 9:43 AM EDT 04/20/2025 11:20 AM EDT Carolina Mayo MD LAB BLOOD ORDERAB LES Final Result Performing Organization Address [facility]/ZIP Co de Phone Number [facility] [address] [place] [phone] * Hemoglobin A1c (04/20/2025 9:43 AM EDT) Hemoglobin A1c 4.3 <6.0 % [facility] Comment:Hemoglobin A1C Refer ence Range Adults: 4.8 - 6.0 % Non diabetic: < 6.0 % Goal: < 7.0 %Additional Action Suggested: > 8.0 %Note: Hemoglobin A1c results are invalid for patients with abnormal amounts of HbF. Blood transfusions may impact the HbA1c concentration in the patient sample. Estimated Average Glucose 77 mg/dL [facility] Comment:eAG = Estimated ave rage glucose which is %A1C expressed asaverage glucose, using the formula of the K9H-AesfmtcGgppuxf Glucose study (ADAG), Diabetes Care, Vol.31,#8,Mar. 2007 Blood Venous blood specimen / Unknown 04/20/2025 9:43 AM EDT 04/20/2025 11:20 AM EDT us Carolina Mayo MD LAB BLOOD ORDERAB LES Final Result Performing Organization Address [facility]/ZIP Co de Phone Number [facility] [address] [place] [phone] [phone] * (ABNORMAL) Comprehensive Metabolic Panel (04/20/2025 9:43 AM EDT) Sodium 141 135 - 145 mmol/L [facility] Potassium 3.8 3.3 - 5.1 mmol/L [facility] Chloride 106 96 - 108 mmol/L [facility] Carbon Dioxide 30(H) 22 - 29 mmol/L [facility] Anion Gap 9(L) 12 - 20 [facility] Urea Nitrogen (BUN) 9 9 - 16 mg/dL [facility] Creatinine, Serum 0.75 0.5 - 1.4 mg/dL [facility] Estimated Glomerular Filt Rate >60 [facility] Comment:Chronic Kidney Disea se: Estimated GFR < 60 mL/min/1.51h3Afptqp Kidney Disease: Estimated GFR < 15 mL/min/1.73m2 Glucose 81 60 - 115 mg/dL [facility] Calcium 9.5 8.4 - 10.2 mg/dL [facility] Bilirubin, Total 0.8 0.0 - 1.0 mg/dL [facility] Aspartate Amino Transferase 49(H) 5 - 37 U/L [facility] Alanine Aminotransferase 52(H) 0 - 40 U/L [facility] Total Protein 7.7 6.5 - 8.0 g/dL [facility] Albumin Level 4.8 3.5 - 5.0 g/dL [facility] Alkaline Phosphatase 135(H) 39 - 117 U/L [facility] Blood Venous blood specimen / Unknown 04/20/2025 9:43 AM EDT 04/20/2025 11:20 AM EDT us Carolina Mayo MD LAB BLOOD ORDERAB LES Final Result [facility] [address] [place] [address] [phone] * US Scrotum (04/16/2025 4:05 PM EDT) Anatomical Region Laterality Modality Body Ultrasound 04/16/2025 4:05 PM EDT Narrative 04/16/2025 5:10 PM EDT [address] [address] Ultrasound Report Signed Patient: Monster Gutierrez MR#: [id number] : 2000 Acct:[id number] Age/Sex: 25 / M ADM Date: 04/16/25 Loc: HO.US Attending Dr: Carolina Mayo MD Ordering Physician: Carolina Anders MD Date of Service: 04/16/25 Procedure(s): US scrotum Accession Number(s): [id number] cc: Carolina Anders MD Reason for Exam: [...] 04/16/25 1707 DD/ 1605 TD/TT: 04/16/25 1615 Tin Tie Machine Operator Automatic: Procedure Note Donotuseinterpreter, Image - 04/16/[address] [address] Ultrasound Report Signed Patient: Monster Gutierrez#: [id number] : 2000Acct:[id number] Age/Sex: 25 / MADM Date: 04/16/25 Loc: HO.US Attending Dr: Carolina Mayo MD Ordering Physician: Carolina Anders MD Date of Service: 04/16/25 Procedure(s): US scrotum Accession Number(s): [id number] cc: Carolina Anders MD Reason for Exam: [...] 04/16/25 1707 DD/ 1605 TD/TT: 04/16/25 1615 Tin Tie Machine Operator Automatic: Carolina Mayo MD IMG US PROCEDURES Final Result * Trichomonas RNA (Urine/Vaginal) (04/02/2025 12:08 PM EDT) Trichomas vaginalis RNA, QL, TMA NOT DETECTED NOT DETECTED [facility] Comment:For additional infor bello, please refer tohttp://education.[place] [place]/faq/Trichomonastma(This link is being provided for informational/educational purposes only.)THIS TEST WAS PERFORMED AT:[facility] [place] [id number] RUANO MD Swab (Urine, Random) 04/02/2025 12:08 PM EDT 04/02/2025 4:16 PM EDT Craolina Mayo MD LAB BODY FLUIDS A ND STOOLS ORDERABLES Final Result Performing Organization Address [facility]/ZIP Co de Phone Number [facility] [address] [place] [phone] * Chlamydia/N. Gonorrhoeae RNA, TMA, Throat (04/02/2025 11:59 AM EDT) C. Trachomatis RNA TMA, Throat NOT DETECTED NOT DETECTED [facility] N. gonorrhoeae RNA TMA, Throat NOT DETECTED NOT DETECTED [facility] Swab Structure of anterior region of neck / Unknown 04/02/2025 11:59 AM EDT 04/02/2025 1:18 PM EDT Carolina Mayo MD LAB MICROBIOLOGY - GENERAL ORDERABLES Final Result Performing Organization Address City/[facility]/ZIP Co de Phone Number [facility] [address] [place] [phone] * Chlamydia/N. Gonorrhoeae RNA, TMA, Rectal (04/02/2025 11:59 AM EDT) C.Trachomatis RNA TMA, Rectal NOT DETECTED NOT DETECTED [facility] N.Gonorrhoeae RNA TMA, Rectal NOT DETECTED NOT DETECTED [facility] Swab Anal structure / Unknown 04/02/2025 11:59 AM EDT 04/02/2025 1:18 PM EDT Carolina Mayo MD LAB MICROBIOLOGY - GENERAL ORDERABLES Final Result [facility] [address] [place] [phone] * (ABNORMAL) POCT Urinalysis (04/02/2025 11:57 [...] Media Lot # [id number] Lot# Expiration Date [id number] Urine 04/02/2025 11:5 7 AM EDT Carolina Mayo MD POINT OF CARE OZZY T ENTER/EDIT ORDERABLES Final Result * Albumin, Random Urine W/Creatinine (04/02/2025 11:40 AM EDT) Creatinine, Urine 491.28 mg/dL [facility] Microalbumin Urine 54.0 mg/L [facility] Microalbum Creatinine Ratio Ur 10.9 <30 ug/mg cr [facility] Comment:Albumin/Creatinine R atio Reference Ranges: Normal: < 30 ug/mg creatinine Microalbuminuria: 30 - 300 ug/mg creatinineClinical Albuminuria: > 300 ug/mg creatinine Urine (Urine, Random) 04/02/2025 11:40 AM EDT 04/02/2025 4:39 PM EDT us Carolina Mayo MD LAB URINE ORDERAB LES Final Result [facility] [address] [place] [phone] from Last 3 Months Insurance [facility] C[employer] Care Teams Computer Forensic Examiner Relationship Specialty Start Date End Date Carolina Anders MD [address] [place] [address] PCP - General Internal Medicine 01/09/23
== END ==
LOC: HO.SL 09:49
PROVIDERS: PCP Student in an Organized Health Care Education/Training Program; Visit Provider Nurse Practitioner Family
DX: G47.10 Hypersomnia, unspecified (principal)
CPT/HCPCS: 95806

== ENCOUNTER → 2025-06-30 09:56 | Outpatient (BNV) | payer MEDICAID, SELFPAY | PROVIDERS: PCP Student in an Organized Health Care Education/Training Program; Visit Provider Psychiatry & Neurology Neurology | DX: G47.10 Hypersomnia, unspecified (principal) | CPT/HCPCS: 95806 ==

== ENCOUNTER 2025-07-14 14:15 | Outpatient (AMB) | payer MEDICAID, SELFPAY ==
--- NOTE | 2025-07-14 14:44 | A.OFFVIS_ITS ---
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 He is seen for the following urologic conditions - varicocele with scrotal pain Normal scrotal ultrasound Grade 1 ultrasound Valsalva varicocele left side On exam has tendinous consistent with inguinal disruption right side insertion rectus abdominis Trial meloxicam PFSH Medical History Anxiety and depression Surgical History No pertinent past surgical history Family History Maternal Grandmother Heart attack HTN (hypertension) Social History Alcohol intake: current Alcohol intake frequency: holidays/special occasions only Patient Tobacco Use Status: Never used Tobacco Substance Use Type: Marijuana Review of Systems Const Denies chills and Denies fever(s) Card Reports no additional complaints and Denies syncope Resp Denies cough GI Denies abdominal pain and Denies heartburn Reports as per HPI and Denies change in libido Neuro Denies syncope Psych Denies change in libido Endo Denies change in libido Physical Exam Const General: cooperative, healthy appearing, comfortable and no acute distress Orientation/consciousness: patient oriented x3 HEENT Face and sinus: Yes normal facial exam Mouth: moist mucous membranes Neck Neck: Yes normal visual inspection, Yes full ROM and Yes trachea midline Chest Chest palpation & inspection: normal inspection of the chest Resp Effort & Inspection: normal respiratory effort, able to speak in complete sentences and no respiratory distress GI Inspection: Yes normal to inspection Back/Spine/Pelvis Cervical Spine: normal cervical lordosis Thoracic/Lumbar Spine: thoracic and lumbar spine normal to inspection Skin General skin exam: no rashes or lesions noted Neuro General: patient oriented x3, gait normal, tone normal and moves all extremities Extrem General: Yes normal to inspection and Yes capillary refill normal Assessment & Plan Assessment & Plan (1) Bilateral groin pain: Code(s): R10.31 - Right lower quadrant pain; R10.32 - Left lower quadrant pain Category: Medical Plan Trial anti-inflammatory Six-month follow-up Medications: New meloxicam 15 mg PO DAILY 30 tabs 0RF 30 days R10.31 - Right lower quadrant pain, R10.32 - Left lower quadrant pain meloxicam 15 mg PO DAILY 30 tabs 0RF 30 days R10.31 - Right lower quadrant pain, R10.32 - Left lower quadrant pain Patient Instructions: This note is constructed using voice recognition software. While every effort has been made to ensure accuracy boots and shoes supervisor errors may have been included. Imaging studies, laboratory and physical exam results were discussed and reviewed in detail. No major barriers to patient understanding were identified. An opportunity to ask questions regarding the treatment plan was provided. All questions were answered. The patient expressed understanding and agreement with the above treatment plan. The patient is aware they should contact our office by phone for worsening of their current condition or the appearance of new urologic symptoms. Compliance is encouraged with any medications and followup testing that is ordered. It is a privilege to participate in the urologic care of your patient. If you have any questions or concerns regarding treatment for the above conditions, or other urologic issues, please do not hesitate to contact me. The office telephone contact is [phone]. Sincerely, Dr Clive Hanna MD, [facility] - Urology Compassionate Specialist Care for the Genitourinary System Coding Level of Care Code New Pt Level 3 (72464) Diagnoses Bilateral groin pain R10.31; R10.32
--- OUTSIDE RECORDS SUMMARY | 2025-07-14 22:25 | XMS_ITS | Encounter Summary ---
Author Organization [employer] Address [address] [place] [address] Care Team Providers Care Ring Stamper Name Role Phone Carolina Anders MD Primary Care Pro vider Encounter Details Date Type Department Care Team (Late st Contact Info) Description 10/28/2024 Orders Only [facility] [address] [place] [address] Gege Carrera RN Social History Tobacco Use [...] with others, in a hotel, in a longterm, living outside on the street, on a [...] Care Team (Late st Contact Info) Description 10/01/2025 1:30 PM EST Office Visit [facility]INE [address] [place] [phone] Carolina Anders MD [address] [place] [phone] documented as of this encounter Visit Diagnoses Not on filedocumented in this encounter Additional Health Concerns Assessment Noted Time PHQ-9 Depression Total Score: 11 024 9:54 AM EDT documented as of this encounter Care Teams Ring Stamper Relationship Specialty Start Date End Date Carolina Anders MD [address] [place] [phone] PCP - General Internal Medicine 01/09/23 documented as of this encounter
--- OUTSIDE RECORDS SUMMARY | 2025-07-14 22:25 | XMS_ITS | Encounter Summary ---
Author Organization [employer] Address [address] [facility] [address] [place] [address] Care Team Providers Care Horse Race Starter Name Role Phone Carolina Anders MD Primary Care Pro vider Reason for Visit * Reason Onset Date Comments New Patient Appt 12/21/2022 Encounter Details Date Type Department Care Team (Late Contact Info) Description 12/21/2022 Telephone [facility] [address] [place], [place] [phone] Gonzalez Du MD [address] [place], [place] [phone] New Patient Appt Social History Tobacco Use [...] left voicemail to give a call at [phone]. documented in this encounter Plan of Treatment Upcoming Encounters Date Type Department Care Team (Late Contact Info) Description 10/01/2025 1:30 PM EST Office Visit [facility] [address] [place] [address] Carolina Anders MD [address] [place] [address] documented as of this encounter Visit Diagnoses Not on filedocumented in this encounter Care Teams Horse Race Starter Relationship Specialty Start Date End Date Carolina Anders MD [address] [place] [address] [phone] PCP - General Internal Medicine 01/09/23 documented as of this encounter
--- OUTSIDE RECORDS SUMMARY | 2025-07-14 22:25 | XMS_ITS | Clinical Summary ---
Author Organization [employer] Address [address] [place] [address] Care Team Providers Care Power Mule Operator Name Role Phone Carolina Anders MD [...] to 30 doses. 30 tablet 5 Active doxycycline (Vibra-Tabs) 100 MG tabletIndication s:Nongonococcal urethritis [...] sexual behavior 07/23/2023 Bipolar 1 disorder, depressed ([facility]) 02/08/20 23 Assessment & Plan [...] optimize psych tx -has already referral w director integrated x 04/25/2023 -advise to continue apt to [...] optimize psych tx -has already referral w director integrated x 04/25/2023 -advise to continue apt to r/o cardiac etiology History of penicillin allergy 02/07/2023 Assessment & Plan (04/13/2023 11:46 AM EDT): -referred to philatelic consultant x hx of PNC allergy to clarify - gave today info for pt to call. Assessment & Plan (02/07/2023 7:23 PM EDT): -referred today to philatelic consultant x hx of PNC allergy to clarify [...] Encounters Date Type Department Care Team Description 07/06/2025 Telephone [facility] MEDICINE [address] [place] [address] Carolina Anders MD chartprep 06/30/2025 Travel 06/24/2025 Patient Outreach [facility] MEDICINE [address] [place] [phone] Carolina Anders MD Pre-visit Planning (Pre-visit planning - LVM ) 06/11/2025 Results Follow-Up [address] [address] Carolina Aguilar MD Chlamydia/Trichomon as/Neisseria gonorrhoeae, PCR, Urine, Mycoplasma/Ureaplas ma Panel 06/04/2025 Orders Only GENERIC EXTERNAL DATA DEPARTMENT Provider, Generic External Data 05/04/2025 Orders Only [address] [address] Carolina Anders MD Dysuria (Primary Dx) 04/30/2025 Results Follow-Up [address] [address] Herminia Robins RN Culture, Urine, Routine 04/28/2025 9:00 AM EDT Office Visit [facility] OPTOMETRY [address] [place] [address] Charli, Alicia, OD Regular astigmatism, bilateral (Primary Dx) 04/28/2025 Orders Only [address] [address] Carolina Anders MD 04/28/2025 Travel 04/27/2025 Results Follow-Up [facility] CHC MED & PEDS [address] [place], [place] [phone] Larry Alejandro MD POCT rapid strep A manually resulted, RPR (Monitor) with Reflex to Titer, Herpes Simplex Virus Culture with Reflex Typing 04/21/2025 3:20 PM EDT Office Visit [facility] WALK-IN CENTER [address] [place] [phone] Larry Alejandro MD Mouth lesion (Primary Dx); Other tobacco product nicotine dependence, uncomplicated; Sore throat 04/21/2025 Orders Only GENERIC EXTERNAL DATA DEPARTMENT Provider, Generic External Data 04/21/2025 Travel 04/19/2025 Orders Only [address] [address] Carolina Anders MD Testicular pain, right (Primary Dx) 04/16/[address] [address] Carolina Anders MD Dec Recall from Last 3 Months Immunizations Immunization Administration [...] Description 10/01/2025 1:30 PM EST Office Visit [facility] MEDICINE [address] [place], [place] [phone] Carolina Andesr MD [address] [place], [place] [phone] Health Maintenance Due Date Last Done Comments [...] 4:05 PM EDT Dysuria Testicular pain, right from Last 3 Months Results * Chlamydia/Trichomonas/Neisseria gonorrhoeae, PCR, Urine (06/04/2025 1:29 PM EDT) CT PCR, Urine NOT DETECTED Not Detect. [facility] [...] NG PCR, Urine NOT DETECTED Not Detect. [facility] [...] MD LAB URINE ORDERAB LES Final Result [facility] [address] [place] [phone] * (ABNORMAL) Mycoplasma/Ureaplasma??Panel (06/04/2025 1:29 PM EDT) Pathologist Tulio Olivares(R), Mycoplasma Hominis, Real-Time Pcr Not Detected Not Detected [facility] Comment:THIS TEST WAS PERFOR MED AT:[employer] [id number] [place] [address]GCRVKUXIVÁN ALONSO MD,PHD Mycoplasma Genitalium, rRNA,TMA Not Detected Not Detected [facility] Comment:THIS TEST WAS PERFOR MED AT:[employer] [id number] [place] [address]UDXWYSTIVÁN ALONSO MD,PHD U. Parvum DNA Not Detected Not Detected [facility] U. Urealyticum DNA Detected(A ) Not Detected [facility] Comment:This test was develo ped and its analyticalperformance characteristics have been determinedby [employer] [place], [place].It has not been cleared or approved by the FDA. Thisassay has been validated pursuant to the CLIAregulations and is used for clinical purposes.THIS TEST WAS PERFORMED AT:[employer] [id number] [place] [address]CZPHXKWIVÁN ALONSO MD,PHD Urine Urine specimen obtained by clean catch procedure / Unknown 06/04/2025 1:29 PM EDT 06/04/2025 1:54 PM EDT Carolina Mayo MD LAB MICROBIOLOGY - GENERAL ORDERABLES Final Result [facility] [address] [place] [phone] * (ABNORMAL) Basic Metabolic Panel (06/04/2025 1:22 PM EDT) Only the most recent of2 resultswithin the time period is included. Sodium 141 135 - 145 mmol/L [facility] Potassium 3.4 3.3 - 5.1 mmol/L [facility] Chloride 105 96 - 108 mmol/L [facility] Carbon Dioxide 29 22 - 29 mmol/L [facility] Anion Gap 10(L) 12 - 20 [facility] Urea Nitrogen (BUN) 8(L) 9 - 16 mg/dL [facility] Creatinine, Serum 0.69 0.5 - 1.4 mg/dL [facility] Estimated Glomerular Filt Rate >60 [facility] Comment:Chronic Kidney Disea se: Estimated GFR < 60 mL/min/[id number] Kidney Disease: Estimated GFR < 15 mL/min/1.73m2 Glucose 80 60 - 115 mg/dL [facility] Calcium 9.4 8.4 - 10.2 mg/dL [facility] 06/04/2025 1:22 PM EDT 06/04/2025 1:22 PM EDT us Generic External Data Provider LAB BLOOD ORDERAB LES Final Result [facility] [address] [place] [phone] * (ABNORMAL) Urinalysis, Complete, with Reflex to Culture (04/28/2025 8:42 AM EDT) Color Urine [place] [facility] Appearance Urine Turbid [facility] PH 6.0 5.0 - 9.0 [facility] Glucose Urine UA Negative Negative mg/dL [facility] Urine Blood Negative Negative [facility] Specific [place] - Urine 1.025 1.005 - 1.025 [facility] Urine Protein Trace Neg-Trace mg/dL [facility] Urine Ketones Trace Negative mg/dL [facility] Nitrite Urine Negative Negative [facility] Leukocyte Esterase Urine Negative Negative [facility] RBC Urine 0-2 0 - 2 /HPF [facility] Urine WBC 6-10(A) 0 - 5 /HPF [facility] Urine Squamous Epithelial Cell 0-2 0 - 2 /HPF [facility] Urine Bacteria None Seen None Seen [facility] Hyaline Casts, Urine 0-2 0 - 2 /LPF [facility] Urine 04/28/2025 8:42 AM EDT 04/28/2025 11:43 AM EDT Narrative [facility] - 04/28/2025 12:25 PM EDT Urine, Clean Catch Carolina Mayo MD LAB URINE ORDERAB LES Final Result Performing Organization Address [facility] Co de Phone Number [facility] [address] [place] [phone] * Culture, Urine, Routine (04/28/2025 8:42 AM EDT) Urine Urine specimen obtained by clean catch procedure / Unknown 04/28/2025 8:42 AM EDT 04/28/2025 12:53 PM EDT Comment:UACC Narrative [facility] - 04/29/2025 10:52 AM EDT Urine Culture No growth. Specimen Source: Urine clean catch Carolina Mayo MD LAB MICROBIOLOGY - GENERAL ORDERABLES Final Result Performing Organization Address [facility] Phone Number [facility] [address] [place] [phone] * RPR (Monitor) with Reflex to??Titer (04/21/2025 3:48 PM EDT) Only the most recent of2 resultswithin the time period is included. RPR (Monitor) w/Refl Titer NON-REACTI VE NON-REACT ALPA [facility] Comment:THIS TEST WAS PERFOR MED AT:[employer] [place] [id number] RUANO MD Rapid Plasma Reagin Ab Titer TNP [facility] Blood Venous blood specimen / Unknown 04/21/2025 3:48 PM EDT 04/21/2025 6:17 PM EDT us Larry Alejandro MD LAB BLOOD ORDERABLES Final Resul t Performing Organization Address [facility] Co de Phone Number [facility] [address] [place] [phone] * Herpes Simplex Virus Culture with Reflex Typing (04/21/2025 3:41 PM EDT) [facility] HSV Culture/Type SEE NOTE [facility] Comment:HERPES SIMPLEX VIRUS CULTURE W/RFL TO TYPING Micro Number: [id number] Test Status: Final Specimen Source: Not given Specimen Quality: Adequate HSV Culture: Not IsolatedTHIS TEST WAS PERFORMED AT:[employer] [address] [id number] MERATI,MD Swab (Lesion) 04/21/2025 3:4 1 PM EDT 04/21/2025 5:10 PM EDT Larry Alejandro MD LAB MICROBIOLOGY - GENERAL ORDER LIEA Final Result Performing Organization Address [facility]/ZIP Co de Phone Number [facility] [address] [place] [phone] [phone] * POCT rapid strep A manually resulted (04/21/2025 3:09 PM EDT) [facility] Rapid Strep A Screen Negative Negative, None Detected Swab 04/21/2025 3:09 PM EDT Larry Alejandro MD POINT OF CARE TEST ENTER/EDIT OR DERABLES Final Result * TSH with Reflex to Free T4 (04/20/2025 9:43 AM EDT) [facility] TSH reflex Free T4 1.47 0.32 - 4.0 uIU/mL [facility] Blood 04/20/2025 9:43 AM EDT 04/20/2025 11:20 AM EDT Carolina Mayo MD LAB BLOOD ORDERAB LES Final Result Performing Organization Address [facility]/ZIP Co de Phone Number [facility] [address] [place] [phone] * (ABNORMAL) CBC auto differential (04/20/2025 9:43 AM EDT) White Blood Count 7.1 4.8 - 10.8 X10*3/uL [facility] Red Blood Count 4.99 4.60 - 5.80 X10*6/uL [facility] Hemoglobin 15.2 14.0 - 18.0 g/dl [facility] Hematocrit 44.9 42.0 - 52.0 % [facility] Mean Corpuscular Volume 90.0 80.0 - 98.0 fL [facility] Mean Corpuscular Hemoglobin 30.5 27.0 - 33.0 pg [facility] Mean Corpuscular HGB Conc 33.9 31.0 - 36.0 g/dl [facility] Red Cell Distribution Width 11.8 11.0 - 16.0 % [facility] Platelet Count 226 160 - 400 X10*3/uL [facility] Mean Platelet Volume 9.8 9.4 - 12.4 fL [facility] Neutrophils Percent Auto 29.8(L) 45 - 73 % [facility] Imm Gran Pct Auto 0.3 0.0 - 0.4 % [facility] Lymphocytes Percent Auto 58.8(H) 20 - 40 % [facility] Monocytes Percent Auto 9.3 2 - 11 % [facility] Eosinophils Percent Auto 0.8 0 - 4 % [facility] Basophils Percent Auto 1.0 0 - 2 % [facility] NRBC Pct Auto 0.0 0.0 - 0.2 /100WBC [facility] Neutrophils Absolute Auto 2.1 2.0 - 8.3 x10*3/uL [facility] Imm Gran Abs Auto 0.02 0.00 - 0.03 X10*3/uL [facility] Lymphocytes Absolute Auto 4.2 1.2 - 4.9 X10*3/uL [facility] Monocytes Absolute Auto 0.7 0.1 - 1.2 X10*3/uL [facility] Eosinophils Absolute Auto 0.1 0.0 - 0.4 X10*3/uL [facility] Basophils Absolute Auto 0.1 0.0 - 0.2 X10*3/uL [facility] NRBC Abs Auto 0.000 0.0 - 0.012 X10*3/uL [facility] Blood Venous blood specimen / Unknown 04/20/2025 9:43 AM EDT 04/20/2025 11:20 AM EDT Carolina Mayo MD LAB BLOOD ORDERAB LES Final Result Performing Organization Address [facility]/ZIP Co de Phone Number [facility] [address] [place] [phone] * Hepatitis C Antibody with Reflex to HCV, RNA, Quantitative, Real-Time PCR (04/20/2025 9:43 AM EDT) Hepatitis C Antibody Nonreactive Nonreactive [facility] Comment:Antibodies to HCV no t detected; does not exclude early acuteHCV infection. Blood Venous blood specimen / Unknown 04/20/2025 9:43 AM EDT 04/20/2025 11:20 AM EDT us Carolina Mayo MD LAB BLOOD ORDERAB LES Final Result Performing Organization Address [facility] Co de Phone Number [facility] [address] [place] [phone] * Hepatitis A Antibody, Total (04/20/2025 9:43 AM EDT) Hepatitis A Antibody IgG REACTIVE Nonreactive [facility] Comment:The presence of IgG anti-HAV implies past HAV infection(recent or distant) or vaccination against HAV. Blood Venous blood specimen / Unknown 04/20/2025 9:43 AM EDT 04/20/2025 11:20 AM EDT Carolina Mayo MD LAB BLOOD ORDERAB LES Final Result Performing Organization Address [facility]/ZIP Co de Phone Number [facility] [address] [place] [phone] * Hepatitis B surface antigen, EIA (04/20/2025 9:43 AM EDT) Pathologist [facility] Hepatitis B Surface Ag Negative Negative [facility] Blood Venous blood specimen / Unknown 04/20/2025 9:43 AM EDT 04/20/2025 11:20 AM EDT Carolina Mayo MD LAB BLOOD ORDERAB LES Final Result Performing Organization Address City/[facility]/ZIP Co de Phone Number [facility] [address] [place] [phone] * Hepatitis B Core Antibody, Total (04/20/2025 9:43 AM EDT) Pathologist [facility] Hepatitis B Core Antibody Nonreactive Nonreactive [facility] Blood Venous blood specimen / Unknown 04/20/2025 9:43 AM EDT 04/20/2025 11:20 AM EDT Carolina Mayo MD LAB BLOOD ORDERAB LES Final Result Performing Organization Address [facility] Co de Phone Number [facility] [address] [place] [phone] * HIV-1 RNA, Quantitative, Real-Time PCR (04/20/2025 9:43 AM EDT) Pathologist [facility] HIV RNA PCR Qn Copies NOT DETECTED NOT DETECTED copies/mL [facility] HIV RNA PCR Qn Log Copies NOT DETECTED NOT DETECTED [facility] Comment:Result Units: Log co pies/mLThis test was performed using Real-Time Polymerase ChainReaction.Reportable Range: 20 copies/mL to 10,000,000 copies/mL(1.30 log copies/mL to 7.00 log copies/mL).THIS TEST WAS PERFORMED AT:[employer] [place] [id number] RUANO MD Blood Venous blood specimen / Unknown 04/20/2025 9:43 AM EDT 04/20/2025 11:20 AM EDT us Carolina Mayo MD LAB BLOOD ORDERAB LES Final Result Performing Organization Address [facility]/ZIP Co de Phone Number [facility] [address] [place] [phone] * HIV-1/2 Antigen and Antibodies, Fourth Generation, with Reflexes (04/20/2025 9:43 AM EDT) [facility] HIV AB/AG Nonreactive Nonreactive [facility] Comment:HIV-1 p24 Ag and/or HIV-1/HIV-2 Ab not detected.A test result that is nonreactive does not exclude thepossibility of exposure to or infection with HIV-1 and/orHIV-2. Nonreactive results in this assay for individualswith prior exposure to HIV-1 and/or HIV-2 may be due toantigen and antibody levels that are below the limit ofdetection of this assay.The [employer] HIV Ag/Ab Combo assay result andsupplemental assay results should be interpreted inconjunction with the patient's clinical presentation,history and other laboratory results. If the results areinconsistent with clinical evidence, additional testing issuggested to confirm the result. Blood Venous blood specimen / Unknown 04/20/2025 9:43 AM EDT 04/20/2025 11:20 AM EDT us Carolina Mayo MD LAB BLOOD ORDERAB LES Final Result Performing Organization Address City/[facility]/ZIP Co de Phone Number [facility] [address] [place] [phone] * Hepatitis B Surface Antibody, Qualitative (04/20/2025 9:43 AM EDT) [facility] ~Hepatitis B Surface Antibody REACTIVE Nonreactive [facility] Comment:REACTIVE: > 11.99 mI U/mL Blood Venous blood specimen / Unknown 04/20/2025 9:43 AM EDT 04/20/2025 11:20 AM EDT us Carolina Mayo MD LAB BLOOD ORDERAB LES Final Result Performing Organization Address City/[facility]/ZIP Co de Phone Number [facility] [address] [place] [phone] * Hemoglobin A1c (04/20/2025 9:43 AM EDT) Hemoglobin A1c 4.3 <6.0 % [facility] Comment:Hemoglobin A1C Refer ence Range Adults: 4.8 - 6.0 % Non diabetic: < 6.0 % Goal: < 7.0 %Additional Action Suggested: > 8.0 %Note: Hemoglobin A1c results are invalid for patients with abnormal amounts of HbF. Blood transfusions may impact the HbA1c concentration in the patient sample. Estimated Average Glucose 77 mg/dL [facility] Comment:eAG = Estimated ave rage glucose which is %A1C expressed asaverage glucose, using the formula of the O7V-ZtphmlyVdlnzio Glucose study (ADAG), Diabetes Care, Vol.31,#8,Mar. 2007 Blood Venous blood specimen / Unknown 04/20/2025 9:43 AM EDT 04/20/2025 11:20 AM EDT us aCrolina Mayo MD LAB BLOOD ORDERAB LES Final Result Performing Organization Address City/[facility]/ZIP Co de Phone Number [facility] [address] [place] [phone] * (ABNORMAL) Comprehensive Metabolic Panel (04/20/2025 9:43 AM EDT) Sodium 141 135 - 145 mmol/L [facility] Potassium 3.8 3.3 - 5.1 mmol/L [facility] Chloride 106 96 - 108 mmol/L [facility] Carbon Dioxide 30(H) 22 - 29 mmol/L [facility] Anion Gap 9(L) 12 - 20 [facility] Urea Nitrogen (BUN) 9 9 - 16 mg/dL [facility] Creatinine, Serum 0.75 0.5 - 1.4 mg/dL [facility] Estimated Glomerular Filt Rate >60 [facility] Comment:Chronic Kidney Disea se: Estimated GFR < 60 mL/min/[id number] Kidney Disease: Estimated GFR < 15 mL/min/1.73m2 Glucose 81 60 - 115 mg/dL [facility] Calcium 9.5 8.4 - 10.2 mg/dL [facility] Bilirubin, Total 0.8 0.0 - 1.0 mg/dL [facility] Aspartate Amino Transferase 49(H) 5 - 37 U/L [facility] Alanine Aminotransferase 52(H) 0 - 40 U/L [facility] Total Protein 7.7 6.5 - 8.0 g/dL [facility] Albumin Level 4.8 3.5 - 5.0 g/dL [facility] Alkaline Phosphatase 135(H) 39 - 117 U/L [facility] Blood Venous blood specimen / Unknown 04/20/2025 9:43 AM EDT 04/20/2025 11:20 AM EDT us Carolina Mayo MD LAB BLOOD ORDERAB LES Final Result Performing Organization Address City/State/[facility] Co de Phone Number [facility] [address] [place] [phone] * US Scrotum (04/16/2025 4:05 PM EDT) Anatomical Region Laterality Modality Body Ultrasound 04/16/2025 4:05 PM EDT Narrative 04/16/2025 5:10 PM EDT [address] [address] Ultrasound Report Signed Patient: Monster Gutierrez MR#: [id number] : 2000 Acct:[id number] Age/Sex: 25 / M ADM Date: 04/16/25 Loc: HO.US Attending Dr: Carolina Mayo MD Ordering Physician: Carolina Anders MD Date of Service: 04/16/25 Procedure(s): US scrotum Accession Number(s): [id number] cc: Carolina Anders MD Reason for Exam: [...] 04/16/25 1707 DD/ 1605 TD/TT: 04/16/25 1615 Manufacturing Helper: Procedure Note Donotuseinterpreter, Image - 04/16/[address] [address] Ultrasound Report Signed Patient: Monster GutierrezMR#: [id number] : 2000Acct:[id number] Age/Sex: 25 / MADM Date: 04/16/25 Loc: HO.US Attending Dr: Carolina Mayo MD Ordering Physician: Carolina Anders MD Date of Service: 04/16/25 Procedure(s): US scrotum Accession Number(s): [id number] cc: Carolina Anders MD Reason for Exam: [...] 04/16/25 1707 DD/ 1605 TD/TT: 04/16/25 1615 Manufacturing Helper: Carolina Mayo MD IMG US PROCEDURES Final Result from Last [address] [place] [address] [facility] C3 Care Teams Power Mule Operator Relationship Specialty Start Date End Date Carolina Anders MD [address] [place] [phone] PCP - General Internal Medicine 01/09/23
== END 2025-07-14 15:17 | disposition home or self-care (01) ==
LOC: HO.HUSH 14:16
PROVIDERS: PCP Student in an Organized Health Care Education/Training Program; Visit Provider Urology
DX: R10.31 Right lower quadrant pain (principal); R10.32 Left lower quadrant pain
CPT/HCPCS: 99203

== ENCOUNTER → 2025-07-14 14:15 | Outpatient (BNVA) | payer MEDICAID, SELFPAY | PROVIDERS: PCP Student in an Organized Health Care Education/Training Program; Visit Provider Urology | DX: R10.31 Right lower quadrant pain (principal); R10.32 Left lower quadrant pain | CPT/HCPCS: 99202 ==